=== PATIENT | female | born 1950 | race African-American/Black ===

== ENCOUNTER 2016-07-15 13:06 | Emergency (ER) | payer BC ==
[~2016-07-15] VITALS: Ht 157.5 cm; Wt 63.5 kg
[~2016-07-15 13:06] MED LIST: BACL10TA PO; GABA100C4 PO; GLUCTAB PO; LISI-366 PO; METO50TA PO; MOBI15TA PO; NORV5TAB PO; TERA2CAP3 PO
[2016-07-15 13:08] VITALS: BP 218/119; PULSE 93; RESP 17; TEMP 98.2; O2SAT 98
--- NOTE | 2016-07-15 13:54 | PD ---
HPI . left knee pain Chief Complaint: Musculoskeletal Complaint Time Seen by Provider: 13:53 Travel History International Travel<30 days: No Contact w/Intl Traveler<30days: No Traveled to known affect area: No History of Present Illness HPI 65-year-old female with history of hypertension, diabetes and hyperlipidemia here with complaints of left knee pain for 1 day. Patient denies any mechanism of injury, but reports 10/10 knee pain on the left lateral knee without radiation. She is very concerned that she may have a fracture. Although I examine her knee completely and explained to her that I do not believe she has a fracture, patient is very adamant about an x-ray. She is taking ibuprofen and Aleve without any relief. PFSH Past Medical History Arthritis: Yes (OSTEO IN RT HAND) Autoimmune Disease: No Blood Disorders: No Heart Rhythm Problems: No Cancer: No Cardiac Catheterization: No Cardiovascular Problems: No High Cholesterol: No Chemotherapy: No Congestive Heart Failure: No Diabetes: Yes Diminished Hearing: No Gout: Yes Genitourinary: No Headaches: Yes Hepatitis: No Hypertension: Yes Musculoskeletal: No Psychiatric: No Respiratory: No Migraines: Yes Myocardial Infarction: No Radiation Therapy: No PNEUMOCCOCAL Vaccine (Year): 2 Menopausal: Yes Tubal Ligation: Yes Past Surgical History Abdominal Surgery: Yes (UMBILICAL HERNIA REPAIR) AICD: No Coronary Artery Bypass Graft: No Genitourinary Surgery: No Pacemaker: No Other Surgery: Yes Social History Alcohol Use: No Tobacco Use: No Substance Use: No Allergies-Medications (Allergen,Severity, Reaction): Coded Allergies: No Known Allergies (Verified , 07/15/16) Reported Meds & Prescriptions Reported Meds & Active Scripts Active Mobic (Meloxicam) 15 Mg Tab 15 Mg PO DAILY PRN 10 Days Reported Gabapentin 100 Mg Cap 100 Mg PO TID Lioresal (Baclofen) 10 Mg Tab 10 Mg PO TID Terazosin Hcl (Terazosin HCl) 2 Mg Cap 2 Mg PO BID Lisinopril 40 mg (Lisinopril) 40 Mg Tab 40 Mg PO DAILY Metformin Hcl (Metformin HCl) 500 Mg Tab 1,000 Mg PO BID Norvasc (Amlodipine Besylate) 5 Mg Tab 5 Mg PO DAILY Lopressor (Metoprolol Tartrate) 50 Mg Tab 50 Mg PO BID Review of Systems General / Constitutional: No: Fever Eyes: No: Visual changes HENT: No: Headaches Cardiovascular: No: Chest Pain or Discomfort Respiratory: No: Shortness of Breath Gastrointestinal: No: Abdominal Pain Genitourinary: No: Dysuria Musculoskeletal: Positive: Pain (left knee pain) Skin: No Rash Neurologic: No: Weakness Psychiatric: No: Depression Endocrine: No: Polydipsia Hematologic/Lymphatic: No: Easy Bruising Physical Exam Narrative GENERAL: AAO x 3, no acute distress, Well-nourished, well-developed patient. SKIN: Warm and dry. No visible rashes or bruising. HEAD: Normocephalic and atraumatic. EYES: No scleral icterus. No injection or drainage. ENT: No nasal drainage noted. Mucous membranes pink. Airway patent. NECK: Supple, trachea midline. No JVD. CARDIOVASCULAR: Regular rate and rhythm without murmurs, gallops, or rubs. RESPIRATORY: Breath sounds equal bilaterally. No accessory muscle use. No rhonchi or rales. GASTROINTESTINAL: Abdomen soft, non-tender, nondistended. EXTREMITIES: No cyanosis or edema. Range of motion in the knee normal, but elicits pain. No palpable effusion. No temperature variation. No evidence of popliteal cyst. BACK: Nontender without obvious deformity. No CVA tenderness. PSYCH: AAO x 3, normal affect. Data Data Last Documented VS Vital Signs Date Time Temp Pulse Resp B/P Pulse Ox O2 Delivery O2 Flow Rate FiO2 07/15/16 13:08 98.2 93 17 218/119 98 Orders Ketorolac Inj (Toradol Inj) (07/15/16 14:00) Knee, Complete (4vws) (07/15/16 13:57) [facility] Medical Decision Making Medical Screen Exam Complete: Yes Emergency Medical Condition: Yes Medical Record Reviewed: Yes Differential Diagnosis acute knee pain, OA, RA, joint effusion, popliteal cyst, less likely DVT Narrative Course 65-year-old female with history of hypertension, diabetes and hyperlipidemia here with complaints of left knee pain for 1 day. Patient denies any mechanism of injury, but reports 10/10 knee pain on the left lateral knee without radiation. She is very concerned that she may have a fracture. Although I examine her knee completely and explained to her that I do not believe she has a fracture, patient is very adamant about an x-ray. She is taking ibuprofen and Aleve without any relief. Patient here with acute knee pain. She was seen examined and does not have a significant findings on examination except for the elicitation of pain on the left lateral knee with movement. I do not see any evidence of a popliteal cyst nor do I see any evidence of DVT. 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 X-ray done without any acute findings of fracture or dislocation. It does show degenerative changes. I discussed with the patient and advised [id number] Motrin or Tylenol arthritis as needed for pain. Her blood pressures elevated and she tells me that she did not take her medications this morning. I advised her to take her medications as prescribed. BP was rechecked prior to her leaving and was slightly improved. She had no symptoms. Recommend taking medications daily as prescribed I advised follow-up with primary care provider if she may be a candidate for joint injections with cortisone injections. Patient verbalized understanding of instructions, questions were answered, and thanked me for their care. I advised them if their condition worsens, please return to the nearest emergency room for further care. Diagnosis Primary Impression: Knee pain, left Qualified Code: M25.562 - Acute pain of left knee Patient Instructions: General Instructions, Knee Pain (ED) Additional Instructions: Please return to emergency department if your symptoms return or worsen. Follow up with your primary care provider. Use Tylenol or Motrin as needed for pain. Med/Other Pt SpecificInfo: No Meds Exist/No RX given Disposition: 01 DISCHARGE HOME Condition: Stable Sammie Leach Jul 15, 2016 13:54
[2016-07-15] MEDS ORDERED: KETOROLAC TROMETHAMINE 60 MG/2 ML (IM) VIAL IM ONE (14:00)
--- NOTE | 2016-07-15 14:51 | RADRPT ---
EXAM DATE/TIME: 07/15/2016 14:37 [facility] COMPARISON: No previous studies available for comparison. INDICATIONS : Patient complains of left knee pain on lateral aspect of knee. No known injury. MEDICAL HISTORY : None. SURGICAL HISTORY : None. ENCOUNTER: Subsequent ACUITY: 3 days PAIN SCORE: 6/10 LOCATION: Left knee FINDINGS: There are degenerative changes evident with osteophytes projected in the patellofemoral compartment. There is no evidence of joint effusion. Alignment is anatomic. A fracture is not appreciated. CONCLUSION: Degenerative change without fracture. Taran Hensley MD FACR on July 15, 2016 at 14:49 Board Certified Radiologist. This report was verified electronically.
== END 2016-07-15 15:16 | disposition home or self-care (01) ==
LOC: NETRI 13:06
DX: M25.562 Pain in left knee (principal); I10 Essential (primary) hypertension; E11.9 Type 2 diabetes mellitus without complications; E78.5 Hyperlipidemia, unspecified; Z79.84 Long term (current) use of oral hypoglycemic drugs; Z86.69 Personal history of other diseases of the nervous system and sense organs; Z87.39 Personal history of other diseases of the musculoskeletal system and connective tissue
CPT/HCPCS: 73564; 96372; 99283; J1885

== ENCOUNTER 2016-07-22 10:59 | Emergency (ER) | payer BC ==
[2016-07-22] VITALS (7 sets, daily range): BP systolic 190–257; BP diastolic 82–121; PULSE 60–84; RESP 16–20; TEMP 97.6; O2SAT 97–100
[~2016-07-22] VITALS: Ht 157.5 cm; Wt 63.5 kg
[2016-07-22] MEDS ORDERED: SODIUM CHLORIDE 0.9% FLUSH 10 ML FLUSH IVF PRN (11:30)
[2016-07-22] MEDS ORDERED: ONDANSETRON HCL 4 MG/2 ML VIAL IVP ONE (11:30)
--- NOTE | 2016-07-22 11:35 | PD ---
HPI Chief Complaint: GI Complaint Time Seen by Provider: 11:32 Travel History International Travel<30 days: No Contact w/Intl Traveler<30days: No Traveled to known affect area: No History of Present Illness HPI Patient comes in for evaluation of dizziness and vomiting intermittently that she awoke with 4 days ago. Patient states on Sunday she awoke around 4 AM felt dizzy and vomited. States she was fine on , but began the dizziness leading to vomiting again last night and this morning. Patient states she feels dizzy first and then vomits. Denies any chest pain, shortness of breath, loss or change in bowel or bladder, blood in vomit, headache, numbness or tingling anywhere, neck pain, or back pain. Patient reports soreness in her epigastric area that she associates with the vomiting. Patient states that she did take her medications this morning however she vomited them up shortly after taking them and has not been keeping medication down over the past 2 days.. PFSH Past Medical History Hx Anticoagulant Therapy: No Arthritis: Yes (OSTEO IN RT HAND) Autoimmune Disease: No Blood Disorders: No Heart Rhythm Problems: No Cancer: No Cardiac Catheterization: No Cardiovascular Problems: No High Cholesterol: No Chemotherapy: No Congestive Heart Failure: No Cerebrovascular Accident: No Diabetes: Yes Diminished Hearing: No Gout: Yes Genitourinary: No Headaches: Yes Hepatitis: No Hypertension: Yes Musculoskeletal: No Psychiatric: No Respiratory: No Migraines: Yes Myocardial Infarction: No Radiation Therapy: No PNEUMOCCOCAL Vaccine (Year): 2 ?: Unknown Menopausal: Yes Tubal Ligation: Yes Past Surgical History Abdominal Surgery: Yes (UMBILICAL HERNIA REPAIR) AICD: No Coronary Artery Bypass Graft: No Genitourinary Surgery: No Hysterectomy: No Pacemaker: No Other Surgery: Yes Social History Alcohol Use: No Tobacco Use: No Substance Use: No Allergies-Medications (Allergen,Severity, Reaction): Coded Allergies: No Known Allergies (Verified , 07/22/16) Reported Meds & Prescriptions Reported Meds & Active Scripts Active Zofran Odt (Ondansetron Odt) 4 Mg Tab 4 Mg SL Q8HR PRN Meclizine (Meclizine HCl) 25 Mg Tab 25 Mg PO TID PRN Reported Norvasc (Amlodipine Besylate) 5 Mg Tab 5 Mg PO DAILY Metoprolol Tartrate 50 Mg Tab 50 Mg PO BID Metformin (Metformin HCl) 1,000 Mg Tab 1,000 Mg PO BIDPC With meals Lisinopril 40 Mg Tab 40 Mg PO DAILY Review of Systems Except as stated in HPI: all other systems reviewed are Neg Physical Exam Narrative GENERAL: Well-developed, overly nourished, in no acute distress, and non-ill appearing. SKIN: Focused skin assessment warm and dry. HEAD: Atraumatic. Normocephalic. EYES: Pupils equal and round. EOMI. No scleral icterus. No injection or drainage. ENT: No nasal bleeding or discharge. Mucous membranes pink and moist. NECK: Trachea midline. No JVD. Supple. No nuclear rigidity. CARDIOVASCULAR: Regular rate and rhythm. No murmur appreciated. RESPIRATORY: No accessory muscle use. No respiratory distress. Clear to auscultation. Breath sounds equal bilaterally. GASTROINTESTINAL: Abdomen soft, non-tender, nondistended. Hepatic and splenic margins not palpable. Normal bowel sounds 4. No pulsatile mass. MUSCULOSKELETAL: No obvious deformities. No clubbing. No cyanosis. No edema. Full range of motion. NEUROLOGICAL: Awake and alert. No obvious cranial nerve deficits. Motor grossly within normal limits. Normal speech. PSYCHIATRIC: Appropriate mood and affect; insight and judgment normal. Data Data Last Documented VS Vital Signs Date Time Temp Pulse Resp B/P Pulse Ox O2 Delivery O2 Flow Rate FiO2 07/22/16 15:29 65 16 190/82 98 07/22/16 14:39 Room Air 07/22/16 11:01 97.6 Orders Electrocardiogram (07/22/16 11:26) Complete Blood Count With Diff (07/22/16 11:26) Comprehensive Metabolic Panel (07/22/16 11:26) Ckmb (Isoenzyme) Profile (07/22/16 11:26) Troponin I (07/22/16 11:26) Act Partial Throm Time (Ptt) (07/22/16 11:26) Urinalysis - C+S If Indicated (07/22/16 11:26) Chest, Single Ap (07/22/16 11:26) Ecg Monitoring (07/22/16 11:26) Iv Access Insert/Monitor (07/22/16 11:26) Oximetry (07/22/16 11:26) Ondansetron Inj (Zofran Inj) (07/22/16 11:30) Sodium Chloride 0.9% Flush (Ns Flush) (07/22/16 11:30) Lipase (07/22/16 11:26) Ct Brain W/O Iv Contrast(Rout) (07/22/16 11:30) Orthostatic Vital Signs (07/22/16 11:31) Enalaprilat Inj (Vasotec Inj) (07/22/16 12:00) Meclizine (Antivert) (07/22/16 12:15) Mri Brain W&W/O Contrast (07/22/16 ) Mra Brain W/O Contrast (Cow) (07/22/16 ) Prothrombin Time / Inr (Pt) (07/22/16 13:25) CKMB (07/22/16 11:56) CKMB% (07/22/16 11:56) Gadodiamide Pf Inj (Omniscan Pf Inj) (07/22/16 14:13) Potassium Chloride (Kcl) (07/22/16 15:00) Labs Laboratory Tests Test 07/22/16 11:56 White Blood Count 8.8 TH/MM3 Red Blood Count 4.42 MIL/MM3 Hemoglobin 13.3 GM/DL Hematocrit 37.4 % Mean Corpuscular Volume 84.7 FL Mean Corpuscular Hemoglobin 30.1 PG Mean Corpuscular Hemoglobin 35.5 % Concent Red Cell Distribution Width 12.7 % Platelet Count 229 TH/MM3 Mean Platelet Volume 8.7 FL Neutrophils (%) (Auto) 63.5 % Lymphocytes (%) (Auto) 29.3 % Monocytes (%) (Auto) 5.8 % Eosinophils (%) (Auto) 0.6 % Basophils (%) (Auto) 0.8 % Neutrophils # (Auto) 5.6 TH/MM3 Lymphocytes # (Auto) 2.6 TH/MM3 Monocytes # (Auto) 0.5 TH/MM3 Eosinophils # (Auto) 0.0 TH/MM3 Basophils # (Auto) 0.1 TH/MM3 CBC Comment DIFF FINAL Differential Comment Prothrombin Time 10.5 SEC Prothromb Time International 1.0 RATIO Ratio Activated Partial 19.1 SEC Thromboplast Time Urine Color LIGHT-YELLOW Urine Turbidity CLEAR Urine pH 7.0 Urine Specific [place] 1.013 Urine Protein 300 mg/dL Urine Glucose (UA) 1000 mg/dL Urine Ketones NEG mg/dL Urine Occult Blood TRACE Urine Nitrite NEG Urine Bilirubin NEG Urine Urobilinogen LESS THAN 2.0 MG/DL Urine Leukocyte Esterase NEG Urine RBC LESS THAN 1 /hpf Urine WBC 1 /hpf Urine Squamous Epithelial 1 /hpf Cells Urine Transitional Epithelial <1 /hpf Cells Microscopic Urinalysis Comment CULT NOT INDICATED Sodium Level 138 MEQ/L Potassium Level 3.2 MEQ/L Chloride Level 101 MEQ/L Carbon Dioxide Level 28.6 MEQ/L Anion Gap 8 MEQ/L Blood Urea Nitrogen 12 MG/DL Creatinine 0.99 MG/DL Estimat Glomerular Filtration 68 ML/MIN Rate Random Glucose 289 MG/DL Calcium Level 8.4 MG/DL Total Bilirubin 0.3 MG/DL Aspartate Amino Transf 20 U/L (AST/SGOT) Alanine Aminotransferase 22 U/L (ALT/SGPT) Alkaline Phosphatase 70 U/L Total Creatine Kinase 120 U/L Creatine Kinase MB 0.9 NG/ML Troponin I 0.02 NG/ML Total Protein 7.5 GM/DL Albumin 2.9 GM/DL Lipase 263 U/L [facility] Medical Decision Making Medical Screen Exam Complete: Yes Emergency Medical Condition: Yes Interpretation(s) EKG reviewed by Dr. Morris showed a normal sinus rhythm with ventricular rate of 61. No STEMI. Differential Diagnosis Benign positional vertigo, arrhythmia, electrolyte abnormality, hypertension urgency, symptomatic hypertension, UTI, other Narrative Course 1250 patient is reassessed discussed CT findings and need for MRI studies. Patient reports her symptoms have improved. The patient presented with symptoms of vertigo. The cerebellar neurologic exam is completely normal with a normal gait, normal finger to nose bilaterally, no dysdiadokinesia, and normal heel-pinedo exam bilaterally. Due to abnormal CT findings an MRI/MRA of the brain was obtained to rule out CVA. I discuss this with Dr. Saini, who is in agreement with plan of care and disposition. Patient in no obvious distress upon re-evaluation. All pertinent laboratory/ Radiology result(s) discussed with patient. Patient was asked if they wanted to speak to my attending, which the patient did not wish to do at this time. Any questions/concerns in reference to patient diagnosis/condition discussed and clarified prior to patient's discharge. Reinforced sheer importance of close follow up with patient's primary physician or primary care clinic, ENT, and/or neurologist. Instructed patient to return to ED immediately, if symptoms return/ worsen. Pt showed understanding of above instructions. Further instructions and recommendations were detailed in discharge paperwork. Pt ambulated without difficulty out of ED at discharge. Diagnosis Primary Impression: Vertigo Additional Impressions: Hypokalemia Hypertension Qualified Code: I10 - Essential hypertension Referrals: Estefanía Muonz MD, Anthony T. MD Patient Instructions: Chronic Hypertension (ED), General Instructions, Hypokalemia (ED), Vertigo (ED) Additional Instructions: Follow-up with your primary care physician, ENT, and/or neurologist to 3 days for reevaluation of your symptoms and recheck of your blood pressure. Take all medication as prescribed. Return to the emergency department if symptoms get worse. Med/Other Pt SpecificInfo: Prescription(s) given Scripts Ondansetron Odt (Zofran Odt)4 Mg Tab4 Mg SL Q8HR PRN (Nausea/Vomiting) #12 TAB Ref 0 Prov:Reyes Saini MD 07/22/16 Meclizine 25 Mg Tab25 Mg PO TID PRN (VERTIGO) #15 TAB Ref 0 Prov:Reyes Saini MD 07/22/16 Disposition: 01 DISCHARGE HOME Condition: Stable Juan Hammer Jul 22, 2016 11:34
[2016-07-22] MEDS ORDERED: ENALAPRILAT 1.25 MG/ML VIAL IV PUSH ONE (12:00)
[2016-07-22 12:12] LABS: AUTOMATED NEUTROPHIL # 5.6 TH/MM3 (1.8-7.7); BASOPHIL # 0.1 TH/MM3 (0-0.2); BASOPHIL % 0.8 % (0.0-2.0); EOSINOPHIL % 0.6 % (0.0-4.0); HEMATOCRIT 37.4 % (35.0-46.0); HEMO FLAGS DIFF FINAL; LYMPH % 29.3 % (9.0-44.0); LYMPHOCYTE # 2.6 TH/MM3 (1.0-4.8); MEAN CELL VOLUME 84.7 FL (80.0-100.0); MEAN CORPUSCULAR HEMOGLOBIN 30.1 PG (27.0-34.0); MEAN CORPUSCULAR HGB CONC 35.5 % (32.0-36.0); MONO % 5.8 % (0.0-8.0); NEUT % 63.5 % (16.0-70.0); PLATELET COUNT 229 TH/MM3 (150-450); RED BLOOD COUNT 4.42 MIL/MM3 (4.00-5.30); RED CELL DISTRIBUTION WIDTH 12.7 % (11.6-17.2); WHITE BLOOD COUNT 8.8 TH/MM3 (4.0-11.0)
[2016-07-22] MEDS ORDERED: MECLIZINE HCL 25 MG TAB PO ONE (12:15)
[2016-07-22] MEDS ORDERED: METO50TA PO (12:17)
[2016-07-22] MEDS ORDERED: METF1000 PO (12:17)
[2016-07-22] MEDS ORDERED: AMLO5 PO (12:17)
[2016-07-22] MEDS ORDERED: LISI40TA PO (12:17)
[2016-07-22 12:22] LABS: BLOOD, URINE TRACE (NEG); GLUCOSE,URINE 1000 mg/dL (NEG); KETONE, URINE NEG (NEG); NITRITE,URINE NEG (NEG); SQUAMOUS EPITHELIAL CELL URINE 1 /hpf (0-5); TRANSITIONAL EPI CELLS, URINE <1 /hpf; URINE COLOR LIGHT-YELLOW (YELLW/STRAW)
--- NOTE | 2016-07-22 12:23 | RADRPT ---
EXAM DATE/TIME: 07/22/2016 12:05 [facility] COMPARISON: No previous studies available for comparison. INDICATIONS : Dizziness. RADIATION DOSE: 40.67 CTDIvol (mGy) MEDICAL HISTORY : Hypertension. SURGICAL HISTORY : None. ENCOUNTER: Initial ACUITY: 1 day PAIN SCALE: 0/10 LOCATION: cranial TECHNIQUE: Multiple contiguous axial images were obtained of the head. Using automated exposure control and adj ustment of the mA and/or kV according to patient size, radiation dose was kept as low as reasonably a chievable to obtain optimal diagnostic quality images. FINDINGS: CEREBRUM: The ventricles are normal for age. No evidence of midline shift, mass lesion, hemorrhage or acute in farction. No extra-axial fluid collections are seen. There is low density identified within the rainer ventricular white matter bilaterally, greater than expected given the patient's age. POSTERIOR FOSSA: The cerebellum and brainstem are intact. The 4th ventricle is midline. The cerebellopontine angle i s unremarkable. EXTRACRANIAL: The visualized portion of the orbits is intact. SKULL: The calvaria is intact. No evidence of skull fracture. CONCLUSION: Bilateral symmetric low attenuation identified within the periventricular white matte r which is greater than expected for the patient's age. Although this likely represents sequelae of c hronic small vessel ischemic change consider further evaluation with MRI. Aneta Sanders MD on July 22, 2016 at 12:20 Board Certified Radiologist. This report was verified electronically.
[2016-07-22 12:24] LABS: COMMENT (UR) CULT NOT INDICATED; CULTURE IF INDICATED CULT NOT INDICATED
--- NOTE | 2016-07-22 12:42 | RADRPT ---
EXAM DATE/TIME: 07/22/2016 12:16 [facility] COMPARISON: CHEST SINGLE AP, September 20, 2012, 19:31. INDICATIONS : Vomiting for the past four days. MEDICAL HISTORY : Diabetes mellitus type II. Hypertension SURGICAL HISTORY : None. ENCOUNTER: Initial ACUITY: 4 - 6 days PAIN SCORE: 4/10 LOCATION: Bilateral chest FINDINGS: A single view of the chest demonstrates the lungs to be symmetrically aerated without evidence of mas s, infiltrate or effusion. Stable mild enlargement of the cardiac silhouette. Osseous structures are intact. CONCLUSION: No acute disease. Aneta Sanders MD on July 22, 2016 at 12:40 Board Certified Radiologist. This report was verified electronically.
[2016-07-22 13:24] LABS: APTT (PATIENT) 19.1 SEC (24.3-30.1)
[2016-07-22 13:28] LABS: ALT (GPT) 22 U/L (10-53); ANION GAP 8 MEQ/L (5-15); AST (GOT) 20 U/L (15-37); BICARBONATE 28.6 MEQ/L (21.0-32.0); BLOOD UREA NITROGEN 12 MG/DL (7-18); CHLORIDE 101 MEQ/L (98-107); GLOMERULAR FILTRATION RATE 68 ML/MIN (>89); POTASSIUM 3.2 MEQ/L (3.5-5.1); SODIUM (NA) 138 MEQ/L (136-145)
[2016-07-22 13:33] LABS: ALKALINE PHOSPHATASE 70 U/L (45-117); CREATINE KINASE 120 U/L (26-192); TOTAL BILIRUBIN ADULT 0.3 MG/DL (0.2-1.0)
[2016-07-22 13:45] LABS: CKMB 0.9 NG/ML (0.5-3.6)
[2016-07-22 13:48] LABS: PROTHROMBIN TIME - PATIENT 10.5 SEC (9.8-11.6)
[2016-07-22] MEDS ORDERED: GADODIAMIDE PF 287 MG/ML 5 ML VIAL (for RAD MRI) IV ONE (14:13)
--- NOTE | 2016-07-22 14:44 | RADRPT ---
EXAM DATE/TIME: 07/22/2016 13:53 [facility] COMPARISON: No previous studies available for comparison. INDICATIONS : Dizziness. MEDICAL HISTORY : Diabetes mellitus type 2. Hypertension. SURGICAL HISTORY : Inguinal hernia repair. Tubal ligation. ENCOUNTER: Initial ACUITY: 1 day PAIN SCORE: 0/10 LOCATION: cranial Please note a normal MRA of the brain does not entirely exclude the possibility of a small aneurysm, nor the possibility of distal intracranial vessel disease. TECHNIQUE: 3D time of flight MRA was performed. Source images, multiplanar STS MIP, and 3D volume MIP reconstru ctions were reviewed. FINDINGS: There is excellent visualization of the major intracranial arteries out to the second-order branch ve ssels. There is no evidence for aneurysm, vessel truncation or stenosis, and no evidence for vascula r malformation. The right vertebral artery is extremely small in caliber. A left posterior communicat ing artery is not visualized. CONCLUSION: No evidence of stenosis or aneurysm. The right vertebral artery is small in caliber but patent. A lef t posterior communicating artery is not visualized. The remainder of the vie[place] of [place] is normal.. Aneta Sanders MD on July 22, 2016 at 14:41 Board Certified Radiologist. This report was verified electronically.
--- NOTE | 2016-07-22 14:57 | RADRPT ---
EXAM DATE/TIME: 07/22/2016 13:53 [facility] COMPARISON: No previous studies available for comparison. INDICATIONS : Dizziness. CONTRAST: 13 cc Omniscan (gadodiamide) IV MEDICAL HISTORY : Hypertension. Diabetes mellitus type 2. SURGICAL HISTORY : Tubal ligation. Inguinal hernia repair. ENCOUNTER: Initial ACUITY: 1 day PAIN SCORE: 0/10 LOCATION: cranial TECHNIQUE: Multiplanar, multisequence MRI of the brain was performed both prior to and following the administrat ion of paramagnetic contrast. FINDINGS: CEREBRUM: The ventricles are normal for age. No evidence of midline shift, mass lesion, hemorrhage or acute in farction. No extraaxial fluid collections are seen. The pituitary gland and suprasellar cistern are normal in configuration. WHITE MATTER: Bilateral periventricular fluid areas of white matter increased T2 signal which demonstrate no eviden ce of restricted diffusion or abnormal enhancement. Likely representing sequelae of chronic small ves jameel ischemic change. POSTERIOR FOSSA: The cerebellum and brainstem are intact. The 4th ventricle is midline. The cerebellopontine angle is unremarkable. The cerebellar tonsils are normal in position. DIFFUSION IMAGING: No focal areas of restricted diffusion are seen. No evidence of acute infarction. EXTRACRANIAL: The visualized portions of the orbits and paranasal sinuses are unremarkable. POST-CONTRAST: No abnormal areas of parenchymal or dural enhancement. No evidence of blood-brain barrier breakdown. CONCLUSION: No acute disease. Aneta Sanders MD on July 22, 2016 at 14:53 Board Certified Radiologist. This report was verified electronically.
[2016-07-22] MEDS ORDERED: POTASSIUM CHLORIDE 20 MEQ CONTROLLED RELEASE TAB PO ONE (15:00)
[2016-07-22] MEDS ORDERED: MECL-62 PO (15:13)
[2016-07-22] MEDS ORDERED: ZOFR4TAB3 SL (15:17)
--- NOTE | 2016-07-23 10:36 | EKG ---
Date Performed: 07/22/2016 Time Performed: 11:55:00 PTAGE: 65 years EKG: Sinus rhythm POSSIBLE LEFT ATRIAL ENLARGEMENT BORDERLINE LEFT AXIS DEVIATION POSSIBLE LEFT VENTRICULAR HYPERTROPH Y MODERATE T-WAVE ABNORMALITY, CONSIDER LATERAL ISCHEMIA ABNORMAL ECG Compared to prior tracing no si gnificant change PREVIOUS TRACING : 09/21/2012 05.22 DOCTOR: Marge Mata Interpretating Date/Time 07/23/2016 10:29:35
== END 2016-07-22 15:30 | disposition home or self-care (01) ==
LOC: NEPE 10:59
DX: R42 Dizziness and giddiness (principal); I10 Essential (primary) hypertension; E87.6 Hypokalemia; R94.31 Abnormal electrocardiogram [ECG] [EKG]; R11.10 Vomiting, unspecified; E11.9 Type 2 diabetes mellitus without complications; M10.9 Gout, unspecified
CPT/HCPCS: 70450; 70544; 70553; 71010; 80053; 81001; 82550; 82552; 83690; 84484; 85025; 85610; 85730; 93005; 96374; 96375; 99284; A9579; J2405

== ENCOUNTER 2017-01-29 14:37 | Emergency (ER) | payer OTHER, MEDICAID ==
[~2017-01-29] VITALS: Ht 157.5 cm; Wt 68.0 kg
[~2017-01-29 14:37] MED LIST changes: +AMLO5 PO; -BACL10TA PO; -GABA100C4 PO; -GLUCTAB PO; -LISI-366 PO; +LISI40TA PO; +MECL-62 PO; +METF1000 PO; -MOBI15TA PO; -NORV5TAB PO; -TERA2CAP3 PO; +ZOFR4TAB3 SL
[2017-01-29 14:39] VITALS: BP 181/95; PULSE 72; RESP 16; TEMP 98.2; O2SAT 98
[2017-01-29] MEDS ORDERED: ONDANSETRON ODT 4 MG TAB PO ONE (18:45)
[2017-01-29] MEDS ORDERED: MECLIZINE HCL 25 MG TAB PO ONE (18:45)
--- NOTE | 2017-01-29 19:08 | PD ---
HPI Chief Complaint: Dizziness Time Seen by Provider: 18:20 Travel History International Travel<30 days: No Contact w/Intl Traveler<30days: No Traveled to known affect area: No History of Present Illness HPI 66-year-old female with history of vertigo presents to the emergency room for evaluation of the same. Patient states about 4 days ago she developed dizziness , like the world was spinning around her. She denies any lightheadedness, chest pain, shortness breath, numbness or tingling, or any other symptoms. States her symptoms feel the same as last time. They occur randomly and not different intensities. She has associated nausea and occasional vomiting. Patient states she took leftover meclizine from the last time she experienced this and it relieved her symptoms temporarily. PFSH Past Medical History Hx Anticoagulant Therapy: No Arthritis: Yes (OSTEO IN RT HAND) Autoimmune Disease: No Blood Disorders: No Heart Rhythm Problems: No Cancer: No Cardiac Catheterization: No Cardiovascular Problems: No High Cholesterol: No Chemotherapy: No Congestive Heart Failure: No Cerebrovascular Accident: No Diabetes: Yes Patient Takes Glucophage: Yes Diminished Hearing: No Gout: Yes Genitourinary: No Headaches: Yes Hepatitis: No Hypertension: Yes Musculoskeletal: No Psychiatric: No Respiratory: No Migraines: Yes Myocardial Infarction: No Radiation Therapy: No PNEUMOCCOCAL Vaccine (Year): 2 ?: Not Menopausal: Yes Tubal Ligation: Yes Past Surgical History Abdominal Surgery: Yes (UMBILICAL HERNIA REPAIR) AICD: No Coronary Artery Bypass Graft: No Genitourinary Surgery: No Hysterectomy: No Pacemaker: No Other Surgery: Yes Social History Alcohol Use: Yes (occ) Tobacco Use: No Substance Use: No Allergies-Medications (Allergen,Severity, Reaction): Coded Allergies: No Known Allergies (Verified , 07/22/16) Reported Meds & Prescriptions Reported Meds & Active Scripts Active Reported Norvasc (Amlodipine Besylate) 5 Mg Tab 5 Mg PO DAILY Metoprolol Tartrate 50 Mg Tab 50 Mg PO BID Metformin (Metformin HCl) 1,000 Mg Tab 1,000 Mg PO BIDPC With meals Review of Systems Except as stated in HPI: all other systems reviewed are Neg Physical Exam Narrative GENERAL: Well-nourished, well-developed female in no acute distress. Afebrile. Ambulatory. Resting comfortably in bed. SKIN: Focused skin assessment warm/dry. HEAD: Normocephalic. EYES: No scleral icterus. No injection or drainage. NECK: Supple, trachea midline. No JVD or lymphadenopathy. CARDIOVASCULAR: Regular rate and rhythm without murmurs, gallops, or rubs. RESPIRATORY: Breath sounds equal bilaterally. No accessory muscle use. NEUROLOGICAL: Awake and alert. Cranial nerves II through XII intact. Motor and sensory grossly within normal limits. Five out of 5 muscle strength in all muscle groups. Normal speech. No pronator drift in upper or lower extremities. Data Data Last Documented VS Vital Signs Date Time Temp Pulse Resp B/P (MAP) Pulse Ox O2 Delivery O2 Flow Rate FiO2 01/29/17 14:39 98.2 72 16 181/95 (123) 98 Room Air Orders Orders Meclizine (Antivert) (01/29/17 18:45) Ondansetron Odt (Zofran Odt) (01/29/17 18:45) [facility] Medical Decision Making Medical Screen Exam Complete: Yes Emergency Medical Condition: Yes Medical Record Reviewed: Yes Differential Diagnosis Vertigo, brain mass, ear infection Narrative Course 66-year-old female presents to the emergency room for evaluation of dizziness. Described as room spinning around her not lightheadedness. She denies any other symptoms. She was diagnosed with vertigo 6 months ago after having negative CT, MRI, and MRA. She has not followed up with her primary care physician. Patient is well-appearing in the emergency room. No focal neurological deficits. Resting comfortably in bed and talking on the phone. This is typical vertigo. No indication for reimaging at this time. She requested a work note for tomorrow. Patient was given meclizine and Zofran the emergency room and will be discharged with perceptions for the same. She was also given a handout of modified Karla maneuver. Told to follow up with her primary care physician or return for worsening symptoms. She understands and agrees to plan. Diagnosis Primary Impression: Vertigo Referrals: Primary Care Physician Additional Instructions: Rest and drink plenty of fluids. Meclizine as directed, as needed for dizziness. Follow-up with a primary care physician. Return to the emergency room for worsening symptoms. Disposition: 01 DISCHARGE HOME Condition: Stable Tegan Givens Jan 29, 2017 19:08
[2017-01-29] MEDS ORDERED: MECL-62 PO (19:09)
== END 2017-01-29 19:46 | disposition home or self-care (01) ==
LOC: NEPD 14:37
DX: R42 Dizziness and giddiness (principal); R11.2 Nausea with vomiting, unspecified; E11.9 Type 2 diabetes mellitus without complications; I10 Essential (primary) hypertension
CPT/HCPCS: 99283

== ENCOUNTER 2017-05-17 08:32 | Inpatient (IN) | payer OTHER, MEDICAID, MEDICARE ==
[~2017-05-17] VITALS: Ht 157.5 cm; Wt 65.0 kg
[~2017-05-17 08:32] MED LIST changes: -LISI40TA PO; -ZOFR4TAB3 SL
[2017-05-17] MEDS ORDERED: IOHEXOL 350 MG/ML 50 ML BTL (for Cath Lab) OTHER ONE (08:33)
[2017-05-17 08:35] VITALS: BP 194/103; PULSE 110; RESP 14; TEMP 97.3; O2SAT 98
[2017-05-17] MEDS ORDERED: NITROGLYCERIN 0.4 MG SL 25 TABS/BTL SL ONE (09:00)
[2017-05-17] MEDS ORDERED: ASPIRIN 81 MG CHEW TAB PO ONE (09:00)
[2017-05-17] MEDS ORDERED: SODIUM CHLORIDE 0.9% FLUSH 10 ML FLUSH IVF PRN (09:00)
[2017-05-17 09:05] VITALS: BP 161/102; PULSE 101; RESP 15; TEMP 99; O2SAT 97; O2SAT 98
[2017-05-17] MEDS ORDERED: NITROGLYCERIN-D5W 50 MG/250 ML 250 ML IV PRN (09:15)
[2017-05-17] MEDS ORDERED: NITROGLYCERIN-D5W 50 MG/250 ML 250 ML ONE (09:17)
[2017-05-17 09:27] LABS: AUTOMATED NEUTROPHIL # 9.6 TH/MM3 (1.8-7.7); BASOPHIL # 0.1 TH/MM3 (0-0.2); BASOPHIL % 0.7 % (0.0-2.0); EOSINOPHIL # 0.1 TH/MM3 (0-0.4); EOSINOPHIL % 0.6 % (0.0-4.0); HEMATOCRIT 32.3 % (35.0-46.0); HEMOGLOBIN 11.2 GM/DL (11.6-15.3); LYMPH % 21.6 % (9.0-44.0); MEAN CELL VOLUME 86.8 FL (80.0-100.0); MEAN CORPUSCULAR HGB CONC 34.5 % (32.0-36.0); MEAN PLATELET VOLUME 9.2 FL (7.0-11.0); MONO % 8.7 % (0.0-8.0); MONOCYTE # 1.2 TH/MM3 (0-0.9); NEUT % 68.4 % (16.0-70.0); PLATELET COUNT 308 TH/MM3 (150-450); RED BLOOD COUNT 3.72 MIL/MM3 (4.00-5.30); RED CELL DISTRIBUTION WIDTH 12.7 % (11.6-17.2)
[2017-05-17 09:35] LABS: PROTHROMBIN TIME - PATIENT 10.1 SEC (9.8-11.6)
[2017-05-17] MEDS ORDERED: HEPARIN-NS/PF INJ 1,000 ML ONE (09:37)
[2017-05-17] MEDS ORDERED: HEPARIN SODIUM - IV 10,000 UNITS/10 ML VIAL ONE (09:38)
[2017-05-17] MEDS ORDERED: NITROGLYCERIN INJ 5 ML ONE (09:38)
[2017-05-17] MEDS: NITROGLYCERIN/DEXTROSE 5% 250 ML for chest pain IV PRN ×2 (09:40→16:32)
[2017-05-17 09:42] LABS: ALBUMIN 3.4 GM/DL (3.4-5.0); ALT (GPT) 26 U/L (10-53); AST (GOT) 105 U/L (15-37); BICARBONATE 20.3 MEQ/L (21.0-32.0); BLOOD UREA NITROGEN 16 MG/DL (7-18); CALCIUM 9.6 MG/DL (8.5-10.1); CHLORIDE 97 MEQ/L (98-107); CREATININE 1.35 MG/DL (0.50-1.00); GLOMERULAR FILTRATION RATE 48 ML/MIN (>89); GLUCOSE,RANDOM 344 MG/DL (74-106); MAGNESIUM 1.7 MG/DL (1.5-2.5); SODIUM (NA) 128 MEQ/L (136-145)
--- NOTE | 2017-05-17 09:46 | RADRPT ---
EXAM DATE/TIME: 05/17/2017 09:14 [place] COMPARISON: CHEST SINGLE AP, July 22, 2016, 12:16. INDICATIONS : Chest pain. MEDICAL HISTORY : Hypertension. Diabetes mellitus type II. SURGICAL HISTORY : Tubal ligation. inguinal hernia repair ENCOUNTER: Initial ACUITY: 1 day PAIN SCORE: 8/10 LOCATION: Bilateral chest FINDINGS: A single view of the chest demonstrates the lungs to be symmetrically aerated without evidence of mas s, infiltrate or effusion. The cardiomediastinal contours are unremarkable. Osseous structures are intact. CONCLUSION: Normal examination. Bhavesh Truong Jr., MD on May 17, 2017 at 9:38 Board Certified Radiologist. This report was verified electronically.
[2017-05-17] MEDS ORDERED: MIDAZOLAM HCL 2 MG/2 ML VIAL ONE (09:48)
[2017-05-17 09:49] LABS: ALKALINE PHOSPHATASE 78 U/L (45-117); TOTAL BILIRUBIN ADULT 0.5 MG/DL (0.2-1.0); TOTAL PROTEIN 8.7 GM/DL (6.4-8.2)
[2017-05-17] MEDS ORDERED: HEPARIN-D5W 25,000 U/250 ML 0 ML ONE (10:06)
[2017-05-17] MEDS ORDERED: SODIUM CHLOR 0.9% 1000 ML INJ 1,000 ML IV SCH (10:21)
--- NOTE | 2017-05-17 10:26 | CATHPROC ---
[email or web address] HIS Report Study Information Study Number Admission Scheduled Start Study Start [id number] May 17 2017 8:32AM 05/17/2017 May 17 2017 9:29AM [place] [facility] Cardiac Catheterization Admit Source Facility Department Emergency department [facility] - Counselor/Art Therapist Physician and Clinical Staff Initial Maxi Lowe Examining Chair Assembler Gudelia Kramer,DOMITILA Recorder Alicia Young ,RT(R) Scrub Farideh Harris,RT(R) Procedures Performed Procedure Location (Site) Vessel Name Coronary Angiograms LCA Left Coronary Coronary Angiograms RCA Right Coronary L Heart Cath Equipment Time Tapper Supervisor Description Size Mfg Part Number Used/Scraped TRANSDUCER, TRUWAVE [id number] 09:45 CANTU RAMIREZ * Used W/STOCKCOCK *[id number] INTRODUCER SET, 09:45 [employer]. FR 5 [id number] *[id number] Used MICROPUNCTURE, STIFFENED [id number] *[id number] 09:45 [employer] PACK, CCL CUSTOM * Used *[id number] 09:45 MEDTRONIC JR 4.0 DXTERITY CATHETER FR 5 Used *[id number] 09:43 [employer] MEDICAL SHEATH, FR6.5 PRELUDE 11CM FR 6.5 038ACT Used *[id number] 09:45 [employer] MEDICAL WIRE, 3MMJ .035 180CM 180CM Used *[id number] 09:45 NAMIC MANIFOLD, 4 PORT * Used *[id number] 09:45 [employer] OMNIPAQUE, 350 MG, 150ML 150ML [id number] Used [id number] 09:45 [employer] BLANKET,WARM AIR CCL * Used *[id number] 09:45 TERUMO MEDICAL SHEATH, FR5 TERUMO (10CM) FR 5 Used *[id number] 09:44 [employer] MEDICAL SHEATH, FR6 TERUMO (10CM) FR 6 Used *[id number] Equipment Model, Serial, Lot Number and Expiration Data Description Model Number Serial Number Lot Number Expiration Jared e JR 4.0 DXTERITY CATHETER [id number] 01-19-2020 Labs Hgb (g/dl) Hct (%) RBC (MIL/MM3) WBC (l/cumm) Platelets (thousands) 11.60-17.00 35.00-51.00 4.00-5.90 4.00-11.00 150.00-450.00 11.2 32.3 3.7 14 308 Glucose (mg/dl) BUN (mg/dl) Creatinine (mg/dl) BUN:Creatinine (1:x) 74.00-106.00 7.00-18.00 0.50-1.30 10.00-20.00 344 16 1.4 11.4 Na (meq/l) K (meq/l) Cl (meq/l) CO2 (mmol/L) Ca (mg/dl) 136.00-145.00 3.50-5.10 98.00-107.00 21.00-32.00 8.50-10.10 128 4.8 97 20.3 9.6 PT (sec) PTT (sec) INR (PTT:PT) 9.80-11.60 24.30-30.10 0.90-1.10 10 22 1 Troponin I (ng/ml) 0.02-0.05 10.1 Medication Medication Total Dose (Bolus/Oral) Medication Total Dosage/Unit 1% XYLOCAINE 20 mL FENTANYL 25 mcg VERSED 0.5 mg Medications (Bolus/Oral) Medication Time Given Dosage/Unit Administered By Reason 1% XYLOCAINE 05/17/2017 9:45:25 AM 20 mL Maxi Biggs 20 mL 1% XYLOCAINE given in lab by Maxi Biggs in Right Groin via Subcutaneous. VERSED 05/17/2017 9:50:02 AM 0.5 mg Gudelia Kramer 0.5 mg VERSED given in lab by Gudelia Kramer RN in Left Antecubital via Peripheral IV. Ordered by Maxi Villavicencio FENTANYL 05/17/2017 9:51:00 AM 25 mcg Gudelia Kramer 25 mcg FENTANYL given in lab by Gudelia Karmer, DOMITILA in Left Antecubital via Peripheral IV. Ordered by Maxi Biggs Medication (Drip) Medication Time Given Dosage/Unit Concentration/Unit Diluent (ml) Solution IV Solutions 05/17/2017 9:29:59 AM 50 mL (IV) NaCl .9 IV Solutions given in lab by Gudelia Kramer, DOMITILA via Peripheral IV. Pump/Drip Flow using NaCl .9. NITROGLYCERIN DRIP 05/17/2017 9:48:00 AM 10 mcg/min 50 mg 250 D5W 10 mcg/min NITROGLYCERIN DRIP given in lab by Gudelia Kramer, RN in Left Antecubital via Peripheral IV. Pump/Drip Flow = 3 ml/hr using D5W with a concentration of 50 mg in 250 ml. Ordered by Maxi Biggs Initial Case Assessment Circulatory - Right Pulses Dorsalis Pedis Femoral 2 1 Scale (0,1,2,3,4,d) Circulatory - Left Pulses Dorsalis Pedis Femoral 2 Scale (0,1,2,3,4,d) Neurological State Oriented to time-place- Lethargic Moves all extremities person Respiration - General Respiration Rate SpO2 (%) O2 (lpm) (B/min) 8 97 2 Final Case Assessment Cardiovascular HR Rhythm NIBP 71 sr 137/82 Edema Present Skin color Skin None Normal Warm Dry Circulatory - Right Pulses Dorsalis Pedis Femoral 2 1 Scale (0,1,2,3,4,d) Circulatory - Left Pulses Dorsalis Pedis Femoral 2 1 Scale (0,1,2,3,4,d) Circulatory - Lower Extremities Color Lower Right Color Lower Left Normal Normal Neurological State Oriented to time-place- Lethargic Moves all extremities person Respiration - General Respiration Rate SpO2 (%) O2 (lpm) (B/min) 16 99 2 Chronological Log Time Study Chronological Log 9:29:30 Patient arrived via ER with Dr. Biggs 9:29:30 Patient Name, D.O.B, / Armband Verified By R.N. 9:29:34 Consent signed by the physician and the patient and verified by the Counselor/Art Therapist staff. 9:29:35 Verbal Stimulation=2 Physical Stimulation=2 Airway=2 Respiration=2 TOTAL=8. (0=absent, 1=gonzalez ited, 2=present) 9:29:54 Skin Breakdown- none per patient 9:29:58 Negrito Prominences Protected 9:29:59 A # 20 IV was noted in the Antecubital (right). Grade = 0 9:29:59 A # 20 IV was noted in the Antecubital (left). Grade = 0 9:29:59 IV Solutions given in lab by Gudelia Kramer, RN via Peripheral IV. Pump/Drip Flow using NaC l .9. Assessment: Initial Case Right Pulses: Hiram Ped=2, Femoral=1 9:30:05 Left Pulses: Hiram Ped=2 Neurological: State=Lethargic, Ox3, LESLIE Respiration: Resp=8 B/min, SpO2=97 %, O2=2 lpm Vitals capture started with the following parameters, Patient=Adult, Interval=5 min, Initial Pre apbwu=511 mmHg, 9:30:15 Deflation Rate=5 mmHg, Cuff placed on Left Arm Vitals capture started with the following parameters, Patient=Adult, Interval=5 min, Initial Pre etztw=146 mmHg, 9:31:44 Deflation Rate=5 mmHg, Cuff placed on Left Arm 9:32:20 HR=75 bpm, BRKK=420/80 mmhg, SpO2=96.0 %, Resp=12 B/min, Pain=8, Tamiko=10, Bellamy=2 9:32:21 Reference ECG taken 9:34:56 Patient has been NPO for Less than 6Hrs. 9:35:14 History and physical on the chart or being dictated. 9:35:20 Bilateral groins prepped with 2% chlorhexidine, and draped after a 3 minute waiting time. 9:35:25 MD arrived. 9:37:15 HR=74 bpm, NXMO=215/80 mmhg, SpO2=98.0 %, Resp=11 B/min, Pain=8, Tamiko=2, Bellamy=2 9:42:14 HR=78 bpm, MTHF=132/84 mmhg, SpO2=99.0 %, Resp=16 B/min, Tamiko=10 9:45:23 Case Start 9:45:25 20 mL 1% XYLOCAINE given in lab by Maxi Biggs in Right Groin via Subcutaneous. 9:47:15 HR=79 bpm, GCCX=936/82 mmhg, SpO2=99.0 %, Resp=10 B/min, Tamiko=9 9:47:27 Access site was Right Femoral Artery. micropunture wire inserted with dilator 10 mcg/min NITROGLYCERIN DRIP given in lab by Gudelia Kramer, RN in Left Antecubital via Periph eral IV. Pump/Drip 9:48:00 Flow = 3 ml/hr using D5W with a concentration of 50 mg in 250 ml. Ordered by Maxi Biggs . 9:48:10 A SHEATH, FR6 TERUMO (10CM) FR 6 was advanced into the Fem Art (right) using the Mili ellie hnique. 9:48:41 An injection in the Fem Art (right) was made through the SHEATH, FR6 TERUMO (10CM) FR 6. A JR 4.0 DXTERITY CATHETER FR 5 was advanced over a wire. OMNIPAQUE, 350 MG, 150ML 150ML was use d for 9:49:34 injections. 0.5 mg VERSED given in lab by Gudelia Kramer, RN in Left Antecubital via Peripheral IV. Ordered by Maxi Biggs 9:50:02 G. Recorded Pressure: LV, HR=75, Condition=Condition 1 9:50:34 (Left Ventricle) LV 120/3/13 Recorded Pressure: LV, Ao, HR=94, Condition=Condition 1 9:50:44 (Left Ventricle) LV 117/5/13, (Aorta) Ao 110/72/90 25 mcg FENTANYL given in lab by Gudelia Kramer, RN in Left Antecubital via Peripheral IV. Order ed by Kalyan 9:51:00 Maxi Borja 9:51:10 The RCA was injected and visualized at various angles. OMNIPAQUE, 350 MG, 150ML 150ML used . 9:52:01 After removing the current catheter a catheter was advanced over a WIRE, 3MMJ .035 180CM 18 0CM. 9:52:14 HR=81 bpm, ARXR=059/77 mmhg, SpO2=98.0 %, Resp=14 B/min, Tamiko=10 After removing the current catheter a JL 4.0 INFINITI CATHETER FR 6 was advanced over a WIRE, 3 MMJ .035 180CM 9:52:27 180CM. 9:53:10 The LCA was injected and visualized at various angles. OMNIPAQUE, 350 MG, 150ML 150ML used . Recorded Pressure: Ao, HR=80, Condition=Condition 1 9:53:33 (Aorta) Ao 108/76/89 9:55:05 lab called to report trponin 10.1 (Neda turner) 9:57:13 HR=75 bpm, FSGE=899/81 mmhg, SpO2=99.0 %, Resp=14 B/min, Tamiko=9 9:58:53 Dr. Biggs is reviewing the films. 10:02:16 HR=75 bpm, YREV=435/80 mmhg, SpO2=98.0 %, Resp=13 B/min, Tamiko=9 10:07:15 HR=73 bpm, PXPW=991/82 mmhg, SpO2=99.0 %, Resp=18 B/min, Tamiko=10 10:07:37 Wire removed and catheter removed 10:09:09 Case End Assessment: Final Case, HR=71 BPM, Rhythm=sr, LUKL=470/82 mmhg, Edema=None, Color=Normal, Skin = Warm, Dry Right Pulses: Hiram Ped=2, Femoral=1 Left Pulses: Hiram Ped=2, Femoral=1 10:10:21 Lower Right Extremities: Color=Normal Lower Left Extremities: Color=Normal Neurological: State=Lethargic, Ox3, LESLIE Respiration: Resp=16 B/min, SpO2=99 %, O2=2 lpm 10:11:14 Sheath(s) left in place, will be removed in Holding Area 10:11:18 Sterile dressing applied to site 10:11:20 No case complications noted. 10:11:26 Bedside Report will be given. 10:11:29 Contrast Scanned 10:11:33 A Left Heart Cath was performed. 10:11:56 Cine recording checked. 10:12:22 HR=71 bpm, GOCV=864/78 mmhg, VhN6=665.0 %, Resp=15 B/min 10:13:14 patient being transported to [facility] 10:19:00 [facility] [place] [facility] Study - Contrast Media Used In Study Contrast Total Opened (mL) Total Used (mL) Total Wasted (mL) Omnipaque 30 30 0 End Study - Maximum Contrast Load Max Contrast Load (mL) 242.9 End Study - Radiation Exposure Fluoro Time (minutes) 1.2 End Study - Patient Disposition Complications Transferred To No Regular Bed
[2017-05-17] MEDS ORDERED: ATROPINE SULFATE 1 MG/ML VIAL IV PUSH PRN (10:30)
[2017-05-17] MEDS ORDERED: SODIUM CHLOR 0.9% 250 ML INJ 250 ML IV PRN (10:30)
[2017-05-17] MEDS ORDERED: ONDANSETRON HCL 4 MG/2 ML VIAL IV PUSH PRN (10:30)
--- NOTE | 2017-05-17 11:00 | PD ---
HPI Chief Complaint: Cardiac Complaint Time Seen by Provider: 08:55 Travel History International Travel<30 days: No Contact w/Intl Traveler<30days: No Traveled to known affect area: No History of Present Illness HPI 66-year-old female presents with chest pressure that is been going on for the past day or so. She states she's also had associated nausea. She denies any other concurrent complaints. She took a baby aspirin today. She states her last heart workup with a stress test that was here she thinks about 5 years ago and was normal. She states that she does not follow with a barrel rifler hook. Severity is 8 out of 10. Quality is pressure. She denies specific modifying factors. PFSH Past Medical History Hx Anticoagulant Therapy: No Arthritis: Yes (OSTEO IN RT HAND) Autoimmune Disease: No Blood Disorders: No Heart Rhythm Problems: No Cancer: No Cardiac Catheterization: No Cardiovascular Problems: Yes (HTN) High Cholesterol: No Chemotherapy: No Congestive Heart Failure: No Cerebrovascular Accident: No Diabetes: Yes Diminished Hearing: No Gout: Yes Genitourinary: No Headaches: Yes Hepatitis: No Hypertension: Yes Musculoskeletal: No Psychiatric: No Respiratory: No Migraines: Yes Myocardial Infarction: No Radiation Therapy: No PNEUMOCCOCAL Vaccine (Year): 2 ?: Not Menopausal: Yes Tubal Ligation: Yes Past Surgical History Abdominal Surgery: Yes (UMBILICAL HERNIA REPAIR) AICD: No Coronary Artery Bypass Graft: No Genitourinary Surgery: No Hysterectomy: No Pacemaker: No Other Surgery: Yes Social History Alcohol Use: Yes (occ) Tobacco Use: No Substance Use: No Allergies-Medications (Allergen,Severity, Reaction): Coded Allergies: No Known Allergies (Verified Allergy, Unknown, 05/17/17) Reported Meds & Prescriptions Reported Meds & Active Scripts Active Meclizine (Meclizine HCl) 25 Mg Tab 25 Mg PO DIRECTED PRN Reported Norvasc (Amlodipine Besylate) 5 Mg Tab 5 Mg PO DAILY Metoprolol Tartrate 50 Mg Tab 50 Mg PO BID Metformin (Metformin HCl) 1,000 Mg Tab 1,000 Mg PO BIDPC With meals Review of Systems Except as stated in HPI: all other systems reviewed are Neg Physical Exam Narrative GENERAL: Well-nourished, well-developed patient. SKIN: Warm and dry. HEAD: Normocephalic and atraumatic. EYES: No injection or drainage. ENT: No nasal drainage noted. NECK: Supple, trachea midline. CARDIOVASCULAR: Regular rate and rhythm RESPIRATORY: Breath sounds equal bilaterally at apices. No accessory muscle use. GASTROINTESTINAL: Abdomen soft, non-tender, nondistended. EXTREMITIES: No edema. NEUROLOGICAL: Awake and alert. Motor and sensory grossly within normal limits. Normal speech. Data Data Last Documented VS Vital Signs Date Time Temp Pulse Resp B/P (MAP) Pulse Ox O2 Delivery O2 Flow Rate FiO2 05/17/17 09:40 76 126/79 05/17/17 09:05 99.0 15 97 05/17/17 09:05 Nasal Cannula 2.00 Orders Orders Electrocardiogram (05/17/17 08:55) B-Type Natriuretic Peptide (05/17/17 08:55) Ckmb (Isoenzyme) Profile (05/17/17 08:55) Complete Blood Count With Diff (05/17/17 08:55) Comprehensive Metabolic Panel (05/17/17 08:55) Magnesium (Mg) (05/17/17 08:55) Prothrombin Time / Inr (Pt) (05/17/17 08:55) Act Partial Throm Time (Ptt) (05/17/17 08:55) Troponin I (05/17/17 08:55) Chest, Single Ap (05/17/17 08:55) Ecg Monitoring (05/17/17 08:55) Bilateral Bp Monitoring (05/17/17 08:55) Iv Access Insert/Monitor (05/17/17 08:55) Oximetry (05/17/17 08:55) Aspirin Chew (Aspirin Chew) (05/17/17 09:00) Sodium Chloride 0.9% Flush (Ns Flush) (05/17/17 09:00) Nitroglycerin Sl (Nitrostat Sl) (05/17/17 09:00) Nitroglycerin-D5w 50 Mg/250 Ml (Nitrogly (05/17/17 09:30) Nitroglycerin-D5w 50 Mg/250 Ml (Nitrogly (05/17/17 09:17) Cardiac Catheterization (05/17/17 ) Heparin-Ns/Pf Inj (Heparin-Ns/Pf Inj) (05/17/17 09:37) Fentanyl Inj (Fentanyl Inj) (05/17/17 09:37) Heparin Inj (Heparin Inj) (05/17/17 09:38) Nitroglycerin Inj (Nitroglycerin Inj) (05/17/17 09:38) Midazolam Inj (Versed Inj) (05/17/17 09:48) CKMB (05/17/17 08:45) CKMB% (05/17/17 08:45) Heparin-D5w 25,000 U/250 Ml (Heparin-D5w (05/17/17 10:06) Admit Order (Ed Use Only) (05/17/17 10:18) Amlodipine (Norvasc) (05/18/17 09:00) Metoprolol Tartrate (Lopressor) (05/17/17 21:00) Activity Bed Rest (05/17/17 10:21) Vital Signs (Adult) Q15MX4,Q30MX4,Q1HX4 (05/17/17 10:21) Notify Dr: Blood Pressure (05/17/17 10:21) Remove Dressing (05/17/17 10:21) ^ Straight Catheter (05/17/17 10:21) ^ Remove Sheath (05/17/17 10:21) Diet Heart Healthy (05/17/17 Lunch) Diet 1800 Ada Cons Carb (05/17/17 Lunch) Complete Blood Count With Diff (05/18/17 06:00) Basic Metabolic Panel (Bmp) (05/18/17 06:00) Sodium Chlor 0.9% 1000 Ml Inj (Ns 1000 M (05/17/17 10:21) Atropine Inj (Atropine Inj) (05/17/17 10:30) Sodium Chlor 0.9% 250 Ml Inj (Ns 250 Ml (05/17/17 10:30) Ondansetron Inj (Zofran Inj) (05/17/17 10:30) Heparin Inj (Heparin Inj) (05/17/17 16:30) Heparin Inj (Heparin Inj) (05/17/17 16:30) Heparin-D5w 25,000 U/250 Ml (Heparin-D5w (05/17/17 10:30) Cbc No Diff, Includes Plts (05/20/17 06:00) Act Partial Throm Time (Ptt) (05/17/17 17:21) Occult Blood (Hemoccult) Stool (05/17/17 10:21) ^ Other Nursing Orders (05/17/17 10:21) Consult Cardiothoracic Surgery (05/17/17 ) Echo 2d Comp With Doppler (05/17/17 ) Aspirin Chew (Aspirin Chew) (05/18/17 09:00) Atorvastatin (Lipitor) (05/17/17 21:00) (Hub Use Only)Inp Phy Cons/Ref (05/17/17 ) Labs Laboratory Tests Test 05/17/17 08:45 White Blood Count 14.0 TH/MM3 Red Blood Count 3.72 MIL/MM3 Hemoglobin 11.2 GM/DL Hematocrit 32.3 % Mean Corpuscular Volume 86.8 FL Mean Corpuscular Hemoglobin 30.0 PG Mean Corpuscular Hemoglobin Concent 34.5 % Red Cell Distribution Width 12.7 % Platelet Count 308 TH/MM3 Mean Platelet Volume 9.2 FL Neutrophils (%) (Auto) 68.4 % Lymphocytes (%) (Auto) 21.6 % Monocytes (%) (Auto) 8.7 % Eosinophils (%) (Auto) 0.6 % Basophils (%) (Auto) 0.7 % Neutrophils # (Auto) 9.6 TH/MM3 Lymphocytes # (Auto) 3.0 TH/MM3 Monocytes # (Auto) 1.2 TH/MM3 Eosinophils # (Auto) 0.1 TH/MM3 Basophils # (Auto) 0.1 TH/MM3 CBC Comment DIFF FINAL Differential Comment Prothrombin Time 10.1 SEC Prothromb Time International Ratio 1.0 RATIO Activated Partial Thromboplast Time 22.0 SEC Blood Urea Nitrogen 16 MG/DL Creatinine 1.35 MG/DL Random Glucose 344 MG/DL Total Protein 8.7 GM/DL Albumin 3.4 GM/DL Calcium Level 9.6 MG/DL Magnesium Level 1.7 MG/DL Alkaline Phosphatase 78 U/L Aspartate Amino Transf (AST/SGOT) 105 U/L Alanine Aminotransferase (ALT/SGPT) 26 U/L Total Bilirubin 0.5 MG/DL Sodium Level 128 MEQ/L Potassium Level 4.8 MEQ/L Chloride Level 97 MEQ/L Carbon Dioxide Level 20.3 MEQ/L Anion Gap 11 MEQ/L Estimat Glomerular Filtration Rate 48 ML/MIN Total Creatine Kinase 512 U/L Creatine Kinase MB 20.5 NG/ML Creatine Kinase MB % 4.0 % Troponin I 10.10 NG/ML B-Type Natriuretic Peptide 141 PG/ML MDM Medical Decision Making Medical Screen Exam Complete: Yes Emergency Medical Condition: Yes Medical Record Reviewed: Yes (past history confirm, old EKG reviewed) Interpretation(s) EKG is sinus rhythm with concerning mild ST elevation in V1 and ST depression inferiorly Preliminary review of chest x-ray shows no acute process Patient went to the [facility] before other blood work resulted Differential Diagnosis OR, gastritis, musculoskeletal Narrative Course Given patient's symptoms, risk factors and EKG will discuss with barrel rifler hook about possible STEMI alert. We will give aspirin and start nitroglycerin drip Patient updated while barrel rifler hook in the room and agrees to plan, blood pressure improved Critical Care Narrative Aggregate critical care time was 31 minutes. Time to perform other separately billable procedures was not included in the critical care time. My time did not include minutes spent treating any other patients simultaneously or on activities that did not directly contribute to the patient's treatment. The services I provided to this patient were to treat and/or prevent clinically significant deterioration that could result in: Cardiogenic shock, I provided critical care services requiring my management, as noted below: Chart data review, documentation time, medication orders and management, vital sign assessments/reviewing monitor data, ordering and reviewing lab tests, ordering and interpreting/reviewing x-rays and diagnostic studies, care of the patient and discussion of the patient with the admitting physicians. Physician Communication Physician Communication Dr. Biggs sent EKG and will take to the [facility] for EKG changes but did not call a STEMI alert Dr. Escobar agrees to admission Diagnosis Primary Impression: NSTEMI (non-ST elevation myocardial infarction) Admitting Information Admitting Physician Requests: Admit Daria Ritter MD May 17, 2017 11:00
--- NOTE | 2017-05-17 13:52 | EKG ---
Date Performed: 05/17/2017 Time Performed: 08:53:15 PTAGE: 66 years EKG: Sinus rhythm SEPTAL MYOCARDIAL INFARCTION ABNORMAL ECG Compared to prior electrocardiogram, Rate has slowed, sept al infarct pattern is present and QT interval has shortened. T-wave changes have resolved. PREVIOUS TRACING : 07/22/2016 11.55 DOCTOR: Rayray Ospina Interpretating Date/Time 05/17/2017 13:51:54
[2017-05-17] MEDS ORDERED: METOPROLOL TARTRATE 25 MG TAB PO SCH (15:45)
[2017-05-17] MEDS ORDERED: CHLORHEXIDINE GLUCONATE 4% SOLN 120 ML BTL TOPICAL SCH (15:45)
[2017-05-17] MEDS ORDERED: PAPAVERINE INJ 60 MG, NITROGLYCERIN INJ 100 MCG, DILTIAZEM INJ 100 MG in SODIUM CHLORID... IRRIGATION SCH (15:45)
[2017-05-17] MEDS ORDERED: CEFAZOLIN INJ 500 MG in SODIUM CHLORIDE 0.9% IRR BTL 500 ML IRRIGATION SCH (15:45)
[2017-05-17] MEDS ORDERED: INSULIN REGULAR (IV INFUSION) 100 UNITS in SODIUM CHLORIDE 0.9% INJ 99 ML IV PRN (15:45)
[2017-05-17] MEDS ORDERED: ceFAZolin 2 GM PREMIX 50 ML IV SCH (15:45)
[2017-05-17] MEDS ORDERED: DEXTROSE 50% IN WATER 50 ML VIAL(D50) IV PUSH PRN ×2 (15:45→16:00)
[2017-05-17] MEDS ORDERED: SODIUM CHLORIDE 0.9% FLUSH 10 ML FLUSH IV FLUSH PRN ×2 (15:45→16:00)
--- NOTE | 2017-05-17 15:59 | HHI.HP ---
[facility] Unknown Admission Diagnosis CO Diagnoses: Chief Complaint: Chest pain Travel History International Travel<30 Days: No Contact w/Intl Traveler <30 Da: No Traveled to Known Affected Are: No History of Present Illness The patient is a very pleasant 66-year-old female with past medical history of hypertension, hyperlipidemia, diabetes mellitus, who came to the emergency room for further evaluation of chest pressure that started early in the morning when she will call at 4:00 in the morning. Patient says she woke up with pressure in her chest and feeling very weak. Associated some shortness of breath. She managed to go to work and symptoms worsen, she took an aspirin while at work and then came for further evaluation to the emergency room. Patient denies associated diaphoresis, nausea, vomiting, diarrhea or constipation. No cough, fever or chills. No urinary complaints. Patient with non-ST elevation CO. The patient was taken to the cardiac catheter by Dr. Biggs and was found with a more than 3 vessel disease, cardiothoracic surgery consulted for possible CABG. Review of Systems Except as stated in HPI: all other systems reviewed are Neg Past Family Social History Past Medical History Diabetes mellitus, hypertension, hyperlipidemia Past Surgical History Umbilical hernia repair Tubal ligation Reported Medications Reported Meds & Active Scripts Active Meclizine (Meclizine HCl) 25 Mg Tab 25 Mg PO DIRECTED PRN Reported Norvasc (Amlodipine Besylate) 5 Mg Tab 5 Mg PO DAILY Metoprolol Tartrate 50 Mg Tab 50 Mg PO BID Metformin (Metformin HCl) 1,000 Mg Tab 1,000 Mg PO BIDPC With meals Allergies: Coded Allergies: No Known Allergies (Verified Allergy, Unknown, 05/17/17) Family History Both parents with heart problems, hypertension, hyperlipidemia, diabetes Social History Denies alcohol use illicit drug use or tobacco use. Physical Exam Vital Signs Vital Signs Date Time Temp Pulse Resp B/P (MAP) Pulse Ox O2 Delivery O2 Flow Rate FiO2 05/17/17 11:18 100 Room Air 05/17/17 09:40 76 126/79 05/17/17 09:16 101 161/102 05/17/17 09:05 99.0 101 15 161/102 (121) 97 05/17/17 09:05 101 15 99 Nasal Cannula 2.00 05/17/17 09:05 101 15 161/102 (121) 98 Nasal Cannula 2.00 05/17/17 08:35 97.3 110 14 194/103 (133) 98 Physical Exam GENERAL: This is a well-nourished, well-developed patient, in no apparent distress. SKIN: No rashes, ecchymoses or lesions. Cool and dry. HEAD: Atraumatic. Normocephalic. No temporal or scalp tenderness. EYES: Pupils equal round and reactive. Extraocular motions intact. No scleral icterus. No injection or drainage. ENT: Nose without bleeding, purulent drainage or septal hematoma. Throat without erythema, tonsillar hypertrophy or exudate. Uvula midline. Airway patent. NECK: Trachea midline. No JVD or lymphadenopathy. Supple, nontender, no meningeal signs. CARDIOVASCULAR: Regular rate and rhythm without murmurs, gallops, or rubs. RESPIRATORY: Clear to auscultation. Breath sounds equal bilaterally. No wheezes , rales, or rhonchi. GASTROINTESTINAL: Abdomen soft, non-tender, nondistended. No hepato-splenomegaly , or palpable masses. No guarding. MUSCULOSKELETAL: Extremities without clubbing, cyanosis, or edema. No joint tenderness, effusion, or edema noted. No calf tenderness. Negative Homans sign bilaterally. NEUROLOGICAL: Awake and alert. Cranial nerves II through XII intact. Motor and sensory grossly within normal limits. Five out of 5 muscle strength in all muscle groups. Normal speech. Laboratory Laboratory Tests Test 05/17/17 08:45 White Blood Count 14.0 Red Blood Count 3.72 Hemoglobin 11.2 Hematocrit 32.3 Mean Corpuscular Volume 86.8 Mean Corpuscular Hemoglobin 30.0 Mean Corpuscular Hemoglobin Concent 34.5 Red Cell Distribution Width 12.7 Platelet Count 308 Mean Platelet Volume 9.2 Neutrophils (%) (Auto) 68.4 Lymphocytes (%) (Auto) 21.6 Monocytes (%) (Auto) 8.7 Eosinophils (%) (Auto) 0.6 Basophils (%) (Auto) 0.7 Neutrophils # (Auto) 9.6 Lymphocytes # (Auto) 3.0 Monocytes # (Auto) 1.2 Eosinophils # (Auto) 0.1 Basophils # (Auto) 0.1 CBC Comment DIFF FINAL Differential Comment Prothrombin Time 10.1 Prothromb Time International Ratio 1.0 Activated Partial Thromboplast Time 22.0 Blood Urea Nitrogen 16 Creatinine 1.35 Random Glucose 344 Total Protein 8.7 Albumin 3.4 Calcium Level 9.6 Magnesium Level 1.7 Alkaline Phosphatase 78 Aspartate Amino Transf (AST/SGOT) 105 Alanine Aminotransferase (ALT/SGPT) 26 Total Bilirubin 0.5 Sodium Level 128 Potassium Level 4.8 Chloride Level 97 Carbon Dioxide Level 20.3 Anion Gap 11 Estimat Glomerular Filtration Rate 48 Total Creatine Kinase 512 Creatine Kinase MB 20.5 Creatine Kinase MB % 4.0 Troponin I 10.10 B-Type Natriuretic Peptide 141 Result Diagram: 05/17/1745 05/17/1745 Imaging Last Impressions Chest X-Ray 05/17/1755 Signed Impressions: Service Date/Time: May 09:14 - CONCLUSION: Normal examination. MD Nora Peck Jr. VTE Risk Assessment Caprini VTE Risk Assessment: Mod/High Risk (score >= 2) Caprini Risk Assessment Model Point Value = 1 Point Value = 2 Point Value = 3 Point Value = 5 Age 41-60 Minor surgery BMI > 25 kg/m2 Swollen legs Varicose veins or History of unexplained or recurrent spontaneous Oral contraceptives or hormone replacement Sepsis (< 1 month) Serious lung disease, including pneumonia (< 1 month) Abnormal pulmonary function Acute myocardial infarction Congestive heart failure (< 1 month) History of inflammatory bowel disease Medical patient at bed rest Age 61-74 Arthroscopic surgery Major open surgery (> 45 min) Laparoscopic surgery (> 45 min) Malignancy Confined to bed (> 72 hours) Immobilizing plaster cast Central venous access Age >= 75 History of VTE Family history of VTE Factor V Leiden Prothrombin [id number] Lupus anticoagulant Anticardiolipin antibodies Elevated serum homocysteine Heparin-induced thrombocytopenia Other congenital or acquired thrombophilia Stroke (< 1 month) Elective arthroplasty Hip, pelvis, or leg fracture Acute spinal cord injury (< 1 month) Prophylaxis Regimen Total Risk Factor Score Risk Level Prophylaxis Regimen 0-1 Low Early ambulation 2 Moderate Order ONE of the following: *Sequential Compression Device (SCD) *Heparin 5000 units SQ BID 3-4 Higher Order ONE of the following medications: *Heparin 5000 units SQ TID *Enoxaparin/Lovenox 40 mg SQ daily (WT < 150 kg, CrCl > 30 mL/min) *Enoxaparin/Lovenox 30 mg SQ daily (WT < 150 kg, CrCl > 10-29 mL/min) *Enoxaparin/Lovenox 30 mg SQ BID (WT < 150 kg, CrCl > 30 mL/min) AND/OR *Sequential Compression Device (SCD) 5 or more Highest Order ONE of the following medications: *Heparin 5000 units SQ TID (Preferred with Epidurals) *Enoxaparin/Lovenox 40 mg SQ daily (WT < 150 kg, CrCl > 30 mL/min) *Enoxaparin/Lovenox 30 mg SQ daily (WT < 150 kg, CrCl > 10-29 mL/min) *Enoxaparin/Lovenox 30 mg SQ BID (WT < 150 kg, CrCl > 30 mL/min) AND *Sequential Compression Device (SCD) Assessment and Plan Assessment and Plan Very pleasant 66-year-old female with Chest pain/non-ST elevation CO Status post cardiac catheter by Dr. Biggs patient with three-vessel disease. Consult cardiothoracic surgeon for possible CABG Continue heparin drip Continue home medication Diabetes mellitus2 Accu-Cheks and insulin sliding scale scale. Hold metformin Hyperlipidemia continue statin DVT prophylaxis SCD/teds, she is on heparin drip Discussed Condition With Patient, nurse, ED physician, Dr. Biggs cardiology Physician Certification 2 Midnight Certification Type: Admission for Inpatient Services Order for Inpatient Services The services are ordered in accordance with Medicare regulations or non- Medicare payer requirements, as applicable. In the case of services not specified as inpatient-only, they are appropriately provided as inpatient services in accordance with the 2-midnight benchmark. Estimated LOS (days): 3 days is the estimated time the patient will need to remain in the hospital, assuming treatment plan goals are met and no additional complications. Post-Hospital Plan: Home Lauren Escobar MD May 17, 2017 15:59
[2017-05-17] MEDS ORDERED: ACETAMINOPHEN 325 MG TAB PO PRN (16:00)
[2017-05-17] MEDS ORDERED: LACTULOSE SYRUP 20 GM/30 ML CUP PO PRN (16:00)
[2017-05-17] MEDS ORDERED: NALOXONE HCL 0.4 MG/ML AMP IV PUSH PRN (16:00)
[2017-05-17] MEDS ORDERED: MAGNESIUM HYDROXIDE SUSP 30 ML CUP PO PRN (16:00)
[2017-05-17] MEDS ORDERED: GLUCAGON 1 MG/ML VIAL OTHER PRN (16:00)
[2017-05-17] MEDS ORDERED: SENNOSIDES 8.6 MG TAB PO PRN (16:00)
[2017-05-17] MEDS ORDERED: BISACODYL 10 MG SUPP RECTAL PRN (16:00)
[2017-05-17] MEDS ORDERED: ONDANSETRON HCL 4 MG/2 ML VIAL IVP PRN (16:00)
[2017-05-17] MEDS ORDERED: HEPARIN SODIUM - IV 10,000 UNITS/10 ML VIAL IV PUSH PRN ×2 (16:30)
[2017-05-17] MEDS: INSULIN ASPART SUPPLEMENTAL SCALE SQ SCH ×2 (17:00→21:00)
[2017-05-17] MEDS: HEPARIN-D5W 25,000 U/250 ML 250 ML IV PRN (18:00)
--- NOTE | 2017-05-17 18:37 | MB ---
cc: KELLY NAVAS DATE OF CONSULTATION 05/17/17 1950 HISTORY OF PRESENT ILLNESS A 66-year-old female presented to the emergency room with chest pressure. She woke up about 04:00 a.m. getting ready for work. She decided to go to work. 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 She has had some associated nausea. She did take a baby aspirin. She thinks she had a stress test about five years ago which was okay. She does not follow with a regular planner scheduler. On her presentation, troponin was found to be 10.1, was ruled in for non STEMI. She had some septal changes in V1-V2, was taken to the open hearth furnace laborer by Dr. Biggs, had left main disease at 10%, proximal LAD 90%, mid distal LAD 90%, diagonal had 20%, circ had 70%, OM 90%, RCA 70%. We were consulted to evaluate for coronary artery bypass grafting. Echocardiogram is pending to evaluate for any valvular disease and for ejection fraction. PAST MEDICAL HISTORY 1. Recently diagnosed diabetes mellitus, 2. Hypertension, 3. Arthritis, right hand 4. Chronic back pain, 5. Vertigo PAST SURGICAL HISTORY 1. Umbilical hernia repair, 2. Tubal ligation. ALLERGIES No known allergies. MEDICATIONS Current home include 1. Metoprolol 50 b.i.d. 2. Norvasc 5 p.o. daily. 3. Meclizine p.r.n. 4. Metformin 1000 p.o. b.i.d. FAMILY HISTORY Father from cancer. Mother from heart disease and diabetes. SOCIAL HISTORY The patient is , three children, lives alone. No tobacco. Occasional alcohol. No illicit drugs. REVIEW OF SYSTEMS GENERAL: No night sweats, fever, heat and cold intolerance. SKIN: No psoriasis, itching or hives. HEENT: No blurred vision, hearing loss. She does have some poor dentition, but no loose teeth and her gums do not appear with any swelling or edema. RESPIRATORY: Positive for shortness of breath. CARDIOVASCULAR: As above in the HPI. GASTROINTESTINAL: No diarrhea, vomiting. 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 PHYSICAL EXAMINATION VITAL SIGNS: Blood pressure was 190/100, now 160/100, heart rate 100, now 76, room air sat 100%, afebrile. GENERAL: Patient is awake, alert in no acute distress. HEENT: Head is normocephalic, atraumatic. Oral mucosa pink, moist. She has some missing teeth on the top and she does have some missing on the lower, but there are no loose teeth. NECK: Supple. No JVD. CARDIAC: Heart sounds S1, S2 regular rate and rhythm. No audible rubs, murmurs, gallops. LUNGS: Clear to auscultation. No wheezes, rales or rhonchi. ABDOMEN: Soft, nontender. No masses or organomegaly. EXTREMITIES: No cyanosis, clubbing or edema. LABORATORY DATA Lab work shows hemoglobin 11, hematocrit 32, white cell count 14, platelet count 308. Sodium 128, potassium 4.8, BUN 16 with a creatinine 1.35, glucose 344, troponin 10.1, INR 1.0. IMAGING STUDIES Chest x-ray was unremarkable. IMPRESSION This is a 66-year-old female whose risk factors include age, diabetes mellitus, hypertension, presented with non STEMI. Cardiac films were evaluated by Dr. Kelly Navas, planning for coronary artery bypass grafting x3 for May 22. In the meantime, she is to continue the heparin drip. Continue her beta barrett and statin. Further planning as per Dr. Navas and [facility] data will be collected once we get the echocardiogram and ejection fraction. Dictated by MARY Ambrocio MD DEBRA Raphael/ /3:43 PM /8:08 AM
[2017-05-17 19:00] VITALS: BP 155/89; PULSE 96; RESP 18; TEMP 98.6; O2SAT 98
[2017-05-17] MEDS ORDERED: PILL SPLITTER OTHER PRN (20:15)
[2017-05-17] MEDS ORDERED: SODIUM CHLORIDE 0.9% FLUSH 10 ML FLUSH IV FLUSH SCH (21:00)
[2017-05-17] MEDS: METOPROLOL TARTRATE 50 MG TAB PO SCH (21:21)
[2017-05-17] MEDS: DOCUSATE SODIUM 50 MG/SENNA 8.6 MG TAB PO SCH (21:22)
[2017-05-17] MEDS: ATORVASTATIN 80 MG TAB PO SCH (21:22)
[2017-05-17] MEDS: SODIUM CHLORIDE 0.9% FLUSH 10 ML FLUSH IV FLUSH SCH (21:23)
--- NOTE | 2017-05-17 21:52 | RADRPT ---
EXAM DATE/TIME: 05/17/2017 20:01 [facility] COMPARISON: No previous studies available for comparison. INDICATIONS : Preop cardiac surgery. MEDICAL HISTORY : Hypertension. Arthritis. Osteoarthritis. Migraines. Gout. Diabetes. SURGICAL HISTORY : Tubal ligation.Umbilical hernia repair. Cardiac cath. ENCOUNTER: Initial ACUITY: 1 day PAIN SCORE: 0/10 LOCATION: Bilateral leg. TECHNIQUE: Venous ultrasound of the left and right leg was performed from the inguinal ligament to the proximal calf. Real-time, color Doppler and spectral tracing, compression and augmentation techniques were us ed. FINDINGS: RIGHT LEG: There is normal compressibility of the deep venous system from the inguinal region to the proximal ca lf. No echogenic clot is seen in the lumen of the common femoral, femoral, popliteal, and posterior tibial veins. There is a normal response of the venous system to proximal and distal augmentation an d respiration. LEFT LEG: There is normal compressibility of the deep venous system from the inguinal region to the proximal ca lf. No echogenic clot is seen in the lumen of the common femoral, femoral, popliteal, and posterior tibial veins. There is a normal response of the venous system to proximal and distal augmentation an d respiration. CONCLUSION: No acute disease. Rodrigue Dale MD on May 17, 2017 at 21:49 Board Certified Radiologist. This report was verified electronically.
--- NOTE | 2017-05-17 21:53 | RADRPT ---
EXAM DATE/TIME: 05/17/2017 20:09 [facility] COMPARISON: No previous studies available for comparison. INDICATIONS : Preop cardiac surgery. MEDICAL HISTORY : Hypertension. Arthritis. Osteoarthritis. Migraines. Gout. Diabetes. SURGICAL HISTORY : Umbilical hernia repair. Tubal ligation. Cardiac cath. ENCOUNTER: Initial ACUITY: 1 day PAIN SCORE: 0/10 LOCATION: Bilateral leg. GREATER SAPHENOUS VEIN THIGH: PROXIMAL: Right 6 mm Left 5 mm MID: Right 2 mm Left 2 mm DISTAL: Right Non-visualized Left 2 mm CALF: PROXIMAL: Right Non-visualized Left Non-visualized MID: Right Non-visualized Left Non-visualized DISTAL: Right Non-visualized Left Non-visualized FINDINGS: The venous system of the lower extremities are patent by color Doppler imaging. Measurements of the leg veins (in mm) are listed above. CONCLUSION: Measurements are listed above. The saphenous veins are not visualized at the level of the calves as described above. Rodrigue Dale MD on May 17, 2017 at 21:50 Board Certified Radiologist. This report was verified electronically.
--- NOTE | 2017-05-17 21:55 | RADRPT ---
EXAM DATE/TIME: 05/17/2017 19:39 [facility] COMPARISON: No previous studies available for comparison. INDICATIONS : Preop cardiac surgery. MEDICAL HISTORY : Hypertension. Arthritis. Osteoarthritis. Migraines. Gout. Diabetes. SURGICAL HISTORY : Tubal ligation. Umbilical hernia repair. Cardiac cath. ENCOUNTER: Initial ACUITY: 1 day PAIN SCORE: 0/10 LOCATION: Bilateral neck PEAK SYSTOLIC VELOCITIES (cm/sec): ICA/CCA RATIO: Right: 0.8 Left: 1.5 ICA: Right: 65.5 Left: 121.4 CCA: Right: 78.7 Left: 81.9 ECA: Right: 79.8 Left: 82.3 VERTEBRAL: Right: absent Left: 72.1 antegrade Elevated flow velocities and ICA/CCA ratios have been found to correlate with increased degrees of vessel stenosis, calculated as percentage of diameter relative to a normal segment of distal ICA/CCA FINDINGS: RIGHT CAROTID: No significant stenosis is visualized. The waveforms are within normal limits. LEFT CAROTID: No significant stenosis is visualized. The waveforms are within normal limits. VERTEBRAL ARTERIES: Right vertebral artery is not visualized. Antegrade flow is noted within the left vertebral artery. MISCELLANEOUS: None. CONCLUSION: No flow identified within the right vertebral artery. Antegrade flow within the left vertebral artery . No hemodynamically significant stenosis within the carotid arteries bilaterally. Rodrigue Dael MD on May 17, 2017 at 21:51 Board Certified Radiologist. This report was verified electronically.
[2017-05-17 23:00] VITALS: BP 167/87; PULSE 98; RESP 20; TEMP 98.5; O2SAT 98
[2017-05-18] VITALS (22 sets, daily range): BP systolic 127–150; BP diastolic 63–82; PULSE 74–101; RESP 16–22; TEMP 98–98.4; O2SAT 97–99
[2017-05-18 05:01] LABS: BASOPHIL # 0.1 TH/MM3 (0-0.2); BASOPHIL % 0.6 % (0.0-2.0); EOSINOPHIL # 0.2 TH/MM3 (0-0.4); EOSINOPHIL % 1.7 % (0.0-4.0); HEMATOCRIT 25.3 % (35.0-46.0); HEMOGLOBIN 8.8 GM/DL (11.6-15.3); LYMPH % 28.9 % (9.0-44.0); LYMPHOCYTE # 3.4 TH/MM3 (1.0-4.8); MEAN CELL VOLUME 87.2 FL (80.0-100.0); MEAN CORPUSCULAR HEMOGLOBIN 30.5 PG (27.0-34.0); MEAN PLATELET VOLUME 8.3 FL (7.0-11.0); MONO % 10.1 % (0.0-8.0); MONOCYTE # 1.2 TH/MM3 (0-0.9); NEUT % 58.7 % (16.0-70.0); PLATELET COUNT 218 TH/MM3 (150-450); RED CELL DISTRIBUTION WIDTH 12.9 % (11.6-17.2); WHITE BLOOD COUNT 11.9 TH/MM3 (4.0-11.0)
[2017-05-18 05:15] LABS: BICARBONATE 23.1 MEQ/L (21.0-32.0); CALCIUM 8.2 MG/DL (8.5-10.1); CREATININE 1.04 MG/DL (0.50-1.00)
--- NOTE | 2017-05-18 07:15 | MB ---
cc: MAXI MCKEON DO DATE OF CONSULTATION May 17, 2017 REASON FOR CONSULTATION Chest pain with abnormal EKG. HISTORY OF PRESENT ILLNESS Carol Tyler is a pleasant 66-year-old female who presented to [facility] Emergency Room on May 17, 2017, due to chest pain. She states that she woke up this morning around 4:00 a.m. getting ready for work. At that time she started getting chest pain but she started to go to work. 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 She has some nausea but no emesis. On presentation I was called emergently due to an abnormal EKG. On reviewing her EKG I was concerned for some minimal elevation in the high lateral leads. She continued to have chest pain and so I fell it was necessary that she be taken urgently to the gold leaf laborer to rule out significant disease. PAST MEDICAL HISTORY 1. Recently diagnosed diabetes mellitus. 2. Hypertension. 3. Right hand arthritis. 4. Chronic back pain. 5. Vertigo. PAST SURGICAL HISTORY 1. Umbilical hernia repair. 2. Tubal ligation. ALLERGIES No known drug allergies. MEDICATIONS 1. Metoprolol tartrate 50 mg b.i.d. 2. Norvasc 5 mg daily. 3. Meclizine as needed. 4. Metformin 1000 mg b.i.d. FAMILY HISTORY Father from cancer. Mother from heart disease and diabetes. SOCIAL HISTORY The patient is with three children. Denies tobacco, alcohol or drug abuse. REVIEW OF SYSTEMS 14 systems were reviewed including osteopathic pertinent positives and negatives above, otherwise negative. PHYSICAL EXAMINATION VITAL SIGNS: Temp 97.3, heart rate 100, blood pressure 160/100, respirations 15, pulse ox 98% on 2 liters. IN GENERAL: The patient appears in mild distress due to chest pain. Extraocular muscles intact. Mucous membranes moist. NECK: Supple. No JVD at 45 degrees. No carotid bruits heard bilaterally. Carotid upstroke is brisk in nature. HEART: Regular rate and rhythm. Positive first and second heart sounds with no murmurs, gallops or rubs. LUNGS: Clear to auscultation bilaterally. No wheezes, rales or rhonchi. ABDOMEN: Soft, non-tender, non-distended. No organomegaly noted. EXTREMITIES: No clubbing, cyanosis or edema. Femoral and distal pulses intact bilaterally. NEUROLOGICALLY: No focal deficits. SKIN: Warm, dry and intact. OSTEOPATHIC: No kyphoscoliosis, lordosis or paraspinal tender points. LABORATORY WORK Hemoglobin 11.2, hematocrit 32.3, platelets 308. Potassium 4.8, BUN 16, creatinine 1.35. Troponin 10.10. ELECTROCARDIOGRAM (May 17, 2017 at 0853) Sinus rhythm with septal myocardial infarction, nonspecific ST-T wave changes. IMPRESSIONS 1. Chest pain concerning for coronary insufficiency. 2. Abnormal EKG. 3. N-STEMI. 4. Diabetes mellitus 5. Hypertension. RECOMMENDATIONS 1. Ms. Tyler presented with chest pain concerning for coronary insufficiency and EKG is concerning with changes. 2. She will be taken urgently to the gold leaf laborer to rule out significant coronary artery disease. 3. We will check a 2-D echo to look at her overall left ventricular function, cardiac structure and possible valvopathies. 4. She will be started on a nitroglycerin drip on her way to the gold leaf laborer. 5. The risks, benefits and alternatives were explained to her and her daughter and she consents as such. 6. Further recommendations will be made based on coronary visualization. Thank you for allowing me to see Carol Tyler. If there are any questions, please do not hesitate to call. Maxi Mckeon DO VGP/SSB /10:57 PM /6:57 AM
[2017-05-18] MEDS: NITROGLYCERIN/DEXTROSE 5% 250 ML for chest pain IV PRN (07:16)
--- NOTE | 2017-05-18 07:38 | HHI.PR ---
Subjective Remarks Patient is in the chair. Still with some pressure in her chest however much improved since yesterday. No n/v/d/c. Denies lightheadedness or sob. Objective Vitals Vital Signs Date Time Temp Pulse Resp B/P (MAP) Pulse Ox O2 Delivery O2 Flow Rate FiO2 05/18/17 07:16 96 150/82 05/18/17 03:00 98.4 97 22 150/82 (104) 98 05/17/17 23:00 98.5 98 20 167/87 (113) 98 05/17/17 19:00 98.6 96 18 155/89 (111) 98 05/17/17 16:32 85 170/95 05/17/17 11:18 100 Room Air 05/17/17 09:40 76 126/79 05/17/17 09:16 101 161/102 05/17/17 09:05 99.0 101 15 161/102 (121) 97 05/17/17 09:05 101 15 99 Nasal Cannula 2.00 05/17/17 09:05 101 15 161/102 (121) 98 Nasal Cannula 2.00 05/17/17 08:35 97.3 110 14 194/103 (133) 98 I/O 05/17/17 05/17/17 05/17/17 05/18/17 05/18/17 05/18/17 07:00 15:00 23:00 07:00 15:00 23:00 Intake Total 240 ml Balance 240 ml Intake Oral 240 ml # Voids 2 # Bowel Movements 1 Result Diagram: 05/18/17 0414 05/18/17 0414 Imaging Last Impressions Chest X-Ray 05/17/17 0855 Signed Impressions: Service Date/Time: May 09:14 - CONCLUSION: Normal examination. Bhavesh Truong Jr., MD Lower Extremity Ultrasound 05/17/17 0000 Signed Impressions: Service Date/Time: May 20:09 - CONCLUSION: Measurements are listed above. The saphenous veins are not visualized at the level of the calves as described above. Rodrigue Dale MD Carotid Artery Ultrasound 05/17/17 0000 Signed Impressions: Service Date/Time: May 19:39 - CONCLUSION: No flow identified within the right vertebral artery. Antegrade flow within the left vertebral artery. No hemodynamically significant stenosis within the carotid arteries bilaterally. Rodrigue Dale MD Objective Remarks GENERAL: This is a well-nourished, well-developed patient, in no apparent distress. CARDIOVASCULAR: Regular rate and rhythm without murmurs, gallops, or rubs. RESPIRATORY: Clear to auscultation. Breath sounds equal bilaterally. No wheezes , rales, or rhonchi. GASTROINTESTINAL: Abdomen soft, non-tender, nondistended. No hepato-splenomegaly , or palpable masses. No guarding. MUSCULOSKELETAL: Extremities without clubbing, cyanosis, or edema. No joint tenderness, effusion, or edema noted. No calf tenderness. Negative Homans sign bilaterally. NEUROLOGICAL: Awake and alert. Cranial nerves II through XII intact. Motor and sensory grossly within normal limits. Five out of 5 muscle strength in all muscle groups. Normal speech. A/P Assessment and Plan Very pleasant 66-year-old female with: Chest pain/non-ST elevation PA Status post cardiac catheterization by Dr. Biggs on 05/17/17, patient with three-vessel disease. Consult cardiothoracic surgeon , plan for CABG on 05/22 Continue heparin drip Continue home medication Diabetes mellitus2: Accu-Cheks and insulin sliding scale scale. Hold metformin Hyperlipidemia continue statin DVT prophylaxis SCD/teds, she is on heparin drip Discussed Condition With Patient, nurse Lauren Escobar MD May 18, 2017 07:38
[2017-05-18] MEDS: INSULIN ASPART SUPPLEMENTAL SCALE SQ SCH ×4 (08:00→21:24)
[2017-05-18] MEDS: amLODIPine BESYLATE 5 MG TAB PO SCH (08:41)
[2017-05-18] MEDS: ASPIRIN 81 MG CHEW TAB CHEW SCH (08:41)
[2017-05-18] MEDS: METOPROLOL TARTRATE 50 MG TAB PO SCH ×2 (08:41→21:23)
[2017-05-18] MEDS: SODIUM CHLORIDE 0.9% FLUSH 10 ML FLUSH IV FLUSH SCH ×2 (08:42→21:00)
[2017-05-18] MEDS: DOCUSATE SODIUM 50 MG/SENNA 8.6 MG TAB PO SCH ×2 (08:42→21:00)
--- NOTE | 2017-05-18 12:14 | PD.CAR.PN ---
CVT Progress Note Subjective/Hospital Course: A 66-year-old female presented to the emergency room with chest pressure. She woke up about 04:00 a.m. getting ready for work. She decided to go to work. 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 She has had some associated nausea. She did take a baby aspirin. She thinks she had a stress test about five years ago which was okay. She does not follow with a regular upholsterer inside. On her presentation, troponin was found to be 10.1, was ruled in for non STEMI. She had some septal changes in V1-V2, was taken to the nursery laborer by Dr. Biggs, had left main disease at 10%, proximal LAD 90%, mid distal LAD 90%, diagonal had 20%, circ had 70%, OM 90%, RCA 70%. We were consulted to evaluate for coronary artery bypass grafting. Echocardiogram is pending to evaluate for any valvular disease and for ejection fraction. PAST MEDICAL HISTORY: Recently diagnosed diabetes mellitus, Hypertension, Arthritis, right hand, Chronic back pain, Vertigo 2/2 slight pain last evening , now improved for surgery on 05/22 Objective: GENERAL: SKIN: Warm and dry. HEAD: Normocephalic. EYES: No scleral icterus. No injection or drainage. NECK: Supple, trachea midline. No JVD or lymphadenopathy. CARDIOVASCULAR: Regular rate and rhythm without murmurs, gallops, or rubs. RESPIRATORY: Breath sounds equal bilaterally. No accessory muscle use. GASTROINTESTINAL: Abdomen soft, non-tender, nondistended. MUSCULOSKELETAL: No cyanosis, or edema. BACK: Nontender without obvious deformity. No CVA tenderness. Vital Signs Date Time Temp Pulse Resp B/P (MAP) Pulse Ox O2 Delivery O2 Flow Rate FiO2 05/18/17 08:01 98.3 85 18 132/77 (95) 99 05/18/17 07:55 Nasal Cannula 05/18/17 07:16 96 150/82 05/18/17 03:00 98.4 97 22 150/82 (104) 98 05/17/17 23:00 98.5 98 20 167/87 (113) 98 05/17/17 19:00 98.6 96 18 155/89 (111) 98 05/17/17 16:32 85 170/95 Labs: Laboratory Tests Test 05/18/17 01:44 05/18/17 04:14 05/18/17 11:00 Activated Partial Thromboplast Time 34.0 SEC (24.3-30.1) 46.6 SEC (24.3-30.1) White Blood Count 11.9 TH/MM3 (4.0-11.0) Red Blood Count 2.90 MIL/MM3 (4.00-5.30) Hemoglobin 8.8 GM/DL (11.6-15.3) Hematocrit 25.3 % (35.0-46.0) Mean Corpuscular Volume 87.2 FL (80.0-100.0) Mean Corpuscular Hemoglobin 30.5 PG (27.0-34.0) Mean Corpuscular Hemoglobin Concent 35.0 % (32.0-36.0) Red Cell Distribution Width 12.9 % (11.6-17.2) Platelet Count 218 TH/MM3 (150-450) Mean Platelet Volume 8.3 FL (7.0-11.0) Neutrophils (%) (Auto) 58.7 % (16.0-70.0) Lymphocytes (%) (Auto) 28.9 % (9.0-44.0) Monocytes (%) (Auto) 10.1 % (0.0-8.0) Eosinophils (%) (Auto) 1.7 % (0.0-4.0) Basophils (%) (Auto) 0.6 % (0.0-2.0) Neutrophils # (Auto) 7.0 TH/MM3 (1.8-7.7) Lymphocytes # (Auto) 3.4 TH/MM3 (1.0-4.8) Monocytes # (Auto) 1.2 TH/MM3 (0-0.9) Eosinophils # (Auto) 0.2 TH/MM3 (0-0.4) Basophils # (Auto) 0.1 TH/MM3 (0-0.2) CBC Comment DIFF FINAL Differential Comment Blood Urea Nitrogen 16 MG/DL (7-18) Creatinine 1.04 MG/DL (0.50-1.00) Random Glucose 219 MG/DL (74-106) Calcium Level 8.2 MG/DL (8.5-10.1) Sodium Level 138 MEQ/L (136-145) Potassium Level 3.7 MEQ/L (3.5-5.1) Chloride Level 107 MEQ/L (98-107) Carbon Dioxide Level 23.1 MEQ/L (21.0-32.0) Anion Gap 8 MEQ/L (5-15) Estimat Glomerular Filtration Rate 64 ML/MIN (>89) Result Diagram: 05/18/17 0414 05/18/17 0414 Aneta Hernandez May 18, 2017 12:14
--- NOTE | 2017-05-18 12:31 | PD.CARD.PN ---
Subjective Subjective Remarks No events overnight No chest pain on nitro at 40mcg/min Objective Medications Current Medications Medications (Trade) Dose Ordered Sig/Ori Route Start Time Stop Time Status Last Admin Nitroglycerin/ Dextrose 250 ml @ 1.5 mls/hr TITRATE PRN IV 05/17/17 09:30 05/18/17 07:16 (Norvasc) 5 mg DAILY PO 05/18/17 09:00 05/18/17 08:41 (Lopressor) 50 mg BID PO 05/17/17 21:00 05/18/17 08:41 (Atropine Inj) 0.5 mg UNSCH PRN IV PUSH 05/17/17 10:30 (Heparin Inj) 5,000 units UNSCH PRN IV PUSH 05/17/17 16:30 (Heparin Inj) 2,500 units UNSCH PRN IV PUSH 05/17/17 16:30 05/18/17 02:55 Heparin Sodium/ Dextrose 250 ml @ 8.2 mls/hr TITRATE PRN IV 05/17/17 10:30 05/17/17 18:00 (Aspirin Chew) 81 mg DAILY CHEW 05/18/17 09:00 05/18/17 08:41 (Lipitor) 80 mg HS PO 05/17/17 21:00 05/17/17 21:22 (NS Flush) 2 ml UNSCH PRN IV FLUSH 05/17/17 16:00 (NS Flush) 2 ml BID IV FLUSH 05/17/17 21:00 05/18/17 08:42 (Tylenol) 650 mg Q4H PRN PO 05/17/17 16:00 (Zofran Inj) 4 mg Q6H PRN IVP 05/17/17 16:00 (Narcan Inj) 0.4 mg UNSCH PRN IV PUSH 05/17/17 16:00 ([place]-Colace) 1 tab BID PO 05/17/17 21:00 05/17/17 21:22 (Milk Of Magnesia Liq) 30 ml Q12H PRN PO 05/17/17 16:00 (Senokot) 17.2 mg Q12H PRN PO 05/17/17 16:00 (Dulcolax Supp) 10 mg DAILY PRN RECTAL 05/17/17 16:00 (Lactulose Liq) 30 ml DAILY PRN PO 05/17/17 16:00 Papaverine HCl 60 mg/Nitroglycerin 100 mcg/Diltiazem HCl 100 mg/Sodium Chloride 100 ml @ 0 mls/hr BRASS MOLDER HELPER IRRIGATION 05/17/17 15:45 05/24/17 15:44 Cefazolin Sodium 500 mg/Sodium Chloride 505 ml @ 0 mls/hr BR[employer] MOL[employer] HELPER IRRIGATION 05/17/17 15:45 05/24/17 15:44 Cefazolin Sodium/ Dextrose 50 ml @ 150 mls/hr BRASS MOLDER HELPER IV 05/17/17 15:45 05/24/17 15:44 (Lopressor) 12.5 mg BRASS MOLDER HELPER PO 05/17/17 15:45 05/24/17 15:44 (Hibiclens 4% Top Soln) 1 applic BRASS MOLDER HELPER TOPICAL 05/17/17 15:45 05/24/17 15:44 Insulin Human Regular 100 units/ Sodium Chloride 100 ml @ 3 mls/hr TITRATE PRN IV 05/17/17 15:45 05/24/17 15:44 (D50w (Vial) Inj) 50 ml UNSCH PRN IV PUSH 05/17/17 15:45 (D50w (Vial) Inj) 50 ml UNSCH PRN IV PUSH 05/17/17 16:00 (Glucagon Inj) 1 mg UNSCH PRN OTHER 05/17/17 16:00 (NovoLOG SUPPLEMENTAL SCALE) 1 ACHS SLIDING SCALE SQ 05/17/17 17:00 05/18/17 08:00 (Pill Splitter) 1 ea UNSCH PRN OTHER 05/17/17 20:15 Vital Signs / I&O Vital Signs Date Time Temp Pulse Resp B/P (MAP) Pulse Ox O2 Delivery O2 Flow Rate FiO2 05/18/17 08:01 98.3 85 18 132/77 (95) 99 05/18/17 07:55 Nasal Cannula 05/18/17 07:16 96 150/82 05/18/17 03:00 98.4 97 22 150/82 (104) 98 05/17/17 23:00 98.5 98 20 167/87 (113) 98 05/17/17 19:00 98.6 96 18 155/89 (111) 98 05/17/17 16:32 85 170/95 I/O 05/17/17 05/17/17 05/17/17 05/18/1718 2/2/18 07:00 15:00 23:00 07:00 15:00 23:00 Intake Total 240 ml Balance 240 ml Intake Oral 240 ml # Voids 2 # Bowel Movements 1 Physical Exam GENERAL: NAD, AAOx3 SKIN: Warm and dry. HEAD: Atraumatic. Normocephalic. EYES: Pupils equal and round. No scleral icterus. No injection or drainage. ENT: No nasal bleeding or discharge. Mucous membranes pink and moist. NECK: Trachea midline. No JVD. CARDIOVASCULAR: Regular rate and rhythm. RESPIRATORY: No accessory muscle use. Clear to auscultation. Breath sounds equal bilaterally. GASTROINTESTINAL: Abdomen soft, non-tender, nondistended. Hepatic and splenic margins not palpable. MUSCULOSKELETAL: Extremities without clubbing, cyanosis, or edema. No obvious deformities. Right femoral no hematoma, distal pulses intact NEUROLOGICAL: Awake and alert. No obvious cranial nerve deficits. Motor grossly within normal limits. Five out of 5 muscle strength in the arms and legs. Normal speech. PSYCHIATRIC: Appropriate mood and affect; insight and judgment normal. Laboratory Laboratory Tests Test 05/17/17 17:30 05/18/17 01:44 05/18/17 04:14 05/18/17 11:00 Activated Partial Thromboplast Time 22.8 SEC 34.0 SEC 46.6 SEC Nasal Screen MRSA (PCR) MRSA NOT DETECTED White Blood Count 11.9 TH/MM3 Red Blood Count 2.90 MIL/MM3 Hemoglobin 8.8 GM/DL Hematocrit 25.3 % Mean Corpuscular Volume 87.2 FL Mean Corpuscular Hemoglobin 30.5 PG Mean Corpuscular Hemoglobin Concent 35.0 % Red Cell Distribution Width 12.9 % Platelet Count 218 TH/MM3 Mean Platelet Volume 8.3 FL Neutrophils (%) (Auto) 58.7 % Lymphocytes (%) (Auto) 28.9 % Monocytes (%) (Auto) 10.1 % Eosinophils (%) (Auto) 1.7 % Basophils (%) (Auto) 0.6 % Neutrophils # (Auto) 7.0 TH/MM3 Lymphocytes # (Auto) 3.4 TH/MM3 Monocytes # (Auto) 1.2 TH/MM3 Eosinophils # (Auto) 0.2 TH/MM3 Basophils # (Auto) 0.1 TH/MM3 CBC Comment DIFF FINAL Differential Comment Blood Urea Nitrogen 16 MG/DL Creatinine 1.04 MG/DL Random Glucose 219 MG/DL Calcium Level 8.2 MG/DL Sodium Level 138 MEQ/L Potassium Level 3.7 MEQ/L Chloride Level 107 MEQ/L Carbon Dioxide Level 23.1 MEQ/L Anion Gap 8 MEQ/L Estimat Glomerular Filtration Rate 64 ML/MIN Assessment and Plan Problem List: (1) NSTEMI (non-ST elevation myocardial infarction) ICD Codes: I21.4 - Non-ST elevation (NSTEMI) myocardial infarction Status: Acute (2) Multi-vessel coronary artery stenosis ICD Codes: I25.10 - Atherosclerotic heart disease of [place] coronary artery without angina pectoris (3) Hypertension ICD Codes: I10 - Essential (primary) hypertension Status: Acute (4) Diabetes mellitus ICD Codes: E11.9 - Type 2 diabetes mellitus without complications Assessment and Plan 1) NSTEMI/CP/MVCAD For consideration of CABG Con't Heparin drip Will attempt to wean nitro drip as possible If further chest pain, will restart nitro drip 2) Echo pending 3) Drop in Hgb Blood pressure stable Partially due to dilusional effect Will recheck Hgb later today, if further drop will need CT to rule out retroperitoneal bleed Maxi Biggs DO May 18, 2017 12:30
[2017-05-18 17:34] LABS: AUTOMATED NEUTROPHIL # 6.1 TH/MM3 (1.8-7.7); BASOPHIL # 0.1 TH/MM3 (0-0.2); BASOPHIL % 0.6 % (0.0-2.0); EOSINOPHIL # 0.2 TH/MM3 (0-0.4); EOSINOPHIL % 1.9 % (0.0-4.0); HEMATOCRIT 25.1 % (35.0-46.0); HEMOGLOBIN 8.6 GM/DL (11.6-15.3); LYMPH % 34.4 % (9.0-44.0); MEAN CELL VOLUME 88.9 FL (80.0-100.0); MEAN CORPUSCULAR HEMOGLOBIN 30.5 PG (27.0-34.0); MEAN CORPUSCULAR HGB CONC 34.3 % (32.0-36.0); MEAN PLATELET VOLUME 7.9 FL (7.0-11.0); MONO % 10.4 % (0.0-8.0); MONOCYTE # 1.2 TH/MM3 (0-0.9); NEUT % 52.7 % (16.0-70.0); PLATELET COUNT 201 TH/MM3 (150-450); RED BLOOD COUNT 2.83 MIL/MM3 (4.00-5.30); RED CELL DISTRIBUTION WIDTH 12.9 % (11.6-17.2); WHITE BLOOD COUNT 11.7 TH/MM3 (4.0-11.0)
--- NOTE | 2017-05-18 18:09 | ECHRPT ---
Indication: CAD, PRE CABG CONCLUSIONS Normal left ventricular size. Moderate concentric left ventricular hypertrophy. The left ventricular systolic function is normal with an estimated ejection fraction in the range of 55-60%. No regional wall motion abnormalities are present. The aortic valve is not well visualized. Mild aortic valve regurgitation. Mild mitral valve regurgitation. There is mild tricuspid valve regurgitation. The estimated pulmonary arterial pressure is 30 mmHg. BP: 126 / 79 HR: 76 Rhythm: Sinus MEASUREMENTS (Male / Female) Normal Values Technical Quality:Fair 2D ECHO LV Diastolic Diameter PLAX 4.6 cm 4.2 - 5.9 / 3.9 - 5.3 cm LV Systolic Diameter PLAX 2.9 cm IVS Diastolic Thickness 1.7 cm 0.6 - 1.0 / 0.6 - 0.9 cm LVPW Diastolic Thickness 1.7 cm 0.6 - 1.0 / 0.6 - 0.9 cm LV Relative Wall Thickness 0.7 RV Internal Dim ED PLAX 2.3 cm LVOT Diameter 1.9 cm Aortic Root Diameter 3.0 cm LA Systolic Diameter LX 2.7 cm 3.0 - 4.0 / 2.7 - 3.8 cm M-MODE AV Cusp Separation MM 1.9 cm DOPPLER AV Peak Velocity 164.0 cm/s AV Peak Gradient 10.8 mmHg AV Mean Gradient 7.0 mmHg AV Velocity Time Integral 29.0 cm AI Peak Velocity 501.0 cm/s AI Peak Gradient 100.4 mmHg AI Pressure Half Time 589.0 ms LVOT Peak Velocity 117.0 cm/s LVOT Peak Gradient 5.5 mmHg LVOT Velocity Time Integral 20.3 cm AV Area Cont Eq vti 2.0 cm AV Area Cont Eq pk 2.0 cm Mitral E Point Velocity 86.4 cm/s Mitral A Point Velocity 116.0 cm/s Mitral E to A Ratio 0.7 LV E' Lateral Velocity 3.5 cm/s Mitral E to LV E' Lateral Ratio 24.6 LV E' Septal Velocity 3.5 cm/s Mitral E to LV E' Septal Ratio 24.6 TR Peak Velocity 225.0 cm/s TR Peak Gradient 20.3 mmHg Right Atrial Pressure 10.0 mmHg Pulmonary Artery Systolic Pressu 30.3 mmHg Right Ventricular Systolic Press 30.3 mmHg PV Peak Velocity 94.0 cm/s PV Peak Gradient 3.5 mmHg FINDINGS LEFT VENTRICLE Normal left ventricular size. Moderate concentric left ventricular hypertrophy. The left ventricular systolic function is normal with an estimated ejection fraction in the range of 55-60%. No regional wall motion abnormalities are present. RIGHT VENTRICLE Normal right ventricular size and systolic function. LEFT ATRIUM The left atrial size is normal. RIGHT ATRIUM The right atrial size is normal. ATRIAL SEPTUM No atrial level shunt is demonstrated by color flow Doppler interrogation. MITRAL VALVE Mild mitral valve regurgitation. AORTIC VALVE The aortic valve is not well visualized. Mild aortic valve regurgitation. TRICUSPID VALVE There is mild tricuspid valve regurgitation. The estimated pulmonary arterial pressure is 30 mmHg. PULMONARY VALVE No pulmonary valve regurgitation or stenosis. Maurizio Dixon MD (Electronically Signed) Final Date:18 May 2017 18:08
[2017-05-18] MEDS: ATORVASTATIN 80 MG TAB PO SCH (21:23)
[2017-05-18] MEDS: HEPARIN-D5W 25,000 U/250 ML 250 ML IV PRN (21:45)
[2017-05-19] VITALS (26 sets, daily range): BP systolic 124–153; BP diastolic 70–90; PULSE 73–87; RESP 16–20; TEMP 98–99; O2SAT 97–100
[2017-05-19 04:39] LABS: AUTOMATED NEUTROPHIL # 5.5 TH/MM3 (1.8-7.7); BASOPHIL % 0.4 % (0.0-2.0); EOSINOPHIL # 0.2 TH/MM3 (0-0.4); HEMOGLOBIN 8.4 GM/DL (11.6-15.3); LYMPH % 36.8 % (9.0-44.0); MEAN CELL VOLUME 87.2 FL (80.0-100.0); MEAN CORPUSCULAR HEMOGLOBIN 30.6 PG (27.0-34.0); MEAN CORPUSCULAR HGB CONC 35.1 % (32.0-36.0); MEAN PLATELET VOLUME 8.1 FL (7.0-11.0); MONO % 10.3 % (0.0-8.0); MONOCYTE # 1.1 TH/MM3 (0-0.9); NEUT % 50.5 % (16.0-70.0); PLATELET COUNT 217 TH/MM3 (150-450); RED BLOOD COUNT 2.75 MIL/MM3 (4.00-5.30); RED CELL DISTRIBUTION WIDTH 12.9 % (11.6-17.2); WHITE BLOOD COUNT 10.9 TH/MM3 (4.0-11.0)
[2017-05-19 05:08] LABS: BICARBONATE 23.1 MEQ/L (21.0-32.0); CALCIUM 8.4 MG/DL (8.5-10.1); CREATININE 1.13 MG/DL (0.50-1.00)
--- NOTE | 2017-05-19 07:56 | HHI.PR ---
Subjective Remarks Patient in nad. Says no chest pain overnight. No diaphoresis, lightheadedness. No fever or chills. No n/v/d/c. Objective Vitals Vital Signs Date Time Temp Pulse Resp B/P (MAP) Pulse Ox O2 Delivery O2 Flow Rate FiO2 05/19/17 06:09 81 05/19/17 05:03 81 05/19/17 04:57 85 05/19/17 03:45 84 05/19/17 03:45 98.0 87 16 124/70 (88) 99 05/19/17 02:19 79 05/19/17 01:19 79 05/19/17 00:24 79 05/18/17 23:25 98.2 80 16 127/67 (87) 99 05/18/17 23:25 81 05/18/17 22:02 82 05/18/17 21:00 82 05/18/17 20:35 84 05/18/17 19:46 97 05/18/17 19:36 98.3 80 17 139/63 (88) 98 05/18/17 19:17 92 05/18/17 17:01 82 05/18/17 16:00 78 05/18/17 15:01 98.0 84 18 136/73 (94) 98 05/18/17 15:00 80 05/18/17 14:01 84 05/18/17 13:00 82 05/18/17 12:00 96 05/18/17 11:01 98.1 82 18 127/73 (91) 99 05/18/17 11:00 88 05/18/17 10:00 74 05/18/17 09:00 88 05/18/17 08:01 98.3 85 18 132/77 (95) 99 05/18/17 08:00 94 05/18/17 07:55 Nasal Cannula I/O 05/18/17 05/18/17 05/18/17 05/19/17 05/19/17 05/19/17 07:00 15:00 23:00 07:00 15:00 23:00 Intake Total 240 ml 720 ml 480 ml Output Total 1275 ml Balance 240 ml 720 ml -795 ml Intake Oral 240 ml 720 ml 480 ml Output Urine Total 1275 ml # Voids 2 5 1 # Bowel Movements 1 1 0 Result Diagram: 05/19/17 0359 05/19/17 0359 Imaging Last Impressions Chest X-Ray 05/17/17 0855 Signed Impressions: Service Date/Time: May 09:14 - CONCLUSION: Normal examination. Bhavesh Truong Jr., MD Lower Extremity Ultrasound 05/17/17 0000 Signed Impressions: Service Date/Time: May 20:09 - CONCLUSION: Measurements are listed above. The saphenous veins are not visualized at the level of the calves as described above. Rodrigue Dale MD Carotid Artery Ultrasound 05/17/17 0000 Signed Impressions: Service Date/Time: May 19:39 - CONCLUSION: No flow identified within the right vertebral artery. Antegrade flow within the left vertebral artery. No hemodynamically significant stenosis within the carotid arteries bilaterally. Rodrigue Dale MD Objective Remarks GENERAL: This is a well-nourished, well-developed patient, in no apparent distress. CARDIOVASCULAR: Regular rate and rhythm without murmurs, gallops, or rubs. RESPIRATORY: Clear to auscultation. Breath sounds equal bilaterally. No wheezes , rales, or rhonchi. GASTROINTESTINAL: Abdomen soft, non-tender, nondistended. No hepato-splenomegaly , or palpable masses. No guarding. MUSCULOSKELETAL: Extremities without clubbing, cyanosis, or edema. No joint tenderness, effusion, or edema noted. No calf tenderness. Negative Homans sign bilaterally. NEUROLOGICAL: Awake and alert. Cranial nerves II through XII intact. Motor and sensory grossly within normal limits. Five out of 5 muscle strength in all muscle groups. Normal speech. A/P Assessment and Plan Very pleasant 66-year-old female with: Chest pain/non-ST elevation [place] Status post cardiac catheterization by Dr. Biggs on 05/17/17, patient with three-vessel disease. Consult cardiothoracic surgeon , plan for CABG on 05/22 Continue heparin drip Continue home medication Diabetes mellitus2: Accu-Cheks and insulin sliding scale scale. Hold metformin Hyperlipidemia continue statin DVT prophylaxis SCD/teds, she is on heparin drip Discussed Condition With Patient, nurse Lauren Escobar MD May 19, 2017 07:56
[2017-05-19] MEDS: ASPIRIN 81 MG CHEW TAB CHEW SCH (08:50)
[2017-05-19] MEDS: METOPROLOL TARTRATE 50 MG TAB PO SCH ×2 (08:50→20:49)
[2017-05-19] MEDS: INSULIN ASPART SUPPLEMENTAL SCALE SQ SCH ×4 (08:50→20:50)
[2017-05-19] MEDS: DOCUSATE SODIUM 50 MG/SENNA 8.6 MG TAB PO SCH ×2 (08:51→20:50)
[2017-05-19] MEDS: amLODIPine BESYLATE 5 MG TAB PO SCH (08:51)
[2017-05-19] MEDS: SODIUM CHLORIDE 0.9% FLUSH 10 ML FLUSH IV FLUSH SCH ×2 (08:52→20:49)
[2017-05-19] MEDS: ATORVASTATIN 80 MG TAB PO SCH (20:49)
[2017-05-19] MEDS: HEPARIN-D5W 25,000 U/250 ML 250 ML IV PRN (23:24)
[2017-05-20] VITALS (29 sets, daily range): BP systolic 143–179; BP diastolic 78–89; PULSE 67–86; RESP 16–19; TEMP 97.3–98.3; O2SAT 99–100
[2017-05-20 00:40] LABS: BILIRUBIN, URINE NEG (NEG); BLOOD, URINE NEG (NEG); GLUCOSE,URINE TRACE mg/dL (NEG); KETONE, URINE NEG (NEG); MUCUS URINE FEW /lpf (OCC); NITRITE,URINE NEG (NEG); PH, URINE 6.5 (5.0-8.5); SQUAMOUS EPITHELIAL CELL URINE 1 /hpf (0-5); URINE COLOR COLORLESS (YELLW/STRAW); URINE LEUKOCYTE ESTERASE SMALL (NEG)
[2017-05-20 05:31] LABS: HEMATOCRIT 25.4 % (35.0-46.0); HEMOGLOBIN 8.8 GM/DL (11.6-15.3); MEAN CELL VOLUME 86.9 FL (80.0-100.0); MEAN CORPUSCULAR HEMOGLOBIN 30.2 PG (27.0-34.0); MEAN CORPUSCULAR HGB CONC 34.7 % (32.0-36.0); PLATELET COUNT 236 TH/MM3 (150-450); RED BLOOD COUNT 2.93 MIL/MM3 (4.00-5.30); RED CELL DISTRIBUTION WIDTH 12.9 % (11.6-17.2); WHITE BLOOD COUNT 9.2 TH/MM3 (4.0-11.0)
[2017-05-20] MEDS: ASPIRIN 81 MG CHEW TAB CHEW SCH (08:55)
[2017-05-20] MEDS: amLODIPine BESYLATE 5 MG TAB PO SCH (08:55)
[2017-05-20] MEDS: METOPROLOL TARTRATE 50 MG TAB PO SCH ×2 (08:55→20:37)
[2017-05-20] MEDS: DOCUSATE SODIUM 50 MG/SENNA 8.6 MG TAB PO SCH ×2 (08:56→20:37)
[2017-05-20] MEDS: SODIUM CHLORIDE 0.9% FLUSH 10 ML FLUSH IV FLUSH SCH ×2 (08:56→20:38)
[2017-05-20] MEDS: INSULIN ASPART SUPPLEMENTAL SCALE SQ SCH ×4 (08:56→20:37)
--- NOTE | 2017-05-20 10:01 | HHI.PR ---
Subjective Remarks no chest pain or pressure [id number]; No n/v/d/c. In the chair. Patient say she is very anxious regarding the upcoming procedure. Would like to have anti- anxiety meds. No LE edema. No fever or chills. Eating fairly well. No diaphoresis, nausea, palpitations. Objective Vitals Vital Signs Date Time Temp Pulse Resp B/P (MAP) Pulse Ox O2 Delivery O2 Flow Rate FiO2 05/20/17 08:35 97.3 78 16 179/86 (117) 100 05/20/17 06:02 73 05/20/17 05:29 71 05/20/17 04:04 72 05/20/17 03:13 74 05/20/17 03:13 98.3 72 18 147/85 (105) 99 05/20/17 02:13 68 05/20/17 01:13 69 05/20/17 00:21 69 05/19/17 23:40 76 05/19/17 23:40 98.4 78 20 150/74 (99) 98 05/19/17 22:00 78 05/19/17 21:20 75 05/19/17 20:15 80 05/19/17 19:54 21 05/19/17 19:00 83 05/19/17 19:00 98.6 79 19 136/85 (102) 100 05/19/17 18:02 84 05/19/17 17:00 80 05/19/17 16:06 79 05/19/17 15:00 73 05/19/17 15:00 98.5 78 17 140/78 (98) 99 05/19/17 14:00 81 05/19/17 13:00 79 05/19/17 12:00 75 05/19/17 11:15 97 21 05/19/17 11:00 75 05/19/17 11:00 98.5 76 16 153/90 (111) 99 I/O 05/19/17 05/19/17 05/19/17 05/20/17 05/20/17 05/20/17 07:00 15:00 23:00 07:00 15:00 23:00 Intake Total 480 ml 900 ml 240 ml Output Total 1275 ml 600 ml 2050 ml Balance -795 ml 300 ml -1810 ml Intake Oral 480 ml 900 ml 240 ml Output Urine Total 1275 ml 600 ml 2050 ml # Voids 1 # Bowel Movements 0 1 0 Result Diagram: 05/20/17 0446 05/19/17 0359 Imaging Last Impressions Chest X-Ray 05/17/17 0855 Signed Impressions: Service Date/Time: May 09:14 - CONCLUSION: Normal examination. Bhavesh Truong Jr., MD Lower Extremity Ultrasound 05/17/17 0000 Signed Impressions: Service Date/Time: May 20:09 - CONCLUSION: Measurements are listed above. The saphenous veins are not visualized at the level of the calves as described above. Rodrigue Dale MD Carotid Artery Ultrasound 05/17/17 0000 Signed Impressions: Service Date/Time: May 19:39 - CONCLUSION: No flow identified within the right vertebral artery. Antegrade flow within the left vertebral artery. No hemodynamically significant stenosis within the carotid arteries bilaterally. Rodrigue Dale MD Objective Remarks GENERAL: This is a well-nourished, well-developed patient, in no apparent distress. CARDIOVASCULAR: Regular rate and rhythm without murmurs, gallops, or rubs. RESPIRATORY: Clear to auscultation. Breath sounds equal bilaterally. No wheezes , rales, or rhonchi. GASTROINTESTINAL: Abdomen soft, non-tender, nondistended. No hepato-splenomegaly , or palpable masses. No guarding. MUSCULOSKELETAL: Extremities without clubbing, cyanosis, or edema. No joint tenderness, effusion, or edema noted. No calf tenderness. Negative Homans sign bilaterally. NEUROLOGICAL: Awake and alert. Cranial nerves II through XII intact. Motor and sensory grossly within normal limits. Five out of 5 muscle strength in all muscle groups. Normal speech. A/P Assessment and Plan Very pleasant 66-year-old female with: Chest pain/non-ST elevation [place] Status post cardiac catheterization by Dr. Biggs on 05/17/17, patient with three-vessel disease. Consult cardiothoracic surgeon , plan for CABG on 05/22 Continue heparin drip Continue home medication Anxiety preprocedure. add ativan prn Diabetes mellitus2: Accu-Cheks and insulin sliding scale scale. Hold metformin Hyperlipidemia continue statin DVT prophylaxis SCD/teds, she is on heparin drip Discussed Condition With Patient, nurse Lauren Escobar MD May 20, 2017 10:01
[2017-05-20] MEDS: LORazepam 0.5 MG TAB PO PRN ×2 (11:07→20:37)
[2017-05-20] MEDS ORDERED: ENALAPRILAT 2.5 MG/2 ML VIAL IV PUSH PRN (16:45)
[2017-05-20] MEDS: ATORVASTATIN 80 MG TAB PO SCH (20:37)
[2017-05-21] VITALS (23 sets, daily range): BP systolic 136–155; BP diastolic 74–85; PULSE 68–82; RESP 16–20; TEMP 98–98.4; O2SAT 98–100
[2017-05-21] MEDS: HEPARIN-D5W 25,000 U/250 ML 250 ML IV PRN (02:32)
[2017-05-21 06:26] LABS: BASOPHIL % 0.5 % (0.0-2.0); EOSINOPHIL # 0.3 TH/MM3 (0-0.4); EOSINOPHIL % 3.3 % (0.0-4.0); HEMATOCRIT 26.4 % (35.0-46.0); HEMOGLOBIN 9.6 GM/DL (11.6-15.3); LYMPHOCYTE # 3.6 TH/MM3 (1.0-4.8); MEAN CELL VOLUME 87.2 FL (80.0-100.0); MEAN CORPUSCULAR HEMOGLOBIN 31.6 PG (27.0-34.0); MEAN PLATELET VOLUME 7.6 FL (7.0-11.0); MONO % 7.9 % (0.0-8.0); MONOCYTE # 0.7 TH/MM3 (0-0.9); NEUT % 46.3 % (16.0-70.0); PLATELET COUNT 257 TH/MM3 (150-450); RED BLOOD COUNT 3.03 MIL/MM3 (4.00-5.30); WHITE BLOOD COUNT 8.5 TH/MM3 (4.0-11.0)
[2017-05-21 06:32] LABS: PROTHROMBIN TIME - PATIENT 10.3 SEC (9.8-11.6)
[2017-05-21 06:33] LABS: MEAN CORPUSCULAR HGB CONC 36.2 % (32.0-36.0)
[2017-05-21 06:51] LABS: ALBUMIN 2.6 GM/DL (3.4-5.0); AST (GOT) 19 U/L (15-37); BICARBONATE 22.5 MEQ/L (21.0-32.0); BLOOD UREA NITROGEN 20 MG/DL (7-18); CALCIUM 9.1 MG/DL (8.5-10.1); CHLORIDE 108 MEQ/L (98-107); GLOMERULAR FILTRATION RATE 55 ML/MIN (>89); GLUCOSE,RANDOM 158 MG/DL (74-106); SODIUM (NA) 138 MEQ/L (136-145)
[2017-05-21 06:52] LABS: ALT (GPT) 16 U/L (10-53)
[2017-05-21 06:54] LABS: ALKALINE PHOSPHATASE 64 U/L (45-117); TOTAL BILIRUBIN ADULT 0.4 MG/DL (0.2-1.0); TOTAL PROTEIN 7.4 GM/DL (6.4-8.2)
--- NOTE | 2017-05-21 07:30 | HHI.PR ---
Subjective Remarks She is in the chair. No chest pain overnight. No shortness of breath, palpitations, dizziness. She is ambulating to the bathroom no chest pain or shortness of breath. Patient says she is less anxious and medications aren't helping. No lower extremity edema. Appetite is better in fairly well. Objective Vitals Vital Signs Date Time Temp Pulse Resp B/P (MAP) Pulse Ox O2 Delivery O2 Flow Rate FiO2 05/21/17 06:04 75 05/21/17 05:19 70 05/21/17 04:13 71 05/21/17 03:12 98.1 73 20 155/85 (108) 98 05/21/17 03:12 74 05/21/17 02:47 72 05/21/17 01:09 70 05/21/17 00:00 72 05/20/17 23:59 98.2 72 19 156/88 (110) 100 05/20/17 23:59 70 05/20/17 22:11 72 05/20/17 21:57 75 05/20/17 20:30 75 05/20/17 20:03 21 05/20/17 19:58 98.3 81 19 150/78 (102) 99 05/20/17 19:50 77 05/20/17 18:02 86 05/20/17 17:03 151/89 (109) 05/20/17 17:00 80 05/20/17 16:00 78 05/20/17 15:59 97.6 80 16 163/80 (107) 100 05/20/17 15:00 78 05/20/17 14:07 81 05/20/17 13:49 74 05/20/17 13:36 21 05/20/17 12:32 80 05/20/17 11:10 97.6 68 16 143/84 (103) 99 05/20/17 11:00 67 05/20/17 10:00 82 05/20/17 09:00 80 05/20/17 08:35 97.3 78 16 179/86 (117) 100 05/20/17 08:00 76 I/O 05/20/17 05/20/17 05/20/17 05/21/17 05/21/17 05/21/17 07:00 15:00 23:00 07:00 15:00 23:00 Intake Total 240 ml 720 ml 240 ml Output Total 2050 ml 1000 ml 850 ml Balance -1810 ml -280 ml -610 ml Intake Oral 240 ml 720 ml 240 ml Output Urine Total 2050 ml 1000 ml 850 ml # Bowel Movements 0 1 Result Diagram: 05/21/17 0607 05/21/17 0607 Imaging Last Impressions Chest X-Ray 05/17/17 0855 Signed Impressions: Service Date/Time: May 09:14 - CONCLUSION: Normal examination. Bhavesh Truong Jr., MD Lower Extremity Ultrasound 05/17/17 0000 Signed Impressions: Service Date/Time: May 20:09 - CONCLUSION: Measurements are listed above. The saphenous veins are not visualized at the level of the calves as described above. Rodrigue Dale MD Carotid Artery Ultrasound 05/17/17 0000 Signed Impressions: Service Date/Time: May 19:39 - CONCLUSION: No flow identified within the right vertebral artery. Antegrade flow within the left vertebral artery. No hemodynamically significant stenosis within the carotid arteries bilaterally. Rodrigue Dale MD Objective Remarks GENERAL: This is a well-nourished, well-developed patient, in no apparent distress. CARDIOVASCULAR: Regular rate and rhythm without murmurs, gallops, or rubs. RESPIRATORY: Clear to auscultation. Breath sounds equal bilaterally. No wheezes , rales, or rhonchi. GASTROINTESTINAL: Abdomen soft, non-tender, nondistended. No hepato-splenomegaly , or palpable masses. No guarding. MUSCULOSKELETAL: Extremities without clubbing, cyanosis, or edema. No joint tenderness, effusion, or edema noted. No calf tenderness. Negative Homans sign bilaterally. NEUROLOGICAL: Awake and alert. Cranial nerves II through XII intact. Motor and sensory grossly within normal limits. Five out of 5 muscle strength in all muscle groups. Normal speech. A/P Assessment and Plan Very pleasant 66-year-old female with: Chest pain/non-ST elevation [place] Status post cardiac catheterization by Dr. Biggs on 05/17/17, patient with three-vessel disease. Consult cardiothoracic surgeon , plan for CABG on 05/22 Continue heparin drip Continue home medication Anxiety preprocedure. add ativan prn Diabetes mellitus2: Accu-Cheks and insulin sliding scale scale. Hold metformin Hyperlipidemia continue statin DVT prophylaxis SCD/teds, she is on heparin drip Discussed Condition With Patient, nurse Lauren Escobar MD May 21, 2017 07:30
[2017-05-21] MEDS: DOCUSATE SODIUM 50 MG/SENNA 8.6 MG TAB PO SCH ×2 (08:43→20:54)
[2017-05-21] MEDS: METOPROLOL TARTRATE 50 MG TAB PO SCH ×2 (08:43→20:54)
[2017-05-21] MEDS: ASPIRIN 81 MG CHEW TAB CHEW SCH (08:43)
[2017-05-21] MEDS: amLODIPine BESYLATE 5 MG TAB PO SCH (08:43)
[2017-05-21] MEDS: INSULIN ASPART SUPPLEMENTAL SCALE SQ SCH ×4 (08:44→20:55)
[2017-05-21] MEDS: SODIUM CHLORIDE 0.9% FLUSH 10 ML FLUSH IV FLUSH SCH ×2 (08:44→20:55)
[2017-05-21 15:47] LABS: HEMOGLOBIN A1C 9.2 % (4.3-6.0)
--- NOTE | 2017-05-21 19:28 | PD.CARD.PN ---
Subjective Subjective Remarks Patient was seen earlier today, late entry No events overnight No chest pain Objective Medications Current Medications Medications (Trade) Dose Ordered Sig/Ori Route Start Time Stop Time Status Last Admin Nitroglycerin/ Dextrose 250 ml @ 1.5 mls/hr TITRATE PRN IV 05/17/17 09:30 05/18/17 07:16 (Norvasc) 5 mg DAILY PO 05/18/17 09:00 05/21/17 08:43 (Lopressor) 50 mg BID PO 05/17/17 21:00 05/21/17 08:43 (Atropine Inj) 0.5 mg UNSCH PRN IV PUSH 05/17/17 10:30 (Heparin Inj) 5,000 units UNSCH PRN IV PUSH 05/17/17 16:30 (Heparin Inj) 2,500 units UNSCH PRN IV PUSH 05/17/17 16:30 05/18/17 02:55 Heparin Sodium/ Dextrose 250 ml @ 8.2 mls/hr TITRATE PRN IV 05/17/17 10:30 05/21/17 02:32 (Aspirin Chew) 81 mg DAILY CHEW 05/18/17 09:00 05/21/17 08:43 (Lipitor) 80 mg HS PO 05/17/17 21:00 05/20/17 20:37 (NS Flush) 2 ml UNSCH PRN IV FLUSH 05/17/17 16:00 (NS Flush) 2 ml BID IV FLUSH 05/17/17 21:00 05/21/17 08:44 (Tylenol) 650 mg Q4H PRN PO 05/17/17 16:00 (Zofran Inj) 4 mg Q6H PRN IVP 05/17/17 16:00 (Narcan Inj) 0.4 mg UNSCH PRN IV PUSH 05/17/17 16:00 (Rose Mary-Colace) 1 tab BID PO 05/17/17 21:00 05/20/17 20:37 (Milk Of Magnesia Liq) 30 ml Q12H PRN PO 05/17/17 16:00 (Senokot) 17.2 mg Q12H PRN PO 05/17/17 16:00 (Dulcolax Supp) 10 mg DAILY PRN RECTAL 05/17/17 16:00 (Lactulose Liq) 30 ml DAILY PRN PO 05/17/17 16:00 Papaverine HCl 60 mg/Nitroglycerin 100 mcg/Diltiazem HCl 100 mg/Sodium Chloride 100 ml @ 0 mls/hr STOCK MANAGER IRRIGATION 05/17/17 15:45 05/24/17 15:44 Cefazolin Sodium 500 mg/Sodium Chloride 505 ml @ 0 mls/hr STOCK MANAGER IRRIGATION 05/17/17 15:45 05/24/17 15:44 Cefazolin Sodium/ Dextrose 50 ml @ 150 mls/hr STOCK MANAGER IV 05/17/17 15:45 05/24/17 15:44 (Lopressor) 12.5 mg STOCK MANAGER PO 05/17/17 15:45 05/24/17 15:44 (Hibiclens 4% Top Soln) 1 applic STOCK MANAGER TOPICAL 05/17/17 15:45 05/24/17 15:44 Insulin Human Regular 100 units/ Sodium Chloride 100 ml @ 3 mls/hr TITRATE PRN IV 05/17/17 15:45 05/24/17 15:44 (D50w (Vial) Inj) 50 ml UNSCH PRN IV PUSH 05/17/17 15:45 (D50w (Vial) Inj) 50 ml UNSCH PRN IV PUSH 05/17/17 16:00 (Glucagon Inj) 1 mg UNSCH PRN OTHER 05/17/17 16:00 (NovoLOG SUPPLEMENTAL SCALE) 1 ACHS SLIDING SCALE SQ 05/17/17 17:00 05/21/17 16:18 (Pill Splitter) 1 ea UNSCH PRN OTHER 05/17/17 20:15 (Ativan) 0.5 mg Q8H PRN PO 05/20/17 10:15 05/20/17 20:37 (Vasotec Inj) 2.5 mg Q6H PRN IV PUSH 05/20/17 16:45 (Apresoline) 10 mg Q6H PRN PO 05/20/17 16:45 Vital Signs / I&O Vital Signs Date Time Temp Pulse Resp B/P (MAP) Pulse Ox O2 Delivery O2 Flow Rate FiO2 05/21/17 18:03 78 05/21/17 17:03 77 05/21/17 16:01 76 05/21/17 15:00 98.3 78 16 148/74 (98) 100 05/21/17 15:00 69 05/21/17 14:34 74 05/21/17 13:34 76 05/21/17 12:14 75 05/21/17 11:04 77 05/21/17 11:04 98.2 76 16 148/76 (100) 100 05/21/17 10:00 69 05/21/17 09:18 82 05/21/17 08:00 98.0 75 16 155/83 (107) 100 05/21/17 08:00 77 05/21/17 07:49 Nasal Cannula 05/21/17 06:04 75 05/21/17 05:19 70 05/21/17 04:13 71 05/21/17 03:12 98.1 73 20 155/85 (108) 98 05/21/17 03:12 74 05/21/17 02:47 72 05/21/17 01:09 70 05/21/17 00:00 72 05/20/17 23:59 98.2 72 19 156/88 (110) 100 05/20/17 23:59 70 05/20/17 22:11 72 05/20/17 21:57 75 05/20/17 20:30 75 05/20/17 20:03 21 05/20/17 19:58 98.3 81 19 150/78 (102) 99 05/20/17 19:50 77 I/O 05/20/17 05/20/17 05/20/17 05/21/17 05/21/17 05/21/17 07:00 15:00 23:00 07:00 15:00 23:00 Intake Total 240 ml 720 ml 240 ml 690 ml Output Total 2050 ml 1000 ml 850 ml 700 ml Balance -1810 ml -280 ml -610 ml -10 ml Intake Oral 240 ml 720 ml 240 ml 600 ml IV Total 90 ml Output Urine Total 2050 ml 1000 ml 850 ml 700 ml # Bowel Movements 0 1 1 Physical Exam GENERAL: NAD, AAOx3 SKIN: Warm and dry. HEAD: Atraumatic. Normocephalic. EYES: Pupils equal and round. No scleral icterus. No injection or drainage. ENT: No nasal bleeding or discharge. Mucous membranes pink and moist. NECK: Trachea midline. No JVD. CARDIOVASCULAR: Regular rate and rhythm. RESPIRATORY: No accessory muscle use. Clear to auscultation. Breath sounds equal bilaterally. GASTROINTESTINAL: Abdomen soft, non-tender, nondistended. Hepatic and splenic margins not palpable. MUSCULOSKELETAL: Extremities without clubbing, cyanosis, or edema. No obvious deformities. Right femoral no hematoma, distal pulses intact NEUROLOGICAL: Awake and alert. No obvious cranial nerve deficits. Motor grossly within normal limits. Five out of 5 muscle strength in the arms and legs. Normal speech. PSYCHIATRIC: Appropriate mood and affect; insight and judgment normal. Laboratory Laboratory Tests Test 05/21/17 06:07 White Blood Count 8.5 TH/MM3 Red Blood Count 3.03 MIL/MM3 Hemoglobin 9.6 GM/DL Hematocrit 26.4 % Mean Corpuscular Volume 87.2 FL Mean Corpuscular Hemoglobin 31.6 PG Mean Corpuscular Hemoglobin Concent 36.2 % Red Cell Distribution Width 13.0 % Platelet Count 257 TH/MM3 Mean Platelet Volume 7.6 FL Neutrophils (%) (Auto) 46.3 % Lymphocytes (%) (Auto) 42.0 % Monocytes (%) (Auto) 7.9 % Eosinophils (%) (Auto) 3.3 % Basophils (%) (Auto) 0.5 % Neutrophils # (Auto) 4.0 TH/MM3 Lymphocytes # (Auto) 3.6 TH/MM3 Monocytes # (Auto) 0.7 TH/MM3 Eosinophils # (Auto) 0.3 TH/MM3 Basophils # (Auto) 0.0 TH/MM3 CBC Comment AUTO DIFF Differential Comment AUTO DIFF CONFIRMED Prothrombin Time 10.3 SEC Prothromb Time International Ratio 1.0 RATIO Activated Partial Thromboplast Time 42.4 SEC Blood Urea Nitrogen 20 MG/DL Creatinine 1.20 MG/DL Random Glucose 158 MG/DL Total Protein 7.4 GM/DL Albumin 2.6 GM/DL Calcium Level 9.1 MG/DL Alkaline Phosphatase 64 U/L Aspartate Amino Transf (AST/SGOT) 19 U/L Alanine Aminotransferase (ALT/SGPT) 16 U/L Total Bilirubin 0.4 MG/DL Sodium Level 138 MEQ/L Potassium Level 3.9 MEQ/L Chloride Level 108 MEQ/L Carbon Dioxide Level 22.5 MEQ/L Anion Gap 8 MEQ/L Estimat Glomerular Filtration Rate 55 ML/MIN Assessment and Plan Problem List: (1) NSTEMI (non-ST elevation myocardial infarction) ICD Codes: I21.4 - Non-ST elevation (NSTEMI) myocardial infarction Status: Acute (2) Multi-vessel coronary artery stenosis ICD Codes: I25.10 - Atherosclerotic heart disease of [place] coronary artery without angina pectoris (3) Hypertension ICD Codes: I10 - Essential (primary) hypertension Status: Acute (4) Diabetes mellitus ICD Codes: E11.9 - Type 2 diabetes mellitus without complications Assessment and Plan 1) NSTEMI/CP/MVCAD Plan CABG for tomorrow Con't Heparin drip 2) EF 55-60%, mild MR/AR/TR 3) Hgb stable 4) Will see post-CABG Maxi Biggs DO May 21, 2017 19:28
[2017-05-21] MEDS: ATORVASTATIN 80 MG TAB PO SCH (20:54)
[2017-05-21] MEDS: LORazepam 0.5 MG TAB PO PRN (20:54)
[2017-05-22] VITALS (18 sets, daily range): BP systolic 110–162; BP diastolic 65–88; PULSE 62–86; RESP 10–20; TEMP 97.3–98.4; O2SAT 95–98
[2017-05-22] MEDS: METOPROLOL TARTRATE 50 MG TAB PO SCH ×2 (05:05→21:47)
[2017-05-22 05:55] LABS: AUTOMATED NEUTROPHIL # 3.8 TH/MM3 (1.8-7.7); BASOPHIL # 0.1 TH/MM3 (0-0.2); BASOPHIL % 0.7 % (0.0-2.0); EOSINOPHIL # 0.4 TH/MM3 (0-0.4); EOSINOPHIL % 4.1 % (0.0-4.0); HEMATOCRIT 26.3 % (35.0-46.0); HEMOGLOBIN 8.9 GM/DL (11.6-15.3); LYMPH % 43.3 % (9.0-44.0); LYMPHOCYTE # 3.7 TH/MM3 (1.0-4.8); MEAN CELL VOLUME 88.4 FL (80.0-100.0); MEAN CORPUSCULAR HEMOGLOBIN 29.9 PG (27.0-34.0); MEAN CORPUSCULAR HGB CONC 33.9 % (32.0-36.0); MEAN PLATELET VOLUME 8.1 FL (7.0-11.0); MONO % 8.1 % (0.0-8.0); MONOCYTE # 0.7 TH/MM3 (0-0.9); NEUT % 43.8 % (16.0-70.0); PLATELET COUNT 254 TH/MM3 (150-450); RED BLOOD COUNT 2.98 MIL/MM3 (4.00-5.30); RED CELL DISTRIBUTION WIDTH 12.8 % (11.6-17.2); WHITE BLOOD COUNT 8.6 TH/MM3 (4.0-11.0)
[2017-05-22] MEDS ORDERED: ceFAZolin 2 GM PREMIX 50 ML ONE (06:15)
[2017-05-22] MEDS ORDERED: methylPREDNISolone SOD SUCC 125 MG/2 ML VIAL ONE (06:15)
[2017-05-22] MEDS ORDERED: VANCOMYCIN HCL 1000 MG VIAL ONE (06:15)
[2017-05-22] MEDS ORDERED: HEPARIN SODIUM - SQ 10,000 UNITS/ML VIAL ONE ×2 (06:15→11:56)
[2017-05-22 06:26] LABS: BICARBONATE 24.4 MEQ/L (21.0-32.0); CALCIUM 9.1 MG/DL (8.5-10.1); CREATININE 1.22 MG/DL (0.50-1.00)
[2017-05-22] MEDS ORDERED: CARDIOPLEGIC IRR 2,000 ML ONE (07:09)
[2017-05-22] MEDS ORDERED: POTASSIUM CHLORIDE 40 MEQ/20 ML VIAL ONE (07:10)
[2017-05-22] MEDS ORDERED: ALBUMIN 25% INJ 50 ML IV ONE (07:10)
[2017-05-22] MEDS ORDERED: HEPARIN SODIUM - IV 10,000 UNITS/10 ML VIAL ONE (07:10)
[2017-05-22] MEDS ORDERED: MANNITOL INJ 100 ML ONE (07:11)
[2017-05-22] MEDS ORDERED: CALCIUM CHLORIDE 10% SOLN 1 GRAM/10 ML SYR ONE (07:11)
[2017-05-22] MEDS ORDERED: SODIUM BICARBONATE 8.4% INJ 50 ML ONE (07:11)
[2017-05-22] MEDS ORDERED: SODIUM CHLORIDE 0.9% INJ 50 ML ONE (07:13)
[2017-05-22] MEDS: INSULIN ASPART SUPPLEMENTAL SCALE SQ SCH ×2 (08:00→12:00)
[2017-05-22] MEDS: SODIUM CHLORIDE 0.9% FLUSH 10 ML FLUSH IV FLUSH SCH ×2 (09:00→20:34)
[2017-05-22] MEDS: DOCUSATE SODIUM 50 MG/SENNA 8.6 MG TAB PO SCH ×2 (09:00→21:47)
[2017-05-22] MEDS: amLODIPine BESYLATE 5 MG TAB PO SCH (09:00)
[2017-05-22] MEDS: ASPIRIN 81 MG CHEW TAB CHEW SCH (09:00)
--- NOTE | 2017-05-22 09:50 | MA ---
cc: MAXI MCKEON DO DATE: May 17, 2017 PROCEDURE Left heart catheterization, coronary angiogram, moderate sedation 20 minutes PREPROCEDURE DIAGNOSIS N-STEMI, chest pain, EKG changes. POSTPROCEDURE DIAGNOSIS N-STEMI, multivessel coronary artery disease. MEDICATIONS Versed 0.5 mg. Fentanyl 25 mcg. CONTRAST 30 cc FLUOROSCOPY: 1.2 minutes SEDATION: Moderate sedation 20 minutes ESTIMATED BLOOD LOSS 10 cc PROCEDURAL SUMMARY: Carol Melton is a pleasant 66-year-old female who presented to [facility] emergency room on March 16, 2018 due to chest pain. I was called emergently as her EKG had significant changes concerning for possible ST-elevation. She was started on a nitroglycerin drip. EKG did not meet criteria for ST-elevation myocardial infarction but the patient continued to have chest pain and was started on a nitroglycerin drip and felt that it was urgent to take her to the analytical lab analyst. Risks, benefits and alternatives were explained to her and she is consented as such. She was brought to lab and prepped in the usual sterile fashion. The right femoral artery was accessed using a modified Seldinger technique and placement of a 6-[place] sheath. This was easily aspirated and flushed. JR-4 was advanced over a J-wire to the ascending aorta and across the aortic valve for measurement of left ventricular pressure. This was pulled back across the aortic valve showing no significant gradient of aortic stenosis. JR-4 was used for selective angiography of the right coronary artery system. This was exchanged out for a JL-3.5. JL-4 which was used for selective angiography of the left coronary artery system. At that time that time the patient was chest pain free on a nitroglycerin drip. The JL-4 was removed. Sheath was sutured in place with a plan to remove in the holding area. The patient left the analytical lab analyst and a guarded position. FINDINGS Left main normal size vessel with adequate reflux and no significant disease. It bifurcates into an LAD and circumflex. LAD normal-size vessel with a 90% lesion in the proximal to midportion. Distally the vessel has diffuse 95% disease. Diffuse 90% disease. The patient was given nitroglycerin during the procedure which did not dilate this showing that it was disease and not just spasm. LAD does give off one small diagonal. Left circumflex is a normal size vessel which has 70% disease in the midportion. It gives off two major obtuse marginals with the first one having 90% disease in the proximal portion before bifurcating into an upper and lower branch with the lower branch having 95% disease. The second obtuse marginal has diffuse 95% disease. The third obtuse marginal has no significant disease. RCA normal-size vessel with a 30% disease in the proximal portion. In the [id number] portion there is 70% disease. It bifurcates into a posterior lateral and PDA. PDA has no significant disease call the PLV is subtotally occluded but overall a small vessel. LVEDP 13. IMPRESSION 1. N-STEMI 2. Chest pain concerning for coronary insufficiency. 3. Multivessel coronary artery disease. 4. Diabetes mellitus. RECOMMENDATIONS 1. At this point presenting as an N-STEMI With multivessel disease. She is currently chest pain free on nitroglycerin. 2. Because of her multivessel coronary artery disease I believe that she should be taken off the table and evaluated by CT surgery for consideration of coronary artery bypass grafting. 3. Because of the significant of her disease. She will be placed back on heparin drip 6 hours after sheath is removed. 4. Further recommendations after evaluation by CT surgery. Thank you for allowing me to see Carol Flynt, if there any questions please do not hesitate to call. Maxi Mckeon DO VGP/mh /10:42 PM /9:07 AM
--- NOTE | 2017-05-22 09:54 | RSPPFT ---
DATE OF PROCEDURE: 05/18/17 COMMENTS: VOLUMES DYNAMIC: FVC and FEV1 mildly reduced. FLOWS: FEV1% and FEF 25-75 normal. IMPRESSION: Mild restrictive ventilatory defect.
--- NOTE | 2017-05-22 11:46 | HHI.PR ---
Subjective Remarks Went for CABG, seen in the [id number] ICU post cabg. Sleepy. No chest pain or sob. No n/v/d/c. Denies fever or chills. VSS. Objective Vitals Vital Signs Date Time Temp Pulse Resp B/P (MAP) Pulse Ox O2 Delivery O2 Flow Rate FiO2 05/22/17 07:00 98.3 67 16 162/88 (112) 98 05/22/17 06:10 73 05/22/17 05:09 76 05/22/17 04:14 67 05/22/17 03:20 62 05/22/17 03:20 98.0 73 18 158/85 (109) 98 05/22/17 02:00 84 05/22/17 01:28 67 05/22/17 00:11 66 05/21/17 23:50 69 05/21/17 23:50 98.1 73 20 136/81 (99) 100 05/21/17 22:44 68 05/21/17 21:00 79 05/21/17 20:33 21 05/21/17 20:00 70 05/21/17 19:00 77 05/21/17 19:00 98.4 79 19 155/83 (107) 99 05/21/17 18:03 78 05/21/17 17:03 77 05/21/17 16:01 76 05/21/17 15:00 98.3 78 16 148/74 (98) 100 05/21/17 15:00 69 05/21/17 14:34 74 05/21/17 13:34 76 05/21/17 12:14 75 I/O 05/21/17 05/21/17 05/21/17 05/22/17 05/22/17 05/22/17 07:00 15:00 23:00 07:00 15:00 23:00 Intake Total 240 ml 690 ml 240 ml Output Total 850 ml 700 ml 1550 ml Balance -610 ml -10 ml -1310 ml Intake Oral 240 ml 600 ml 240 ml IV Total 90 ml Output Urine Total 850 ml 700 ml 1550 ml Stool Total 0 ml # Bowel Movements 1 1 Result Diagram: 05/22/17 0435 05/22/17 0435 Imaging Last Impressions Chest X-Ray 05/22/17 0000 Signed Impressions: Service Date/Time: Monday, May 22, 2017 12:48 - CONCLUSION: 1. Expected postoperative changes of CABG with tubes and lines, as above. 2. No pneumothorax. 3. Minimal bibasilar atelectasis. Raymond Flynn MD Lower Extremity Ultrasound 05/17/17 0000 Signed Impressions: Service Date/Time: May 20:09 - CONCLUSION: Measurements are listed above. The saphenous veins are not visualized at the level of the calves as described above. Rodrigue Dale MD Carotid Artery Ultrasound 05/17/17 0000 Signed Impressions: Service Date/Time: May 19:39 - CONCLUSION: No flow identified within the right vertebral artery. Antegrade flow within the left vertebral artery. No hemodynamically significant stenosis within the carotid arteries bilaterally. Rodrigue Dale MD Objective Remarks GENERAL: This is a well-nourished, well-developed patient, in no apparent distress. CARDIOVASCULAR: Regular rate and rhythm without murmurs, gallops, or rubs. RESPIRATORY: Clear to auscultation. Breath sounds equal bilaterally. No wheezes , rales, or rhonchi. GASTROINTESTINAL: Abdomen soft, non-tender, nondistended. No hepato-splenomegaly , or palpable masses. No guarding. MUSCULOSKELETAL: Extremities without clubbing, cyanosis, or edema. No joint tenderness, effusion, or edema noted. No calf tenderness. Negative Homans sign bilaterally. NEUROLOGICAL: Awake and alert. Cranial nerves II through XII intact. Motor and sensory grossly within normal limits. Five out of 5 muscle strength in all muscle groups. Normal speech. A/P Assessment and Plan Very pleasant 66-year-old female with: Chest pain/non-ST elevation CA Status post cardiac catheterization by Dr. Biggs on 05/17/17, patient with three-vessel disease. Consult cardiothoracic surgeon, s/p CABG on Sun05/22/17 Continue heparin drip Continue home medication Anxiety preprocedure. add ativan prn Diabetes mellitus2: Accu-Cheks and insulin sliding scale scale. Hold metformin Hyperlipidemia continue statin DVT prophylaxis SCD/teds, she is on heparin drip Discussed Condition With Patient, nurse DC plan : S/P CABG 05/22/17 Lauren Escobar MD May 22, 2017 11:45
[2017-05-22] MEDS ORDERED: ceFAZolin INJ 1,000 MG VIAL ONE (11:56)
[2017-05-22] MEDS ORDERED: AMINOCAPROIC ACID INJ 250 MG/ML 20 ML VIAL IV ONE ×2 (12:00)
[2017-05-22] MEDS ORDERED: MAGNESIUM SULFATE 1 GM/2 ML VIAL IV ONE ×2 (12:00)
[2017-05-22] MEDS ORDERED: ePHEDrine/NS 25 MG/5 ML SYRINGE IV ONE ×2 (12:00)
[2017-05-22] MEDS ORDERED: PROTAMINE SULFATE 50 MG/5 ML VIAL IV ONE ×2 (12:00)
[2017-05-22] MEDS ORDERED: LABETALOL HCL 100 MG/20 ML VIAL IV ONE ×2 (12:00)
[2017-05-22] MEDS ORDERED: PHENYLEPH/NS 1000 MCG/10 ML SYR IV ONE ×2 (12:00)
[2017-05-22] MEDS ORDERED: PROPOFOL 500 MG/50 ML BTL IV ONE ×2 (12:00)
[2017-05-22] MEDS ORDERED: NITROGLYCERIN 50 MG/DEXTROSE 5% SOLN 250 ML BTL IV ONE ×2 (12:00)
[2017-05-22] MEDS ORDERED: SODIUM CHLOR 0.9% (EXCEL) INJ 500 ML IV ONE (12:00)
[2017-05-22] MEDS ORDERED: DEXMEDETOMIDINE HCL 200 MCG/2 ML VIAL IV ONE ×2 (12:00)
[2017-05-22] MEDS ORDERED: VECURONIUM BROMIDE 10 MG VIAL IV ONE ×2 (12:00)
[2017-05-22] MEDS ORDERED: HEPARIN SODIUM - SQ 10,000 UNITS/ML VIAL OTHER ONE (12:00)
[2017-05-22] MEDS ORDERED: HEPARIN SODIUM - SQ 10,000 UNITS/ML VIAL SQ ONE (12:00)
[2017-05-22] MEDS ORDERED: SODIUM CHLOR 0.9% 250 ML INJ 500 ML IV ONE (12:00)
[2017-05-22] MEDS ORDERED: NS 100 ML (PAB BAG) 100 ML IV ONE (12:00)
[2017-05-22] MEDS ORDERED: NORMOSOL R INJ 1,000 ML IV ONE ×2 (12:00)
[2017-05-22] MEDS ORDERED: PHENYLEPHRINE HCL 10 MG/ML VIAL IV ONE ×2 (12:00)
[2017-05-22] MEDS ORDERED: SODIUM CHLORIDE 0.9% INJ 100 ML IV ONE (12:00)
--- NOTE | 2017-05-22 12:24 | PD.OP ---
cc: Kelly Navas MD; KalyanMaxi Broderick DO Operative Report Date of Surgery: May 22, 2017 Preoperative Diagnosis: (1) NSTEMI (non-ST elevation myocardial infarction) (2) Multi-vessel coronary artery stenosis Postoperative Diagnosis: same Procedure: CABG x 4 GUDINO to LAD - fair SVG to RCA - poor SVG to OM4 - good SVG to OM1 - good EVH Anesthesia: Dr. Hua Surgeon: Kelly Navas Boiling Off Winder(s): PATY Candelario Operation and Findings: The risks, benefits, complications, treatment options, and expected outcomes were discussed with the patient. The possibilities of reaction to medication, pulmonary aspiration, perforation of viscus, bleeding, recurrent infection, the need for additional procedures, failure to diagnose a condition, and creating a complication requiring transfusion or operation were discussed with the patient. The patient concurred with the proposed plan, giving informed consent. The site of surgery properly noted/marked. The patient was taken to Operating Room, identified as Carol Tyler and the procedure verified as CABG, EVH, YOBANY. A Time Out was held and the above information confirmed. Standard monitoring lines and Birch catheter were placed. General anesthesia was induced. The patient was prepped and draped in a sterile fashion. A median sternotomy was performed and electrocautery was used to obtain hemostasis. The left internal mammary artery was procured as a pedicle from the 7th rib to the 1st rib in the usual manner. Simultaneously left greater saphenous vein was procured from the left leg using a minimally invasive endoscopic technique. The vein was prepared for anastomosis and the leg wound was irrigated and closed in 2 layers. The pericardium was opened and a pericardial sling was created using interrupted 0 silk sutures. The patient was heparinized for cardiopulmonary bypass and the distal mammary pedicle was instrumented for anastomosis. The heart was instrumented for cardiopulmonary bypass in the usual manner. Antegrade blood cardioplegia was employed. The patient was placed on cardiopulmonary bypass. An aortic cross-clamp was applied and the heart was arrested using cold blood cardioplegia. Antegrade cardioplegia was administered after he each anastomosis. After adequate arrest, the distal right coronary circulation was investigated and the distal RCA was opened with a [place] blade and found to be a 1.5 millimeter diffusely diseased fair target. Saphenous vein was approximated to the RCA artery using a running 7 0 Prolene suture. The graft was measured for length and orientation and the proximal anastomosis was constructed to the ascending aorta using a running 5 0 Prolene suture after creating an aortotomy with a 5 millimeter punch. The 4th circumflex marginal artery was then opened with a [place] blade and found to be a 1.5 millimeter good target. Saphenous vein was approximated to the OM4 artery using a running 7 0 Prolene suture. The graft was measured for length and orientation and the proximal anastomosis was constructed to the ascending aorta using a running 5 0 Prolene suture after creating an aortotomy with a 5 millimeter punch. The 1st circumflex marginal artery was then opened with a [place] blade and found to be a 1.5 millimeter good target. Saphenous vein was approximated to the OM1 artery using a running 7 0 Prolene suture. The graft was measured for length and orientation and the proximal anastomosis was constructed to the ascending aorta using a running 5 0 Prolene suture after creating an aortotomy with a 5 millimeter punch. The graft was measured for length and orientation and was suspended from the pericardium. The distal LAD was opened with a [place] blade and found to be a 1 millimeter fair target. The left internal mammary artery was approximated to the LAD using a running 7 0 Prolene suture. The pedicle was attached to the epicardium using interrupted 5 0 silk suture. The patient was systemically rewarmed and received a hotshot dose of warm blood cardioplegia. The aorta was vented and the proximal anastomosis to the OM1 graft was accomplished using a running 5 0 Prolene suture after creating an aortotomy was a 5 millimeter punch. The cross-clamp was removed and all proximal and distal anastomoses were examined for hemostasis. The patient was weaned from cardiopulmonary bypass. Protamine was given. There was no adverse reaction. Decannulation was carried out without incident. Wound was checked for hemostasis which was obtained using electrocautery. A 36 [place] mediastinal and 32 [place] left pleural chest tubes were placed and secured to the skin with 0 silk suture. The sternum was closed with stainless steel wire. The fascia was closed with 1. PDS. The subcutaneous tissue was closed using a running 2-0 Vicryl suture. The skin was closed with 4-0 Monocryl. Sterile dressings were placed. At the end of the operation, all sponge, instruments, and needle counts were correct. The patient was transferred to the CVICU in stable condition. Findings: Diffuse distal CAD with fair to poor targets. The saphenous vein was small in caliber. XC: 75 min CPB: 88 min Drains: mediastinal x 1 pleural x 1 Complications: none Disposition: to CVICU in stable condition Kelly Navas MD May 22, 2017 12:24
[2017-05-22] MEDS ORDERED: MAGNESIUM SULFATE INJ 2 GM in SODIUM CHLORIDE 0.9% INJ 100 ML IV PRN ×2 (12:30→13:30)
[2017-05-22] MEDS ORDERED: CALCIUM CHLORIDE INJ 1 GM in SODIUM CHLORIDE 0.9% INJ 100 ML IV PRN (12:45)
[2017-05-22] MEDS ORDERED: MIDAZOLAM HCL 2 MG/2 ML VIAL ONE (12:54)
[2017-05-22] MEDS ORDERED: fentaNYL CITRATE 1000 MCG/20 ML VIAL ONE (12:54)
[2017-05-22] MEDS ORDERED: ACETAMINOPHEN 325 MG TAB PO PRN (13:30)
[2017-05-22] MEDS ORDERED: LACTATED RINGER'S 1000 ML INJ 500 ML IV PRN (13:30)
[2017-05-22] MEDS ORDERED: ACETAMINOPHEN 650 MG SUPP RECTAL PRN (13:30)
[2017-05-22] MEDS ORDERED: SODIUM CHLORIDE 0.9% FLUSH 10 ML FLUSH IV FLUSH PRN (13:30)
[2017-05-22] MEDS ORDERED: ALBUMIN 5% INJ 250 ML IV PRN (13:30)
[2017-05-22] MEDS ORDERED: DEXMEDETOMIDINE INJ 200 MCG in SODIUM CHLORIDE 0.9% INJ 50 ML IV PRN (13:30)
[2017-05-22] MEDS: CLEVIDIPINE INJ 50 ML IV PRN ×2 (13:41→18:23)
[2017-05-22] MEDS ORDERED: INSULIN REGULAR (IV INFUSION) 100 UNITS in SODIUM CHLORIDE 0.9% INJ 99 ML IV PRN (13:45)
[2017-05-22] MEDS ORDERED: CALCIUM CHLORIDE 10% 1 GRAM/10 ML VIAL IV PUSH PRN (13:45)
[2017-05-22] MEDS ORDERED: SODIUM BICARBONATE 8.4% SOLN 50 MEQ/50 ML VIAL IV PUSH PRN ×2 (14:00)
[2017-05-22] MEDS ORDERED: Post-op Orders (for Pharmacy) OTHER ONE (14:00)
[2017-05-22] MEDS ORDERED: RESP: RACEPINEPHRINE 2.25% 0.5 ML NEB NEB PRN (14:00)
[2017-05-22] MEDS ORDERED: DEXTROSE 50% IN WATER 50 ML VIAL(D50) IV PUSH PRN (14:00)
[2017-05-22] MEDS ORDERED: RESP: ALBUTEROL 2.5 MG/IPRATROPIUM 0.5 MG NEB (PRN) NEB (14:00)
--- NOTE | 2017-05-22 14:52 | RADRPT ---
EXAM DATE/TIME: 05/22/2017 12:48 [facility] COMPARISON: CHEST SINGLE AP, May 17, 2017, 9:14. INDICATIONS : Status Post CABG. MEDICAL HISTORY : Hypertension. Diabetes mellitus type II SURGICAL HISTORY : Tubal ligation. inguinal hernia repair ENCOUNTER: Subsequent ACUITY: 4 - 6 days PAIN SCORE: Non-responsive. LOCATION: Bilateral chest FINDINGS: ETT at the level of the clavicles. Left subclavian catheter with tip in the proximal SVC. Mediastinal drain and left-sided chest tube. No significant pneumothorax. Minimal bibasilar airspace disease. Ca rdiomediastinal contours are stable. Remainder of the exam is unchanged. CONCLUSION: 1. Expected postoperative changes of CABG with tubes and lines, as above. 2. No pneumothorax. 3. Minimal bibasilar atelectasis. Raymond Flynn MD on May 22, 2017 at 14:49 Board Certified Radiologist. This report was verified electronically.
[2017-05-22] MEDS: ACETAMINOPHEN 1000 MG/100 ML 100 ML IV SCH ×2 (14:58→20:33)
[2017-05-22] MEDS ORDERED: hydrALAZINE HCL 20 MG/ML VIAL IV PUSH PRN (15:00)
[2017-05-22] MEDS ORDERED: POTASSIUM CHLOR 20 MEQ PREMIX 100 ML IV PRN ×3 (15:00)
[2017-05-22] MEDS ORDERED: POTASSIUM CHLORIDE 20 MEQ CONTROLLED RELEASE TAB PO PRN ×2 (15:00)
[2017-05-22] MEDS ORDERED: METOPROLOL TARTRATE 5 MG/5 ML VIAL IV PUSH PRN (15:00)
[2017-05-22] MEDS ORDERED: ONDANSETRON HCL 4 MG/2 ML VIAL IV PUSH PRN (15:00)
[2017-05-22] MEDS: AMIODARONE 200 MG TAB PO SCH ×2 (15:00→23:58)
[2017-05-22] MEDS: RESP: ALBUTEROL 2.5 MG/IPRATROPIUM 0.5 MG NEB (SCH) NEB ×2 (15:20→21:18)
[2017-05-22] MEDS: ATORVASTATIN 80 MG TAB PO SCH (21:47)
[2017-05-23] VITALS (18 sets, daily range): BP systolic 118–157; BP diastolic 64–91; PULSE 8–88; RESP 16–20; TEMP 97.5–99.1; O2SAT 94–97
[2017-05-23] MEDS: ACETAMINOPHEN 1000 MG/100 ML 100 ML IV SCH ×2 (01:42→08:44)
[2017-05-23] MEDS: CLEVIDIPINE INJ 50 ML IV PRN (03:43)
[2017-05-23] MEDS: RESP: ALBUTEROL 2.5 MG/IPRATROPIUM 0.5 MG NEB (SCH) NEB (03:44)
--- NOTE | 2017-05-23 04:40 | RADRPT ---
EXAM DATE/TIME: 05/23/2017 03:59 [facility] COMPARISON: CHEST SINGLE AP, May 22, 2017, 12:48. INDICATIONS : Short of breath. MEDICAL HISTORY : Hypertension. Diabetes mellitus type II SURGICAL HISTORY : Tubal ligation. inguinal hernia repair ENCOUNTER: Subsequent ACUITY: 1 week PAIN SCORE: 0/10 LOCATION: Bilateral chest FINDINGS: Portable AP view of the chest demonstrates a normal-sized cardiac silhouette post median sternotomy. Left subclavian central line distal tip is in the SVC. Mediastinal drain and left chest tube remain p resent. No pneumothorax is identified. There is mild atelectasis at the lung bases. No pleural effusi on is seen. CONCLUSION: No acute abnormality is identified. There is mild atelectasis at the lung bases. No pneumothorax is p resent. Hilario Ballard MD on May 23, 2017 at 4:38 Board Certified Radiologist. This report was verified electronically.
[2017-05-23] MEDS: PANTOPRAZOLE SOD 40 MG DELAYED RELEASE TAB PO SCH (05:24)
[2017-05-23] MEDS: oxyCODONE/ACETAMINOPHEN 5 MG/325 MG TAB PO PRN ×4 (05:24→17:55)
[2017-05-23] MEDS: AMIODARONE 200 MG TAB PO SCH ×3 (05:25→23:17)
[2017-05-23 05:51] LABS: HEMATOCRIT 33.3 % (35.0-46.0); HEMOGLOBIN 11.7 GM/DL (11.6-15.3); MEAN CELL VOLUME 84.3 FL (80.0-100.0); MEAN CORPUSCULAR HEMOGLOBIN 29.6 PG (27.0-34.0); MEAN CORPUSCULAR HGB CONC 35.1 % (32.0-36.0); MEAN PLATELET VOLUME 8.1 FL (7.0-11.0); PLATELET COUNT 237 TH/MM3 (150-450); RED BLOOD COUNT 3.95 MIL/MM3 (4.00-5.30); RED CELL DISTRIBUTION WIDTH 14.5 % (11.6-17.2)
[2017-05-23 06:05] LABS: BICARBONATE 22.9 MEQ/L (21.0-32.0); CALCIUM 8.1 MG/DL (8.5-10.1); CREATININE 1.02 MG/DL (0.50-1.00)
[2017-05-23] MEDS: SODIUM CHLORIDE 0.9% FLUSH 10 ML FLUSH IV FLUSH SCH ×2 (08:44→20:43)
[2017-05-23] MEDS: METOPROLOL TARTRATE 50 MG TAB PO SCH ×2 (08:45→20:42)
[2017-05-23] MEDS: DOCUSATE SODIUM 50 MG/SENNA 8.6 MG TAB PO SCH ×2 (08:45→20:43)
[2017-05-23] MEDS: ASPIRIN 81 MG CHEW TAB PO SCH (08:45)
[2017-05-23] MEDS: amLODIPine BESYLATE 5 MG TAB PO SCH (08:45)
--- NOTE | 2017-05-23 09:39 | PD.CAR.PN ---
CVT Progress Note CVT: POD #: 1 Subjective/Hospital Course: A 66-year-old female presented to the emergency room with chest pressure. She woke up about 04:00 a.m. getting ready for work. She decided to go to work. 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 She has had some associated nausea. She did take a baby aspirin. She thinks she had a stress test about five years ago which was okay. She does not follow with a regular signals analyst. On her presentation, troponin was found to be 10.1, was ruled in for non STEMI. She had some septal changes in V1-V2, was taken to the laborer [facility] processing by Dr. Biggs, had left main disease at 10%, proximal LAD 90%, mid distal LAD 90%, diagonal had 20%, circ had 70%, OM 90%, RCA 70%. We were consulted to evaluate for coronary artery bypass grafting. Echocardiogram is pending to evaluate for any valvular disease and for ejection fraction. PAST MEDICAL HISTORY: Recently diagnosed diabetes mellitus, Hypertension, Arthritis, right hand, Chronic back pain, Vertigo 2/2 slight pain last evening , now improved for surgery on 05/2205/23/17 Doing well s/p CABG. No complaints Objective: Vital Signs Date Time Temp Pulse Resp B/P (MAP) Pulse Ox O2 Delivery O2 Flow Rate FiO2 05/23/17 07:00 88 05/23/17 07:00 96 Nasal Cannula 2.00 05/23/17 07:00 97.9 87 18 142/82 (102) 96 151/72 (98) 05/23/17 06:24 16 05/23/17 04:00 99.1 85 20 150/85 (106) 94 157/76 (103) 05/23/17 03:43 82 150/77 05/23/17 03:30 8 05/23/17 03:30 95 Nasal Cannula 2.00 05/23/17 02:15 18 05/23/17 00:00 97 Nasal Cannula 2.00 05/23/17 00:00 98.9 86 20 134/90 (105) 97 145/74 (97) 05/22/17 23:05 98 Nasal Cannula 4.00 05/22/17 23:00 86 05/22/17 21:31 97 Nasal Cannula 4.00 05/22/17 20:00 98.4 86 20 97 142/77 (98) 05/22/17 20:00 97 Nasal Cannula 4.00 05/22/17 19:00 85 05/22/17 18:23 85 130/72 05/22/17 18:00 85 134/76 05/22/17 16:17 97.3 05/22/17 15:15 50 05/22/17 15:15 98 Nasal Cannula 4.00 05/22/17 15:15 98 Nasal Cannula 4.00 05/22/17 15:15 98 Nasal Cannula 4 05/22/17 15:00 97 Mechanical Ventilator 50 05/22/17 15:00 97.3 81 17 124/81 (95) 97 123/70 (87) 05/22/17 15:00 81 05/22/17 14:15 80 125/73 05/22/17 14:00 81 134/76 05/22/17 13:41 80 144/80 05/22/17 13:15 97.3 05/22/17 13:15 80 144/80 05/22/17 13:00 98 Mechanical Ventilator 50 05/22/17 12:40 97.3 78 10 110/71 (84) 95 127/65 (85) 05/22/17 12:40 78 05/22/17 12:40 60 05/22/17 12:40 95 Mechanical Ventilator 60 05/22/17 12:35 96 60 Labs: Laboratory Tests Test 05/23/17 05:30 White Blood Count 21.0 TH/MM3 (4.0-11.0) Red Blood Count 3.95 MIL/MM3 (4.00-5.30) Hemoglobin 11.7 GM/DL (11.6-15.3) Hematocrit 33.3 % (35.0-46.0) Mean Corpuscular Volume 84.3 FL (80.0-100.0) Mean Corpuscular Hemoglobin 29.6 PG (27.0-34.0) Mean Corpuscular Hemoglobin Concent 35.1 % (32.0-36.0) Red Cell Distribution Width 14.5 % (11.6-17.2) Platelet Count 237 TH/MM3 (150-450) Mean Platelet Volume 8.1 FL (7.0-11.0) Activated Partial Thromboplast Time 24.7 SEC (24.3-30.1) Blood Urea Nitrogen 18 MG/DL (7-18) Creatinine 1.02 MG/DL (0.50-1.00) Random Glucose 137 MG/DL (74-106) Calcium Level 8.1 MG/DL (8.5-10.1) Magnesium Level 2.0 MG/DL (1.5-2.5) Sodium Level 139 MEQ/L (136-145) Potassium Level 4.0 MEQ/L (3.5-5.1) Chloride Level 106 MEQ/L (98-107) Carbon Dioxide Level 22.9 MEQ/L (21.0-32.0) Anion Gap 10 MEQ/L (5-15) Estimat Glomerular Filtration Rate 66 ML/MIN (>89) Result Diagram: 05/23/17 0530 05/23/17 0530 Imaging: Last 24 hours Impressions Chest X-Ray 05/23/17 0500 Signed Impressions: Service Date/Time: Tuesday, May 23, 2017 03:59 - CONCLUSION: No acute abnormality is identified. There is mild atelectasis at the lung bases. No pneumothorax is present. Hilario Ballard MD Cardiovascular: RRR Telemetry: NSR Pulmonary: CTA GI/: NABS, NT Incision: dry and intact CT: ~120/12hrs Plan: Transfer to stepdown Advance diet Remove dunlap Clonidine added for HTN Remove chest tubes Diurese Supp K/mg PT/OT Ambulate x 6, up to chair (1) NSTEMI (non-ST elevation myocardial infarction) (2) Multi-vessel coronary artery stenosis (3) Hypertension (4) Diabetes mellitus Kelly Navas MD May 23, 2017 09:39
[2017-05-23] MEDS ORDERED: DEXTROSE 50% IN WATER 50 ML VIAL(D50) IV PUSH PRN (09:45)
[2017-05-23] MEDS ORDERED: GLUCAGON 1 MG/ML VIAL OTHER PRN (09:45)
[2017-05-23] MEDS: metFORMIN HCL 500 MG TAB PO SCH ×2 (10:04→17:51)
--- NOTE | 2017-05-23 10:13 | HHI.FF ---
Face to Face Verification Diagnosis: (1) NSTEMI (non-ST elevation myocardial infarction) (2) Hypertension (3) Multi-vessel coronary artery stenosis (4) Diabetes mellitus Physical Therapy Order: Improve ambulation Occupational Therapy Order: Evaluate and Treat, Improve ADL Home Health Nursing Order: Medical education Signs/symptoms of disease process Diabetic education Medication education-adverse effect Nursing assessment with vital signs I have seen patient Carol Tyler on 05/23/17. My clinical findings support the need for the requested home health care services because: Ltd mobility - disease progression Deconditioned w/ increased weakness Limited ability to care for self I certify that my clinical findings support that this patient is homebound because: Post-op weakness Unsteady gait/balance Kelly Navas MD May 23, 2017 10:13
[2017-05-23] MEDS ORDERED: BISACODYL 10 MG SUPP RECTAL PRN (10:27)
[2017-05-23] MEDS: POTASSIUM CHLORIDE 10 MEQ CONTROLLED RELEASE TAB PO SCH ×2 (10:39→20:42)
[2017-05-23] MEDS: INSULIN ASPART SUPPLEMENTAL SCALE SQ SCH ×4 (10:39→22:00)
[2017-05-23] MEDS: FUROSEMIDE 40 MG/4 ML VIAL IV PUSH SCH (10:39)
--- NOTE | 2017-05-23 10:55 | EKG ---
Date Performed: 05/23/2017 Time Performed: 06:14:40 PTAGE: 66 years EKG: Sinus rhythm Lateral ST elevation, CONSIDER ACUTE INFARCT Abnormal ECG PREVIOUS TRACING : 05/22/2017 14.37 DOCTOR: Nathanael Jacobo Interpretating Date/Time 05/23/2017 10:52:43
--- NOTE | 2017-05-23 13:01 | EKG ---
Date Performed: 05/22/2017 Time Performed: 14:37:20 PTAGE: 66 years EKG: CONSIDER ACUTE ST ELEVATION [place] Sinus rhythm Extensive ST elevation, CONSIDER ACUTE INFARCT Abnormal ECG PREVIOUS TRACING : 05/17/2017 08.53 DOCTOR: Nathanael Jacobo Interpretating Date/Time 05/23/2017 12:52:49
--- NOTE | 2017-05-23 13:45 | PD.CARD.PN ---
Subjective Subjective Remarks Doing well Up to the chair Still on Cleviprex for HTN Objective Medications Current Medications Medications (Trade) Dose Ordered Sig/Ori Route Start Time Stop Time Status Last Admin (Norvasc) 5 mg DAILY PO 05/18/17 09:00 05/23/17 08:45 (Lopressor) 50 mg BID PO 05/17/17 21:00 05/23/17 08:45 (Atropine Inj) 0.5 mg UNSCH PRN IV PUSH 05/17/17 10:30 (Lipitor) 80 mg HS PO 05/17/17 21:00 05/22/17 21:47 (Zofran Inj) 4 mg Q6H PRN IVP 05/17/17 16:00 (Narcan Inj) 0.4 mg UNSCH PRN IV PUSH 05/17/17 16:00 (Rose Mary-Colace) 1 tab BID PO 05/17/17 21:00 05/23/17 08:45 (Milk Of Magnesia Liq) 30 ml Q12H PRN PO 05/17/17 16:00 (Senokot) 17.2 mg Q12H PRN PO 05/17/17 16:00 (Dulcolax Supp) 10 mg DAILY PRN RECTAL 05/17/17 16:00 (Lactulose Liq) 30 ml DAILY PRN PO 05/17/17 16:00 Papaverine HCl 60 mg/Nitroglycerin 100 mcg/Diltiazem HCl 100 mg/Sodium Chloride 100 ml @ 0 mls/hr PARKING MANAGER IRRIGATION 05/17/17 15:45 05/24/17 15:44 05/22/17 09:08 Cefazolin Sodium 500 mg/Sodium Chloride 505 ml @ 0 mls/hr PARKING MANAGER IRRIGATION 05/17/17 15:45 05/24/17 15:44 05/22/17 09:08 Cefazolin Sodium/ Dextrose 50 ml @ 150 mls/hr PARKING MANAGER IV 05/17/17 15:45 05/24/17 15:44 05/22/17 08:33 (Hibiclens 4% Top Soln) 1 applic PARKING MANAGER TOPICAL 05/17/17 15:45 05/24/17 15:44 05/21/17 20:56 (Pill Splitter) 1 ea UNSCH PRN OTHER 05/17/17 20:15 (Apresoline) 10 mg Q6H PRN PO 05/20/17 16:45 (NS Flush) 2 ml BID IV FLUSH 05/22/17 21:00 05/23/17 08:44 (NS Flush) 2 ml UNSCH PRN IV FLUSH 05/22/17 13:30 Clevidipine 50 ml @ 2 mls/hr TITRATE PRN IV 05/22/17 13:30 05/23/17 03:43 Albumin Human 250 ml @ 250 mls/hr UNSCH PRN IV 05/22/17 13:30 Cefazolin Sodium 1000 mg/Sodium Chloride 100 ml @ 200 mls/hr Q8H IV 05/22/17 20:00 05/24/17 04:29 05/23/17 12:00 (Aspirin Chew) 81 mg DAILY PO 05/23/17 09:00 05/23/17 08:45 (Protonix) 40 mg DAILY@06 PO 05/23/17 06:00 05/23/17 05:24 (Cordarone) 400 mg Q8H PO 05/22/17 15:00 05/23/17 05:25 (Tylenol) 650 mg Q4H PRN PO 05/22/17 13:30 (Percocet 5-325 Mg) 1 tab Q3H PRN PO 05/22/17 15:00 05/23/17 10:11 (fentaNYL INJ) 25 mcg Q1H PRN IV PUSH 05/22/17 15:00 05/22/17 18:22 (Zofran Inj) 4 mg Q6H PRN IV PUSH 05/22/17 15:00 (Lopressor Inj) 2.5 mg Q1H PRN IV PUSH 05/22/17 15:00 Potassium Chloride 100 ml @ 50 mls/hr UNSCH PRN IV 05/22/17 15:00 05/22/17 21:51 Potassium Chloride 100 ml @ 50 mls/hr UNSCH PRN IV 05/22/17 15:00 (KCl) 20 meq UNSCH PRN PO 05/22/17 15:00 (KCl) 40 meq UNSCH PRN PO 05/22/17 15:00 Magnesium Sulfate 2 gm/Sodium Chloride 104 ml @ 100 mls/hr UNSCH PRN IV 05/22/17 13:30 Magnesium Sulfate 2 gm/Sodium Chloride 104 ml @ 50 mls/hr UNSCH PRN IV 05/22/17 12:30 Calcium Chloride 1 gm/Sodium Chloride 110 ml @ 100 mls/hr UNSCH PRN IV 05/22/17 12:45 (Calcium Chloride Inj) 0.5 gm UNSCH PRN IV PUSH 05/22/17 13:45 Insulin Human Regular 100 units/ Sodium Chloride 100 ml @ 3 mls/hr TITRATE PRN IV 05/22/17 13:45 05/22/17 16:15 (D50w (Vial) Inj) 50 ml UNSCH PRN IV PUSH 05/22/17 14:00 (Sodium Bicarbonate 8.4% Inj) 50 meq UNSCH PRN IV PUSH 05/22/17 14:00 (Sodium Bicarbonate 8.4% Inj) 100 meq UNSCH PRN IV PUSH 05/22/17 14:00 (Duoneb Neb) 1 ampule Q2HR NEB PRN NEB 05/22/17 14:00 (Racepinephrine 2.25% Neb) 0.5 ml UNSCH X1 PRN NEB 05/22/17 14:00 05/25/17 13:59 (Glucophage) 1,000 mg BIDPC PO 05/23/17 09:00 05/23/17 10:04 (Colace) 100 mg BID PO 05/23/17 21:00 (Plavix) 75 mg DAILY PO 05/24/17 09:00 (Theragran M Tab) 1 tab DAILY PO 05/24/17 09:00 (Milk Of Magnesia Liq) 30 ml DAILY PO 05/24/17 09:00 (Dulcolax Supp) 10 mg UNSCH PRN RECTAL 05/23/17 10:27 (NovoLOG SUPPLEMENTAL SCALE) 1 02,06,10,14,18,22 SQ 05/23/17 10:00 05/23/17 10:39 (D50w (Vial) Inj) 50 ml UNSCH PRN IV PUSH 05/23/17 09:45 (Glucagon Inj) 1 mg UNSCH PRN OTHER 05/23/17 09:45 (Catapres) 0.2 mg Q12HR PO 05/23/17 21:00 (Lasix Inj) 40 mg DAILY IV PUSH 05/23/17 09:45 05/23/17 10:39 (KCl) 30 meq Q12HR PO 05/23/17 09:45 05/23/17 10:39 Vital Signs / I&O Vital Signs Date Time Temp Pulse Resp B/P (MAP) Pulse Ox O2 Delivery O2 Flow Rate FiO2 05/23/17 11:00 95 Nasal Cannula 3.00 05/23/17 11:00 78 05/23/17 11:00 97.5 81 16 143/91 (108) 95 143/74 (97) 05/23/17 10:22 94 Nasal Cannula 2.00 05/23/17 07:00 88 05/23/17 07:00 96 Nasal Cannula 2.00 05/23/17 07:00 97.9 87 18 142/82 (102) 96 151/72 (98) 05/23/17 06:24 16 05/23/17 04:00 99.1 85 20 150/85 (106) 94 157/76 (103) 05/23/17 03:43 82 150/77 05/23/17 03:30 8 05/23/17 03:30 95 Nasal Cannula 2.00 05/23/17 02:15 18 05/23/17 00:00 97 Nasal Cannula 2.00 05/23/17 00:00 98.9 86 20 134/90 (105) 97 145/74 (97) 05/22/17 23:05 98 Nasal Cannula 4.00 05/22/17 23:00 86 05/22/17 21:31 97 Nasal Cannula 4.00 05/22/17 20:00 98.4 86 20 97 142/77 (98) 05/22/17 20:00 97 Nasal Cannula 4.00 05/22/17 19:00 85 05/22/17 18:23 85 130/72 05/22/17 18:00 85 134/76 05/22/17 16:17 97.3 05/22/17 15:15 50 05/22/17 15:15 98 Nasal Cannula 4.00 05/22/17 15:15 98 Nasal Cannula 4.00 05/22/17 15:15 98 Nasal Cannula 4 05/22/17 15:00 97 Mechanical Ventilator 50 05/22/17 15:00 97.3 81 17 124/81 (95) 97 123/70 (87) 05/22/17 15:00 81 05/22/17 14:15 80 125/73 05/22/17 14:00 81 134/76 05/22/17 13:41 80 144/80 I/O 05/22/17 05/22/17 05/22/17 05/23/17 05/23/17 05/23/17 07:00 15:00 23:00 07:00 15:00 23:00 Intake Total 240 ml 3216 ml 2650 ml 680 ml Output Total 1550 ml 1300 ml 1135 ml 1620 ml Balance -1310 ml 1916 ml 1515 ml -940 ml Intake Oral 240 ml 480 ml IV Total 16 ml 450 ml 200 ml Autotransfusion 500 ml Packed Cells 500 ml Other 2200 ml 2200 ml Output Urine Total 1550 ml 300 ml 985 ml 1500 ml Stool Total 0 ml Chest Tube Drainage Total 150 ml 120 ml Estimated Blood Loss 1000 ml # Bowel Movements 0 Physical Exam GENERAL: NAD, AAOx3 SKIN: Warm and dry. HEAD: Atraumatic. Normocephalic. EYES: Pupils equal and round. No scleral icterus. No injection or drainage. ENT: No nasal bleeding or discharge. Mucous membranes pink and moist. NECK: Trachea midline. No JVD. CARDIOVASCULAR: Regular rate and rhythm. Sternotomy with covering RESPIRATORY: No accessory muscle use. Clear to auscultation. Breath sounds equal bilaterally. GASTROINTESTINAL: Abdomen soft, non-tender, nondistended. Hepatic and splenic margins not palpable. MUSCULOSKELETAL: Extremities without clubbing, cyanosis, or edema. No obvious deformities. Right femoral no hematoma, distal pulses intact NEUROLOGICAL: Awake and alert. No obvious cranial nerve deficits. Motor grossly within normal limits. Five out of 5 muscle strength in the arms and legs. Normal speech. PSYCHIATRIC: Appropriate mood and affect; insight and judgment normal. Laboratory Laboratory Tests Test 05/23/17 05:30 White Blood Count 21.0 TH/MM3 Red Blood Count 3.95 MIL/MM3 Hemoglobin 11.7 GM/DL Hematocrit 33.3 % Mean Corpuscular Volume 84.3 FL Mean Corpuscular Hemoglobin 29.6 PG Mean Corpuscular Hemoglobin Concent 35.1 % Red Cell Distribution Width 14.5 % Platelet Count 237 TH/MM3 Mean Platelet Volume 8.1 FL Activated Partial Thromboplast Time 24.7 SEC Blood Urea Nitrogen 18 MG/DL Creatinine 1.02 MG/DL Random Glucose 137 MG/DL Calcium Level 8.1 MG/DL Magnesium Level 2.0 MG/DL Sodium Level 139 MEQ/L Potassium Level 4.0 MEQ/L Chloride Level 106 MEQ/L Carbon Dioxide Level 22.9 MEQ/L Anion Gap 10 MEQ/L Estimat Glomerular Filtration Rate 66 ML/MIN Imaging Last 24 hours Impressions Chest X-Ray 05/23/17 0500 Signed Impressions: Service Date/Time: Tuesday, May 23, 2017 03:59 - CONCLUSION: No acute abnormality is identified. There is mild atelectasis at the lung bases. No pneumothorax is present. Hilario Ballard MD Assessment and Plan Problem List: (1) NSTEMI (non-ST elevation myocardial infarction) ICD Codes: I21.4 - Non-ST elevation (NSTEMI) myocardial infarction Status: Acute (2) Multi-vessel coronary artery stenosis ICD Codes: I25.10 - Atherosclerotic heart disease of [place] coronary artery without angina pectoris (3) Hypertension ICD Codes: I10 - Essential (primary) hypertension Status: Acute (4) Diabetes mellitus ICD Codes: E11.9 - Type 2 diabetes mellitus without complications Assessment and Plan 1) NSTEMI/CP/MVCAD s/p CABGx4 POD #1 GUDINO to LAD SVG to OM1 SVG to OM4 SVG to RCA Con't ASA/Statin/Plavix/BB/Amio 2) EF 55-60%, mild MR/AR/TR 3) HTN Currently on Cleviprex Will attempt to increase Norvasc and wean off Cleviprex Maxi Biggs DO May 23, 2017 13:45
[2017-05-23] MEDS ORDERED: amLODIPine BESYLATE 5 MG TAB PO ONE (14:00)
[2017-05-23] MEDS ORDERED: hydrALAZINE HCL 20 MG/ML VIAL IV PUSH PRN (14:00)
[2017-05-23] MEDS ORDERED: oxyCODONE/ACETAMINOPHEN 5 MG/325 MG TAB PO PRN (18:15)
[2017-05-23] MEDS ORDERED: oxyCODONE/ACETAMINOPHEN 10 MG/325 MG TAB PO PRN (18:15)
--- NOTE | 2017-05-23 18:19 | HHI.PR ---
Subjective Remarks Doing well postop. Chest tube has been removed. Patient has ambulated. Pain is not fully controlled. Objective Vital Signs Date Time Temp Pulse Resp B/P (MAP) Pulse Ox O2 Delivery O2 Flow Rate FiO2 05/23/17 17:20 83 05/23/17 16:00 86 05/23/17 15:20 95 Nasal Cannula 3.00 05/23/17 15:20 86 05/23/17 15:20 98.5 86 20 133/73 (93) 94 Arterial Line 05/23/17 15:15 82 05/23/17 11:00 95 Nasal Cannula 3.00 05/23/17 11:00 78 05/23/17 11:00 97.5 81 16 143/91 (108) 95 143/74 (97) 05/23/17 10:22 94 Nasal Cannula 2.00 05/23/17 07:00 88 05/23/17 07:00 96 Nasal Cannula 2.00 05/23/17 07:00 97.9 87 18 142/82 (102) 96 151/72 (98) 05/23/17 06:24 16 05/23/17 04:00 99.1 85 20 150/85 (106) 94 157/76 (103) 05/23/17 03:43 82 150/77 05/23/17 03:30 8 05/23/17 03:30 95 Nasal Cannula 2.00 05/23/17 02:15 18 05/23/17 00:00 97 Nasal Cannula 2.00 05/23/17 00:00 98.9 86 20 134/90 (105) 97 145/74 (97) 05/22/17 23:05 98 Nasal Cannula 4.00 05/22/17 23:00 86 05/22/17 21:31 97 Nasal Cannula 4.00 05/22/17 20:00 98.4 86 20 97 142/77 (98) 05/22/17 20:00 97 Nasal Cannula 4.00 05/22/17 19:00 85 05/22/17 18:23 85 130/72 I/O 05/22/17 05/22/17 05/22/17 05/23/17 05/23/17 05/23/17 07:00 15:00 23:00 07:00 15:00 23:00 Intake Total 240 ml 3216 ml 2650 ml 680 ml 700 ml Output Total 1550 ml 1300 ml 1135 ml 1620 ml 1480 ml Balance -1310 ml 1916 ml 1515 ml -940 ml -780 ml Intake Oral 240 ml 480 ml 700 ml IV Total 16 ml 450 ml 200 ml Autotransfusion 500 ml Packed Cells 500 ml Other 2200 ml 2200 ml Output Urine Total 1550 ml 300 ml 985 ml 1500 ml 1400 ml Stool Total 0 ml Chest Tube Drainage Total 150 ml 120 ml 80 ml Estimated Blood Loss 1000 ml # Bowel Movements 0 0 Result Diagram: 05/23/17 0530 05/23/17 0530 Objective Remarks GENERAL: NAD, A&Ox3 HEAD: Normocephalic. NECK: Supple, trachea midline. No lymphadenopathy. EYES: No scleral icterus. No injection or drainage. CARDIOVASCULAR: Regular rate and rhythm without murmurs, gallops, or rubs. Post anterior chest wound. RESPIRATORY: Breath sounds equal bilaterally. No accessory muscle use. GASTROINTESTINAL: Abdomen soft, non-tender, nondistended. MUSCULOSKELETAL: No cyanosis, or edema. SKIN: Warm and dry. NEURO: No focal neurological deficitis. A/P Problem List: (1) NSTEMI (non-ST elevation myocardial infarction) ICD Code: I21.4 - Non-ST elevation (NSTEMI) myocardial infarction Status: Acute (2) Diabetes mellitus ICD Code: E11.9 - Type 2 diabetes mellitus without complications (3) Hypertension ICD Code: I10 - Essential (primary) hypertension Status: Acute (4) Multi-vessel coronary artery stenosis ICD Code: I25.10 - Atherosclerotic heart disease of [place] coronary artery without angina pectoris Assessment and Plan 66-year-old female admitted secondary to myocardial infarction now status post CABG performed on 05/22/17 Chest pain non-ST elevation [place] Status post CABG CABG performed on 05/22/17 Continue pain treatments Pain treatments adjusted Continue postop care Gen. anxiety disorder Continue Ativan as needed Diabetes mellitus type 2 Follow blood sugars Insulin sliding scale Diabetic diet Hypertension Continue baseline treatment Follow blood pressures Adjust treatments as needed DVT prophylaxis Zhen De Souza MD May 23, 2017 18:19
[2017-05-23] MEDS: ATORVASTATIN 80 MG TAB PO SCH (20:43)
[2017-05-23] MEDS: cloNIDine HCL 0.2 MG TAB PO SCH (20:43)
[2017-05-23] MEDS: DOCUSATE SODIUM 100 MG CAP PO SCH (20:43)
[2017-05-24] VITALS (30 sets, daily range): BP systolic 100–125; BP diastolic 61–74; PULSE 64–84; RESP 17–19; TEMP 97.8–98.7; O2SAT 92–99
[2017-05-24] MEDS: INSULIN ASPART SUPPLEMENTAL SCALE SQ SCH ×6 (02:00→22:00)
[2017-05-24 04:13] LABS: BASOPHIL % 0.1 % (0.0-2.0); EOSINOPHIL % 0.1 % (0.0-4.0); HEMATOCRIT 29.3 % (35.0-46.0); HEMOGLOBIN 9.8 GM/DL (11.6-15.3); LYMPH % 9.7 % (9.0-44.0); LYMPHOCYTE # 2.2 TH/MM3 (1.0-4.8); MEAN CELL VOLUME 86.4 FL (80.0-100.0); MEAN CORPUSCULAR HGB CONC 33.6 % (32.0-36.0); MEAN PLATELET VOLUME 8.3 FL (7.0-11.0); MONO % 9.6 % (0.0-8.0); MONOCYTE # 2.1 TH/MM3 (0-0.9); NEUT % 80.5 % (16.0-70.0); PLATELET COUNT 223 TH/MM3 (150-450); RED BLOOD COUNT 3.39 MIL/MM3 (4.00-5.30); RED CELL DISTRIBUTION WIDTH 14.9 % (11.6-17.2); WHITE BLOOD COUNT 22.3 TH/MM3 (4.0-11.0)
[2017-05-24 04:44] LABS: ALBUMIN 2.3 GM/DL (3.4-5.0); ALKALINE PHOSPHATASE 59 U/L (45-117); ALT (GPT) 24 U/L (10-53); AST (GOT) 135 U/L (15-37); BICARBONATE 25.4 MEQ/L (21.0-32.0); BLOOD UREA NITROGEN 25 MG/DL (7-18); CALCIUM 8.6 MG/DL (8.5-10.1); CHLORIDE 101 MEQ/L (98-107); CREATININE 1.35 MG/DL (0.50-1.00); GLOMERULAR FILTRATION RATE 48 ML/MIN (>89); GLUCOSE,RANDOM 101 MG/DL (74-106); MAGNESIUM 1.8 MG/DL (1.5-2.5); SODIUM (NA) 134 MEQ/L (136-145); TOTAL PROTEIN 6.3 GM/DL (6.4-8.2)
[2017-05-24] MEDS: PANTOPRAZOLE SOD 40 MG DELAYED RELEASE TAB PO SCH (04:57)
[2017-05-24] MEDS: AMIODARONE 200 MG TAB PO SCH ×3 (06:28→23:00)
[2017-05-24] MEDS ORDERED: CLOPIDOGREL 75 MG TAB PO SCH (09:00)
[2017-05-24] MEDS: DOCUSATE SODIUM 100 MG CAP PO SCH ×2 (09:00→20:42)
[2017-05-24] MEDS ORDERED: amLODIPine BESYLATE 5 MG TAB PO SCH (09:00)
[2017-05-24] MEDS: METOPROLOL TARTRATE 50 MG TAB PO SCH ×2 (09:03→20:42)
[2017-05-24] MEDS: DOCUSATE SODIUM 50 MG/SENNA 8.6 MG TAB PO SCH ×2 (09:03→20:42)
[2017-05-24] MEDS: MULTIVITAMINS/MINERALS THERAPEUTIC TAB PO SCH (09:03)
[2017-05-24] MEDS: ASPIRIN 81 MG CHEW TAB PO SCH (09:03)
[2017-05-24] MEDS: FUROSEMIDE 40 MG/4 ML VIAL IV PUSH SCH (09:03)
[2017-05-24] MEDS: cloNIDine HCL 0.2 MG TAB PO SCH ×2 (09:03→20:43)
[2017-05-24] MEDS: MAGNESIUM HYDROXIDE SUSP 30 ML CUP PO SCH (09:04)
[2017-05-24] MEDS: POTASSIUM CHLORIDE 10 MEQ CONTROLLED RELEASE TAB PO SCH ×2 (09:04→21:00)
[2017-05-24] MEDS: SODIUM CHLORIDE 0.9% FLUSH 10 ML FLUSH IV FLUSH SCH ×2 (09:04→20:43)
--- NOTE | 2017-05-24 10:02 | HHI.PR ---
Subjective Remarks Continued improvement seen, post op. Doing well postop. Ambulation improving. Pain controlled today. Objective Vital Signs Date Time Temp Pulse Resp B/P (MAP) Pulse Ox O2 Delivery O2 Flow Rate FiO2 05/24/17 09:00 84 05/24/17 08:00 78 05/24/17 07:23 98.6 77 18 125/74 (91) 93 05/24/17 07:00 75 05/24/17 06:26 77 05/24/17 05:10 75 05/24/17 04:01 76 05/24/17 03:56 98.3 73 17 113/72 (86) 93 05/24/17 03:17 75 05/24/17 02:08 73 05/24/17 01:52 73 05/24/17 00:23 74 05/23/17 23:39 82 05/23/17 23:11 98.0 76 16 118/64 (82) 94 05/23/17 23:11 94 Room Air 05/23/17 22:14 86 05/23/17 21:30 86 05/23/17 20:16 95 21 05/23/17 20:15 86 05/23/17 19:20 98.7 88 17 140/83 (102) 96 05/23/17 19:20 88 05/23/17 19:20 96 Room Air 05/23/17 18:00 85 05/23/17 17:20 83 05/23/17 16:00 86 05/23/17 15:20 95 Nasal Cannula 3.00 05/23/17 15:20 86 05/23/17 15:20 98.5 86 20 133/73 (93) 94 Arterial Line 05/23/17 15:15 82 05/23/17 11:00 95 Nasal Cannula 3.00 05/23/17 11:00 78 05/23/17 11:00 97.5 81 16 143/91 (108) 95 143/74 (97) 05/23/17 10:22 94 Nasal Cannula 2.00 I/O 05/23/17 05/23/17 05/23/17 05/24/17 05/24/17 05/24/17 07:00 15:00 23:00 07:00 15:00 23:00 Intake Total 680 ml 700 ml 480 ml Output Total 1620 ml 1480 ml 400 ml Balance -940 ml -780 ml 80 ml Intake Oral 480 ml 700 ml 480 ml IV Total 200 ml Output Urine Total 1500 ml 1400 ml 400 ml Chest Tube Drainage Total 120 ml 80 ml # Bowel Movements 0 0 Result Diagram: 05/24/1732905/24/17329 Objective Remarks GENERAL: NAD, A&Ox3 HEAD: Normocephalic. NECK: Supple, trachea midline. No lymphadenopathy. EYES: No scleral icterus. No injection or drainage. CARDIOVASCULAR: Regular rate and rhythm without murmurs, gallops, or rubs. Post anterior chest wound. RESPIRATORY: Breath sounds equal bilaterally. No accessory muscle use. GASTROINTESTINAL: Abdomen soft, non-tender, nondistended. MUSCULOSKELETAL: No cyanosis, or edema. SKIN: Warm and dry. NEURO: No focal neurological deficitis. A/P Problem List: (1) NSTEMI (non-ST elevation myocardial infarction) ICD Code: I21.4 - Non-ST elevation (NSTEMI) myocardial infarction Status: Acute (2) Diabetes mellitus ICD Code: E11.9 - Type 2 diabetes mellitus without complications (3) Hypertension ICD Code: I10 - Essential (primary) hypertension Status: Acute (4) Multi-vessel coronary artery stenosis ICD Code: I25.10 - Atherosclerotic heart disease of [place] coronary artery without angina pectoris Assessment and Plan 66-year-old female admitted secondary to myocardial infarction now status post CABG performed on 05/22/17 Improving through time. Plan for discharge to home with home health. Labs reviewed. No acute changes. Continue to follow labs. Labs ordered for further monitoring. Chest pain non-ST elevation [place] Status post CABG CABG performed on 05/22/17 Continue pain treatments Pain treatments adjusted Continue postop care Gen. anxiety disorder Continue Ativan as needed Diabetes mellitus type 2 Follow blood sugars Insulin sliding scale Diabetic diet Hypertension Continue baseline treatment Follow blood pressures Adjust treatments as needed DVT prophylaxis SCDs Zhen Calle MD May 24, 2017 10:02
--- NOTE | 2017-05-24 11:34 | PD.CARD.PN ---
Subjective Subjective Remarks Doing well Up to the chair Cleviprex is off, blood pressures better Objective Medications Current Medications Medications (Trade) Dose Ordered Sig/Ori Route Start Time Stop Time Status Last Admin (Lopressor) 50 mg BID PO 05/17/17 21:00 05/24/17 09:03 (Atropine Inj) 0.5 mg UNSCH PRN IV PUSH 05/17/17 10:30 (Lipitor) 80 mg HS PO 05/17/17 21:00 05/23/17 20:43 (Zofran Inj) 4 mg Q6H PRN IVP 05/17/17 16:00 (Narcan Inj) 0.4 mg UNSCH PRN IV PUSH 05/17/17 16:00 (Rose Mary-Colace) 1 tab BID PO 05/17/17 21:00 05/24/17 09:03 (Milk Of Magnesia Liq) 30 ml Q12H PRN PO 05/17/17 16:00 (Senokot) 17.2 mg Q12H PRN PO 05/17/17 16:00 (Dulcolax Supp) 10 mg DAILY PRN RECTAL 05/17/17 16:00 (Lactulose Liq) 30 ml DAILY PRN PO 05/17/17 16:00 Papaverine HCl 60 mg/Nitroglycerin 100 mcg/Diltiazem HCl 100 mg/Sodium Chloride 100 ml @ 0 mls/hr [employer]ATION 05/17/17 15:45 05/24/17 15:44 05/22/17 09:08 Cefazolin Sodium 500 mg/Sodium Chloride 505 ml @ 0 mls/hr [employer] 05/17/17 15:45 05/24/17 15:44 05/22/17 09:08 Cefazolin Sodium/ Dextrose 50 ml @ 150 mls/hr [employer] IV 05/17/17 15:45 05/24/17 15:44 05/22/17 08:33 (Hibiclens 4% Top Soln) 1 applic [employer] TOPICAL 05/17/17 15:45 05/24/17 15:44 05/21/17 20:56 (Pill Splitter) 1 ea UNSCH PRN OTHER 05/17/17 20:15 (Apresoline) 10 mg Q6H PRN PO 05/20/17 16:45 (NS Flush) 2 ml BID IV FLUSH 05/22/17 21:00 05/24/17 09:04 (NS Flush) 2 ml UNSCH PRN IV FLUSH 05/22/17 13:30 Albumin Human 250 ml @ 250 mls/hr UNSCH PRN IV 05/22/17 13:30 (Aspirin Chew) 81 mg DAILY PO 05/23/17 09:00 05/24/17 09:03 (Protonix) 40 mg DAILY@06 PO 05/23/17 06:00 05/24/17 04:57 (Cordarone) 400 mg Q8H PO 05/22/17 15:00 05/24/17 06:28 (Tylenol) 650 mg Q4H PRN PO 05/22/17 13:30 (fentaNYL INJ) 25 mcg Q1H PRN IV PUSH 05/22/17 15:00 05/22/17 18:22 (Zofran Inj) 4 mg Q6H PRN IV PUSH 05/22/17 15:00 (Lopressor Inj) 2.5 mg Q1H PRN IV PUSH 05/22/17 15:00 Potassium Chloride 100 ml @ 50 mls/hr UNSCH PRN IV 05/22/17 15:00 05/22/17 21:51 Potassium Chloride 100 ml @ 50 mls/hr UNSCH PRN IV 05/22/17 15:00 (KCl) 20 meq UNSCH PRN PO 05/22/17 15:00 (KCl) 40 meq UNSCH PRN PO 05/22/17 15:00 Magnesium Sulfate 2 gm/Sodium Chloride 104 ml @ 100 mls/hr UNSCH PRN IV 05/22/17 13:30 Magnesium Sulfate 2 gm/Sodium Chloride 104 ml @ 50 mls/hr UNSCH PRN IV 05/22/17 12:30 Calcium Chloride 1 gm/Sodium Chloride 110 ml @ 100 mls/hr UNSCH PRN IV 05/22/17 12:45 (Calcium Chloride Inj) 0.5 gm UNSCH PRN IV PUSH 05/22/17 13:45 (D50w (Vial) Inj) 50 ml UNSCH PRN IV PUSH 05/22/17 14:00 (Sodium Bicarbonate 8.4% Inj) 50 meq UNSCH PRN IV PUSH 05/22/17 14:00 (Sodium Bicarbonate 8.4% Inj) 100 meq UNSCH PRN IV PUSH 05/22/17 14:00 (Duoneb Neb) 1 ampule Q2HR NEB PRN NEB 05/22/17 14:00 (Colace) 100 mg BID PO 05/23/17 21:00 05/23/17 20:43 (Plavix) 75 mg DAILY PO 05/24/17 09:00 05/24/17 09:02 (Theragran M Tab) 1 tab DAILY PO 05/24/17 09:00 05/24/17 09:03 (Milk Of Magnesia Liq) 30 ml DAILY PO 05/24/17 09:00 05/24/17 09:04 (Dulcolax Supp) 10 mg UNSCH PRN RECTAL 05/23/17 10:27 (NovoLOG SUPPLEMENTAL SCALE) 1 02,06,10,14,18,22 SQ 05/23/17 10:00 05/23/17 17:51 (D50w (Vial) Inj) 50 ml UNSCH PRN IV PUSH 05/23/17 09:45 (Glucagon Inj) 1 mg UNSCH PRN OTHER 05/23/17 09:45 (Catapres) 0.2 mg Q12HR PO 05/23/17 21:00 05/24/17 09:03 (Lasix Inj) 40 mg DAILY IV PUSH 05/23/17 09:45 05/24/17 09:03 (KCl) 30 meq Q12HR PO 05/23/17 09:45 05/24/17 09:04 (Norvasc) 10 mg DAILY PO 05/24/17 09:00 05/24/17 09:03 (Apresoline Inj) 10 mg Q30M PRN IV PUSH 05/23/17 14:00 05/23/17 14:06 (Percocet 5-325 Mg) 1 tab Q4HR PRN PO 05/23/17 18:15 (Percocet 10-325 Mg) 1 tab Q4H PRN PO 05/23/17 18:15 05/23/17 20:53 Vital Signs / I&O Vital Signs Date Time Temp Pulse Resp B/P (MAP) Pulse Ox O2 Delivery O2 Flow Rate FiO2 05/24/17 11:00 68 05/24/17 10:00 68 05/24/17 09:00 84 05/24/17 08:00 78 05/24/17 07:23 98.6 77 18 125/74 (91) 93 05/24/17 07:00 75 05/24/17 06:26 77 05/24/17 05:10 75 05/24/17 04:01 76 05/24/17 03:56 98.3 73 17 113/72 (86) 93 05/24/17 03:17 75 05/24/17 02:08 73 05/24/17 01:52 73 05/24/17 00:23 74 05/23/17 23:39 82 05/23/17 23:11 98.0 76 16 118/64 (82) 94 05/23/17 23:11 94 Room Air 05/23/17 22:14 86 05/23/17 21:30 86 05/23/17 20:16 95 21 05/23/17 20:15 86 05/23/17 19:20 98.7 88 17 140/83 (102) 96 05/23/17 19:20 88 05/23/17 19:20 96 Room Air 05/23/17 18:00 85 05/23/17 17:20 83 05/23/17 16:00 86 05/23/17 15:20 95 Nasal Cannula 3.00 05/23/17 15:20 86 05/23/17 15:20 98.5 86 20 133/73 (93) 94 Arterial Line 05/23/17 15:15 82 I/O 05/23/17 05/23/17 05/23/17 05/24/17 05/24/17 05/24/17 07:00 15:00 23:00 07:00 15:00 23:00 Intake Total 680 ml 700 ml 480 ml Output Total 1620 ml 1480 ml 400 ml Balance -940 ml -780 ml 80 ml Intake Oral 480 ml 700 ml 480 ml IV Total 200 ml Output Urine Total 1500 ml 1400 ml 400 ml Chest Tube Drainage Total 120 ml 80 ml # Bowel Movements 0 0 Physical Exam GENERAL: NAD, AAOx3 SKIN: Warm and dry. HEAD: Atraumatic. Normocephalic. EYES: Pupils equal and round. No scleral icterus. No injection or drainage. ENT: No nasal bleeding or discharge. Mucous membranes pink and moist. NECK: Trachea midline. No JVD. CARDIOVASCULAR: Regular rate and rhythm. Sternotomy with covering RESPIRATORY: No accessory muscle use. Clear to auscultation. Breath sounds equal bilaterally. GASTROINTESTINAL: Abdomen soft, non-tender, nondistended. Hepatic and splenic margins not palpable. MUSCULOSKELETAL: Extremities without clubbing, cyanosis, or edema. No obvious deformities. Right femoral no hematoma, distal pulses intact NEUROLOGICAL: Awake and alert. No obvious cranial nerve deficits. Motor grossly within normal limits. Five out of 5 muscle strength in the arms and legs. Normal speech. PSYCHIATRIC: Appropriate mood and affect; insight and judgment normal. Laboratory Laboratory Tests Test 05/24/17 03:30 White Blood Count 22.3 TH/MM3 Red Blood Count 3.39 MIL/MM3 Hemoglobin 9.8 GM/DL Hematocrit 29.3 % Mean Corpuscular Volume 86.4 FL Mean Corpuscular Hemoglobin 29.0 PG Mean Corpuscular Hemoglobin Concent 33.6 % Red Cell Distribution Width 14.9 % Platelet Count 223 TH/MM3 Mean Platelet Volume 8.3 FL Neutrophils (%) (Auto) 80.5 % Lymphocytes (%) (Auto) 9.7 % Monocytes (%) (Auto) 9.6 % Eosinophils (%) (Auto) 0.1 % Basophils (%) (Auto) 0.1 % Neutrophils # (Auto) 18.0 TH/MM3 Lymphocytes # (Auto) 2.2 TH/MM3 Monocytes # (Auto) 2.1 TH/MM3 Eosinophils # (Auto) 0.0 TH/MM3 Basophils # (Auto) 0.0 TH/MM3 CBC Comment DIFF FINAL Differential Comment Blood Urea Nitrogen 25 MG/DL Creatinine 1.35 MG/DL Random Glucose 101 MG/DL Total Protein 6.3 GM/DL Albumin 2.3 GM/DL Calcium Level 8.6 MG/DL Magnesium Level 1.8 MG/DL Alkaline Phosphatase 59 U/L Aspartate Amino Transf (AST/SGOT) 135 U/L Alanine Aminotransferase (ALT/SGPT) 24 U/L Total Bilirubin 1.0 MG/DL Sodium Level 134 MEQ/L Potassium Level 5.0 MEQ/L Chloride Level 101 MEQ/L Carbon Dioxide Level 25.4 MEQ/L Anion Gap 8 MEQ/L Estimat Glomerular Filtration Rate 48 ML/MIN Assessment and Plan Problem List: (1) NSTEMI (non-ST elevation myocardial infarction) ICD Codes: I21.4 - Non-ST elevation (NSTEMI) myocardial infarction Status: Acute (2) Multi-vessel coronary artery stenosis ICD Codes: I25.10 - Atherosclerotic heart disease of [place] coronary artery without angina pectoris (3) Hypertension ICD Codes: I10 - Essential (primary) hypertension Status: Acute (4) Diabetes mellitus ICD Codes: E11.9 - Type 2 diabetes mellitus without complications Assessment and Plan 1) NSTEMI/CP/MVCAD s/p CABGx4 POD #2 GUDINO to LAD SVG to OM1 SVG to OM4 SVG to RCA Con't ASA/Statin/Plavix/BB/Amio 2) EF 55-60%, mild MR/AR/TR 3) HTN Norvasc increased, blood pressures better Maxi Biggs DO May 24, 2017 11:33
--- NOTE | 2017-05-24 16:28 | PD.CAR.PN ---
CVT Progress Note CVT: POD #: 2 Subjective/Hospital Course: A 66-year-old female presented to the emergency room with chest pressure. She woke up about 04:00 a.m. getting ready for work. She decided to go to work. 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 She has had some associated nausea. She did take a baby aspirin. She thinks she had a stress test about five years ago which was okay. She does not follow with a regular oil well service operator. On her presentation, troponin was found to be 10.1, was ruled in for non STEMI. She had some septal changes in V1-V2, was taken to the quality assurance lab technician by Dr. Biggs, had left main disease at 10%, proximal LAD 90%, mid distal LAD 90%, diagonal had 20%, circ had 70%, OM 90%, RCA 70%. We were consulted to evaluate for coronary artery bypass grafting. Echocardiogram is pending to evaluate for any valvular disease and for ejection fraction. PAST MEDICAL HISTORY: Recently diagnosed diabetes mellitus, Hypertension, Arthritis, right hand, Chronic back pain, Vertigo 2/2 slight pain last evening , now improved for surgery on 05/2205/23/17 Doing well s/p CABG. No complaints 05/24/17 Doing well, no complaints Objective: Vital Signs Date Time Temp Pulse Resp B/P (MAP) Pulse Ox O2 Delivery O2 Flow Rate FiO2 05/24/17 16:00 69 05/24/17 15:23 97.8 72 18 105/61 (76) 94 05/24/17 15:00 68 05/24/17 14:00 73 05/24/17 13:00 72 05/24/17 12:00 69 05/24/17 11:23 98.3 67 18 111/65 (80) 93 05/24/17 11:00 68 05/24/17 10:00 68 05/24/17 09:00 84 05/24/17 08:00 78 05/24/17 07:23 98.6 77 18 125/74 (91) 93 05/24/17 07:00 75 05/24/17 06:26 77 05/24/17 05:10 75 05/24/17 04:01 76 05/24/17 03:56 98.3 73 17 113/72 (86) 93 05/24/17 03:17 75 05/24/17 02:08 73 05/24/17 01:52 73 05/24/17 00:23 74 05/23/17 23:39 82 05/23/17 23:11 98.0 76 16 118/64 (82) 94 05/23/17 23:11 94 Room Air 05/23/17 22:14 86 05/23/17 21:30 86 05/23/17 20:16 95 21 05/23/17 20:15 86 05/23/17 19:20 98.7 88 17 140/83 (102) 96 05/23/17 19:20 88 05/23/17 19:20 96 Room Air 05/23/17 18:00 85 05/23/17 17:20 83 Result Diagram: 05/24/17 0330 05/24/17 0330 Cardiovascular: RRR Telemetry: NSR Pulmonary: CTA GI/: NABS, NT Incision: dry and intact Plan: Encourage ambulation Plavix Cont BB, ASA, statin Stim BM Plan d/c tomorrow (1) NSTEMI (non-ST elevation myocardial infarction) (2) Multi-vessel coronary artery stenosis (3) Hypertension (4) Diabetes mellitus Kelly Navas MD May 24, 2017 16:28
[2017-05-24] MEDS: ATORVASTATIN 80 MG TAB PO SCH (20:42)
--- NOTE | 2017-05-24 23:20 | PD.CONS ---
HPI Service Critical Care Medicine Consult Requested By Primary Care Physician Unknown History of Present Illness 66-year-old female with past medical history of Diabetes mellitus, hypertension , hyperlipidemia underwent four-vessel CABG for multivessel coronary disease on May 22, 2017. She postprocedure course was uncomplicated until today a.m. when she became progressively more lethargic, difficult to arouse. Patient has been afebrile, however the white count 22, but ABG shows respiratory alkalosis, CT head negative. Review of Systems ROS Unable to obtain patient is lethargic Past Family Social History Allergies: Coded Allergies: No Known Allergies (Verified Allergy, Unknown, 05/17/17) Past Medical History Diabetes mellitus, hypertension, hyperlipidemia Past Surgical History CABG 05/22/17 Umbilical hernia repair Tubal ligation Reported Medications Reported Meds & Active Scripts Active Meclizine (Meclizine HCl) 25 Mg Tab 25 Mg PO DIRECTED PRN Reported Norvasc (Amlodipine Besylate) 5 Mg Tab 5 Mg PO DAILY Metoprolol Tartrate 50 Mg Tab 50 Mg PO BID Metformin (Metformin HCl) 1,000 Mg Tab 1,000 Mg PO BIDPC With meals Active Ordered Medications Current Medications Medications (Trade) Dose Ordered Sig/Ori Route PRN Reason Start Time Stop Time Status Last Admin Dose Admin Metoprolol Tartrate (Lopressor) 50 mg BID PO 05/17/17 21:00 05/24/17 20:42 Atropine Sulfate (Atropine Inj) 0.5 mg UNSCH PRN IV PUSH VAGAL REPONSE 05/17/17 10:30 Atorvastatin Calcium (Lipitor) 80 mg HS PO 05/17/17 21:00 05/24/17 20:42 Ondansetron HCl (Zofran Inj) 4 mg Q6H PRN IVP NAUSEA OR VOMITING 05/17/17 16:00 Naloxone HCl (Narcan Inj) 0.4 mg UNSCH PRN IV PUSH SEE LABEL COMMENTS 05/17/17 16:00 Senna/Docusate Sodium (Rose Mary-Colace) 1 tab BID PO 05/17/17 21:00 05/24/17 20:42 Magnesium Hydroxide (Milk Of Magnesia Liq) 30 ml Q12H PRN PO Mild constipation 05/17/17 16:00 Sennosides (Senokot) 17.2 mg Q12H PRN PO Moderate constipation 05/17/17 16:00 Bisacodyl (Dulcolax Supp) 10 mg DAILY PRN RECTAL SEVERE CONSITIPATION 05/17/17 16:00 Lactulose (Lactulose Liq) 30 ml DAILY PRN PO SEVERE CONSITIPATION 05/17/17 16:00 Miscellaneous (Pill Splitter) 1 ea UNSCH PRN OTHER SEE LABEL COMMENTS 05/17/17 20:15 Hydralazine HCl (Apresoline) 10 mg Q6H PRN PO BP>160/90 05/20/17 16:45 Sodium Chloride (NS Flush) 2 ml BID IV FLUSH 05/22/17 21:00 05/24/17 20:43 Sodium Chloride (NS Flush) 2 ml UNSCH PRN IV FLUSH FLUSH AFTER USING IV ACCESS 05/22/17 13:30 Albumin Human 250 ml @ 250 mls/hr UNSCH PRN IV SEE LABEL COMMENTS 05/22/17 13:30 Aspirin (Aspirin Chew) 81 mg DAILY PO 05/23/17 09:00 05/24/17 09:03 Pantoprazole Sodium (Protonix) 40 mg DAILY@06 PO 05/23/17 06:00 05/24/17 04:57 Acetaminophen (Tylenol) 650 mg Q4H PRN PO TEMPERATURE > 101 F 05/22/17 13:30 Fentanyl Citrate (fentaNYL INJ) 25 mcg Q1H PRN IV PUSH BREAKTHROUGH PAIN 05/22/17 15:00 05/22/17 18:22 Ondansetron HCl (Zofran Inj) 4 mg Q6H PRN IV PUSH NAUSEA OR VOMITING 05/22/17 15:00 Metoprolol Tartrate (Lopressor Inj) 2.5 mg Q1H PRN IV PUSH SEE LABEL COMMENTS 05/22/17 15:00 Potassium Chloride 100 ml @ 50 mls/hr UNSCH PRN IV SEE LABEL COMMENTS 05/22/17 15:00 05/22/17 21:51 Potassium Chloride 100 ml @ 50 mls/hr UNSCH PRN IV SEE LABEL COMMENTS 05/22/17 15:00 Potassium Chloride (KCl) 20 meq UNSCH PRN PO SEE LABEL COMMENTS 05/22/17 15:00 Potassium Chloride (KCl) 40 meq UNSCH PRN PO SEE LABEL COMMENTS 05/22/17 15:00 Magnesium Sulfate 2 gm/Sodium Chloride 104 ml @ 100 mls/hr UNSCH PRN IV SEE LABEL COMMENTS 05/22/17 13:30 Magnesium Sulfate 2 gm/Sodium Chloride 104 ml @ 50 mls/hr UNSCH PRN IV SEE LABEL COMMENTS 05/22/17 12:30 Calcium Chloride 1 gm/Sodium Chloride 110 ml @ 100 mls/hr UNSCH PRN IV SEE LABEL COMMENTS 05/22/17 12:45 Calcium Chloride (Calcium Chloride Inj) 0.5 gm UNSCH PRN IV PUSH SEE LABEL COMMENTS 05/22/17 13:45 Dextrose (D50w (Vial) Inj) 50 ml UNSCH PRN IV PUSH HYPOGLYCEMIA-SEE COMMENTS 05/22/17 14:00 Sodium Bicarbonate (Sodium Bicarbonate 8.4% Inj) 50 meq UNSCH PRN IV PUSH SEE LABEL COMMENTS 05/22/17 14:00 Sodium Bicarbonate (Sodium Bicarbonate 8.4% Inj) 100 meq UNSCH PRN IV PUSH SEE LABEL COMMENTS 05/22/17 14:00 Albuterol/ Ipratropium (Duoneb Neb) 1 ampule Q2HR NEB PRN NEB WHEEZING 05/22/17 14:00 Docusate Sodium (Colace) 100 mg BID PO 05/23/17 21:00 05/24/17 20:42 Clopidogrel Bisulfate (Plavix) 75 mg DAILY PO 05/24/17 09:00 05/24/17 09:02 Multivitamins/ Minerals Therapeutic (Theragran M Tab) 1 tab DAILY PO 05/24/17 09:00 05/24/17 09:03 Magnesium Hydroxide (Milk Of [place] Liq) 30 ml DAILY PO 05/24/17 09:00 05/24/17 09:04 Bisacodyl (Dulcolax Supp) 10 mg UNSCH PRN RECTAL SEE LABEL COMMENTS 05/23/17 10:27 Insulin Aspart (NovoLOG SUPPLEMENTAL SCALE) 1 02,06,10,14,18,22 SQ 05/23/17 10:00 05/24/17 18:00 Dextrose (D50w (Vial) Inj) 50 ml UNSCH PRN IV PUSH HYPOGLYCEMIA-SEE COMMENTS 05/23/17 09:45 Glucagon (Glucagon Inj) 1 mg UNSCH PRN OTHER HYPOGLYCEMIA-SEE COMMENTS 05/23/17 09:45 Clonidine (Catapres) 0.2 mg Q12HR PO 05/23/17 21:00 05/24/17 20:43 Furosemide (Lasix Inj) 40 mg DAILY IV PUSH 05/23/17 09:45 2/8/18 09:03 Potassium Chloride (KCl) 30 meq Q12HR PO 05/23/17 09:45 05/24/17 09:04 Amlodipine Besylate (Norvasc) 10 mg DAILY PO 05/24/17 09:00 05/24/17 09:03 Hydralazine HCl (Apresoline Inj) 10 mg Q30M PRN IV PUSH SBP>160, DBP>90 05/23/17 14:00 05/23/17 14:06 Oxycodone/ Acetaminophen (Percocet 5-325 Mg) 1 tab Q4HR PRN PO PAIN SCALE 1 TO 4 05/23/17 18:15 Oxycodone/ Acetaminophen (Percocet 10-325 Mg) 1 tab Q4H PRN PO Pain 5 to 10 05/23/17 18:15 05/23/17 20:53 Pharmacy Profile Note 0 ml @ 0 mls/hr UNSCH OTHER 05/25/17 00:15 Piperacillin Sod/ Tazobactam Sod 100 ml @ 200 mls/hr Q6H IV 05/25/17 00:00 05/25/17 03:05 Amiodarone HCl (Cordarone) 400 mg Q8HR PO 05/25/17 06:00 Family History Both parents with heart problems, hypertension, hyperlipidemia, diabetes Social History Denies alcohol use illicit drug use or tobacco use. Physical Exam Vital Signs Vital Signs Date Time Temp Pulse Resp B/P (MAP) Pulse Ox O2 Delivery O2 Flow Rate FiO2 05/24/17 19:00 98.4 71 18 110/72 (85) 05/24/17 18:00 72 05/24/17 17:00 70 05/24/17 16:00 69 05/24/17 15:23 97.8 72 18 105/61 (76) 94 05/24/17 15:00 68 05/24/17 14:00 73 05/24/17 13:00 72 05/24/17 12:00 69 05/24/17 11:23 98.3 67 18 111/65 (80) 93 05/24/17 11:00 68 05/24/17 10:00 68 05/24/17 09:00 84 05/24/17 08:00 78 05/24/17 07:23 98.6 77 18 125/74 (91) 93 05/24/17 07:00 75 05/24/17 06:26 77 05/24/17 05:10 75 05/24/17 04:01 76 05/24/17 03:56 98.3 73 17 113/72 (86) 93 05/24/17 03:17 75 05/24/17 02:08 73 05/24/17 01:52 73 05/24/17 00:23 74 05/23/17 23:39 82 Physical Exam GENERAL: Well-nourished, well-developed patient. Extremely lethargic SKIN: Warm and dry. HEAD: Normocephalic. EYES: No scleral icterus. No injection or drainage. NECK: Supple, trachea midline. No JVD or lymphadenopathy. CARDIOVASCULAR: Regular rate and rhythm without murmurs, gallops, or rubs. Clean wound post sternotomy RESPIRATORY: Breath sounds equal bilaterally. No accessory muscle use. GASTROINTESTINAL: Abdomen soft, non-tender, nondistended. MUSCULOSKELETAL: No cyanosis, or edema. BACK: Nontender without obvious deformity. NEURO EXAM: GCS: 10 Mental Status: The patient is extremely lethargic, following simple commands on all 4 extremities. Nonfocal exam Laboratory Laboratory Tests Test 05/24/17 03:30 White Blood Count 22.3 Red Blood Count 3.39 Hemoglobin 9.8 Hematocrit 29.3 Mean Corpuscular Volume 86.4 Mean Corpuscular Hemoglobin 29.0 Mean Corpuscular Hemoglobin Concent 33.6 Red Cell Distribution Width 14.9 Platelet Count 223 Mean Platelet Volume 8.3 Neutrophils (%) (Auto) 80.5 Lymphocytes (%) (Auto) 9.7 Monocytes (%) (Auto) 9.6 Eosinophils (%) (Auto) 0.1 Basophils (%) (Auto) 0.1 Neutrophils # (Auto) 18.0 Lymphocytes # (Auto) 2.2 Monocytes # (Auto) 2.1 Eosinophils # (Auto) 0.0 Basophils # (Auto) 0.0 CBC Comment DIFF FINAL Differential Comment Blood Urea Nitrogen 25 Creatinine 1.35 Random Glucose 101 Total Protein 6.3 Albumin 2.3 Calcium Level 8.6 Magnesium Level 1.8 Alkaline Phosphatase 59 Aspartate Amino Transf (AST/SGOT) 135 Alanine Aminotransferase (ALT/SGPT) 24 Total Bilirubin 1.0 Sodium Level 134 Potassium Level 5.0 Chloride Level 101 Carbon Dioxide Level 25.4 Anion Gap 8 Estimat Glomerular Filtration Rate 48 Result Diagram: 05/24/17 0330 05/24/17 0330 Imaging Last [address] 05/25/17 0000 Signed Impressions: Service Date/Time: Thursday, May 25, 2017 02:07 - CONCLUSION: 1. No acute findings. Chronic white matter ischemic changes. Remote lacunar infarcts bilaterally. Saul Saez MD Septic Shock Reassessment Septic shock perfusion: reassessment completed Assessment and Plan Assessment and Plan Altered mental status - CT head negative - Significant leukocytosis - LP - Panculture - Broad-spectrum antibiotics - De-escalate per sensitivity and results Coronary artery disease - Status post status post four-vessel CABG - Further management by Dr. [place]/CT surgery Diabetes mellitus - Insulin sliding scale Hypertension - Norvasc, metoprolol, hydralazine DVT GI prophylaxis - Teds SCDs - Pharmacological DVT prophylaxis per CT surgeon - Protonix Critical Care: The total critical care time was 35 minutes. Time to perform other separately billable procedures was not included in the critical care time. Kevin Spear MD May 24, 2017 23:20
[2017-05-25] MEDS ORDERED: Vancomycin Consult Pharmacy 1 EA OTHER SCH (00:15)
[2017-05-25 00:50] LABS: AUTOMATED NEUTROPHIL # 16.4 TH/MM3 (1.8-7.7); BASOPHIL % 0.1 % (0.0-2.0); HEMATOCRIT 26.3 % (35.0-46.0); LYMPH % 11.8 % (9.0-44.0); LYMPHOCYTE # 2.5 TH/MM3 (1.0-4.8); MEAN CELL VOLUME 86.4 FL (80.0-100.0); MEAN CORPUSCULAR HEMOGLOBIN 29.5 PG (27.0-34.0); MEAN CORPUSCULAR HGB CONC 34.1 % (32.0-36.0); MEAN PLATELET VOLUME 8.6 FL (7.0-11.0); MONO % 10.2 % (0.0-8.0); MONOCYTE # 2.1 TH/MM3 (0-0.9); NEUT % 77.9 % (16.0-70.0); PLATELET COUNT 213 TH/MM3 (150-450); RED BLOOD COUNT 3.04 MIL/MM3 (4.00-5.30); RED CELL DISTRIBUTION WIDTH 14.3 % (11.6-17.2)
[2017-05-25] MEDS ORDERED: VANCOMYCIN 1 GM/200 ML PREMIX IV ONE (01:00)
[2017-05-25 01:02] LABS: ALBUMIN 2.1 GM/DL (3.4-5.0); ALKALINE PHOSPHATASE 62 U/L (45-117); ALT (GPT) 20 U/L (10-53); AST (GOT) 92 U/L (15-37); BICARBONATE 26.4 MEQ/L (21.0-32.0); BLOOD UREA NITROGEN 39 MG/DL (7-18); CALCIUM 8.3 MG/DL (8.5-10.1); CHLORIDE 103 MEQ/L (98-107); CREATININE 1.84 MG/DL (0.50-1.00); GLOMERULAR FILTRATION RATE 33 ML/MIN (>89); GLUCOSE,RANDOM 70 MG/DL (74-106); MAGNESIUM 2.3 MG/DL (1.5-2.5); PHOSPHORUS 2.6 MG/DL (2.5-4.9); SODIUM (NA) 136 MEQ/L (136-145); TOTAL BILIRUBIN ADULT 0.6 MG/DL (0.2-1.0); TOTAL PROTEIN 6.4 GM/DL (6.4-8.2)
[2017-05-25] MEDS ORDERED: ATROPINE SULFATE 1 MG/10 ML SYRINGE ONE ×2 (01:59→11:55)
[2017-05-25] MEDS ORDERED: LIDOCAINE HCL 2% 100 MG/5 ML SYRINGE ONE (01:59)
[2017-05-25] MEDS ORDERED: EPINEPHrine HCL (1:10,000) 1 MG/10 ML SYRINGE ONE ×2 (02:00→11:55)
--- NOTE | 2017-05-25 02:21 | RADRPT ---
EXAM DATE/TIME: 05/25/2017 02:07 [facility] COMPARISON: No previous studies available for comparison. INDICATIONS : Altered mental status. RADIATION DOSE: 56.35 CTDIvol (mGy) MEDICAL HISTORY : Hypertension. Diabetes mellitus type 2. SURGICAL HISTORY : None. ENCOUNTER: Initial ACUITY: 1 day PAIN SCALE: 0/10 LOCATION: cranial TECHNIQUE: Multiple contiguous axial images were obtained of the head. Using automated exposure control and adj ustment of the mA and/or kV according to patient size, radiation dose was kept as low as reasonably a chievable to obtain optimal diagnostic quality images. DICOM format image data is available electro nically for review and comparison. FINDINGS: No acute hemorrhage or mass effect. Lacunar infarct right basal ganglia not seen on prior exam in Jul. Chronic white matter ischemic changes. Also lacunar infarct left thalamus. No abnormal extra -axial fluid. No acute bony abnormalities there is CONCLUSION: 1. No acute findings. Chronic white matter ischemic changes. Remote lacunar infarcts bilaterally. Saul Saez MD on May 25, 2017 at 2:16 Board Certified Radiologist. This report was verified electronically.
[2017-05-25] MEDS: INSULIN ASPART SUPPLEMENTAL SCALE SQ SCH ×3 (03:00→10:00)
[2017-05-25] MEDS: PIPERACIL-TAZO 4.5 GM PREMIX 100 ML IV SCH ×2 (03:05→07:03)
--- NOTE | 2017-05-25 03:28 | PD.PROCEDR ---
Procedure Note Procedure Lumbar puncture A time-out was completed verifying correct patient, procedure, site, positioning , and special equipment if applicable. The patient was placed in the left lateral decubitus position in a semi- position with help from the nursing staff. The area was cleansed and draped in usual sterile fashion. 1% lidocaine was used anesthetize the surrounding skin area. A 20-gauge 3.5-inch spinal needle was placed in the L3-L4 interspace. Clear cerebral spinal fluid was obtained and the opening pressure was noted to be 23. Four tubes were filled with 4 mL of CSF. These were sent for the usual tests, including 1 tube to be held for further analysis if needed. The closing pressure was noted to be 16. Estimated Blood Loss: 1 mL The patient tolerated the procedure well and there were no complications. Kevin Spear MD May 25, 2017 3:28 am
[2017-05-25 04:00] VITALS: BP 94/59; PULSE 62; RESP 24; TEMP 98.7; O2SAT 93
[2017-05-25] MEDS ORDERED: SODIUM CHLOR 0.9% 1000 ML INJ 1,000 ML IV SCH (04:00)
[2017-05-25] MEDS ORDERED: SODIUM CHLOR 0.9% 1000 ML INJ 1,000 ML IV ONE (04:00)
[2017-05-25 04:54] LABS: TOTAL PROTEIN,CSF 36.9 MG/DL (15.0-45.0)
--- NOTE | 2017-05-25 05:24 | RADRPT ---
EXAM DATE/TIME: 05/25/2017 04:15 [facility] COMPARISON: CHEST SINGLE AP, May 23, 2017, 3:59. INDICATIONS : Evaluate for pneumonia MEDICAL HISTORY : Hypertension. Diabetes mellitus type II. SURGICAL HISTORY : Tubal ligation. Inguinal hernia repair. ENCOUNTER: Subsequent ACUITY: 1 week PAIN SCORE: Non-responsive. LOCATION: Bilateral chest FINDINGS: A single view of the chest demonstrates previous sternotomy. Cardiomegaly. Basilar and dependent airs pace disease in the lungs slightly improved from May 23. Previous chest tube and central line rem merna. CONCLUSION: 1. Improved basilar airspace disease. No effusion or pneumothorax. Cardiomegaly. Saul Saez MD on May 25, 2017 at 5:21 Board Certified Radiologist. This report was verified electronically.
[2017-05-25 05:42] LABS: SUPERNATE COLOR TUBE #1 CLEAR (CLEAR); VOLUME TUBE # 1 1.6 ML
[2017-05-25 05:43] LABS: CSF LYMPHOCYTES 94 %; CSF NEUTROPHILS 6 %; RBC TUBE #4 76 /MM3; WBC TUBE #4 22 /MM3 (0-10)
[2017-05-25] MEDS ORDERED: AMIODARONE 200 MG TAB PO SCH (06:00)
--- NOTE | 2017-05-25 07:38 | PD.CAR.PN ---
CVT Progress Note CVT: POD #: 3 Subjective/Hospital Course: A 66-year-old female presented to the emergency room with chest pressure. She woke up about 04:00 a.m. getting ready for work. She decided to go to work. 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 She has had some associated nausea. She did take a baby aspirin. She thinks she had a stress test about five years ago which was okay. She does not follow with a regular resaw machine operator. On her presentation, troponin was found to be 10.1, was ruled in for non STEMI. She had some septal changes in V1-V2, was taken to the clinical lab specialist by Dr. Biggs, had left main disease at 10%, proximal LAD 90%, mid distal LAD 90%, diagonal had 20%, circ had 70%, OM 90%, RCA 70%. We were consulted to evaluate for coronary artery bypass grafting. Echocardiogram is pending to evaluate for any valvular disease and for ejection fraction. PAST MEDICAL HISTORY: Recently diagnosed diabetes mellitus, Hypertension, Arthritis, right hand, Chronic back pain, Vertigo 2/2 slight pain last evening , now improved for surgery on 05/2205/23/17 Doing well s/p CABG. No complaints 05/24/17 Doing well, no complaints 05/25/09 Patient developed increasing somnolence since yesterday late afternoon, early evening. Very lethargic this morning. Transferred back to CVICU due to this obvious change in neurologic status. I discussed my concerns with Dr. Spear and he has evaluated her. Objective: Vital Signs Date Time Temp Pulse Resp B/P (MAP) Pulse Ox O2 Delivery O2 Flow Rate FiO2 05/25/17 04:00 62 05/25/17 04:00 98.7 62 24 94/59 (71) 93 05/24/17 23:30 64 05/24/17 23:00 98.7 64 19 100/65 (77) 99 05/24/17 23:00 64 05/24/17 22:00 64 05/24/17 21:00 68 05/24/17 20:52 92 21 05/24/17 20:00 70 05/24/17 19:00 98.4 71 18 110/72 (85) 97 05/24/17 19:00 71 05/24/17 18:00 72 05/24/17 17:00 70 05/24/17 16:00 69 05/24/17 15:23 97.8 72 18 105/61 (76) 94 05/24/17 15:00 68 05/24/17 14:00 73 05/24/17 13:00 72 05/24/17 12:00 69 05/24/17 11:23 98.3 67 18 111/65 (80) 93 05/24/17 11:00 68 05/24/17 10:00 68 05/24/17 09:00 84 05/24/17 08:00 78 Labs: Laboratory Tests Test 05/24/17 23:50 05/25/17 00:15 05/25/17 02:30 Blood Gas Puncture Site RT FEMORAL Blood Gas Patient Temperature 98.6 Blood Gas HCO3 23 mmol/L (22-26) Blood Gas Base Excess 0.4 mmol/L (-2-2) Blood Gas Oxygen Saturation 96 % (90-100) Arterial Blood pH 7.54 (7.380-7.420) Arterial Blood Partial Pressure CO2 27 mmHg (38-42) Arterial Blood Partial Pressure O2 97 mmHg (61-120) Arterial Blood Oxygen Content 13.6 Vol % (12.0-20.0) Arterial Blood Carboxyhemoglobin 1.6 % (0-4) Arterial Blood Methemoglobin 1.0 % (0-2) Blood Gas Hemoglobin 10.1 G/DL (12.0-16.0) Oxygen Delivery Device NASAL CANNULA Blood Gas Liter Flow 4 L/M White Blood Count 21.0 TH/MM3 (4.0-11.0) Red Blood Count 3.04 MIL/MM3 (4.00-5.30) Hemoglobin 9.0 GM/DL (11.6-15.3) Hematocrit 26.3 % (35.0-46.0) Mean Corpuscular Volume 86.4 FL (80.0-100.0) Mean Corpuscular Hemoglobin 29.5 PG (27.0-34.0) Mean Corpuscular Hemoglobin Concent 34.1 % (32.0-36.0) Red Cell Distribution Width 14.3 % (11.6-17.2) Platelet Count 213 TH/MM3 (150-450) Mean Platelet Volume 8.6 FL (7.0-11.0) Neutrophils (%) (Auto) 77.9 % (16.0-70.0) Lymphocytes (%) (Auto) 11.8 % (9.0-44.0) Monocytes (%) (Auto) 10.2 % (0.0-8.0) Eosinophils (%) (Auto) 0.0 % (0.0-4.0) Basophils (%) (Auto) 0.1 % (0.0-2.0) Neutrophils # (Auto) 16.4 TH/MM3 (1.8-7.7) Lymphocytes # (Auto) 2.5 TH/MM3 (1.0-4.8) Monocytes # (Auto) 2.1 TH/MM3 (0-0.9) Eosinophils # (Auto) 0.0 TH/MM3 (0-0.4) Basophils # (Auto) 0.0 TH/MM3 (0-0.2) CBC Comment DIFF FINAL Differential Comment Blood Urea Nitrogen 39 MG/DL (7-18) Creatinine 1.84 MG/DL (0.50-1.00) Random Glucose 70 MG/DL (74-106) Total Protein 6.4 GM/DL (6.4-8.2) Albumin 2.1 GM/DL (3.4-5.0) Calcium Level 8.3 MG/DL (8.5-10.1) Phosphorus Level 2.6 MG/DL (2.5-4.9) Magnesium Level 2.3 MG/DL (1.5-2.5) Alkaline Phosphatase 62 U/L (45-117) Aspartate Amino Transf (AST/SGOT) 92 U/L (15-37) Alanine Aminotransferase (ALT/SGPT) 20 U/L (10-53) Total Bilirubin 0.6 MG/DL (0.2-1.0) Sodium Level 136 MEQ/L (136-145) Potassium Level 4.7 MEQ/L (3.5-5.1) Chloride Level 103 MEQ/L (98-107) Carbon Dioxide Level 26.4 MEQ/L (21.0-32.0) Anion Gap 7 MEQ/L (5-15) Estimat Glomerular Filtration Rate 33 ML/MIN (>89) CSF Volume (Tube 1) 1.6 ML CSF Supernatant Color (tube 1) CLEAR (CLEAR) CSF Gross Blood (Tube 1) TRACE (0) CSF Volume (Tube 2) 1.0 ML CSF Supernatant Color (tube 2) CLEAR (CLEAR) CSF Gross Blood (Tube 2) 0 (0) CSF Volume (Tube 3) 0.8 ML CSF Supernatant Color (tube 3) CLEAR (CLEAR) CSF Gross Blood (Tube 3) 0 (0) CSF Volume (Tube 4) 1.0 ML CSF Supernatant Color (tube 4) CLEAR (CLEAR) CSF Gross Blood (Tube 4) 0 (0) CSF WBC (Tube 4) 22 /MM3 (0-10) CSF RBC (Tube 4) 76 /MM3 (NONE) CSF Neutrophils 6 % CSF Lymphocytes 94 % CSF Glucose 70 MG/DL (40-80) CSF Lactate Dehydrogenase 16 U/L CSF Lactic Acid 2.6 MMOL/L (0.0-3.0) CSF Total Protein 36.9 MG/DL (15.0-45.0) Result Diagram: 05/25/17 0015 05/25/17 0015 Imaging: Last 24 hours Impressions Chest X-Ray 05/25/17 0600 Signed Impressions: Service Date/Time: Thursday, May 25, 2017 04:15 - CONCLUSION: 1. Improved basilar airspace disease. No effusion or pneumothorax. Cardiomegaly. Saul Saez MD Head CT 05/25/17 0000 Signed Impressions: Service Date/Time: Thursday, May 25, 2017 02:07 - CONCLUSION: 1. No acute findings. Chronic white matter ischemic changes. Remote lacunar infarcts bilaterally. Saul Saez MD Cardiovascular: RRR, SB Telemetry: SB Pulmonary: Decreased BS bilat GI/: NABS, NT Incision: dry and intact Plan: Head CT as above. MRI pending Neuro consult pending D/C amiodarone, narcotics for now BP running a little low, med doses adjusted accordingly BUN/Cr up again this morning STAT ECHO I discussed her status with her son just this morning. (1) NSTEMI (non-ST elevation myocardial infarction) (2) Multi-vessel coronary artery stenosis (3) Hypertension (4) Diabetes mellitus Kelly Navas MD May 25, 2017 07:38
[2017-05-25 07:39] VITALS: BP 108/71; PULSE 63; RESP 20; TEMP 97.9; O2SAT 97
[2017-05-25 07:56] LABS: BILIRUBIN, URINE NEG (NEG); BLOOD, URINE TRACE (NEG); GLUCOSE,URINE NEG (NEG); KETONE, URINE NEG (NEG); MUCUS URINE FEW /lpf (OCC); NITRITE,URINE NEG (NEG); SQUAMOUS EPITHELIAL CELL URINE <1 /hpf (0-5); URINE COLOR YELLOW (YELLW/STRAW); URINE LEUKOCYTE ESTERASE NEG (NEG)
[2017-05-25 08:01] VITALS: O2SAT 97
[2017-05-25] MEDS ORDERED: SODIUM CHLORID 0.9% 500 ML INJ 500 ML IV ONE ×2 (08:15→10:15)
--- NOTE | 2017-05-25 08:27 | HHI.CCPN ---
Subjective Remarks/Hospital Course 66-year-old female with past medical history of Diabetes mellitus, hypertension , hyperlipidemia underwent four-vessel CABG for multivessel coronary disease on May 22, 2017. She postprocedure course was uncomplicated until today a.m. when she became progressively more lethargic, difficult to arouse. Patient has been afebrile, however the white count 22, but ABG shows respiratory alkalosis, CT head negative. 05/25/17: Remains lethargic and hard to arouse, but opens eyes to stimulation but moves all 4 extremities. Do not communicate. Worsening renal function creatinine is 1.8. White count remains elevated at 21,000. On exam has right upper quadrant tenderness stat ultrasound ordered. Also 22 WBC, mostly lymphocytes in CSF. currently on vancomycin and Zosyn, add acyclovir. Consult ID. MRI of the brain pending. I have also added TSH and ammonia levels and lactic acid Objective Vital Signs Date Time Temp Pulse Resp B/P (MAP) Pulse Ox O2 Delivery O2 Flow Rate FiO2 05/25/17 08:01 97 Nasal Cannula 2.00 05/25/17 04:00 62 05/25/17 04:00 98.7 24 94/59 (71) 05/24/17 20:52 21 Intake and Output 05/25/17 05/25/17 05/26/17 08:00 16:00 00:00 Intake Total 1400 ml Output Total 300 ml Balance 1100 ml Result Diagram: 05/25/17 0015 05/25/17 0015 Other Results Laboratory Tests Test 05/24/17 23:50 05/25/17 07:44 Blood Gas Puncture Site RT FEMORAL LT RADIAL Blood Gas Patient Temperature 98.6 98.6 Blood Gas HCO3 23 mmol/L (22-26) 21 mmol/L (22-26) Blood Gas Base Excess 0.4 mmol/L (-2-2) -2.3 mmol/L (-2-2) Blood Gas Oxygen Saturation 96 % (90-100) 93 % (90-100) Arterial Blood pH 7.54 (7.380-7.420) 7.50 (7.380-7.420) Arterial Blood Partial Pressure CO2 27 mmHg (38-42) 27 mmHg (38-42) Arterial Blood Partial Pressure O2 97 mmHg (61-120) 73 mmHg (61-120) Arterial Blood Oxygen Content 13.6 Vol % (12.0-20.0) 11.8 Vol % (12.0-20.0) Arterial Blood Carboxyhemoglobin 1.6 % (0-4) 1.4 % (0-4) Arterial Blood Methemoglobin 1.0 % (0-2) 1.2 % (0-2) Blood Gas Hemoglobin 10.1 G/DL (12.0-16.0) 9.0 G/DL (12.0-16.0) Oxygen Delivery Device NASAL CANNULA NASAL CANNULA Blood Gas Liter Flow 4 L/M 2 L/M Imaging Last [address] 05/25/17 0000 Signed Impressions: Service Date/Time: Thursday, May 25, 2017 02:07 - CONCLUSION: 1. No acute findings. Chronic white matter ischemic changes. Remote lacunar infarcts bilaterally. Saul Saez MD Objective Remarks GENERAL: Well-nourished, well-developed patient. Lethargic wakes up to stimulation SKIN: Warm and dry. HEAD: Normocephalic. EYES: No scleral icterus. No injection or drainage. NECK: Supple, trachea midline. No JVD or lymphadenopathy. CARDIOVASCULAR: Regular rate and rhythm without murmurs, gallops, or rubs. Clean wound post sternotomy RESPIRATORY: Breath sounds equal bilaterally. No accessory muscle use. GASTROINTESTINAL: Abdomen soft, Severe RUQ tenderness, without organomegaly MUSCULOSKELETAL: No cyanosis, or edema. BACK: Nontender without obvious deformity. NEURO: The patient is lethargic, opens eyes to painful stimuli did not verbalize. Moving all 4 extremities. Nonfocal exam A/P Assessment and Plan NEURO: Acute metabolic encephalopathy Altered mental status - CT head negative, MRI pending - Encephalopathy may be secondary to sepsis - LP-CSF at 22 WBC 76 RBC lymphocytic predominant - Panculture - Broad-spectrum antibiotics with vancomycin and Zosyn, add acyclovir until HSV ruled out - De-escalate per sensitivity and results - ID consulted - Check ammonia, check TSH CVS: Coronary artery disease s/p CABG Hypotension - Status post status post four-vessel CABG 05/22 - Further management by Dr. Navas/CT surgery - Continue aspirin and Lipitor - Hold beta-blockers hold all antihypertensive - Normal saline 500 mL bolus, NS 84 ml per hour - Hold Norvasc, metoprolol, hydralazine GI: Right upper quadrant tenderness - Abdominal gallbladder ultrasound to rule out acute cholecystitis - Keep n.p.o. except meds, IV famotidine : Acute kidney injury - NS bolus and maintenance as aobove - Renal ultrasound - Insert Birch, strict intake output ENDO: Diabetes mellitus - Insulin sliding scale ID: Probable sepsis - Continue vancomycin and Zosyn, add acyclovir until HSV encephalitis ruled out - Follow up on blood urine and CSF cultures - Consult ID DVT GI prophylaxis - Teds SCDs - Pharmacological DVT prophylaxis per CT surgeon-hold due to recent LP - Protonix Critical Care: The total critical care time was 45 minutes. Time to perform other separately billable procedures was not included in the critical care time. D/W Asia Cotto MD May 25, 2017 08:27
[2017-05-25] MEDS: POTASSIUM CHLORIDE 10 MEQ CONTROLLED RELEASE TAB PO SCH ×2 (09:00→20:12)
[2017-05-25] MEDS: MULTIVITAMINS/MINERALS THERAPEUTIC TAB PO SCH (09:00)
[2017-05-25] MEDS ORDERED: METOPROLOL TARTRATE 50 MG TAB PO SCH (09:00)
[2017-05-25] MEDS: MAGNESIUM HYDROXIDE SUSP 30 ML CUP PO SCH (09:00)
[2017-05-25] MEDS: ASPIRIN 81 MG CHEW TAB PO SCH (09:00)
[2017-05-25] MEDS: DOCUSATE SODIUM 100 MG CAP PO SCH ×2 (09:00→20:12)
[2017-05-25] MEDS: DOCUSATE SODIUM 50 MG/SENNA 8.6 MG TAB PO SCH ×2 (09:00→20:12)
--- NOTE | 2017-05-25 09:15 | ECHRPT ---
Indication: PERICARDIAL EFFUSION CONCLUSIONS The left ventricular systolic function is normal with an estimated ejection fraction in the range of 55-60%. Mild concentric left ventricular hypertrophy. Mild mitral valve regurgitation. Mild aortic valve regurgitation. There is mild tricuspid valve regurgitation. No pericardial effusion noted. BP: / HR: Rhythm: MEASUREMENTS (Male / Female) Normal Values Technical Quality:Good 2D ECHO LV Diastolic Diameter PLAX 4.6 cm 4.2 - 5.9 / 3.9 - 5.3 cm LV Systolic Diameter PLAX 3.5 cm IVS Diastolic Thickness 1.1 cm 0.6 - 1.0 / 0.6 - 0.9 cm LVPW Diastolic Thickness 0.7 cm 0.6 - 1.0 / 0.6 - 0.9 cm LV Relative Wall Thickness 0.4 DOPPLER AI Peak Velocity 410.0 cm/s AI Peak Gradient 67.2 mmHg AI Pressure Half Time 542.0 ms Mitral E Point Velocity 101.0 cm/s Mitral A Point Velocity 104.0 cm/s Mitral E to A Ratio 1.0 TR Peak Velocity 244.0 cm/s TR Peak Gradient 23.8 mmHg Right Atrial Pressure 10.0 mmHg Pulmonary Artery Systolic Pressu 33.8 mmHg Right Ventricular Systolic Press 33.8 mmHg FINDINGS LEFT VENTRICLE Normal left ventricular size. Mild concentric left ventricular hypertrophy. The left ventricular systolic function is normal with an estimated ejection fraction in the range of 55-60%. RIGHT VENTRICLE Normal right ventricular size and systolic function. LEFT ATRIUM The left atrial size is normal. RIGHT ATRIUM The right atrial size is normal. ATRIAL SEPTUM Normal atrial septal thickness. AORTA The aortic root and proximal ascending aorta are normal in size on limited imaging. MITRAL VALVE Structurally normal mitral valve. Mild mitral valve regurgitation. No mitral valve stenosis. AORTIC VALVE Aortic valve sclerosis is present. Mild aortic valve regurgitation. No aortic valve stenosis. TRICUSPID VALVE Structurally normal tricuspid valve. There is mild tricuspid valve regurgitation. The estimated pulmonary arterial pressure is 35 mmHg. PULMONARY VALVE The pulmonary valve is not well visualized. Trivial pulmonary valve regurgitation. VESSELS The inferior vena cava is normal in size. PERICARDIUM No pericardial effusion. Maxi Biggs DO (Electronically Signed) Final Date:25 May 2017 09:14
[2017-05-25] MEDS: SODIUM CHLORIDE 0.9% FLUSH 10 ML FLUSH IV FLUSH SCH ×2 (09:39→20:12)
[2017-05-25] MEDS: PANTOPRAZOLE SODIUM 40 MG VIAL IV PUSH SCH (09:39)
--- NOTE | 2017-05-25 09:56 | RADRPT ---
EXAM DATE/TIME: 05/25/2017 08:12 [facility] COMPARISON: No previous studies available for comparison. INDICATIONS : Right upper quadrant pain. Renal failure. MEDICAL HISTORY : Osteoarthritis. Migraines. HTN. Gout. Diabetes. SURGICAL HISTORY : Umbilical hernia repair. Tubal ligation. ENCOUNTER: Initial ACUITY: 1 day PAIN SCORE: Nonresponsive. LOCATION: Abdomen. MEASUREMENTS: LIVER: 19.2 cm length COMMON DUCT: 4 mm RIGHT KIDNEY: 12.8 x 5.2 x 4.6 cm LEFT KIDNEY: 10.5 x 5.0 x 4.2 cm SPLEEN: 8.8 cm length AORTA: Non-visualized FINDINGS: LIVER: Normal echotexture without focal lesion or ductal dilatation. COMMON DUCT: No intraluminal mass or stone visualized. GALLBLADDER: Sludge in the gallbladder lumen. Small amount of pericholecystic fluid. Wall appears thickened and so mewhat edematous. PANCREAS: Not visualized RIGHT KIDNEY: No hydronephrosis, stone or mass. Simple cysts measuring approximately 1 cm identified in the lower pole. LEFT KIDNEY: No hydronephrosis, stone or mass. SPLEEN: No focal lesion. Moderate size left-sided pleural effusion. AORTA: Not visualized IVC: Not visualized CONCLUSION: 1. Hepatic enlargement with no focal mass lesion. 2. Gallbladder shows luminal sludge with some gallbladder wall thickening and mild pericholecystic fl uid. Findings could represent acute cholecystitis in the appropriate clinical setting. 3. 2 small, 1 cm simple cyst in the lower pole of the right kidney. 4. Moderate size left-sided pleural effusion. 5. Nonvisualization of the pancreas, aorta and IVC do to a large bandage in the midline abdomen Naun Carpio MD on May 25, 2017 at 9:50 Board Certified Radiologist. This report was verified electronically.
[2017-05-25] MEDS: SODIUM CHLORIDE 0.9% IV SCH ×2 (10:29→19:12)
[2017-05-25] MEDS: ACYCLOVIR IV SCH ×2 (10:29→19:12)
[2017-05-25] MEDS: SODIUM CHLOR 0.9% 1000 ML INJ 1,000 ML IV SCH ×2 (10:45→20:10)
--- NOTE | 2017-05-25 11:50 | PD.CONS ---
cc: Danuta Tay MD HPI Service General Surgery Consult Requested By Dr. Rich Reason for Consult Possible acute cholecystitis s/p CABG x 4 Primary Care Physician Unknown History of Present Illness This is a 66-year-old female with a past medical history of diabetes mellitus, hypertension and dyslipidemia. The patient presented to the Emergency Room on May 17 with complaints of chest pain. She had a cardiac catheterization which showed a multivessel stenosis and an ejection fraction of 55%. The patient was taken the operating room by Dr. Mckeon cardiothoracic surgery for a CABG 4. The patient was doing well postoperatively until last evening when she developed altered mental status and was transferred back to the Cardiovascular ICU. The patient does have an elevated white count 21,000. She did have an ultrasound of her abdomen which showed gallbladder sludge with gallbladder wall thickening. She does complain of right upper quadrant pain. The patient is scheduled for a HIDA scan today. A General Surgery consultation has been requested. Review of Systems Constitutional: DENIES: Fatigue, Chills, Change in appetite Endocrine: DENIES: Polydipsia, Polyuria, Polyphagia Eyes: DENIES: Diplopia, Eye inflammation Ears, nose, mouth, throat: DENIES: Hearing loss Respiratory: DENIES: Cough Cardiovascular: COMPLAINS OF: Chest pain (on admission ), DENIES: Palpitations Gastrointestinal: COMPLAINS OF: Abdominal pain, DENIES: Nausea Genitourinary: DENIES: Urinary incontinence Musculoskeletal: DENIES: Muscle aches, Back pain Integumentary: DENIES: Abnormal pigmentation Hematologic/lymphatic: DENIES: Bruising Immunologic/allergic: DENIES: Eczema Neurologic: DENIES: Headache, Localized weakness Psychiatric: COMPLAINS OF: Confusion (last evening ), DENIES: Mood changes, Depression Past Family Social History Past Medical History Diabetes mellitus Hypertension Dyslipidemia Past Surgical History Umbilical hernia repair Tubal ligation Reported Medications Metoprolol Norvasc Meclizine Metformin Allergies: Coded Allergies: No Known Allergies (Verified Allergy, Unknown, 05/17/17) Active Ordered Medications Current Medications Medications (Trade) Dose Ordered Sig/Ori Route Start Time Stop Time Status Last Admin (Atropine Inj) 0.5 mg UNSCH PRN IV PUSH 05/17/17 10:30 (Lipitor) 80 mg HS PO 05/17/17 21:00 05/24/17 20:42 (Zofran Inj) 4 mg Q6H PRN IVP 05/17/17 16:00 (Narcan Inj) 0.4 mg UNSCH PRN IV PUSH 05/17/17 16:00 (Rose Mary-Colace) 1 tab BID PO 05/17/17 21:00 05/25/17 09:00 (Milk Of Magnesia Liq) 30 ml Q12H PRN PO 05/17/17 16:00 (Senokot) 17.2 mg Q12H PRN PO 05/17/17 16:00 (Dulcolax Supp) 10 mg DAILY PRN RECTAL 05/17/17 16:00 (Lactulose Liq) 30 ml DAILY PRN PO 05/17/17 16:00 (Pill Splitter) 1 ea UNSCH PRN OTHER 05/17/17 20:15 (Apresoline) 10 mg Q6H PRN PO 05/20/17 16:45 (NS Flush) 2 ml BID IV FLUSH 05/22/17 21:00 05/25/17 09:39 (NS Flush) 2 ml UNSCH PRN IV FLUSH 05/22/17 13:30 Albumin Human 250 ml @ 250 mls/hr UNSCH PRN IV 05/22/17 13:30 (Aspirin Chew) 81 mg DAILY PO 05/23/17 09:00 05/24/17 09:03 (Tylenol) 650 mg Q4H PRN PO 05/22/17 13:30 (Zofran Inj) 4 mg Q6H PRN IV PUSH 05/22/17 15:00 (Lopressor Inj) 2.5 mg Q1H PRN IV PUSH 05/22/17 15:00 Potassium Chloride 100 ml @ 50 mls/hr UNSCH PRN IV 05/22/17 15:00 05/22/17 21:51 Potassium Chloride 100 ml @ 50 mls/hr UNSCH PRN IV 05/22/17 15:00 (KCl) 20 meq UNSCH PRN PO 05/22/17 15:00 (KCl) 40 meq UNSCH PRN PO 05/22/17 15:00 Magnesium Sulfate 2 gm/Sodium Chloride 104 ml @ 100 mls/hr UNSCH PRN IV 05/22/17 13:30 Magnesium Sulfate 2 gm/Sodium Chloride 104 ml @ 50 mls/hr UNSCH PRN IV 05/22/17 12:30 Calcium Chloride 1 gm/Sodium Chloride 110 ml @ 100 mls/hr UNSCH PRN IV 05/22/17 12:45 (Calcium Chloride Inj) 0.5 gm UNSCH PRN IV PUSH 05/22/17 13:45 (D50w (Vial) Inj) 50 ml UNSCH PRN IV PUSH 05/22/17 14:00 (Sodium Bicarbonate 8.4% Inj) 50 meq UNSCH PRN IV PUSH 05/22/17 14:00 (Sodium Bicarbonate 8.4% Inj) 100 meq UNSCH PRN IV PUSH 05/22/17 14:00 (Duoneb Neb) 1 ampule Q2HR NEB PRN NEB 05/22/17 14:00 (Colace) 100 mg BID PO 05/23/17 21:00 05/24/17 20:42 (Theragran M Tab) 1 tab DAILY PO 05/24/17 09:00 05/24/17 09:03 (Milk Of Magnesia Liq) 30 ml DAILY PO 05/24/17 09:00 05/24/17 09:04 (Dulcolax Supp) 10 mg UNSCH PRN RECTAL 05/23/17 10:27 (NovoLOG SUPPLEMENTAL SCALE) 1 02,06,10,14,18,22 SQ 05/23/17 10:00 05/24/17 18:00 (D50w (Vial) Inj) 50 ml UNSCH PRN IV PUSH 05/23/17 09:45 (Glucagon Inj) 1 mg UNSCH PRN OTHER 05/23/17 09:45 (KCl) 30 meq Q12HR PO 05/23/17 09:45 05/24/17 09:04 (Apresoline Inj) 10 mg Q30M PRN IV PUSH 05/23/17 14:00 05/23/17 14:06 Pharmacy Profile Note 0 ml @ 0 mls/hr UNSCH OTHER 05/25/17 00:15 Piperacillin Sod/ Tazobactam Sod 100 ml @ 200 mls/hr Q6H IV 05/25/17 00:00 05/25/17 07:03 (Protonix Inj) 40 mg Q24H IV PUSH 05/25/17 09:00 05/25/17 09:39 Sodium Chloride 1,000 ml @ 84 mls/hr [id number] IV 05/25/17 08:15 05/25/17 10:45 Acyclovir Sodium 670 mg/Sodium Chloride 150 ml @ 150 mls/hr Q8H IV 05/25/17 10:00 05/25/17 10:29 Family History Noncontributory; denies any known gallbladder disease in the family Social History Denies tobacco use Denies EtOH use Denies illicit drug use Physical Exam Vital Signs Vital Signs Date Time Temp Pulse Resp B/P (MAP) Pulse Ox O2 Delivery O2 Flow Rate FiO2 05/25/17 08:01 97 Nasal Cannula 2.00 05/25/17 07:39 97.9 63 20 108/71 (83) 97 05/25/17 04:00 62 05/25/17 04:00 98.7 62 24 94/59 (71) 93 05/24/17 23:30 64 05/24/17 23:00 98.7 64 19 100/65 (77) 99 05/24/17 23:00 64 05/24/17 22:00 64 05/24/17 21:00 68 05/24/17 20:52 92 21 05/24/17 20:00 70 05/24/17 19:00 98.4 71 18 110/72 (85) 97 05/24/17 19:00 71 05/24/17 18:00 72 05/24/17 17:00 70 05/24/17 16:00 69 05/24/17 15:23 97.8 72 18 105/61 (76) 94 05/24/17 15:00 68 05/24/17 14:00 73 05/24/17 13:00 72 05/24/17 12:00 69 Physical Exam GENERAL: 66 year old female resting in bed in no acute distress. SKIN: Warm and dry. HEAD: Atraumatic. Normocephalic. EYES: Pupils equal and round. No scleral icterus. No injection or drainage. ENT: No nasal bleeding or discharge. Mucous membranes pink and moist. NECK: Trachea midline. CARDIOVASCULAR: Regular rate and rhythm. Sternal dressing in place. RESPIRATORY: No accessory muscle use. Clear to auscultation. Breath sounds equal bilaterally. GASTROINTESTINAL: Abdomen soft, non distended. RUQ and midepigastric tenderness with palpation. Well healed incision inferior to umbilicus. MUSCULOSKELETAL: Extremities without clubbing, cyanosis, or edema. No obvious deformities. NEUROLOGICAL: Awake and alert. No obvious cranial nerve deficits. Motor grossly within normal limits. Five out of 5 muscle strength in the arms and legs. Normal speech. PSYCHIATRIC: Appropriate mood and affect; insight and judgment normal. Laboratory Laboratory Tests Test 05/24/17 23:50 05/25/17 00:15 05/25/17 02:30 05/25/17 07:00 Blood Gas Puncture Site RT FEMORAL Blood Gas Patient Temperature 98.6 Blood Gas HCO3 23 Blood Gas Base Excess 0.4 Blood Gas Oxygen Saturation 96 Arterial Blood pH 7.54 Arterial Blood Partial Pressure CO2 27 Arterial Blood Partial Pressure O2 97 Arterial Blood Oxygen Content 13.6 Arterial Blood Carboxyhemoglobin 1.6 Arterial Blood Methemoglobin 1.0 Blood Gas Hemoglobin 10.1 Oxygen Delivery Device NASAL CANNULA Blood Gas Liter Flow 4 White Blood Count 21.0 Red Blood Count 3.04 Hemoglobin 9.0 Hematocrit 26.3 Mean Corpuscular Volume 86.4 Mean Corpuscular Hemoglobin 29.5 Mean Corpuscular Hemoglobin Concent 34.1 Red Cell Distribution Width 14.3 Platelet Count 213 Mean Platelet Volume 8.6 Neutrophils (%) (Auto) 77.9 Lymphocytes (%) (Auto) 11.8 Monocytes (%) (Auto) 10.2 Eosinophils (%) (Auto) 0.0 Basophils (%) (Auto) 0.1 Neutrophils # (Auto) 16.4 Lymphocytes # (Auto) 2.5 Monocytes # (Auto) 2.1 Eosinophils # (Auto) 0.0 Basophils # (Auto) 0.0 CBC Comment DIFF FINAL Differential Comment Blood Urea Nitrogen 39 Creatinine 1.84 Random Glucose 70 Total Protein 6.4 Albumin 2.1 Calcium Level 8.3 Phosphorus Level 2.6 Magnesium Level 2.3 Alkaline Phosphatase 62 Aspartate Amino Transf (AST/SGOT) 92 Alanine Aminotransferase (ALT/SGPT) 20 Total Bilirubin 0.6 Sodium Level 136 Potassium Level 4.7 Chloride Level 103 Carbon Dioxide Level 26.4 Anion Gap 7 Estimat Glomerular Filtration Rate 33 CSF Volume (Tube 1) 1.6 CSF Supernatant Color (tube 1) CLEAR CSF Gross Blood (Tube 1) TRACE CSF Volume (Tube 2) 1.0 CSF Supernatant Color (tube 2) CLEAR CSF Gross Blood (Tube 2) 0 CSF Volume (Tube 3) 0.8 CSF Supernatant Color (tube 3) CLEAR CSF Gross Blood (Tube 3) 0 CSF Volume (Tube 4) 1.0 CSF Supernatant Color (tube 4) CLEAR CSF Gross Blood (Tube 4) 0 CSF WBC (Tube 4) 22 CSF RBC (Tube 4) 76 CSF Neutrophils 6 CSF Lymphocytes 94 CSF Glucose 70 CSF Lactate Dehydrogenase 16 CSF Lactic Acid 2.6 CSF Total Protein 36.9 Urine Color YELLOW Urine Turbidity CLEAR Urine pH 7.0 Urine Specific [place] 1.013 Urine Protein 30 Urine Glucose (UA) NEG Urine Ketones NEG Urine Occult Blood TRACE Urine Nitrite NEG Urine Bilirubin NEG Urine Urobilinogen LESS THAN 2.0 Urine Leukocyte Esterase NEG Urine RBC 1 Urine WBC LESS THAN 1 Urine Squamous Epithelial Cells <1 Urine Mucus FEW Microscopic Urinalysis Comment CATH-CULT NOT IND Test 05/25/17 07:44 Blood Gas Puncture Site LT RADIAL Blood Gas Patient Temperature 98.6 Blood Gas HCO3 21 Blood Gas Base Excess -2.3 Blood Gas Oxygen Saturation 93 Arterial Blood pH 7.50 Arterial Blood Partial Pressure CO2 27 Arterial Blood Partial Pressure O2 73 Arterial Blood Oxygen Content 11.8 Arterial Blood Carboxyhemoglobin 1.4 Arterial Blood Methemoglobin 1.2 Blood Gas Hemoglobin 9.0 Oxygen Delivery Device NASAL CANNULA Blood Gas Liter Flow 2 Date/Time Source Procedure Growth Status 05/25/17 04:05 Blood Peripheral Aerobic Blood Culture Pending Received 05/25/17 04:05 Blood Peripheral Anaerobic Blood Culture Pending Received 05/25/17 02:30 Cerebral Spinal Fluid Lumbar Puncture Fungal Smear - Final NO FUNGAL ELEMENTS SEEN. Resulted 05/25/17 02:30 Cerebral Spinal Fluid Lumbar Puncture Fungal Culture Pending Resulted Result Diagram: 05/25/17 0015 05/25/17 0015 Imaging Last 48 hours Impressions Chest X-Ray 05/25/17 0600 Signed Impressions: Service Date/Time: Thursday, May 25, 2017 04:15 - CONCLUSION: 1. Improved basilar airspace disease. No effusion or pneumothorax. Cardiomegaly. Saul Saez MD Head CT 05/25/17 0000 Signed Impressions: Service Date/Time: Thursday, May 25, 2017 02:07 - CONCLUSION: 1. No acute findings. Chronic white matter ischemic changes. Remote lacunar infarcts bilaterally. Saul Saez MD Abdomen Ultrasound 05/25/17 0000 Signed Impressions: Service Date/Time: Thursday, May 25, 2017 08:12 - CONCLUSION: 1. Hepatic enlargement with no focal mass lesion. 2. Gallbladder shows luminal sludge with some gallbladder wall thickening and mild pericholecystic fluid. Findings could represent acute cholecystitis in the appropriate clinical setting. 3. 2 small, 1 cm simple cyst in the lower pole of the right kidney. 4. Moderate size left-sided pleural effusion. 5. Nonvisualization of the pancreas, aorta and IVC do to a large bandage in the midline abdomen Naun Carpio MD Assessment and Plan Assessment and Plan 66 year old female with chest pain; POD3 CABG x3; AMS; RUQ abdominal pain -US shows gallbladder sludge and wall thickening -HIDA ordered for today -Patient already on Zosyn -Neurology consulted ---continued workup for AMS -Patient not surgical candidate for cholecystectomy at this time -If concern for sepsis and etiology is the gallbladder---would recommend IR consult for cholecystostomy tube placement -Thank you for this consult; General Surgery will sign off; please call with questions PATIENT SEEN ON ROUNDS WITH [facility] WHO DOCUMENTED OUR VISIT. NO OBVIOUS SIGNS OF CHOLECYSTITIS. WILL FU HIDA SCAN. MENTAL STATUS WORK UP SHOWS STROKE. IF PATIENT DOES DEVELOP SEPTIC CHOLECYSTITS I WOULD RECOMMEND CHOLECYSTOSTOMY TUBE SHE IS NOT A SURGICAL CANDIDATE AT THIS TIME. THANKS DANUTA TAY MD FACS Discussed Condition With Dr. Sima Tyler + family friend at bedside Dimple Medeiros May 25, 2017 11:49 Danuta Tay MD May 28, 2017 14:02
--- NOTE | 2017-05-25 13:06 | MB ---
cc: AIDAN SAL M.D. DATE OF CONSULTATION DATE OF 1950 REASON FOR CONSULTATION Encephalopathic, change in mental status, post CABG. HISTORY OF PRESENT ILLNESS This is a 66-year-old woman status post multivessel coronary disease, four-vessel CABG 05/22/2017. Post procedure uncomplicated until yesterday morning I believe when she became more lethargic, difficult to arouse, was found to a white count of 22. CT head negative. She is on her way now to have an MRI. White count still remains at 21,000. Renal function has declined. Creatinine is 1.8. Some upper quadrant tenderness. She is going to also have a HIDA scan. PHYSICAL EXAMINATION VITAL SIGNS: Temperature 97.9, pulse 62, respiratory rate 20, blood pressure 108/71, satting 97% on 2 liters nasal cannula. NEUROLOGIC: She is awake. She is alert. She looks at the examiner but will not track. Her pupils are reactive. There is no facial asymmetry. She is nonverbal. She tries to follow commands with wiggling her toes on cue, but will not lift her arms up against gravity on command, but when I lift her arms up they remain elevated. There is no significant weakness on one side. She tends to look towards the right. DTRs are 1+. LABORATORY Labs are reviewed. White count is 21, hemoglobin 9, platelets 213,000. Coag panel is reviewed. Chemistries: BUN 39, creatinine 1.84, GFR 33, glucose 70, hemoglobin A1c 9.2. Lactic acid is pending. Calcium 8.3. AST 92, ALT 20. Ammonia is pending. Albumin 2.1. Calcitonin is pending. TSH is pending. Urine culture not indicated. CSF shows 22 white cells, 76 red cells, neutrophils 6, lymphocytes 94. Cryptococcal and Lyme are pending. HSV 1/2 PCR pending. Microbiology: So far nothing is growing. Some are still pending. IMAGING CT head did not show anything acute. Abdominal ultrasound shows hepatic enlargement. Gallbladder shows luminal sludge. Small cyst of the lower pole of the right kidney. Moderate left pleural fusion. Carotid ultrasound: No flow in the right vertebral artery. Antegrade flow in the left vertebral artery. IMPRESSION Change in mental status may be multifactorial due to acute metabolic versus infectious encephalopathy. Cultures are still pending. Ammonia and TSH is pending. RECOMMENDATIONS Recommend MRI of the brain, EEG and HIDA scan per GI. Further recommendations will be made accordingly. MD CORAL Briggs/ALIZA /12:03 PM /12:48 PM
--- NOTE | 2017-05-25 13:16 | RADRPT ---
EXAM DATE/TIME: 05/25/2017 12:15 [facility] COMPARISON: MRI BRAIN W & W/O CONTRAST, July 22, 2016, 13:53. INDICATIONS : CVA. Aphasic. MEDICAL HISTORY : Hypertension. Diabetes mellitus type 2. SURGICAL HISTORY : CABG Umbilical hernia repair. ENCOUNTER: Initial ACUITY: 1 day PAIN SCORE: 0/10 LOCATION: cranial TECHNIQUE: Multiplanar, multisequence MRI of the brain was performed without contrast. FINDINGS: First scattered focal punctate areas of high signal intensity scattered predominantly at the cardoso-whi te matter junction suggesting an embolic process. There are no extra-axial fluid collections appreciated. Moderate periventricular white matter changes are evident Focal punctate area of restricted diffusion brachium pontis right side Midline structures are intact On the SWI sequence numerous focal areas of hemosiderin deposition are present too numerous to count involving both supratentorial and infratentorial brain. CONCLUSION: Numerous focal areas of hemosiderin deposition in restricted diffusion suggesting an embolic event below the level of the carotid bifurcations. Taran Hensley MD FACR on May 25, 2017 at 12:41 Board Certified Radiologist. This report was verified electronically.
--- NOTE | 2017-05-25 13:24 | MB ---
cc: MO DEAN MD DATE OF CONSULTATION 05/25/[address] Rich REASON FOR CONSULTATION Altered mental status, sepsis. HISTORY OF PRESENT ILLNESS 68-year-old black female presented to emergency department with chest pressure, weakness and shortness of breath. The patient was evaluated and found to have a [id number] myocardial infarction. She underwent cardiac catheterization and subsequently she underwent four-vessel bypass, CABG. The patient was then transferred to the floor where she was doing well. However, she developed acute decrease in mentation. He and white blood cell count was increased to 21,000 on 05/23/2017 from 8.6 the previous day. The patient had ambulated and 05/23, on 05/24, she was noted to have altered mental status. CT scan of the head was performed and was negative. Her white blood cell count remained elevated. She was put on broad-spectrum antibiotics. The patient's temperature has remained normal. She had she had elevated blood pressure on admission. Lumbar puncture was performed early this morning and it showed 22 white cells with 94% lymphocytes and 6% neutrophils. The glucose was 70 and a total protein was 36. Blood cultures were taken earlier today. On the CSF Gram stain revealed rare white cells and no organisms. The patient is currently laying in bed and she is breathing through pursed lips. She has some pauses in her breathing. She has eyes open but is not oriented and is very lethargic. She does try to respond some commands and I can get her to squeeze my hands but I cannot get her to follow any commands with her eyes and she would not stick out her tongue or do any meaningful response. Otherwise. She does move the right leg and she would not move the left leg to my commands. The nurse tells me that she was moving all four extremities a short while ago. The patient appears to have had some abdominal pain. She ultrasound of the abdomen which shows hepatic enlargement with no focal mass lesion. The gallbladder shows luminal sludge with some gallbladder wall thickening and mild pericholecystic fluid, findings which could represent acute cholecystitis. Moderate sized left pleural effusion was also noted. When asked whether the patient has a headache. She shakes her head no. She is unable to tell me the name of the lady who is sitting next to her sister. Who is her sister. Her sisters name is Lucie. The chest x-ray today shows improved bibasilar airspace disease. The patients sister tells me that the patient has had no history of seizure or stroke in the past. PAST MEDICAL HISTORY 1. Past medical history of hypertension 2. Hyperlipidemia 3. Diabetes mellitus 4. Umbilical hernia repair 5. Tubal ligation. ALLERGIES NO KNOWN DRUG ALLERGIES. MEDICATIONS 1. Acyclovir intravenous. 2. Piperacillin / tazobactam. 3. Vancomycin for (dose was given earlier today). 4. Protonix. 5. Insulin. 6. Potassium. 7. Aspirin 8. Lipitor 9. Rose Mary-Colace. SOCIAL HISTORY No tobacco. Occasional alcohol. No illicit drugs. FAMILY HISTORY The patient's mom had hypertension and suffered stroke. She is . The patients dad is , history unknown. One brother had a stroke. REVIEW OF SYSTEMS Review of systems unable to obtain. PHYSICAL EXAMINATION IN GENERAL: Physical exam this is a well-developed female who is in no in no acute distress. She appears lethargic. VITAL SIGNS: Include temperature 97.9. BP 102/79, heart rate 70 Blood pressure 117/93, heart rate 70, respirations 20. HEAD, EYES, EARS, NOSE, AND THROAT: Unable to fully assess since the patient cannot cooperate. Head is atraumatic. Extraocular movements are difficult to assess since she does not follow my commands. Sclerae is nonicteric. No conjunctival erythema. The Oropharynx with moist mucosa. The patient mostly keeps her mouth closed and is breathing through pursed lips. NECK: Supple without adenopathy. No Jugular venous pulse. LUNGS: Decreased breath sounds at the bases. HEART: Regular rate and rhythm. No audible murmurs, rubs or gallops. CHEST: Surgical site appears intact. There is a sponge at the sternum. Which appears dry. ABDOMEN: Distended, soft, distended, soft, tenderness on palpation. Recent (the patient grimaces) when the abdomen is palpated. Positive bowel sounds. RECTAL: Not performed. EXTREMITIES: No clubbing or cyanosis or edema. SKIN: No rash. NEUROLOGIC: Difficult to assess. The patient is moves upper extremities and has normal. Her heart strength of 4/5 symmetric at the upper extremities. PSYCHIATRIC: Psychiatric unable to assess. LABORATORY DATA WBC 21.0, platelets 213, 77% neutrophils, 11% lymphocytes, 10% monocytes, creatinine 1.84, BUN 39, estimated GFR 33, AST 92, ALT 20, total bilirubin 0.6, sodium 136. CSF HSV PCR pending. IMPRESSION 1. Acute mental status change in patient status post CABG. 2. Leukocytosis. 3. Abdominal pain and abnormal abdominal ultrasound. 4. Acute kidney disease. 5. Rule out sepsis. RECOMMENDATIONS 1. Continue piperacillin / tazobactam 2. Continue acyclovir and follow the cerebrospinal fluid, PCR. 3. Monitor blood cultures. 4. Monitor renal function. 5. Swallow studies ordered for evaluation of cerebrovascular accident and also possible cholecystitis. 6. The patient's mental status change appear to be related to a central nervous system event. Given the acuteness of the mental status change. Thank you this consultation. The patient's progress will be monitored and studies will be followed and further recommendations will be made on followup. Mo Dean MD FD/abel /11:34 AM /12:02 PM
--- NOTE | 2017-05-25 13:32 | RADRPT ---
EXAM DATE/TIME: 05/25/2017 12:15 [facility] COMPARISON: MRA BRAIN W/O CONTRAST, July 22, 2016, 13:53. INDICATIONS : CVA. Aphasic. MEDICAL HISTORY : Hypertension. Diabetes mellitus type 2. SURGICAL HISTORY : CABG Umbilical hernia repair. ENCOUNTER: Initial ACUITY: 1 day PAIN SCORE: 0/10 LOCATION: cranial Please note a normal MRA of the brain does not entirely exclude the possibility of a small aneurysm, nor the possibility of distal intracranial vessel disease. TECHNIQUE: 3D time of flight MRA was performed. Source images, multiplanar STS MIP, and 3D volume MIP reconstru ctions were reviewed. FINDINGS: Minimal intracranial atherosclerotic vascular disease is evident. There is no major branch vessel oc clusion. CONCLUSION: Negative for major branch vessel occlusion. Taran Hensley MD FACR on May 25, 2017 at 13:29 Board Certified Radiologist. This report was verified electronically.
[2017-05-25] MEDS ORDERED: SINCALIDE 5 MCG/5 ML VIAL IV ONE (13:47)
--- NOTE | 2017-05-25 14:53 | PD.CARD.PN ---
Subjective Subjective Remarks Patient seen this morning, late entry Overall more lethargic with concerns for mental status change/neurologic events Objective Medications Current Medications Medications (Trade) Dose Ordered Sig/Ori Route Start Time Stop Time Status Last Admin (Atropine Inj) 0.5 mg UNSCH PRN IV PUSH 05/17/17 10:30 (Lipitor) 80 mg HS PO 05/17/17 21:00 05/24/17 20:42 (Zofran Inj) 4 mg Q6H PRN IVP 05/17/17 16:00 (Narcan Inj) 0.4 mg UNSCH PRN IV PUSH 05/17/17 16:00 (Rose Mary-Colace) 1 tab BID PO 05/17/17 21:00 05/25/17 09:00 (Milk Of Magnesia Liq) 30 ml Q12H PRN PO 05/17/17 16:00 (Senokot) 17.2 mg Q12H PRN PO 05/17/17 16:00 (Dulcolax Supp) 10 mg DAILY PRN RECTAL 05/17/17 16:00 (Lactulose Liq) 30 ml DAILY PRN PO 05/17/17 16:00 (Pill Splitter) 1 ea UNSCH PRN OTHER 05/17/17 20:15 (Apresoline) 10 mg Q6H PRN PO 05/20/17 16:45 (NS Flush) 2 ml BID IV FLUSH 05/22/17 21:00 05/25/17 09:39 (NS Flush) 2 ml UNSCH PRN IV FLUSH 05/22/17 13:30 Albumin Human 250 ml @ 250 mls/hr UNSCH PRN IV 05/22/17 13:30 (Aspirin Chew) 81 mg DAILY PO 05/23/17 09:00 05/24/17 09:03 (Tylenol) 650 mg Q4H PRN PO 05/22/17 13:30 (Zofran Inj) 4 mg Q6H PRN IV PUSH 05/22/17 15:00 (Lopressor Inj) 2.5 mg Q1H PRN IV PUSH 05/22/17 15:00 Potassium Chloride 100 ml @ 50 mls/hr UNSCH PRN IV 05/22/17 15:00 05/22/17 21:51 Potassium Chloride 100 ml @ 50 mls/hr UNSCH PRN IV 05/22/17 15:00 (KCl) 20 meq UNSCH PRN PO 05/22/17 15:00 (KCl) 40 meq UNSCH PRN PO 05/22/17 15:00 Magnesium Sulfate 2 gm/Sodium Chloride 104 ml @ 100 mls/hr UNSCH PRN IV 05/22/17 13:30 Magnesium Sulfate 2 gm/Sodium Chloride 104 ml @ 50 mls/hr UNSCH PRN IV 05/22/17 12:30 Calcium Chloride 1 gm/Sodium Chloride 110 ml @ 100 mls/hr UNSCH PRN IV 05/22/17 12:45 (Calcium Chloride Inj) 0.5 gm UNSCH PRN IV PUSH 05/22/17 13:45 (D50w (Vial) Inj) 50 ml UNSCH PRN IV PUSH 05/22/17 14:00 (Sodium Bicarbonate 8.4% Inj) 50 meq UNSCH PRN IV PUSH 05/22/17 14:00 (Sodium Bicarbonate 8.4% Inj) 100 meq UNSCH PRN IV PUSH 05/22/17 14:00 (Duoneb Neb) 1 ampule Q2HR NEB PRN NEB 05/22/17 14:00 (Colace) 100 mg BID PO 05/23/17 21:00 05/24/17 20:42 (Theragran M Tab) 1 tab DAILY PO 05/24/17 09:00 05/24/17 09:03 (Milk Of Magnesia Liq) 30 ml DAILY PO 05/24/17 09:00 05/24/17 09:04 (Dulcolax Supp) 10 mg UNSCH PRN RECTAL 05/23/17 10:27 (NovoLOG SUPPLEMENTAL SCALE) 1 02,06,10,14,18,22 SQ 05/23/17 10:00 05/24/17 18:00 (D50w (Vial) Inj) 50 ml UNSCH PRN IV PUSH 05/23/17 09:45 (Glucagon Inj) 1 mg UNSCH PRN OTHER 05/23/17 09:45 (KCl) 30 meq Q12HR PO 05/23/17 09:45 05/24/17 09:04 (Apresoline Inj) 10 mg Q30M PRN IV PUSH 05/23/17 14:00 05/23/17 14:06 Pharmacy Profile Note 0 ml @ 0 mls/hr UNSCH OTHER 05/25/17 00:15 Piperacillin Sod/ Tazobactam Sod 100 ml @ 200 mls/hr Q6H IV 05/25/17 00:00 05/25/17 07:03 (Protonix Inj) 40 mg Q24H IV PUSH 05/25/17 09:00 05/25/17 09:39 Sodium Chloride 1,000 ml @ 84 mls/hr [id number] IV 05/25/17 08:15 05/25/17 10:45 Acyclovir Sodium 670 mg/Sodium Chloride 150 ml @ 150 mls/hr Q8H IV 05/25/17 10:00 05/25/17 10:29 Vital Signs / I&O Vital Signs Date Time Temp Pulse Resp B/P (MAP) Pulse Ox O2 Delivery O2 Flow Rate FiO2 05/25/17 11:00 05/25/17 08:01 97 Nasal Cannula 2.00 05/25/17 07:39 97.9 63 20 108/71 (83) 97 05/25/17 04:00 62 05/25/17 04:00 98.7 62 24 94/59 (71) 93 05/24/17 23:30 64 05/24/17 23:00 98.7 64 19 100/65 (77) 99 05/24/17 23:00 64 05/24/17 22:00 64 05/24/17 21:00 68 05/24/17 20:52 92 21 05/24/17 20:00 70 05/24/17 19:00 98.4 71 18 110/72 (85) 97 05/24/17 19:00 71 05/24/17 18:00 72 05/24/17 17:00 70 05/24/17 16:00 69 05/24/17 15:23 97.8 72 18 105/61 (76) 94 05/24/17 15:00 68 I/O 05/24/17 05/24/17 05/24/17 05/25/17 05/25/17 05/25/17 07:00 15:00 23:00 07:00 15:00 23:00 Intake Total 480 ml 720 ml 1400 ml Output Total 400 ml 800 ml 300 ml Balance 80 ml -80 ml 1100 ml Intake Oral 480 ml 720 ml 100 ml IV Total 1300 ml Output Urine Total 400 ml 800 ml 300 ml # Bowel Movements 1 Physical Exam GENERAL: NAD SKIN: Warm and dry. HEAD: Atraumatic. Normocephalic. EYES: Pupils equal and round. No scleral icterus. No injection or drainage. ENT: No nasal bleeding or discharge. Mucous membranes pink and moist. NECK: Trachea midline. No JVD. CARDIOVASCULAR: Regular rate and rhythm. Sternotomy with covering RESPIRATORY: No accessory muscle use. Clear to auscultation. Breath sounds equal bilaterally. GASTROINTESTINAL: Abdomen soft, non-tender, nondistended. Hepatic and splenic margins not palpable. MUSCULOSKELETAL: Extremities without clubbing, cyanosis, or edema. No obvious deformities. Right femoral no hematoma, distal pulses intact NEUROLOGICAL: Somewhat lethargic, difficulty with squeezing left hand Laboratory Laboratory Tests Test 05/24/17 23:50 05/25/17 00:15 05/25/17 02:30 05/25/17 07:00 Blood Gas Puncture Site RT FEMORAL Blood Gas Patient Temperature 98.6 Blood Gas HCO3 23 mmol/L Blood Gas Base Excess 0.4 mmol/L Blood Gas Oxygen Saturation 96 % Arterial Blood pH 7.54 Arterial Blood Partial Pressure CO2 27 mmHg Arterial Blood Partial Pressure O2 97 mmHg Arterial Blood Oxygen Content 13.6 Vol % Arterial Blood Carboxyhemoglobin 1.6 % Arterial Blood Methemoglobin 1.0 % Blood Gas Hemoglobin 10.1 G/DL Oxygen Delivery Device NASAL CANNULA Blood Gas Liter Flow 4 L/M White Blood Count 21.0 TH/MM3 Red Blood Count 3.04 MIL/MM3 Hemoglobin 9.0 GM/DL Hematocrit 26.3 % Mean Corpuscular Volume 86.4 FL Mean Corpuscular Hemoglobin 29.5 PG Mean Corpuscular Hemoglobin Concent 34.1 % Red Cell Distribution Width 14.3 % Platelet Count 213 TH/MM3 Mean Platelet Volume 8.6 FL Neutrophils (%) (Auto) 77.9 % Lymphocytes (%) (Auto) 11.8 % Monocytes (%) (Auto) 10.2 % Eosinophils (%) (Auto) 0.0 % Basophils (%) (Auto) 0.1 % Neutrophils # (Auto) 16.4 TH/MM3 Lymphocytes # (Auto) 2.5 TH/MM3 Monocytes # (Auto) 2.1 TH/MM3 Eosinophils # (Auto) 0.0 TH/MM3 Basophils # (Auto) 0.0 TH/MM3 CBC Comment DIFF FINAL Differential Comment Blood Urea Nitrogen 39 MG/DL Creatinine 1.84 MG/DL Random Glucose 70 MG/DL Total Protein 6.4 GM/DL Albumin 2.1 GM/DL Calcium Level 8.3 MG/DL Phosphorus Level 2.6 MG/DL Magnesium Level 2.3 MG/DL Alkaline Phosphatase 62 U/L Aspartate Amino Transf (AST/SGOT) 92 U/L Alanine Aminotransferase (ALT/SGPT) 20 U/L Total Bilirubin 0.6 MG/DL Sodium Level 136 MEQ/L Potassium Level 4.7 MEQ/L Chloride Level 103 MEQ/L Carbon Dioxide Level 26.4 MEQ/L Anion Gap 7 MEQ/L Estimat Glomerular Filtration Rate 33 ML/MIN CSF Volume (Tube 1) 1.6 ML CSF Supernatant Color (tube 1) CLEAR CSF Gross Blood (Tube 1) TRACE CSF Volume (Tube 2) 1.0 ML CSF Supernatant Color (tube 2) CLEAR CSF Gross Blood (Tube 2) 0 CSF Volume (Tube 3) 0.8 ML CSF Supernatant Color (tube 3) CLEAR CSF Gross Blood (Tube 3) 0 CSF Volume (Tube 4) 1.0 ML CSF Supernatant Color (tube 4) CLEAR CSF Gross Blood (Tube 4) 0 CSF WBC (Tube 4) 22 /MM3 CSF RBC (Tube 4) 76 /MM3 CSF Neutrophils 6 % CSF Lymphocytes 94 % CSF Glucose 70 MG/DL CSF Lactate Dehydrogenase 16 U/L CSF Lactic Acid 2.6 MMOL/L CSF Total Protein 36.9 MG/DL Urine Color YELLOW Urine Turbidity CLEAR Urine pH 7.0 Urine Specific [place] 1.013 Urine Protein 30 mg/dL Urine Glucose (UA) NEG mg/dL Urine Ketones NEG mg/dL Urine Occult Blood TRACE Urine Nitrite NEG Urine Bilirubin NEG Urine Urobilinogen LESS THAN 2.0 MG/DL Urine Leukocyte Esterase NEG Urine RBC 1 /hpf Urine WBC LESS THAN 1 /hpf Urine Squamous Epithelial Cells <1 /hpf Urine Mucus FEW /lpf Microscopic Urinalysis Comment CATH-CULT NOT IND Test 05/25/17 07:44 05/25/17 11:51 Blood Gas Puncture Site LT RADIAL Blood Gas Patient Temperature 98.6 Blood Gas HCO3 21 mmol/L Blood Gas Base Excess -2.3 mmol/L Blood Gas Oxygen Saturation 93 % Arterial Blood pH 7.50 Arterial Blood Partial Pressure CO2 27 mmHg Arterial Blood Partial Pressure O2 73 mmHg Arterial Blood Oxygen Content 11.8 Vol % Arterial Blood Carboxyhemoglobin 1.4 % Arterial Blood Methemoglobin 1.2 % Blood Gas Hemoglobin 9.0 G/DL Oxygen Delivery Device NASAL CANNULA Blood Gas Liter Flow 2 L/M Lactic Acid Level 1.4 mmol/L Ammonia 12 MCMOL/L Thyroid Stimulating Hormone 3rd Gen 2.580 uIU/ML Imaging Last 24 hours Impressions Chest X-Ray 05/25/17 0600 Signed Impressions: Service Date/Time: Thursday, May 25, 2017 04:15 - CONCLUSION: 1. Improved basilar airspace disease. No effusion or pneumothorax. Cardiomegaly. Saul Saez MD Head Magnetic Resonance Angiography 05/25/17 0000 Signed Impressions: Service Date/Time: Thursday, May 25, 2017 12:15 - CONCLUSION: Negative for major branch vessel occlusion. Taran Hensley MD FACR Head CT 05/25/17 0000 Signed Impressions: Service Date/Time: Thursday, May 25, 2017 02:07 - CONCLUSION: 1. No acute findings. Chronic white matter ischemic changes. Remote lacunar infarcts bilaterally. Saul Saez MD Brain MRI 05/25/17 0000 Signed Impressions: Service Date/Time: Thursday, May 25, 2017 12:15 - CONCLUSION: Numerous focal areas of hemosiderin deposition in restricted diffusion suggesting an embolic event below the level of the carotid bifurcations. Taran Hensley MD FACR Abdomen Ultrasound 05/25/17 0000 Signed Impressions: Service Date/Time: Thursday, May 25, 2017 08:12 - CONCLUSION: 1. Hepatic enlargement with no focal mass lesion. 2. Gallbladder shows luminal sludge with some gallbladder wall thickening and mild pericholecystic fluid. Findings could represent acute cholecystitis in the appropriate clinical setting. 3. 2 small, 1 cm simple cyst in the lower pole of the right kidney. 4. Moderate size left-sided pleural effusion. 5. Nonvisualization of the pancreas, aorta and IVC do to a large bandage in the midline abdomen Naun Carpio MD Assessment and Plan Problem List: (1) NSTEMI (non-ST elevation myocardial infarction) ICD Codes: I21.4 - Non-ST elevation (NSTEMI) myocardial infarction Status: Acute (2) Multi-vessel coronary artery stenosis ICD Codes: I25.10 - Atherosclerotic heart disease of [place] coronary artery without angina pectoris (3) Hypertension ICD Codes: I10 - Essential (primary) hypertension Status: Acute (4) Diabetes mellitus ICD Codes: E11.9 - Type 2 diabetes mellitus without complications Assessment and Plan 1) NSTEMI/CP/MVCAD s/p CABGx4 POD #3 GUDINO to LAD SVG to OM1 SVG to OM4 SVG to RCA Con't ASA/Statin/Plavix/BB/Amio 2) EF 55-60%, mild MR/AR/TR 3) HTN 4) Neurologic changes MRI with multiple areas, possible embolic Neurology consulted Maxi Biggs DO May 25, 2017 14:53
--- NOTE | 2017-05-25 15:07 | RADRPT ---
EXAM DATE/TIME: 05/25/2017 12:39 [facility] COMPARISON: No previous studies available for comparison. INDICATIONS : Right upper quadrant pain. DOSE: 4.2 mCi Tc99m Mebrofenin IV MEDICATION: 1.3 mcg Cholecystokinin IV; No symptomatic response. Cholecystokinin was administered by slow infusion over 8 minutes beginning at 60 minutes. MEDICAL HISTORY : Diabetes mellitus type 2. SURGICAL HISTORY : Inguinal hernia repair. Tubal ligation. CABG ENCOUNTER: Initial ACUITY: 1 day PAIN SCALE: 4/10 LOCATION: Right upper quadrant TECHNIQUE: Following the intravenous administration of radiotracer, dynamic sequential image were performed with continuous acquisition. Time-activity curves were generated. FINDINGS: There is no evidence of cystic duct or common duct obstruction. Activity seen in the common duct at 15 minutes. Activity in the gallbladder at 20 minutes. There is free flow into duodenum.. CONCLUSION: Negative for cystic duct or common duct obstruction Taran Hensley MD FACR on May 25, 2017 at 15:03 Board Certified Radiologist. This report was verified electronically.
[2017-05-25 16:05] LABS: AUTOMATED NEUTROPHIL # 14.1 TH/MM3 (1.8-7.7); BASOPHIL % 0.1 % (0.0-2.0); EOSINOPHIL % 0.1 % (0.0-4.0); HEMATOCRIT 26.1 % (35.0-46.0); HEMOGLOBIN 8.8 GM/DL (11.6-15.3); LYMPH % 10.5 % (9.0-44.0); LYMPHOCYTE # 1.8 TH/MM3 (1.0-4.8); MEAN CELL VOLUME 87.7 FL (80.0-100.0); MEAN CORPUSCULAR HEMOGLOBIN 29.4 PG (27.0-34.0); MEAN CORPUSCULAR HGB CONC 33.6 % (32.0-36.0); MEAN PLATELET VOLUME 8.2 FL (7.0-11.0); MONO % 7.6 % (0.0-8.0); MONOCYTE # 1.3 TH/MM3 (0-0.9); NEUT % 81.7 % (16.0-70.0); PLATELET COUNT 203 TH/MM3 (150-450); RED BLOOD COUNT 2.98 MIL/MM3 (4.00-5.30); RED CELL DISTRIBUTION WIDTH 14.5 % (11.6-17.2); WHITE BLOOD COUNT 17.3 TH/MM3 (4.0-11.0)
[2017-05-25 16:20] LABS: ALBUMIN 2.1 GM/DL (3.4-5.0); ALT (GPT) 61 U/L (10-53); AST (GOT) 168 U/L (15-37); BICARBONATE 19.6 MEQ/L (21.0-32.0); BLOOD UREA NITROGEN 39 MG/DL (7-18); CALCIUM 7.8 MG/DL (8.5-10.1); CHLORIDE 106 MEQ/L (98-107); GLOMERULAR FILTRATION RATE 36 ML/MIN (>89); GLUCOSE,RANDOM 194 MG/DL (74-106); SODIUM (NA) 137 MEQ/L (136-145)
[2017-05-25 16:22] LABS: ALKALINE PHOSPHATASE 77 U/L (45-117); TOTAL BILIRUBIN ADULT 0.6 MG/DL (0.2-1.0); TOTAL PROTEIN 6.6 GM/DL (6.4-8.2)
[2017-05-25] MEDS: PIPERACIL-TAZO 3.375 GM PREMIX 50 ML IV SCH ×2 (17:00→22:13)
[2017-05-25] MEDS ORDERED: INSULIN ASPART SUPPLEMENTAL SCALE SQ SCH (18:00)
[2017-05-25 19:00] VITALS: BP 140/87; PULSE 78; RESP 18; TEMP 98.1; O2SAT 97
[2017-05-25] MEDS: ATORVASTATIN 80 MG TAB PO SCH (20:12)
[2017-05-25] MEDS ORDERED: DEXTROSE 50% IN WATER 50 ML VIAL(D50) IV PUSH PRN ×2 (21:00→21:15)
[2017-05-25] MEDS ORDERED: INSULIN REGULAR (IV INFUSION) 100 UNITS in SODIUM CHLORIDE 0.9% INJ 99 ML IV PRN (21:00)
[2017-05-25] MEDS ORDERED: LABETALOL HCL 100 MG/20 ML VIAL IV PUSH PRN (21:00)
[2017-05-25] MEDS ORDERED: MISC INFORMATION OTHER ONE (21:00)
[2017-05-25] MEDS ORDERED: GLUCAGON 1 MG/ML VIAL OTHER PRN (21:15)
[2017-05-25] MEDS ORDERED: INSULIN ASPART 1,000 UNITS/10 ML VIAL SQ ONE (21:15)
--- NOTE | 2017-05-25 21:48 | MG ---
cc: AIDAN SAL M.D. Lab No: [id number] Date: Age: 66 Sex: F Race: REFERRING: Rainer. ROOM: 448. With photic stimulation. EEG is awake, drowsy asleep. CT does not show anything acute, only chronic white matter changes. Admitted with chest pressure, nausea, aggressive but more lethargic, difficult to arouse. History of migraines, low back pain, hypertension on Cordarone, Zosyn, Plavix, Catapres, Norvasc and others. DESCRIPTION OF THE RECORD: There is overall 3 to 4 hertz background. Eyes are open throughout the recording. EKG is artifactual. At times, there is some 5-6 Hz background. Photic stimulation looks like there is a mild driving response. IMPRESSION: Abnormal EEG due to some mild slowing consistent with encephalopathic process. No epileptiform features. Clinical correlation. MD CORAL Briggs/ROSALBA /7:59 PM /9:35 PM
[2017-05-25 22:30] VITALS: O2SAT 97
[2017-05-25 23:00] VITALS: BP 130/79; PULSE 74; PULSE 75; RESP 17; TEMP 98.6; O2SAT 96
[2017-05-26] VITALS (8 sets, daily range): BP systolic 138–161; BP diastolic 78–97; PULSE 77–84; RESP 17–20; TEMP 97.9–99.3; O2SAT 94–98
[2017-05-26] MEDS: ACYCLOVIR IV SCH (01:06)
[2017-05-26] MEDS: SODIUM CHLORIDE 0.9% IV SCH (01:06)
[2017-05-26] MEDS: PIPERACIL-TAZO 3.375 GM PREMIX 50 ML IV SCH ×4 (04:39→22:37)
[2017-05-26 04:48] LABS: BASOPHIL % 0.2 % (0.0-2.0); EOSINOPHIL # 0.1 TH/MM3 (0-0.4); EOSINOPHIL % 0.5 % (0.0-4.0); HEMATOCRIT 24.2 % (35.0-46.0); HEMOGLOBIN 8.2 GM/DL (11.6-15.3); MEAN CELL VOLUME 88.1 FL (80.0-100.0); MEAN CORPUSCULAR HEMOGLOBIN 29.7 PG (27.0-34.0); MEAN CORPUSCULAR HGB CONC 33.7 % (32.0-36.0); MEAN PLATELET VOLUME 7.8 FL (7.0-11.0); MONO % 7.9 % (0.0-8.0); MONOCYTE # 1.3 TH/MM3 (0-0.9); NEUT % 79.4 % (16.0-70.0); PLATELET COUNT 219 TH/MM3 (150-450); RED BLOOD COUNT 2.75 MIL/MM3 (4.00-5.30); RED CELL DISTRIBUTION WIDTH 14.3 % (11.6-17.2); WHITE BLOOD COUNT 16.4 TH/MM3 (4.0-11.0)
[2017-05-26 05:22] LABS: ALKALINE PHOSPHATASE 76 U/L (45-117); ALT (GPT) 48 U/L (10-53); AST (GOT) 107 U/L (15-37); BICARBONATE 23.7 MEQ/L (21.0-32.0); BLOOD UREA NITROGEN 31 MG/DL (7-18); CALCIUM 8.5 MG/DL (8.5-10.1); CHLORIDE 108 MEQ/L (98-107); CREATININE 1.52 MG/DL (0.50-1.00); GLOMERULAR FILTRATION RATE 42 ML/MIN (>89); GLUCOSE,RANDOM 88 MG/DL (74-106); MAGNESIUM 2.3 MG/DL (1.5-2.5); RANDOM VANCOMYCIN 6.2 COMMENT; SODIUM (NA) 140 MEQ/L (136-145); TOTAL BILIRUBIN ADULT 0.5 MG/DL (0.2-1.0); TOTAL PROTEIN 6.5 GM/DL (6.4-8.2)
--- NOTE | 2017-05-26 06:15 | RADRPT ---
EXAM DATE/TIME: 05/26/2017 04:32 [facility] COMPARISON: CHEST SINGLE AP, May 25, 2017, 4:15. INDICATIONS : Shortness of breath, possible pulmonary disease. MEDICAL HISTORY : Hypertension. Diabetes mellitus type II. SURGICAL HISTORY : CABG. Umbilical hernia repair. ENCOUNTER: Subsequent ACUITY: 1 week PAIN SCORE: 5/10 LOCATION: Bilateral chest FINDINGS: A single view of the chest demonstrates postoperative median sternotomy. Global cardiomegaly. Mild ba silar air space disease in the lungs. CONCLUSION: 1. Mild basilar air space disease in the lungs, slightly worse on the left since May 25. Cardiome jd. Saul Saez MD on May 26, 2017 at 6:11 Board Certified Radiologist. This report was verified electronically.
--- NOTE | 2017-05-26 07:47 | PD.CAR.PN ---
CVT Progress Note Subjective/Hospital Course: A 66-year-old female presented to the emergency room with chest pressure. She woke up about 04:00 a.m. getting ready for work. She decided to go to work. 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 She has had some associated nausea. She did take a baby aspirin. She thinks she had a stress test about five years ago which was okay. 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 On her presentation, troponin was found to be 10.1, was ruled in for non STEMI. She had some septal changes in V1-V2, was taken to the wharf lab[facility] by Dr. Biggs, had left main disease at 10%, proximal LAD 90%, mid distal LAD 90%, diagonal had 20%, circ had 70%, OM 90%, RCA 70%. We were consulted to evaluate for coronary artery bypass grafting. Echocardiogram is pending to evaluate for any valvular disease and for ejection fraction. PAST MEDICAL HISTORY: Recently diagnosed diabetes mellitus, Hypertension, Arthritis, right hand, Chronic back pain, Vertigo 2/2 slight pain last evening , now improved for surgery on 05/2205/23/17 Doing well s/p CABG. No complaints 05/24/17 Doing well, no complaints 05/25/09 Patient developed increasing somnolence since yesterday late afternoon, early evening. Very lethargic this morning. Transferred back to CVICU due to this obvious change in neurologic status. I discussed my concerns with Dr. Spear and he has evaluated her. 05/26 Clinically and neurologically better. less confused and somnolent Appreciate consultants input Further therapy depending upon Neurology recommendations Objective: Vital Signs Date Time Temp Pulse Resp B/P (MAP) Pulse Ox O2 Delivery O2 Flow Rate FiO2 05/26/17 07:32 94 Nasal Cannula 2.00 05/26/17 03:00 84 05/26/17 03:00 98.5 84 17 138/78 (98) 96 05/25/17 23:00 75 05/25/17 23:00 98.6 74 17 130/79 (96) 96 05/25/17 22:30 97 Nasal Cannula 1.00 05/25/17 19:00 98.1 78 18 140/87 (104) 97 05/25/17 19:00 78 05/25/17 15:00 05/25/17 11:00 05/25/17 08:01 97 Nasal Cannula 2.00 Labs: Laboratory Tests Test 05/26/17 04:30 White Blood Count 16.4 TH/MM3 (4.0-11.0) Red Blood Count 2.75 MIL/MM3 (4.00-5.30) Hemoglobin 8.2 GM/DL (11.6-15.3) Hematocrit 24.2 % (35.0-46.0) Mean Corpuscular Volume 88.1 FL (80.0-100.0) Mean Corpuscular Hemoglobin 29.7 PG (27.0-34.0) Mean Corpuscular Hemoglobin Concent 33.7 % (32.0-36.0) Red Cell Distribution Width 14.3 % (11.6-17.2) Platelet Count 219 TH/MM3 (150-450) Mean Platelet Volume 7.8 FL (7.0-11.0) Neutrophils (%) (Auto) 79.4 % (16.0-70.0) Lymphocytes (%) (Auto) 12.0 % (9.0-44.0) Monocytes (%) (Auto) 7.9 % (0.0-8.0) Eosinophils (%) (Auto) 0.5 % (0.0-4.0) Basophils (%) (Auto) 0.2 % (0.0-2.0) Neutrophils # (Auto) 13.0 TH/MM3 (1.8-7.7) Lymphocytes # (Auto) 2.0 TH/MM3 (1.0-4.8) Monocytes # (Auto) 1.3 TH/MM3 (0-0.9) Eosinophils # (Auto) 0.1 TH/MM3 (0-0.4) Basophils # (Auto) 0.0 TH/MM3 (0-0.2) CBC Comment DIFF FINAL Differential Comment Blood Urea Nitrogen 31 MG/DL (7-18) Creatinine 1.52 MG/DL (0.50-1.00) Random Glucose 88 MG/DL (74-106) Total Protein 6.5 GM/DL (6.4-8.2) Albumin 2.0 GM/DL (3.4-5.0) Calcium Level 8.5 MG/DL (8.5-10.1) Magnesium Level 2.3 MG/DL (1.5-2.5) Alkaline Phosphatase 76 U/L (45-117) Aspartate Amino Transf (AST/SGOT) 107 U/L (15-37) Alanine Aminotransferase (ALT/SGPT) 48 U/L (10-53) Total Bilirubin 0.5 MG/DL (0.2-1.0) Sodium Level 140 MEQ/L (136-145) Potassium Level 4.0 MEQ/L (3.5-5.1) Chloride Level 108 MEQ/L (98-107) Carbon Dioxide Level 23.7 MEQ/L (21.0-32.0) Anion Gap 8 MEQ/L (5-15) Estimat Glomerular Filtration Rate 42 ML/MIN (>89) Random Vancomycin Level 6.2 COMMENT Result Diagram: 05/26/1742905/26/17429 (1) NSTEMI (non-ST elevation myocardial infarction) (2) Multi-vessel coronary artery stenosis (3) Hypertension (4) Diabetes mellitus Aleksandr Bauman MD May 26, 2017 07:47
[2017-05-26] MEDS: INSULIN ASPART SUPPLEMENTAL SCALE SQ SCH ×4 (08:00→20:26)
[2017-05-26] MEDS: ASPIRIN 81 MG CHEW TAB PO SCH (08:36)
[2017-05-26] MEDS: SODIUM CHLOR 0.9% 1000 ML INJ 1,000 ML IV SCH (08:36)
[2017-05-26] MEDS: PANTOPRAZOLE SODIUM 40 MG VIAL IV PUSH SCH (08:36)
--- NOTE | 2017-05-26 08:55 | HHI.CCPN ---
Subjective Remarks/Hospital Course 66-year-old female with past medical history of Diabetes mellitus, hypertension , hyperlipidemia underwent four-vessel CABG for multivessel coronary disease on May 22, 2017. She postprocedure course was uncomplicated until today a.m. when she became progressively more lethargic, difficult to arouse. Patient has been afebrile, however the white count 22, but ABG shows respiratory alkalosis, CT head negative. 05/25/17: Remains lethargic and hard to arouse, but opens eyes to stimulation but moves all 4 extremities. Do not communicate. Worsening renal function creatinine is 1.8. White count remains elevated at 21,000. On exam has right upper quadrant tenderness stat ultrasound ordered. Also 22 WBC, mostly lymphocytes in CSF. currently on vancomycin and Zosyn, add acyclovir. Consult ID. MRI of the brain pending. I have also added TSH and ammonia levels and lactic acid 05/26/17: MRI brain yesterday showed multiple small embolic strokes involving bilateral cerebral hemispheres, D/W with Dr. Sanders, radiology. No hemophagic conversion. Continue aspirin. Start Lovenox 40 mg subcu daily. Target systolic blood pressure at least 150-160. Clinically improving Objective Vital Signs Date Time Temp Pulse Resp B/P (MAP) Pulse Ox O2 Delivery O2 Flow Rate FiO2 05/26/17 07:32 94 Nasal Cannula 2.00 05/26/17 03:00 84 05/26/17 03:00 98.5 17 138/78 (98) 05/24/17 20:52 21 Intake and Output 05/26/17 05/26/17 05/27/17 08:00 16:00 00:00 Intake Total 1208 ml Output Total 1200 ml Balance 8 ml Result Diagram: 05/26/17 0430 05/26/17 0430 Imaging Last [address] 05/25/17 0000 Signed Impressions: Service Date/Time: Thursday, May 25, 2017 02:07 - CONCLUSION: 1. No acute findings. Chronic white matter ischemic changes. Remote lacunar infarcts bilaterally. Saul Saez MD Objective Remarks GENERAL: Well-nourished, well-developed patient. Mentation improved SKIN: Warm and dry. HEAD: Normocephalic. EYES: No scleral icterus. No injection or drainage. NECK: Supple, trachea midline. No JVD or lymphadenopathy. CARDIOVASCULAR: Regular rate and rhythm without murmurs, gallops, or rubs. Clean wound post sternotomy RESPIRATORY: Breath sounds equal bilaterally. No accessory muscle use. GASTROINTESTINAL: Abdomen soft, Mild RUQ tenderness, without organomegaly MUSCULOSKELETAL: No cyanosis, or edema. BACK: Nontender without obvious deformity. NEURO: More awake and alert oriented to person and place. Moving all 4 extremities. Nonfocal exam A/P Assessment and Plan NEURO: Bilateral multiple smal cerebral emboli Metabolic encephalopathy - MRI of brain yesterday showed multiple bilateral embolic stroke indicating source below carotid bifurcation - Encephalopathy may be secondary to sepsis - LP-CSF at 22 WBC 76 RBC lymphocytic predominant-continue acyclovir until HSV negative - Broad-spectrum antibiotics with vancomycin and Zosyn, add acyclovir until HSV ruled out. NERIS Vanc today - De-escalate per sensitivity and results - ID consulted -TSH ammonia normal - Permissive hypertension at least 150-160 - D/W Dr. Munoz and radiology Dr. Sanders -Continue aspirin 81 mg daily CVS: Coronary artery disease s/p CABG Hypotension-resolved - Status post status post four-vessel CABG 05/22 - Further management by Dr. Navas/CT surgery - Continue aspirin and Lipitor - Permit SBP 150-160 - Normal saline 84 ml per hour - Hold Norvasc, metoprolol, hydralazine GI: Right upper quadrant tenderness - Abdominal gallbladder ultrasound to rule out acute cholecystitis - Continue diet per speech rec, IV famotidine : Acute kidney injury - NS bolus and maintenance as above. Creat and UO improving - Renal ultrasound - Continue Birch for 24 hours, strict intake output ENDO: Diabetes mellitus - Insulin sliding scale ID: Probable sepsis - Continue Zosyn, and acyclovir until HSV encephalitis ruled out, all cultures negative. NERIS Vanc today - Follow up on blood urine and CSF cultures - Consulted ID, Dr. Sanchez has seen DVT GI prophylaxis - Teds SCDs - Start Lovenox 40 mg sq daily - Protonix Critical Care: Level 3 D/W Dr. Bauman, Asia Benitez MD May 26, 2017 08:55
[2017-05-26] MEDS: DOCUSATE SODIUM 50 MG/SENNA 8.6 MG TAB PO SCH ×2 (09:00→20:26)
[2017-05-26] MEDS: MAGNESIUM HYDROXIDE SUSP 30 ML CUP PO SCH (09:00)
[2017-05-26] MEDS: DOCUSATE SODIUM 100 MG CAP PO SCH ×2 (09:00→20:26)
[2017-05-26] MEDS: POTASSIUM CHLORIDE 10 MEQ CONTROLLED RELEASE TAB PO SCH ×2 (09:00→20:26)
[2017-05-26] MEDS: MULTIVITAMINS/MINERALS THERAPEUTIC TAB PO SCH (09:00)
[2017-05-26] MEDS: ENOXAPARIN SODIUM 40 MG/0.4 ML SYRINGE SQ SCH (10:44)
[2017-05-26] MEDS: SODIUM CHLORIDE 0.9% FLUSH 10 ML FLUSH IV FLUSH SCH ×2 (12:35→20:27)
[2017-05-26] MEDS ORDERED: SODIUM CHLORIDE 0.9% IV SCH (13:00)
[2017-05-26] MEDS ORDERED: ACYCLOVIR IV SCH (13:00)
[2017-05-26 13:09] LABS: HSV 1,PCR Negative (Negative)
--- NOTE | 2017-05-26 13:23 | HHI.PR ---
Subjective Remarks oob in chair much better verbal Objective Vital Signs Date Time Temp Pulse Resp B/P (MAP) Pulse Ox O2 Delivery O2 Flow Rate FiO2 05/26/17 08:00 99.0 77 20 145/88 (107) 96 05/26/17 07:32 94 Nasal Cannula 2.00 05/26/17 03:00 84 05/26/17 03:00 98.5 84 17 138/78 (98) 96 05/25/17 23:00 75 05/25/17 23:00 98.6 74 17 130/79 (96) 96 05/25/17 22:30 97 Nasal Cannula 1.00 05/25/17 19:00 98.1 78 18 140/87 (104) 97 05/25/17 19:00 78 05/25/17 15:00 I/O 05/25/17 05/25/17 05/25/17 05/26/17 05/26/17 05/26/17 07:00 15:00 23:00 07:00 15:00 23:00 Intake Total 1400 ml 0 ml 1258 ml Output Total 300 ml 1050 ml 1200 ml Balance 1100 ml -1050 ml 58 ml Intake Oral 100 ml 0 ml 0 ml IV Total 1300 ml 1258 ml Output Urine Total 300 ml 1050 ml 1200 ml # Bowel Movements 1 0 0 Result Diagram: 05/26/1742905/26/17 043 Imaging mri small inf b/l c/w embolic events Objective Remarks awake alert speech slow but not sluured perrla motor intact dtrs 1+ Assessment and Plan Assessment and Plan b/l small infarcts c/w embolic event s/p cabg -ok for asa and lovenox -no a fib seen -PT-OT -ST rehab consult. Estefanía Munoz MD May 26, 2017 13:23
--- NOTE | 2017-05-26 13:59 | HHI.IDPN ---
Subjective Subjective Remarks ID [id number] for Chart reviewed. Ms. Tyler is a 68-year-old black female presented to emergency department with chest pressure, weakness and shortness of breath. The patient was evaluated and found to have a [id number] myocardial infarction. She underwent cardiac catheterization and subsequently she underwent four-vessel bypass, CABG. The patient was then transferred to the floor where she was doing well. However , she developed acute decrease in mentation. He and white blood cell count was increased to 21,000 on 05/23/2017 from 8.6 the previous day. The patient had ambulated and 05/23, on 05/24, she was noted to have altered mental status. CT scan of the head was performed and was negative. Her white blood cell count remained elevated. She was put on broad-spectrum antibiotics. The patient's temperature has remained normal. She had she had elevated blood pressure on admission. Lumbar puncture was performed early this morning and it showed 22 white cells with 94% lymphocytes and 6% neutrophils. The glucose was 70 and a total protein was 36. Blood cultures were taken earlier today. On the CSF Gram stain revealed rare white cells and no organisms. The patient appears to have had some abdominal pain. She ultrasound of the abdomen which shows hepatic enlargement with no focal mass lesion. The gallbladder shows luminal sludge with some gallbladder wall thickening and mild pericholecystic fluid, findings which could represent acute cholecystitis. Moderate sized left pleural effusion was also noted. ID following for AMS post CABG r/o meningoencephalitis. Overnight events reviewed No fevers No rash No diarrhea MRI reviewed. Emboli events reviewed. Has dunlap in place. Antibiotics Zosyn IV Acyclovir IV Lines Line sites with no e.o infection Past Medical History 1. Past medical history of hypertension 2. Hyperlipidemia 3. Diabetes mellitus 4. Umbilical hernia repair 5. Tubal ligation. Allergies: Coded Allergies: No Known Allergies (Verified Allergy, Unknown, 05/17/17) Objective . Vital Signs Date Time Temp Pulse Resp B/P (MAP) Pulse Ox O2 Delivery O2 Flow Rate FiO2 05/26/17 08:00 99.0 77 20 145/88 (107) 96 05/26/17 07:32 94 Nasal Cannula 2.00 05/26/17 03:00 84 05/26/17 03:00 98.5 84 17 138/78 (98) 96 05/25/17 23:00 75 05/25/17 23:00 98.6 74 17 130/79 (96) 96 05/25/17 22:30 97 Nasal Cannula 1.00 05/25/17 19:00 98.1 78 18 140/87 (104) 97 05/25/17 19:00 78 05/25/17 15:00 . Laboratory Tests Test 05/25/17 00:15 05/25/17 15:45 05/26/17 04:30 White Blood Count 21.0 TH/MM3 17.3 TH/MM3 16.4 TH/MM3 Red Blood Count 3.04 MIL/MM3 2.98 MIL/MM3 2.75 MIL/MM3 Hemoglobin 9.0 GM/DL 8.8 GM/DL 8.2 GM/DL Hematocrit 26.3 % 26.1 % 24.2 % Mean Corpuscular Volume 86.4 FL 87.7 FL 88.1 FL Mean Corpuscular Hemoglobin 29.5 PG 29.4 PG 29.7 PG Mean Corpuscular Hemoglobin Concent 34.1 % 33.6 % 33.7 % Red Cell Distribution Width 14.3 % 14.5 % 14.3 % Platelet Count 213 TH/MM3 203 TH/MM3 219 TH/MM3 Mean Platelet Volume 8.6 FL 8.2 FL 7.8 FL Neutrophils (%) (Auto) 77.9 % 81.7 % 79.4 % Lymphocytes (%) (Auto) 11.8 % 10.5 % 12.0 % Monocytes (%) (Auto) 10.2 % 7.6 % 7.9 % Eosinophils (%) (Auto) 0.0 % 0.1 % 0.5 % Basophils (%) (Auto) 0.1 % 0.1 % 0.2 % Neutrophils # (Auto) 16.4 TH/MM3 14.1 TH/MM3 13.0 TH/MM3 Lymphocytes # (Auto) 2.5 TH/MM3 1.8 TH/MM3 2.0 TH/MM3 Monocytes # (Auto) 2.1 TH/MM3 1.3 TH/MM3 1.3 TH/MM3 Eosinophils # (Auto) 0.0 TH/MM3 0.0 TH/MM3 0.1 TH/MM3 Basophils # (Auto) 0.0 TH/MM3 0.0 TH/MM3 0.0 TH/MM3 CBC Comment DIFF FINAL DIFF FINAL DIFF FINAL Differential Comment Laboratory Tests Test 05/25/17 00:15 05/25/17 11:51 05/25/17 15:45 05/26/17 04:30 Blood Urea Nitrogen 39 MG/DL 39 MG/DL 31 MG/DL Creatinine 1.84 MG/DL 1.70 MG/DL 1.52 MG/DL Random Glucose 70 MG/DL 194 MG/DL 88 MG/DL Total Protein 6.4 GM/DL 6.6 GM/DL 6.5 GM/DL Albumin 2.1 GM/DL 2.1 GM/DL 2.0 GM/DL Calcium Level 8.3 MG/DL 7.8 MG/DL 8.5 MG/DL Phosphorus Level 2.6 MG/DL Magnesium Level 2.3 MG/DL 2.3 MG/DL Alkaline Phosphatase 62 U/L 77 U/L 76 U/L Aspartate Amino Transf (AST/SGOT) 92 U/L 168 U/L 107 U/L Alanine Aminotransferase (ALT/SGPT) 20 U/L 61 U/L 48 U/L Total Bilirubin 0.6 MG/DL 0.6 MG/DL 0.5 MG/DL Sodium Level 136 MEQ/L 137 MEQ/L 140 MEQ/L Potassium Level 4.7 MEQ/L 4.5 MEQ/L 4.0 MEQ/L Chloride Level 103 MEQ/L 106 MEQ/L 108 MEQ/L Carbon Dioxide Level 26.4 MEQ/L 19.6 MEQ/L 23.7 MEQ/L Anion Gap 7 MEQ/L 11 MEQ/L 8 MEQ/L Estimat Glomerular Filtration Rate 33 ML/MIN 36 ML/MIN 42 ML/MIN Lactic Acid Level 1.4 mmol/L Ammonia 12 MCMOL/L Thyroid Stimulating Hormone 3rd Gen 2.580 uIU/ML Lipase 109 U/L Microbiology Date/Time Source Procedure Growth Status 05/25/17 04:05 Blood Peripheral Aerobic Blood Culture - Preliminary NO GROWTH IN 1 DAY Resulted 05/25/17 04:05 Blood Peripheral Anaerobic Blood Culture - Preliminary NO GROWTH IN 1 DAY Resulted 05/25/17 03:50 Blood Peripheral Aerobic Blood Culture - Preliminary NO GROWTH IN 1 DAY Resulted 05/25/17 03:50 Blood Peripheral Anaerobic Blood Culture - Preliminary NO GROWTH IN 1 DAY Resulted 05/25/17 02:30 Cerebral Spinal Fluid Lumbar Puncture Fungal Smear - Final NO FUNGAL ELEMENTS SEEN. Resulted 05/25/17 02:30 Cerebral Spinal Fluid Lumbar Puncture Fungal Culture Pending Resulted 05/25/17 02:30 Cerebral Spinal Fluid Lumbar Puncture Acid Fast Stain - Final NO ACID FAST BACILLI SEEN Resulted 05/25/17 02:30 Cerebral Spinal Fluid Lumbar Puncture Mycobacterial Culture Pending Resulted 05/25/17 02:30 Cerebral Spinal Fluid Lumbar Puncture Gram Stain - Final Resulted 05/25/17 02:30 Cerebral Spinal Fluid Lumbar Puncture CSF Culture - Preliminary NO GROWTH IN 24 HOURS. Resulted Imaging Last Impressions Chest X-Ray 05/26/17 0600 Signed Impressions: Service Date/Time: Friday, May 26, 2017 04:32 - CONCLUSION: 1. Mild basilar air space disease in the lungs, slightly worse on the left since May 25. Cardiomegaly. Saul Saez MD Hepatobiliary Scan Nuclear Medicine 05/25/17 0000 Signed Impressions: Service Date/Time: Thursday, May 25, 2017 12:39 - CONCLUSION: Negative for cystic duct or common duct obstruction Taran Hensley MD FACR Head Magnetic Resonance Angiography 05/25/17 0000 Signed Impressions: Service Date/Time: Thursday, May 25, 2017 12:15 - CONCLUSION: Negative for major branch vessel occlusion. Taran Hensley MD FACR Head CT 05/25/17 0000 Signed Impressions: Service Date/Time: Thursday, May 25, 2017 02:07 - CONCLUSION: 1. No acute findings. Chronic white matter ischemic changes. Remote lacunar infarcts bilaterally. Saul Saez MD Brain MRI 05/25/17 0000 Signed Impressions: Service Date/Time: Thursday, May 25, 2017 12:15 - CONCLUSION: Numerous focal areas of hemosiderin deposition in restricted diffusion suggesting an embolic event below the level of the carotid bifurcations. Taran Hensley MD FACR Abdomen Ultrasound 05/25/17 0000 Signed Impressions: Service Date/Time: Thursday, May 25, 2017 08:12 - CONCLUSION: 1. Hepatic enlargement with no focal mass lesion. 2. Gallbladder shows luminal sludge with some gallbladder wall thickening and mild pericholecystic fluid. Findings could represent acute cholecystitis in the appropriate clinical setting. 3. 2 small, 1 cm simple cyst in the lower pole of the right kidney. 4. Moderate size left-sided pleural effusion. 5. Nonvisualization of the pancreas, aorta and IVC do to a large bandage in the midline abdomen Naun Carpio MD Lower Extremity Ultrasound 2/1/18 0000 Signed Impressions: Service Date/Time: May 20:09 - CONCLUSION: Measurements are listed above. The saphenous veins are not visualized at the level of the calves as described above. Rodrigue Dale MD Carotid Artery Ultrasound 05/17/17 0000 Signed Impressions: Service Date/Time: May 19:39 - CONCLUSION: No flow identified within the right vertebral artery. Antegrade flow within the left vertebral artery. No hemodynamically significant stenosis within the carotid arteries bilaterally. Rodrigue Dale MD Physical Exam IN GENERAL: well-developed female who is in no in no acute distress. HEAD, EYES, EARS, NOSE, AND THROAT: NAD gross exam. NECK: Supple without adenopathy. No Jugular venous pulse. LUNGS: Decreased breath sounds at the bases. HEART: Regular rate and rhythm. No audible murmurs, rubs or gallops. CHEST: Surgical site appears intact. There is a sponge at the sternum. Which appears dry. ABDOMEN: Distended, soft, distended, soft, tenderness on palpation. RECTAL: Not performed. EXTREMITIES: No clubbing or cyanosis or edema. SKIN: No rash. NEUROLOGIC: Moves UE and RLE well. Decreased strength LLE. Speech normal. No neck stiffness. PSYCHIATRIC: Cooperative. Assessment & Plan Remarks 1. Acute mental status change in patient status post CABG: embolic event vs Infection. 2. Leukocytosis: can be secondary to embolic event or Acute cholecystitis. 3. Possible acute cholecystitis: Abdominal pain and abnormal abdominal ultrasound. 4. Acute kidney disease. 5. Rule out sepsis. 6. Abnormal LP: elevated Total protein can be post embolic event. HSV 1 and 2 negative. RECOMMENDATIONS Continue piperacillin / tazobactam for possible acute cholecystitis. DC acyclovir IV Follow cultures Follow clinically. glenn Lopez. Will follow prn over the weekend. to resume care on Sunday05/28/2017. Jaylin Rahman MD May 26, 2017 13:59
--- NOTE | 2017-05-26 14:08 | PD.CARD.PN ---
Subjective Subjective Remarks Overall better neurologically Able to move extremities and answer questions well Objective Medications Current Medications Medications (Trade) Dose Ordered Sig/Ori Route Start Time Stop Time Status Last Admin (Atropine Inj) 0.5 mg UNSCH PRN IV PUSH 05/17/17 10:30 (Lipitor) 80 mg HS PO 05/17/17 21:00 05/24/17 20:42 (Narcan Inj) 0.4 mg UNSCH PRN IV PUSH 05/17/17 16:00 ([place] Mary-Colace) 1 tab BID PO 05/17/17 21:00 05/25/17 09:00 (Milk Of Magnesia Liq) 30 ml Q12H PRN PO 05/17/17 16:00 (Senokot) 17.2 mg Q12H PRN PO 05/17/17 16:00 (Dulcolax Supp) 10 mg DAILY PRN RECTAL 05/17/17 16:00 (Lactulose Liq) 30 ml DAILY PRN PO 05/17/17 16:00 (Pill Splitter) 1 ea UNSCH PRN OTHER 05/17/17 20:15 (Apresoline) 10 mg Q6H PRN PO 05/20/17 16:45 (NS Flush) 2 ml BID IV FLUSH 05/22/17 21:00 05/26/17 12:35 (NS Flush) 2 ml UNSCH PRN IV FLUSH 05/22/17 13:30 Albumin Human 250 ml @ 250 mls/hr UNSCH PRN IV 05/22/17 13:30 (Aspirin Chew) 81 mg DAILY PO 05/23/17 09:00 05/26/17 08:36 (Tylenol) 650 mg Q4H PRN PO 05/22/17 13:30 (Zofran Inj) 4 mg Q6H PRN IV PUSH 05/22/17 15:00 (Lopressor Inj) 2.5 mg Q1H PRN IV PUSH 05/22/17 15:00 Potassium Chloride 100 ml @ 50 mls/hr UNSCH PRN IV 05/22/17 15:00 05/22/17 21:51 Potassium Chloride 100 ml @ 50 mls/hr UNSCH PRN IV 05/22/17 15:00 (KCl) 20 meq UNSCH PRN PO 05/22/17 15:00 (KCl) 40 meq UNSCH PRN PO 05/22/17 15:00 Magnesium Sulfate 2 gm/Sodium Chloride 104 ml @ 100 mls/hr UNSCH PRN IV 05/22/17 13:30 Magnesium Sulfate 2 gm/Sodium Chloride 104 ml @ 50 mls/hr UNSCH PRN IV 05/22/17 12:30 Calcium Chloride 1 gm/Sodium Chloride 110 ml @ 100 mls/hr UNSCH PRN IV 05/22/17 12:45 (Calcium Chloride Inj) 0.5 gm UNSCH PRN IV PUSH 05/22/17 13:45 (Sodium Bicarbonate 8.4% Inj) 50 meq UNSCH PRN IV PUSH 05/22/17 14:00 (Sodium Bicarbonate 8.4% Inj) 100 meq UNSCH PRN IV PUSH 05/22/17 14:00 (Duoneb Neb) 1 ampule Q2HR NEB PRN NEB 05/22/17 14:00 (Colace) 100 mg BID PO 05/23/17 21:00 05/24/17 20:42 (Theragran M Tab) 1 tab DAILY PO 05/24/17 09:00 05/24/17 09:03 (Milk Of Magnesia Liq) 30 ml DAILY PO 05/24/17 09:00 05/24/17 09:04 (Dulcolax Supp) 10 mg UNSCH PRN RECTAL 05/23/17 10:27 (KCl) 30 meq Q12HR PO 05/23/17 09:45 05/24/17 09:04 (Apresoline Inj) 10 mg Q30M PRN IV PUSH 05/23/17 14:00 05/23/17 14:06 (Protonix Inj) 40 mg Q24H IV PUSH 05/25/17 09:00 05/26/17 08:36 Sodium Chloride 1,000 ml @ 84 mls/hr [id number] IV 05/25/17 08:15 05/26/17 08:36 Piperacillin Sod/ Tazobactam Sod 50 ml @ 100 mls/hr Q6H IV 05/25/17 17:00 05/26/17 11:03 (Trandate Inj) 10 mg Q4H PRN IV PUSH 05/25/17 21:00 (D50w (Vial) Inj) 50 ml UNSCH PRN IV PUSH 05/25/17 21:15 (Glucagon Inj) 1 mg UNSCH PRN OTHER 05/25/17 21:15 (NovoLOG SUPPLEMENTAL SCALE) 1 ACHS SLIDING SCALE SQ 05/26/17 08:00 (Lovenox Inj) 40 mg Q24H SQ 05/26/17 10:00 05/26/17 10:44 Vital Signs / I&O Vital Signs Date Time Temp Pulse Resp B/P (MAP) Pulse Ox O2 Delivery O2 Flow Rate FiO2 05/26/17 08:00 99.0 77 20 145/88 (107) 96 05/26/17 07:32 94 Nasal Cannula 2.00 05/26/17 03:00 84 05/26/17 03:00 98.5 84 17 138/78 (98) 96 05/25/17 23:00 75 05/25/17 23:00 98.6 74 17 130/79 (96) 96 05/25/17 22:30 97 Nasal Cannula 1.00 05/25/17 19:00 98.1 78 18 140/87 (104) 97 05/25/17 19:00 78 05/25/17 15:00 I/O 05/25/17 05/25/17 05/25/17 05/26/17 05/26/17 05/26/17 07:00 15:00 23:00 07:00 15:00 23:00 Intake Total 1400 ml 0 ml 1258 ml Output Total 300 ml 1050 ml 1200 ml Balance 1100 ml -1050 ml 58 ml Intake Oral 100 ml 0 ml 0 ml IV Total 1300 ml 1258 ml Output Urine Total 300 ml 1050 ml 1200 ml # Bowel Movements 1 0 0 Physical Exam GENERAL: NAD SKIN: Warm and dry. HEAD: Atraumatic. Normocephalic. EYES: Pupils equal and round. No scleral icterus. No injection or drainage. ENT: No nasal bleeding or discharge. Mucous membranes pink and moist. NECK: Trachea midline. No JVD. CARDIOVASCULAR: Regular rate and rhythm. Sternotomy with covering RESPIRATORY: No accessory muscle use. Clear to auscultation. Breath sounds equal bilaterally. GASTROINTESTINAL: Abdomen soft, non-tender, nondistended. Hepatic and splenic margins not palpable. MUSCULOSKELETAL: Extremities without clubbing, cyanosis, or edema. No obvious deformities. Right femoral no hematoma, distal pulses intact NEUROLOGICAL: More awake and able to move all extremities Laboratory Laboratory Tests Test 05/25/17 15:45 05/26/17 04:30 White Blood Count 17.3 TH/MM3 16.4 TH/MM3 Red Blood Count 2.98 MIL/MM3 2.75 MIL/MM3 Hemoglobin 8.8 GM/DL 8.2 GM/DL Hematocrit 26.1 % 24.2 % Mean Corpuscular Volume 87.7 FL 88.1 FL Mean Corpuscular Hemoglobin 29.4 PG 29.7 PG Mean Corpuscular Hemoglobin Concent 33.6 % 33.7 % Red Cell Distribution Width 14.5 % 14.3 % Platelet Count 203 TH/MM3 219 TH/MM3 Mean Platelet Volume 8.2 FL 7.8 FL Neutrophils (%) (Auto) 81.7 % 79.4 % Lymphocytes (%) (Auto) 10.5 % 12.0 % Monocytes (%) (Auto) 7.6 % 7.9 % Eosinophils (%) (Auto) 0.1 % 0.5 % Basophils (%) (Auto) 0.1 % 0.2 % Neutrophils # (Auto) 14.1 TH/MM3 13.0 TH/MM3 Lymphocytes # (Auto) 1.8 TH/MM3 2.0 TH/MM3 Monocytes # (Auto) 1.3 TH/MM3 1.3 TH/MM3 Eosinophils # (Auto) 0.0 TH/MM3 0.1 TH/MM3 Basophils # (Auto) 0.0 TH/MM3 0.0 TH/MM3 CBC Comment DIFF FINAL DIFF FINAL Differential Comment Blood Urea Nitrogen 39 MG/DL 31 MG/DL Creatinine 1.70 MG/DL 1.52 MG/DL Random Glucose 194 MG/DL 88 MG/DL Total Protein 6.6 GM/DL 6.5 GM/DL Albumin 2.1 GM/DL 2.0 GM/DL Calcium Level 7.8 MG/DL 8.5 MG/DL Alkaline Phosphatase 77 U/L 76 U/L Aspartate Amino Transf (AST/SGOT) 168 U/L 107 U/L Alanine Aminotransferase (ALT/SGPT) 61 U/L 48 U/L Total Bilirubin 0.6 MG/DL 0.5 MG/DL Sodium Level 137 MEQ/L 140 MEQ/L Potassium Level 4.5 MEQ/L 4.0 MEQ/L Chloride Level 106 MEQ/L 108 MEQ/L Carbon Dioxide Level 19.6 MEQ/L 23.7 MEQ/L Anion Gap 11 MEQ/L 8 MEQ/L Estimat Glomerular Filtration Rate 36 ML/MIN 42 ML/MIN Lipase 109 U/L Magnesium Level 2.3 MG/DL Random Vancomycin Level 6.2 COMMENT Imaging Last 24 hours Impressions Chest X-Ray 05/26/17 0600 Signed Impressions: Service Date/Time: Sunday, May 26, 2017 04:32 - CONCLUSION: 1. Mild basilar air space disease in the lungs, slightly worse on the left since May 25. Cardiomegaly. Saul Saez MD Assessment and Plan Problem List: (1) NSTEMI (non-ST elevation myocardial infarction) ICD Codes: I21.4 - Non-ST elevation (NSTEMI) myocardial infarction Status: Acute (2) Multi-vessel coronary artery stenosis ICD Codes: I25.10 - Atherosclerotic heart disease of [place] coronary artery without angina pectoris (3) Hypertension ICD Codes: I10 - Essential (primary) hypertension Status: Acute (4) Diabetes mellitus ICD Codes: E11.9 - Type 2 diabetes mellitus without complications Assessment and Plan 1) NSTEMI/CP/MVCAD s/p CABGx4 POD #4 GUDINO to LAD SVG to OM1 SVG to OM4 SVG to RCA Con't ASA/Statin/Plavix/BB/Amio 2) EF 55-60%, mild MR/AR/TR 3) HTN Allow permissive HTN for better neurologic perfusion 4) Neurologic changes MRI with multiple areas, possible embolic Overall appears better neurologically today 5) No Afib noted on telemetry Maxi Biggs DO May 26, 2017 14:08
[2017-05-26] MEDS: ATORVASTATIN 80 MG TAB PO SCH (20:25)
[2017-05-27] VITALS (19 sets, daily range): BP systolic 145–180; BP diastolic 87–91; PULSE 74–98; RESP 16–20; TEMP 97.8–99.1; O2SAT 97–99
[2017-05-27] MEDS: SODIUM CHLOR 0.9% 1000 ML INJ 1,000 ML IV SCH (00:06)
[2017-05-27 00:37] LABS: ENTEROVIRUS PCR RESULT Negative (Negative); ENTEROVIRUS PCR SPEC SOURCE CSF
[2017-05-27] MEDS: PIPERACIL-TAZO 3.375 GM PREMIX 50 ML IV SCH ×4 (06:17→23:13)
--- NOTE | 2017-05-27 07:00 | PD.CAR.PN ---
CVT Progress Note Subjective/Hospital Course: A 66-year-old female presented to the emergency room with chest pressure. She woke up about 04:00 a.m. getting ready for work. She decided to go to work. 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 She has had some associated nausea. She did take a baby aspirin. She thinks she had a stress test about five years ago which was okay. She does not follow with a regular social service director. On her presentation, troponin was found to be 10.1, was ruled in for non STEMI. She had some septal changes in V1-V2, was taken to the quality assurance/r&d lab technician by Dr. Biggs, had left main disease at 10%, proximal LAD 90%, mid distal LAD 90%, diagonal had 20%, circ had 70%, OM 90%, RCA 70%. We were consulted to evaluate for coronary artery bypass grafting. Echocardiogram is pending to evaluate for any valvular disease and for ejection fraction. PAST MEDICAL HISTORY: Recently diagnosed diabetes mellitus, Hypertension, Arthritis, right hand, Chronic back pain, Vertigo 2/2 slight pain last evening , now improved for surgery on 05/2205/23/17 Doing well s/p CABG. No complaints 05/24/17 Doing well, no complaints 05/25/09 Patient developed increasing somnolence since yesterday late afternoon, early evening. Very lethargic this morning. Transferred back to CVICU due to this obvious change in neurologic status. I discussed my concerns with Dr. Spear and he has evaluated her. 05/26 Clinically and neurologically better. less confused and somnolent Appreciate consultants input Further therapy depending upon Neurology recommendations 05/27 Doing well Continued neuro improvement OK to transfer to CPCU from surgical standpoint Objective: Vital Signs Date Time Temp Pulse Resp B/P (MAP) Pulse Ox O2 Delivery O2 Flow Rate FiO2 05/27/17 03:00 74 05/27/17 03:00 99.1 78 16 165/91 (115) 97 05/26/17 23:00 82 05/26/17 23:00 98.8 82 18 149/90 (109) 96 05/26/17 19:40 98 Nasal Cannula 2.00 05/26/17 19:00 99.3 81 18 155/96 (115) 96 05/26/17 19:00 80 05/26/17 16:00 97.9 80 20 161/97 (118) 96 05/26/17 12:00 99.1 80 20 148/87 (107) 96 05/26/17 08:00 99.0 77 20 145/88 (107) 96 05/26/17 07:32 94 Nasal Cannula 2.00 Result Diagram: 05/26/17 0430 05/26/17 0430 (1) NSTEMI (non-ST elevation myocardial infarction) (2) Multi-vessel coronary artery stenosis (3) Hypertension (4) Diabetes mellitus Aleksandr Bauman MD May 27, 2017 07:00
[2017-05-27] MEDS ORDERED: NOREPINEPHRINE-DEXTROSE DRIP 250 ML IV ONE (07:50)
[2017-05-27] MEDS: INSULIN ASPART SUPPLEMENTAL SCALE SQ SCH ×4 (08:00→22:16)
[2017-05-27] MEDS: SODIUM CHLORIDE 0.9% FLUSH 10 ML FLUSH IV FLUSH SCH ×2 (09:00→21:29)
[2017-05-27] MEDS: POTASSIUM CHLORIDE 10 MEQ CONTROLLED RELEASE TAB PO SCH ×2 (09:00→21:29)
[2017-05-27] MEDS: DOCUSATE SODIUM 50 MG/SENNA 8.6 MG TAB PO SCH ×2 (09:00→21:00)
[2017-05-27] MEDS: DOCUSATE SODIUM 100 MG CAP PO SCH ×2 (09:00→21:00)
[2017-05-27 09:12] LABS: HEMATOCRIT 25.7 % (35.0-46.0); HEMOGLOBIN 8.6 GM/DL (11.6-15.3); MEAN CELL VOLUME 88.9 FL (80.0-100.0); MEAN CORPUSCULAR HEMOGLOBIN 29.7 PG (27.0-34.0); MEAN CORPUSCULAR HGB CONC 33.5 % (32.0-36.0); MEAN PLATELET VOLUME 7.9 FL (7.0-11.0); PLATELET COUNT 260 TH/MM3 (150-450); RED CELL DISTRIBUTION WIDTH 14.2 % (11.6-17.2); WHITE BLOOD COUNT 12.4 TH/MM3 (4.0-11.0)
[2017-05-27] MEDS: ASPIRIN 81 MG CHEW TAB PO SCH (09:27)
[2017-05-27] MEDS: MAGNESIUM HYDROXIDE SUSP 30 ML CUP PO SCH (09:27)
[2017-05-27] MEDS: MULTIVITAMINS/MINERALS THERAPEUTIC TAB PO SCH (09:27)
[2017-05-27] MEDS: PANTOPRAZOLE SODIUM 40 MG VIAL IV PUSH SCH (09:27)
[2017-05-27 09:29] LABS: CALCIUM 8.4 MG/DL (8.5-10.1); CREATININE 1.09 MG/DL (0.50-1.00)
[2017-05-27 09:49] LABS: BANDS 1 % (0-6); LYMPHOCYTES 16 % (9-44); MONOCYTES 10 % (0-8); NEUTROPHIL # MANUAL DIFF 9.1 TH/MM3 (1.8-7.7); POLYS (SEG NEUTROPHILS) 72 % (16-70)
[2017-05-27] MEDS: ENOXAPARIN SODIUM 40 MG/0.4 ML SYRINGE SQ SCH (10:09)
--- NOTE | 2017-05-27 12:08 | PD.CARD.PN ---
Subjective Subjective Remarks Overall better neurologically Able to move extremities and answer questions well Objective Medications Current Medications Medications (Trade) Dose Ordered Sig/Ori Route Start Time Stop Time Status Last Admin (Atropine Inj) 0.5 mg UNSCH PRN IV PUSH 05/17/17 10:30 (Lipitor) 80 mg HS PO 05/17/17 21:00 05/26/17 20:25 (Narcan Inj) 0.4 mg UNSCH PRN IV PUSH 05/17/17 16:00 ([place]-Colace) 1 tab BID PO 05/17/17 21:00 05/26/17 20:26 (Milk Of Magnesia Liq) 30 ml Q12H PRN PO 05/17/17 16:00 (Senokot) 17.2 mg Q12H PRN PO 05/17/17 16:00 (Dulcolax Supp) 10 mg DAILY PRN RECTAL 05/17/17 16:00 (Lactulose Liq) 30 ml DAILY PRN PO 05/17/17 16:00 (Pill Splitter) 1 ea UNSCH PRN OTHER 05/17/17 20:15 (Apresoline) 10 mg Q6H PRN PO 05/20/17 16:45 (NS Flush) 2 ml BID IV FLUSH 05/22/17 21:00 05/27/17 09:00 (NS Flush) 2 ml UNSCH PRN IV FLUSH 05/22/17 13:30 Albumin Human 250 ml @ 250 mls/hr UNSCH PRN IV 05/22/17 13:30 (Aspirin Chew) 81 mg DAILY PO 05/23/17 09:00 05/27/17 09:27 (Tylenol) 650 mg Q4H PRN PO 05/22/17 13:30 (Zofran Inj) 4 mg Q6H PRN IV PUSH 05/22/17 15:00 (Lopressor Inj) 2.5 mg Q1H PRN IV PUSH 05/22/17 15:00 Potassium Chloride 100 ml @ 50 mls/hr UNSCH PRN IV 05/22/17 15:00 05/22/17 21:51 Potassium Chloride 100 ml @ 50 mls/hr UNSCH PRN IV 05/22/17 15:00 (KCl) 20 meq UNSCH PRN PO 05/22/17 15:00 (KCl) 40 meq UNSCH PRN PO 05/22/17 15:00 Magnesium Sulfate 2 gm/Sodium Chloride 104 ml @ 100 mls/hr UNSCH PRN IV 05/22/17 13:30 Magnesium Sulfate 2 gm/Sodium Chloride 104 ml @ 50 mls/hr UNSCH PRN IV 05/22/17 12:30 Calcium Chloride 1 gm/Sodium Chloride 110 ml @ 100 mls/hr UNSCH PRN IV 05/22/17 12:45 (Calcium Chloride Inj) 0.5 gm UNSCH PRN IV PUSH 05/22/17 13:45 (Sodium Bicarbonate 8.4% Inj) 50 meq UNSCH PRN IV PUSH 05/22/17 14:00 (Sodium Bicarbonate 8.4% Inj) 100 meq UNSCH PRN IV PUSH 05/22/17 14:00 (Duoneb Neb) 1 ampule Q2HR NEB PRN NEB 05/22/17 14:00 (Colace) 100 mg BID PO 05/23/17 21:00 05/26/17 20:26 (Theragran M Tab) 1 tab DAILY PO 05/24/17 09:00 05/27/17 09:27 (Milk Of Magnesia Liq) 30 ml DAILY PO 05/24/17 09:00 05/27/17 09:27 (Dulcolax Supp) 10 mg UNSCH PRN RECTAL 05/23/17 10:27 (KCl) 30 meq Q12HR PO 05/23/17 09:45 05/26/17 20:26 (Apresoline Inj) 10 mg Q30M PRN IV PUSH 05/23/17 14:00 05/23/17 14:06 (Protonix Inj) 40 mg Q24H IV PUSH 05/25/17 09:00 05/27/17 09:27 Sodium Chloride 1,000 ml @ 30 mls/hr Q24H IV 05/25/17 08:15 05/27/17 00:06 Piperacillin Sod/ Tazobactam Sod 50 ml @ 100 mls/hr Q6H IV 05/25/17 17:00 05/27/17 11:19 (Trandate Inj) 10 mg Q4H PRN IV PUSH 05/25/17 21:00 (D50w (Vial) Inj) 50 ml UNSCH PRN IV PUSH 05/25/17 21:15 (Glucagon Inj) 1 mg UNSCH PRN OTHER 05/25/17 21:15 (NovoLOG SUPPLEMENTAL SCALE) 1 ACHS SLIDING SCALE SQ 05/26/17 08:00 05/26/17 20:26 (Lovenox Inj) 40 mg Q24H SQ 05/26/17 10:00 05/27/17 10:09 Vital Signs / I&O Vital Signs Date Time Temp Pulse Resp B/P (MAP) Pulse Ox O2 Delivery O2 Flow Rate FiO2 05/27/17 11:24 98.3 92 20 145/91 (109) 97 05/27/17 11:23 92 05/27/17 07:50 82 05/27/17 07:43 84 05/27/17 07:40 99.0 82 20 160/89 (112) 97 05/27/17 07:20 98 Nasal Cannula 2.00 05/27/17 03:00 74 05/27/17 03:00 99.1 78 16 165/91 (115) 97 05/26/17 23:00 82 05/26/17 23:00 98.8 82 18 149/90 (109) 96 05/26/17 19:40 98 Nasal Cannula 2.00 05/26/17 19:00 99.3 81 18 155/96 (115) 96 05/26/17 19:00 80 05/26/17 16:00 97.9 80 20 161/97 (118) 96 I/O 05/26/17 05/26/17 05/26/17 05/27/17 05/27/17 05/27/17 07:00 15:00 23:00 07:00 15:00 23:00 Intake Total 1258 ml 200 ml 930 ml 2300 ml Output Total 1200 ml 2600 ml 1700 ml Balance 58 ml -2400 ml -770 ml 2300 ml Intake Oral 0 ml 200 ml 480 ml IV Total 1258 ml 450 ml 2300 ml Output Urine Total 1200 ml 2600 ml 1700 ml # Bowel Movements 0 1 0 Physical Exam GENERAL: NAD SKIN: Warm and dry. HEAD: Atraumatic. Normocephalic. EYES: Pupils equal and round. No scleral icterus. No injection or drainage. ENT: No nasal bleeding or discharge. Mucous membranes pink and moist. NECK: Trachea midline. No JVD. CARDIOVASCULAR: Regular rate and rhythm. Sternotomy with covering RESPIRATORY: No accessory muscle use. Clear to auscultation. Breath sounds equal bilaterally. GASTROINTESTINAL: Abdomen soft, non-tender, nondistended. Hepatic and splenic margins not palpable. MUSCULOSKELETAL: Extremities without clubbing, cyanosis, or edema. No obvious deformities. Right femoral no hematoma, distal pulses intact NEUROLOGICAL: More awake and able to move all extremities Laboratory Laboratory Tests Test 05/27/17 08:00 White Blood Count 12.4 TH/MM3 Red Blood Count 2.90 MIL/MM3 Hemoglobin 8.6 GM/DL Hematocrit 25.7 % Mean Corpuscular Volume 88.9 FL Mean Corpuscular Hemoglobin 29.7 PG Mean Corpuscular Hemoglobin Concent 33.5 % Red Cell Distribution Width 14.2 % Platelet Count 260 TH/MM3 Mean Platelet Volume 7.9 FL CBC Comment AUTO DIFF Differential Total Cells Counted 100 Neutrophils % (Manual) 72 % Band Neutrophils % 1 % Lymphocytes % 16 % Monocytes % 10 % Eosinophils % 1 % Neutrophils # (Manual) 9.1 TH/MM3 Differential Comment FINAL DIFF MANUAL Platelet Estimate NORMAL Platelet Morphology Comment NORMAL Blood Urea Nitrogen 17 MG/DL Creatinine 1.09 MG/DL Random Glucose 102 MG/DL Calcium Level 8.4 MG/DL Sodium Level 139 MEQ/L Potassium Level 4.1 MEQ/L Chloride Level 108 MEQ/L Carbon Dioxide Level 22.0 MEQ/L Anion Gap 9 MEQ/L Estimat Glomerular Filtration Rate 61 ML/MIN Assessment and Plan Problem List: (1) NSTEMI (non-ST elevation myocardial infarction) ICD Codes: I21.4 - Non-ST elevation (NSTEMI) myocardial infarction Status: Acute (2) Multi-vessel coronary artery stenosis ICD Codes: I25.10 - Atherosclerotic heart disease of [place] coronary artery without angina pectoris (3) Hypertension ICD Codes: I10 - Essential (primary) hypertension Status: Acute (4) Diabetes mellitus ICD Codes: E11.9 - Type 2 diabetes mellitus without complications Assessment and Plan 1) NSTEMI/CP/MVCAD s/p CABGx4 POD #5 GUDINO to LAD SVG to OM1 SVG to OM4 SVG to RCA Con't ASA/Statin/Plavix/BB/Amio 2) EF 55-60%, mild MR/AR/TR 3) HTN Allow permissive HTN for better neurologic perfusion 4) Neurologic changes MRI with multiple areas, possible embolic Overall appears better neurologically today 5) No Afib noted on telemetry Maxi Biggs DO May 27, 2017 12:08
--- NOTE | 2017-05-27 12:14 | HHI.CCPN ---
Subjective Remarks/Hospital Course 66-year-old female with past medical history of Diabetes mellitus, hypertension , hyperlipidemia underwent four-vessel CABG for multivessel coronary disease on May 22, 2017. She postprocedure course was uncomplicated until today a.m. when she became progressively more lethargic, difficult to arouse. Patient has been afebrile, however the white count 22, but ABG shows respiratory alkalosis, CT head negative. 05/25/17: Remains lethargic and hard to arouse, but opens eyes to stimulation but moves all 4 extremities. Do not communicate. Worsening renal function creatinine is 1.8. White count remains elevated at 21,000. On exam has right upper quadrant tenderness stat ultrasound ordered. Also 22 WBC, mostly lymphocytes in CSF. currently on vancomycin and Zosyn, add acyclovir. Consult ID. MRI of the brain pending. I have also added TSH and ammonia levels and lactic acid 05/26/17: MRI brain yesterday showed multiple small embolic strokes involving bilateral cerebral hemispheres, D/W with Dr. Sanders, radiology. No hemophagic conversion. Continue aspirin. Start Lovenox 40 mg subcu daily. Target systolic blood pressure at least 150-160. Clinically improving 05/27: Up in the chair, oriented 2 creatinine improved white count trending down. All cultures and HSV negative to date Objective Vital Signs Date Time Temp Pulse Resp B/P (MAP) Pulse Ox O2 Delivery O2 Flow Rate FiO2 05/27/17 12:09 84 05/27/17 11:24 98.3 20 145/91 (109) 97 05/27/17 07:20 Nasal Cannula 2.00 05/24/17 20:52 21 Intake and Output 05/27/17 05/27/17 05/28/17 08:00 16:00 00:00 Intake Total 3230 ml Output Total 1700 ml Balance 1530 ml Result Diagram: 05/27/17 0800 05/27/17 0800 Imaging Last [address] 05/25/17 0000 Signed Impressions: Service Date/Time: Thursday, May 25, 2017 02:07 - CONCLUSION: 1. No acute findings. Chronic white matter ischemic changes. Remote lacunar infarcts bilaterally. Saul Saez MD Objective Remarks GENERAL: Well-nourished, well-developed patient. Mentation improved SKIN: Warm and dry. HEAD: Normocephalic. EYES: No scleral icterus. No injection or drainage. NECK: Supple, trachea midline. No JVD or lymphadenopathy. CARDIOVASCULAR: Regular rate and rhythm without murmurs, gallops, or rubs. Clean wound post sternotomy RESPIRATORY: Breath sounds equal bilaterally. No accessory muscle use. GASTROINTESTINAL: Abdomen soft, Mild RUQ tenderness, without organomegaly MUSCULOSKELETAL: No cyanosis, or edema. BACK: Nontender without obvious deformity. NEURO: Awake and alert oriented to person and place. Moving all 4 extremities. Nonfocal exam A/P Assessment and Plan NEURO: Bilateral multiple small cerebral emboli Metabolic encephalopathy - MRI of brain showed multiple bilateral embolic stroke indicating source below carotid bifurcation - Encephalopathy may be secondary to sepsis - LP-CSF at 22 WBC 76 RBC lymphocytic predominant-HSV negative and acyclovir was stopped - Broad-spectrum antibiotics with Zosyn - ID following -TSH ammonia normal - Permissive hypertension at least 150-160 - D/W Dr. Munoz and radiology Dr. aSnders - Continue aspirin 81 mg daily CVS: Coronary artery disease s/p CABG Hypotension-resolved - Status post status post four-vessel CABG 05/22 - Further management by Dr. Navas/CT surgery - Continue aspirin and Lipitor - Permit SBP 150-160 - Normal saline 30 ml per hour - Hold Norvasc, metoprolol, hydralazine GI: Right upper quadrant tenderness - Abdominal gallbladder ultrasound suggestive of cholecystitis - HIDA scan negative for acute cholecystitis - Continue diet per speech rec, IV famotidine : Acute kidney injury - NS maintenance 30 ml per hour. Creat and UO improving - Renal ultrasound - Continue Birch for 24 hours, strict intake output ENDO: Diabetes mellitus - Insulin sliding scale ID: Probable sepsis - Continue Zosyn, all cultures negative. - Follow up on blood urine and CSF cultures. HSV negative - Consulted ID, Dr. Sanchez has seen DVT GI prophylaxis - Teds SCDs - Lovenox 40 mg sq daily - Protonix Critical Care: Level 2 D/W Dr. Bauman, [facility] Hospitalist consulted to assume care 05/28/17 Asia Rich MD May 27, 2017 12:14
[2017-05-27] MEDS: ATORVASTATIN 80 MG TAB PO SCH (21:29)
[2017-05-28] VITALS (26 sets, daily range): BP systolic 140–183; BP diastolic 73–103; PULSE 67–89; RESP 16–19; TEMP 97.8–99.2; O2SAT 95–97
[2017-05-28 04:02] LABS: CSF CRYPTOCOCCUS AG CONF ND (NOT DETECTD)
[2017-05-28] MEDS: hydrALAZINE HCL 10 MG TAB PO PRN ×2 (05:34→15:42)
[2017-05-28] MEDS: PIPERACIL-TAZO 3.375 GM PREMIX 50 ML IV SCH (05:34)
--- NOTE | 2017-05-28 07:54 | HHI.PR ---
Subjective Remarks She seen a chair. Feels much better. Clear speech. Feels generalized weakness but no motor focal deficit or sensory deficit. No change in vision. Doing fairly well with physical therapy therapy. Denies chest pain or shortness of breath. Feeling tired. No nausea, vomiting, diarrhea or constipation she is able to eat no problems swallowing. Objective Vitals Vital Signs Date Time Temp Pulse Resp B/P (MAP) Pulse Ox O2 Delivery O2 Flow Rate FiO2 05/28/17 06:00 84 05/28/17 04:00 83 05/28/17 03:00 98.1 85 183/100 (127) 96 05/28/17 03:00 84 05/28/17 02:00 80 05/28/17 01:00 78 05/28/17 00:00 80 05/27/17 23:00 94 05/27/17 23:00 98.3 80 167/87 (113) 97 05/27/17 22:00 82 05/27/17 21:03 97 21 05/27/17 21:00 84 05/27/17 20:00 98 05/27/17 19:00 88 05/27/17 19:00 98.3 88 180/90 (120) 97 05/27/17 18:19 87 05/27/17 17:15 82 05/27/17 16:02 83 05/27/17 15:21 84 05/27/17 15:21 97.8 87 18 154/91 (112) 99 05/27/17 14:00 85 05/27/17 13:06 84 05/27/17 12:09 84 05/27/17 11:24 98.3 92 20 145/91 (109) 97 05/27/17 11:23 92 05/27/17 07:50 82 I/O 05/27/17 05/27/17 05/27/17 05/28/17 05/28/17 05/28/17 07:00 15:00 23:00 07:00 15:00 23:00 Intake Total 930 ml 2300 ml 730 ml 460 ml Output Total 1700 ml 1000 ml 1950 ml Balance -770 ml 2300 ml -270 ml -1490 ml Intake Oral 480 ml 440 ml 360 ml IV Total 450 ml 2300 ml 290 ml 100 ml Output Urine Total 1700 ml 1000 ml 1950 ml # Bowel Movements 0 1 3 Result Diagram: 05/27/17 0800 05/27/17 0800 Imaging Last Impressions Chest X-Ray 05/26/17 0600 Signed Impressions: Service Date/Time: Friday, May 26, 2017 04:32 - CONCLUSION: 1. Mild basilar air space disease in the lungs, slightly worse on the left since May 25. Cardiomegaly. Saul Saez MD Hepatobiliary Scan Nuclear Medicine 05/25/17 Signed Impressions: Service Date/Time: Thursday, May 25, 2017 12:39 - CONCLUSION: Negative for cystic duct or common duct obstruction Taran Hensley MD FACR Head Magnetic Resonance Angiography 05/25/17 Signed Impressions: Service Date/Time: Thursday, May 25, 2017 12:15 - CONCLUSION: Negative for major branch vessel occlusion. Taran Hensley MD FACR Head CT 05/25/17 Signed Impressions: Service Date/Time: Thursday, May 25, 2017 02:07 - CONCLUSION: 1. No acute findings. Chronic white matter ischemic changes. Remote lacunar infarcts bilaterally. Saul Saez MD Brain MRI 05/25/17 Signed Impressions: Service Date/Time: Thursday, May 25, 2017 12:15 - CONCLUSION: Numerous focal areas of hemosiderin deposition in restricted diffusion suggesting an embolic event below the level of the carotid bifurcations. Taran Hensley MD FACR Abdomen Ultrasound 05/25/17 Signed Impressions: Service Date/Time: Thursday, May 25, 2017 08:12 - CONCLUSION: 1. Hepatic enlargement with no focal mass lesion. 2. Gallbladder shows luminal sludge with some gallbladder wall thickening and mild pericholecystic fluid. Findings could represent acute cholecystitis in the appropriate clinical setting. 3. 2 small, 1 cm simple cyst in the lower pole of the right kidney. 4. Moderate size left-sided pleural effusion. 5. Nonvisualization of the pancreas, aorta and IVC do to a large bandage in the midline abdomen Naun Carpio MD Lower Extremity Ultrasound 05/17/17 0000 Signed Impressions: Service Date/Time: May 20:09 - CONCLUSION: Measurements are listed above. The saphenous veins are not visualized at the level of the calves as described above. Rodrigue Dale MD Carotid Artery Ultrasound 05/17/17 0000 Signed Impressions: Service Date/Time: May 19:39 - CONCLUSION: No flow identified within the right vertebral artery. Antegrade flow within the left vertebral artery. No hemodynamically significant stenosis within the carotid arteries bilaterally. Rodrigue Dale MD Objective Remarks GENERAL: This is a well-nourished, well-developed patient, in no apparent distress. CARDIOVASCULAR: Mid chest postsurgical scar c/d/i. Regular rate and rhythm without murmurs, gallops, or rubs. RESPIRATORY: Clear to auscultation. Breath sounds equal bilaterally. No wheezes , rales, or rhonchi. GASTROINTESTINAL: Abdomen soft, non-tender, nondistended. No hepato-splenomegaly , or palpable masses. No guarding. MUSCULOSKELETAL: Extremities without clubbing, cyanosis, or edema. No joint tenderness, effusion, or edema noted. No calf tenderness. Negative Homans sign bilaterally. NEUROLOGICAL: Awake and alert. Cranial nerves II through XII intact. Motor and sensory grossly within normal limits. Five out of 5 muscle strength in all muscle groups. Normal speech. A/P Assessment and Plan 66-year-old female admitted secondary to myocardial infarction now status post CABG performed on 05/22/17 Improving. Plan for discharge to home with home health. Labs reviewed. No acute changes. Continue to follow labs. Labs ordered for further monitoring. Chest pain non-ST elevation [place] Status post CABG CABG performed on 05/22/17 Continue pain treatments Pain treatments adjusted Continue postop care Bilateral small infarcts consistent with embolic event Patient is also s/p cabg Dr Munoz neurology following, ok for asa and lovenox PT-OT -ST rehab consult Gen. anxiety disorder Continue Ativan as needed Diabetes mellitus type 2 Follow blood sugars Insulin sliding scale Diabetic diet Hypertension Continue baseline treatment Follow blood pressures Adjust treatments as needed DVT prophylaxis SCDs DC plan : S/P CABG 05/22/17 Discharge when improved and cleared by consultants. Lauren Escobar MD May 28, 2017 07:54
[2017-05-28] MEDS: INSULIN ASPART SUPPLEMENTAL SCALE SQ SCH ×4 (08:00→20:35)
[2017-05-28] MEDS: ASPIRIN 81 MG CHEW TAB PO SCH (08:34)
[2017-05-28] MEDS: MAGNESIUM HYDROXIDE SUSP 30 ML CUP PO SCH (08:35)
[2017-05-28] MEDS: SODIUM CHLORIDE 0.9% FLUSH 10 ML FLUSH IV FLUSH SCH ×2 (08:35→20:38)
[2017-05-28] MEDS: PANTOPRAZOLE SODIUM 40 MG VIAL IV PUSH SCH (08:35)
[2017-05-28] MEDS: POTASSIUM CHLORIDE 10 MEQ CONTROLLED RELEASE TAB PO SCH ×2 (08:35→20:34)
[2017-05-28] MEDS: DOCUSATE SODIUM 100 MG CAP PO SCH ×2 (08:35→20:35)
[2017-05-28] MEDS: DOCUSATE SODIUM 50 MG/SENNA 8.6 MG TAB PO SCH ×2 (08:36→20:35)
[2017-05-28] MEDS: MULTIVITAMINS/MINERALS THERAPEUTIC TAB PO SCH (08:36)
[2017-05-28] MEDS: METOPROLOL TARTRATE 50 MG TAB PO SCH ×2 (09:06→20:34)
[2017-05-28] MEDS: ENOXAPARIN SODIUM 40 MG/0.4 ML SYRINGE SQ SCH (09:06)
[2017-05-28] MEDS ORDERED: ATOR80TA45 PO (09:48)
[2017-05-28] MEDS ORDERED: TRAM50TA PO (09:48)
[2017-05-28] MEDS ORDERED: DOCU1CAP39 PO (09:48)
[2017-05-28] MEDS ORDERED: AMLO10 PO (09:48)
[2017-05-28] MEDS ORDERED: PLAV75TA29 PO (09:48)
[2017-05-28] MEDS ORDERED: ASPI81 PO (09:48)
[2017-05-28] MEDS ORDERED: THERM PO (09:48)
--- NOTE | 2017-05-28 09:57 | HHI.DS ---
Discharge Summary Admission Date May 17, 2017 at 10:19 Discharge Date: May 28, 2017 Admitting Diagnosis NSTEMI CAD Uncontolled DM hyperlipidemia HTN (1) NSTEMI (non-ST elevation myocardial infarction) Diagnosis: Principal ICD Codes: I21.4 - Non-ST elevation (NSTEMI) myocardial infarction Status: Acute (2) Hypertension Diagnosis: Secondary ICD Codes: I10 - Essential (primary) hypertension Status: Acute (3) Multi-vessel coronary artery stenosis Diagnosis: Principal ICD Codes: I25.10 - Atherosclerotic heart disease of [place] coronary artery without angina pectoris (4) Diabetes mellitus Diagnosis: Secondary ICD Codes: E11.9 - Type 2 diabetes mellitus without complications Procedures Left heart cath ECHO CABG Brief History A 66-year-old female presented to the emergency room with chest pressure. She woke up about 04:00 a.m. getting ready for work. She decided to go to work. 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 She has had some associated nausea. She did take a baby aspirin. She thinks she had a stress test about five years ago which was okay. She does not follow with a regular tack maker. On her presentation, troponin was found to be 10.1, was ruled in for non STEMI. She had some septal changes in V1-V2, was taken to the labor operator by Dr. Biggs, had left main disease at 10%, proximal LAD 90%, mid distal LAD 90%, diagonal had 20%, circ had 70%, OM 90%, RCA 70%. We were consulted to evaluate for coronary artery bypass grafting. Echocardiogram is pending to evaluate for any valvular disease and for ejection fraction. PAST MEDICAL HISTORY: Recently diagnosed diabetes mellitus, Hypertension, Arthritis, right hand, Chronic back pain, Vertigo CBC/BMP: 05/27/17 0800 05/27/17 0800 Significant Findings Laboratory Tests Test 05/25/17 11:51 05/25/17 15:45 05/26/17 04:30 05/27/17 08:00 White Blood Count 17.3 TH/MM3 (4.0-11.0) 16.4 TH/MM3 (4.0-11.0) 12.4 TH/MM3 (4.0-11.0) Red Blood Count 2.98 MIL/MM3 (4.00-5.30) 2.75 MIL/MM3 (4.00-5.30) 2.90 MIL/MM3 (4.00-5.30) Hemoglobin 8.8 GM/DL (11.6-15.3) 8.2 GM/DL (11.6-15.3) 8.6 GM/DL (11.6-15.3) Hematocrit 26.1 % (35.0-46.0) 24.2 % (35.0-46.0) 25.7 % (35.0-46.0) Neutrophils (%) (Auto) 81.7 % (16.0-70.0) 79.4 % (16.0-70.0) Neutrophils # (Auto) 14.1 TH/MM3 (1.8-7.7) 13.0 TH/MM3 (1.8-7.7) Monocytes # (Auto) 1.3 TH/MM3 (0-0.9) 1.3 TH/MM3 (0-0.9) Blood Urea Nitrogen 39 MG/DL (7-18) 31 MG/DL (7-18) Creatinine 1.70 MG/DL (0.50-1.00) 1.52 MG/DL (0.50-1.00) 1.09 MG/DL (0.50-1.00) Random Glucose 194 MG/DL (74-106) Albumin 2.1 GM/DL (3.4-5.0) 2.0 GM/DL (3.4-5.0) Calcium Level 7.8 MG/DL (8.5-10.1) 8.4 MG/DL (8.5-10.1) Aspartate Amino Transf (AST/SGOT) 168 U/L (15-37) 107 U/L (15-37) Alanine Aminotransferase (ALT/SGPT) 61 U/L (10-53) Carbon Dioxide Level 19.6 MEQ/L (21.0-32.0) Estimat Glomerular Filtration Rate 36 ML/MIN (>89) 42 ML/MIN (>89) 61 ML/MIN (>89) Chloride Level 108 MEQ/L (98-107) 108 MEQ/L (98-107) Neutrophils % (Manual) 72 % (16-70) Monocytes % 10 % (0-8) Neutrophils # (Manual) 9.1 TH/MM3 (1.8-7.7) Imaging Last Impressions Chest X-Ray 05/26/17 0600 Signed Impressions: Service Date/Time: Friday, May 26, 2017 04:32 - CONCLUSION: 1. Mild basilar air space disease in the lungs, slightly worse on the left since May 25. Cardiomegaly. Saul Saez MD Hepatobiliary Scan Nuclear Medicine 05/25/17 0000 Signed Impressions: Service Date/Time: Thursday, May 25, 2017 12:39 - CONCLUSION: Negative for cystic duct or common duct obstruction Taran Hensley MD FACR Head Magnetic Resonance Angiography 05/25/17 0000 Signed Impressions: Service Date/Time: Thursday, May 25, 2017 12:15 - CONCLUSION: Negative for major branch vessel occlusion. Taran Hensley MD FACR Head CT 05/25/17 0000 Signed Impressions: Service Date/Time: Thursday, May 25, 2017 02:07 - CONCLUSION: 1. No acute findings. Chronic white matter ischemic changes. Remote lacunar infarcts bilaterally. Saul Saez MD Brain MRI 05/25/17 0000 Signed Impressions: Service Date/Time: Thursday, May 25, 2017 12:15 - CONCLUSION: Numerous focal areas of hemosiderin deposition in restricted diffusion suggesting an embolic event below the level of the carotid bifurcations. Taran Hensley MD FACR Abdomen Ultrasound 05/25/17 0000 Signed Impressions: Service Date/Time: Thursday, May 25, 2017 08:12 - CONCLUSION: 1. Hepatic enlargement with no focal mass lesion. 2. Gallbladder shows luminal sludge with some gallbladder wall thickening and mild pericholecystic fluid. Findings could represent acute cholecystitis in the appropriate clinical setting. 3. 2 small, 1 cm simple cyst in the lower pole of the right kidney. 4. Moderate size left-sided pleural effusion. 5. Nonvisualization of the pancreas, aorta and IVC do to a large bandage in the midline abdomen Naun Carpio MD Lower Extremity Ultrasound 05/17/17 0000 Signed Impressions: Service Date/Time: May 20:09 - CONCLUSION: Measurements are listed above. The saphenous veins are not visualized at the level of the calves as described above. Rodrigue Dale MD Carotid Artery Ultrasound 05/17/17 0000 Signed Impressions: Service Date/Time: May 19:39 - CONCLUSION: No flow identified within the right vertebral artery. Antegrade flow within the left vertebral artery. No hemodynamically significant stenosis within the carotid arteries bilaterally. Rodrigue Dale MD PE at Discharge chest - CTA COR - RRR ABD - soft, NT wound - dry and intact Neuro - non-focal Hospital Course 2/ slight pain last evening , now improved for surgery on 05/2205/23/17 Doing well s/p CABG. No complaints 05/24/17 Doing well, no complaints 05/25/09 Patient developed increasing somnolence since yesterday late afternoon, early evening. Very lethargic this morning. Transferred back to [facility] due to this obvious change in neurologic status. I discussed my concerns with Dr. Spear and he has evaluated her. 05/26 Clinically and neurologically better. less confused and somnolent Appreciate consultants input Further therapy depending upon Neurology recommendations 05/27 Doing well Continued neuro improvement OK to transfer to [facility]PCU from surgical standpoint 05/28/17 Neurologic status is back to baseline. Will restart beta barrett and amlodipine with plan for discharge today. Pt Condition on Discharge: Good Discharge Disposition: Disch w/ Home Health Serv Discharge Instructions DIET: Follow Instructions for: Diabetic Diet Activities you can perform: Weight Bearing as Siobhan, Shower Only-No Bath Activities to avoid: Lifting/Bending, Strenuous Activity, Driving Follow up Referrals: Cardiology PCP Follow-up Surgical New Orders: BASIC METABOLIC PROF - 2 Weeks X-RAY CHEST PA & LAT - 2 Weeks New Medications: Clopidogrel (Plavix) 75 Mg Tab 75 MG PO DAILY for Blood Clot Prevention, #30 TAB 3 Refills Tramadol (Tramadol) 50 Mg Tab 50 MG PO Q6H PRN for PAIN, #30 TAB 0 Refills Amlodipine (Norvasc) 10 Mg Tab 10 MG PO DAILY for Blood Pressure Management, #30 TAB 3 Refills Aspirin (Tgt Aspirin) 81 Mg Chw 81 MG PO DAILY for Blood Clot Prevention, #100 EA 3 Refills Atorvastatin (Atorvastatin) 80 Mg Tab 80 MG PO HS for Cholesterol Management, #30 TAB 3 Refills Docusate Sodium (Dok) 100 Mg Cap 100 MG PO BID for Constipation, #28 CAP Multiple Vitamins W/ Minerals (Thera M Plus) 1 Tab 1 TAB PO DAILY for Nutritional Supplement, #100 TAB 2 Refills Continued Medications: Meclizine (Meclizine) 25 Mg Tab 25 MG PO DIRECTED PRN for VERTIGO, #15 TAB 0 Refills Metformin (Metformin) 1,000 Mg Tab 1000 MG PO BIDPC for Blood Sugar Management, #60 TAB 0 Refills With meals Metoprolol Tartrate (Metoprolol Tartrate) 50 Mg Tab 50 MG PO BID, #60 TAB 0 Refills Discontinued Medications: Amlodipine (Norvasc) 5 Mg Tab 5 MG PO DAILY for Blood Pressure Management, #30 TAB 0 Refills Kelly Navas MD May 28, 2017 09:57
--- NOTE | 2017-05-28 15:06 | PD.CARD.PN ---
Subjective Subjective Remarks No problems overnight Objective Medications Current Medications Medications (Trade) Dose Ordered Sig/Ori Route Start Time Stop Time Status Last Admin (Atropine Inj) 0.5 mg UNSCH PRN IV PUSH 05/17/17 10:30 (Lipitor) 80 mg HS PO 05/17/17 21:00 05/27/17 21:29 (Narcan Inj) 0.4 mg UNSCH PRN IV PUSH 05/17/17 16:00 (Rose Mary-Colace) 1 tab BID PO 05/17/17 21:00 05/26/17 20:26 (Milk Of Magnesia Liq) 30 ml Q12H PRN PO 05/17/17 16:00 (Senokot) 17.2 mg Q12H PRN PO 05/17/17 16:00 (Dulcolax Supp) 10 mg DAILY PRN RECTAL 05/17/17 16:00 (Lactulose Liq) 30 ml DAILY PRN PO 05/17/17 16:00 (Pill Splitter) 1 ea UNSCH PRN OTHER 05/17/17 20:15 (Apresoline) 10 mg Q6H PRN PO 05/20/17 16:45 05/28/17 05:34 (NS Flush) 2 ml BID IV FLUSH 05/22/17 21:00 05/28/17 08:35 (NS Flush) 2 ml UNSCH PRN IV FLUSH 05/22/17 13:30 Albumin Human 250 ml @ 250 mls/hr UNSCH PRN IV 05/22/17 13:30 (Aspirin Chew) 81 mg DAILY PO 05/23/17 09:00 05/28/17 08:34 (Tylenol) 650 mg Q4H PRN PO 05/22/17 13:30 (Zofran Inj) 4 mg Q6H PRN IV PUSH 05/22/17 15:00 (Lopressor Inj) 2.5 mg Q1H PRN IV PUSH 05/22/17 15:00 (KCl) 20 meq UNSCH PRN PO 05/22/17 15:00 (KCl) 40 meq UNSCH PRN PO 05/22/17 15:00 Magnesium Sulfate 2 gm/Sodium Chloride 104 ml @ 100 mls/hr UNSCH PRN IV 05/22/17 13:30 Magnesium Sulfate 2 gm/Sodium Chloride 104 ml @ 50 mls/hr UNSCH PRN IV 05/22/17 12:30 Calcium Chloride 1 gm/Sodium Chloride 110 ml @ 100 mls/hr UNSCH PRN IV 05/22/17 12:45 (Calcium Chloride Inj) 0.5 gm UNSCH PRN IV PUSH 05/22/17 13:45 (Sodium Bicarbonate 8.4% Inj) 50 meq UNSCH PRN IV PUSH 05/22/17 14:00 (Sodium Bicarbonate 8.4% Inj) 100 meq UNSCH PRN IV PUSH 05/22/17 14:00 (Duoneb Neb) 1 ampule Q2HR NEB PRN NEB 05/22/17 14:00 (Colace) 100 mg BID PO 05/23/17 21:00 05/26/17 20:26 (Theragran M Tab) 1 tab DAILY PO 05/24/17 09:00 05/28/17 08:36 (Milk Of Magnesia Liq) 30 ml DAILY PO 05/24/17 09:00 05/27/17 09:27 (Dulcolax Supp) 10 mg UNSCH PRN RECTAL 05/23/17 10:27 (KCl) 30 meq Q12HR PO 05/23/17 09:45 05/28/17 08:35 (Apresoline Inj) 10 mg Q30M PRN IV PUSH 05/23/17 14:00 05/23/17 14:06 (Protonix Inj) 40 mg Q24H IV PUSH 05/25/17 09:00 05/28/17 08:35 (D50w (Vial) Inj) 50 ml UNSCH PRN IV PUSH 05/25/17 21:15 (Glucagon Inj) 1 mg UNSCH PRN OTHER 05/25/17 21:15 (NovoLOG SUPPLEMENTAL SCALE) 1 ACHS SLIDING SCALE SQ 05/26/17 08:00 05/28/17 12:27 (Lopressor) 50 mg Q12HR PO 05/28/17 09:00 05/28/17 09:06 (Norvasc) 10 mg DAILY PO 05/28/17 09:00 05/28/17 09:06 Vital Signs / I&O Vital Signs Date Time Temp Pulse Resp B/P (MAP) Pulse Ox O2 Delivery O2 Flow Rate FiO2 05/28/17 14:00 89 05/28/17 13:00 77 05/28/17 12:00 73 05/28/17 11:00 71 05/28/17 11:00 97.8 67 18 157/91 (113) 97 05/28/17 10:00 70 05/28/17 09:54 155/88 (110) 05/28/17 09:00 72 05/28/17 08:00 82 05/28/17 07:38 97 21 05/28/17 07:15 98.2 89 19 161/100 (120) 97 05/28/17 07:15 82 05/28/17 06:00 84 05/28/17 04:00 83 05/28/17 03:00 98.1 85 183/100 (127) 96 05/28/17 03:00 84 05/28/17 02:00 80 05/28/17 01:00 78 05/28/17 00:00 80 05/27/17 23:00 94 05/27/17 23:00 98.3 80 167/87 (113) 97 05/27/17 22:00 82 05/27/17 21:03 97 21 05/27/17 21:00 84 05/27/17 20:00 98 05/27/17 19:00 88 05/27/17 19:00 98.3 88 180/90 (120) 97 05/27/17 18:19 87 05/27/17 17:15 82 05/27/17 16:02 83 05/27/17 15:21 84 05/27/17 15:21 97.8 87 18 154/91 (112) 99 I/O 05/27/17 05/27/17 05/27/17 05/28/17 05/28/17 05/28/17 07:00 15:00 23:00 07:00 15:00 23:00 Intake Total 930 ml 2300 ml 730 ml 460 ml Output Total 1700 ml 1000 ml 1950 ml Balance -770 ml 2300 ml -270 ml -1490 ml Intake Oral 480 ml 440 ml 360 ml IV Total 450 ml 2300 ml 290 ml 100 ml Output Urine Total 1700 ml 1000 ml 1950 ml # Bowel Movements 0 1 3 Physical Exam GENERAL: NAD SKIN: Warm and dry. HEAD: Atraumatic. Normocephalic. EYES: Pupils equal and round. No scleral icterus. No injection or drainage. ENT: No nasal bleeding or discharge. Mucous membranes pink and moist. NECK: Trachea midline. No JVD. CARDIOVASCULAR: Regular rate and rhythm. Sternotomy with covering RESPIRATORY: No accessory muscle use. Clear to auscultation. Breath sounds equal bilaterally. GASTROINTESTINAL: Abdomen soft, non-tender, nondistended. Hepatic and splenic margins not palpable. MUSCULOSKELETAL: Extremities without clubbing, cyanosis, or edema. No obvious deformities. Right femoral no hematoma, distal pulses intact NEUROLOGICAL: More awake and able to move all extremities Assessment and Plan Problem List: (1) NSTEMI (non-ST elevation myocardial infarction) ICD Codes: I21.4 - Non-ST elevation (NSTEMI) myocardial infarction Status: Acute (2) Multi-vessel coronary artery stenosis ICD Codes: I25.10 - Atherosclerotic heart disease of [place] coronary artery without angina pectoris (3) Hypertension ICD Codes: I10 - Essential (primary) hypertension Status: Acute (4) Diabetes mellitus ICD Codes: E11.9 - Type 2 diabetes mellitus without complications Assessment and Plan 1) NSTEMI/CP/MVCAD s/p CABGx4 POD #6 GUDINO to LAD SVG to OM1 SVG to OM4 SVG to RCA Con't ASA/Statin/Plavix/BB/Amio 2) EF 55-60%, mild MR/AR/TR 3) HTN Restarted on cardiac medications 4) Neurologic changes MRI with multiple areas, possible embolic Overall appears better neurologically 5) No Afib noted on telemetry Problem Qualifiers (1) Diabetes mellitus: Qualified Codes: E11.65 - Type 2 diabetes mellitus with hyperglycemia Maxi Biggs DO May 28, 2017 15:06
[2017-05-28] MEDS: ATORVASTATIN 80 MG TAB PO SCH (20:34)
[2017-05-29] VITALS (20 sets, daily range): BP systolic 142–158; BP diastolic 82–97; PULSE 69–88; RESP 18; TEMP 97.9–98.8; O2SAT 95–97
[2017-05-29 05:12] LABS: HEMOGLOBIN 9.6 GM/DL (11.6-15.3); MEAN CELL VOLUME 86.5 FL (80.0-100.0); MEAN CORPUSCULAR HEMOGLOBIN 29.6 PG (27.0-34.0); MEAN CORPUSCULAR HGB CONC 34.2 % (32.0-36.0); MEAN PLATELET VOLUME 7.5 FL (7.0-11.0); PLATELET COUNT 331 TH/MM3 (150-450); RED BLOOD COUNT 3.24 MIL/MM3 (4.00-5.30); RED CELL DISTRIBUTION WIDTH 13.9 % (11.6-17.2)
[2017-05-29] MEDS: INSULIN ASPART SUPPLEMENTAL SCALE SQ SCH ×2 (08:00→12:54)
[2017-05-29] MEDS: SODIUM CHLORIDE 0.9% FLUSH 10 ML FLUSH IV FLUSH SCH (09:00)
[2017-05-29] MEDS: MAGNESIUM HYDROXIDE SUSP 30 ML CUP PO SCH (09:00)
[2017-05-29] MEDS: DOCUSATE SODIUM 100 MG CAP PO SCH (09:00)
[2017-05-29] MEDS: DOCUSATE SODIUM 50 MG/SENNA 8.6 MG TAB PO SCH (09:00)
[2017-05-29] MEDS: POTASSIUM CHLORIDE 10 MEQ CONTROLLED RELEASE TAB PO SCH (09:01)
[2017-05-29] MEDS: PANTOPRAZOLE SODIUM 40 MG VIAL IV PUSH SCH (09:01)
[2017-05-29] MEDS: METOPROLOL TARTRATE 50 MG TAB PO SCH (09:02)
[2017-05-29] MEDS: MULTIVITAMINS/MINERALS THERAPEUTIC TAB PO SCH (09:02)
[2017-05-29] MEDS: ASPIRIN 81 MG CHEW TAB PO SCH (09:02)
--- NOTE | 2017-05-29 09:08 | HHI.DS ---
Discharge Summary Admission Date May 17, 2017 at 10:19 Discharge Date: May 29, 2017 Admitting Diagnosis VA (1) NSTEMI (non-ST elevation myocardial infarction) ICD Code: I21.4 - Non-ST elevation (NSTEMI) myocardial infarction Diagnosis: Principal Status: Acute (2) Hypertension ICD Code: I10 - Essential (primary) hypertension Diagnosis: Secondary Status: Acute (3) Multi-vessel coronary artery stenosis ICD Code: I25.10 - Atherosclerotic heart disease of [place] coronary artery without angina pectoris Diagnosis: Principal (4) Diabetes mellitus ICD Code: E11.9 - Type 2 diabetes mellitus without complications Diagnosis: Secondary Procedures CABG Brief History - From Admission The patient is a very pleasant 66-year-old female with past medical history of hypertension, hyperlipidemia, diabetes mellitus, who came to the emergency room for further evaluation of chest pressure that started early in the morning when she will call at 4:00 in the morning. Patient says she woke up with pressure in her chest and feeling very weak. Associated some shortness of breath. She managed to go to work and symptoms worsen, she took an aspirin while at work and then came for further evaluation to the emergency room. Patient denies associated diaphoresis, nausea, vomiting, diarrhea or constipation. No cough, fever or chills. No urinary complaints. Patient with non-ST elevation VA. The patient was taken to the cardiac catheter by Dr. Biggs and was found with a more than 3 vessel disease, cardiothoracic surgery consulted for possible CABG. CBC/BMP: 05/29/17 0415 05/27/17 0800 Significant Findings Laboratory Tests Test 05/27/17 08:00 05/29/17 04:15 White Blood Count 12.4 TH/MM3 (4.0-11.0) Red Blood Count 2.90 MIL/MM3 (4.00-5.30) 3.24 MIL/MM3 (4.00-5.30) Hemoglobin 8.6 GM/DL (11.6-15.3) 9.6 GM/DL (11.6-15.3) Hematocrit 25.7 % (35.0-46.0) 28.0 % (35.0-46.0) Neutrophils % (Manual) 72 % (16-70) Monocytes % 10 % (0-8) Neutrophils # (Manual) 9.1 TH/MM3 (1.8-7.7) Creatinine 1.09 MG/DL (0.50-1.00) Calcium Level 8.4 MG/DL (8.5-10.1) Chloride Level 108 MEQ/L (98-107) Estimat Glomerular Filtration Rate 61 ML/MIN (>89) Imaging Last Impressions Chest X-Ray 05/26/17 0600 Signed Impressions: Service Date/Time: Friday, May 26, 2017 04:32 - CONCLUSION: 1. Mild basilar air space disease in the lungs, slightly worse on the left since May 25. Cardiomegaly. Saul Saez MD Hepatobiliary Scan Nuclear Medicine 05/25/17 0000 Signed Impressions: Service Date/Time: Thursday, May 25, 2017 12:39 - CONCLUSION: Negative for cystic duct or common duct obstruction Taran Hensley MD FACR Head Magnetic Resonance Angiography 05/25/17 0000 Signed Impressions: Service Date/Time: Thursday, May 25, 2017 12:15 - CONCLUSION: Negative for major branch vessel occlusion. Taran Hensley MD FACR Head CT 05/25/17 0000 Signed Impressions: Service Date/Time: Thursday, May 25, 2017 02:07 - CONCLUSION: 1. No acute findings. Chronic white matter ischemic changes. Remote lacunar infarcts bilaterally. Saul Saez MD Brain MRI 05/25/17 0000 Signed Impressions: Service Date/Time: Thursday, May 25, 2017 12:15 - CONCLUSION: Numerous focal areas of hemosiderin deposition in restricted diffusion suggesting an embolic event below the level of the carotid bifurcations. Taran Hensley MD FACR Abdomen Ultrasound 05/25/17 0000 Signed Impressions: Service Date/Time: Thursday, May 25, 2017 08:12 - CONCLUSION: 1. Hepatic enlargement with no focal mass lesion. 2. Gallbladder shows luminal sludge with some gallbladder wall thickening and mild pericholecystic fluid. Findings could represent acute cholecystitis in the appropriate clinical setting. 3. 2 small, 1 cm simple cyst in the lower pole of the right kidney. 4. Moderate size left-sided pleural effusion. 5. Nonvisualization of the pancreas, aorta and IVC do to a large bandage in the midline abdomen Naun Carpio MD Lower Extremity Ultrasound 05/17/17 0000 Signed Impressions: Service Date/Time: May 20:09 - CONCLUSION: Measurements are listed above. The saphenous veins are not visualized at the level of the calves as described above. Rodrigue Dale MD Carotid Artery Ultrasound 05/17/17 0000 Signed Impressions: Service Date/Time: May 19:39 - CONCLUSION: No flow identified within the right vertebral artery. Antegrade flow within the left vertebral artery. No hemodynamically significant stenosis within the carotid arteries bilaterally. Rodrigue Dale MD PE at Discharge GENERAL: This is a well-nourished, well-developed patient, in no apparent distress. CARDIOVASCULAR: Mid chest postsurgical scar c/d/i. Regular rate and rhythm without murmurs, gallops, or rubs. RESPIRATORY: Clear to auscultation. Breath sounds equal bilaterally. No wheezes , rales, or rhonchi. GASTROINTESTINAL: Abdomen soft, non-tender, nondistended. No hepato-splenomegaly , or palpable masses. No guarding. MUSCULOSKELETAL: Extremities without clubbing, cyanosis, or edema. No joint tenderness, effusion, or edema noted. No calf tenderness. Negative Homans sign bilaterally. NEUROLOGICAL: Awake and alert. Cranial nerves II through XII intact. Motor and sensory grossly within normal limits. Five out of 5 muscle strength in all muscle groups. Normal speech. Pt update on day of discharge The patient is in the chair, she appears in no acute distress. Doing fairly well with physical therapy. Patient says she does not want to go to a rehab. She wants to go home with home health. Also says she has good family support. Denies chest pain or shortness of breath. She is saturating well on room air. No lightheadedness. No new motor or focal deficit. Hospital Course 66-year-old female admitted secondary to myocardial infarction now status post CABG performed on 05/22/17. The course of stay was complicated with small embolic ischemic strokes happened after surgery. PT/OT/ST consulted as well. Recommends rehab however patient wants to go to home with home health. Has a very good family support. The patient improved, she was cleared by cardiology, cardiothoracic surgeon and neurology. She was discharged in stable condition at home with home health. Patient to follow-up with PCP and consultants as outpatient Improving. Plan for discharge to home with home health. Labs reviewed. No acute changes. Continue to follow labs. Labs ordered for further monitoring. Chest pain non-ST elevation VA Status post CABG CABG performed on 05/22/17 Continue pain treatments Pain treatments adjusted Continue postop care Bilateral small infarcts consistent with embolic event Patient is also s/p cabg Dr Munoz neurology following, ok for asa and lovenox PT-OT -ST rehab consult Gen. anxiety disorder Continue Ativan as needed Diabetes mellitus type 2 Follow blood sugars Insulin sliding scale Diabetic diet Hypertension Continue baseline treatment Follow blood pressures Adjust treatments as needed DVT prophylaxis SCDs DC plan : S/P CABG 05/22/17. The course of stay was complicated with small embolic ischemic strokes happened after surgery. PT/OT/ST consulted as well. Recommends rehab however patient wants to go to home with home health. Has a very good family support. The patient improved, she was cleared by cardiology, cardiothoracic surgeon and neurology. She was discharged in stable condition at home with home health. Patient to follow-up with PCP and consultants as outpatient. Pt Condition on Discharge: Good Discharge Disposition: Disch w/ Home Health Serv Discharge Time: > 30 minutes Discharge Instructions DIET: Follow Instructions for: Diabetic Diet Activities you can perform: Weight Bearing as Siobhan, Shower Only-No Bath Activities to Avoid: Lifting/Bending, Strenuous Activity, Driving Follow up Referrals: Cardiology, Interventional - 4 Weeks @ [facility] with Maxi Biggs DO Neurology - 2 Weeks @ [facility] with Estefanía Munoz MD PCP Follow-up - 2 Weeks with CHINMAY Gary M.D [address] [place] [address] Surgical - 2 Weeks with Aneta Hernandez New Orders: BASIC METABOLIC PROF - 2 Weeks X-RAY CHEST PA & LAT - 2 Weeks New Medications: Clopidogrel (Plavix) 75 Mg Tab 75 MG PO DAILY for Blood Clot Prevention, #30 TAB 3 Refills Commode 3-in-1 (Commode 3-in-1) 1 Mis Mis EA .XX DIRECTED, #1 0 Refills Tramadol (Tramadol) 50 Mg Tab 50 MG PO Q6H PRN for PAIN, #30 TAB 0 Refills Walker with Front Wheels (Walker with Front Wheels) 1 Mis Mis EA .XX DIRECTED, #1 0 Refills Amlodipine (Norvasc) 10 Mg Tab 10 MG PO DAILY for Blood Pressure Management, #30 TAB 3 Refills Aspirin (Tgt Aspirin) 81 Mg Chw 81 MG PO DAILY for Blood Clot Prevention, #100 EA 3 Refills Atorvastatin (Atorvastatin) 80 Mg Tab 80 MG PO HS for Cholesterol Management, #30 TAB 3 Refills Docusate Sodium (Dok) 100 Mg Cap 100 MG PO BID for Constipation, #28 CAP Multiple Vitamins W/ Minerals (Thera M Plus) 1 Tab 1 TAB PO DAILY for Nutritional Supplement, #100 TAB 2 Refills Continued Medications: Meclizine (Meclizine) 25 Mg Tab 25 MG PO DIRECTED PRN for VERTIGO, #15 TAB 0 Refills Metformin (Metformin) 1,000 Mg Tab 1000 MG PO BIDPC for Blood Sugar Management, #60 TAB 0 Refills With meals Metoprolol Tartrate (Metoprolol Tartrate) 50 Mg Tab 50 MG PO BID, #60 TAB 0 Refills Discontinued Medications: Amlodipine (Norvasc) 5 Mg Tab 5 MG PO DAILY for Blood Pressure Management, #30 TAB 0 Refills Lauren Escobar MD May 29, 2017 09:08
[2017-05-29] MEDS ORDERED: WALKER WHEELS/F1 MIS (12:24)
[2017-05-29] MEDS ORDERED: COMMODE 3-IN-11 MIS (12:24)
--- NOTE | 2017-05-29 15:25 | PD.CAR.PN ---
CVT Progress Note Subjective/Hospital Course: A 66-year-old female presented to the emergency room with chest pressure. She woke up about 04:00 a.m. getting ready for work. She decided to go to work. 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 She has had some associated nausea. She did take a baby aspirin. She thinks she had a stress test about five years ago which was okay. She does not follow with a regular service employee. On her presentation, troponin was found to be 10.1, was ruled in for non STEMI. She had some septal changes in V1-V2, [facility]. Biggs, had left main disease at 10%, proximal LAD 90%, mid distal LAD 90%, diagonal had 20%, circ had 70%, OM 90%, RCA 70%. We were consulted to evaluate for coronary artery bypass grafting. Echocardiogram is pending to evaluate for any valvular disease and for ejection fraction. PAST MEDICAL HISTORY: Recently diagnosed diabetes mellitus, Hypertension, Arthritis, right hand, Chronic back pain, Vertigo 2/2 slight pain last evening , now improved for surgery on 05/2205/23/17 Doing well s/p CABG. No complaints 05/24/17 Doing well, no complaints 05/25/09 Patient developed increasing somnolence since yesterday late afternoon, early evening. Very lethargic this morning. Transferred back to CVICU due to this obvious change in neurologic status. I discussed my concerns with Dr. Spear and he has evaluated her. 05/26 Clinically and neurologically better. less confused and somnolent Appreciate consultants input Further therapy depending upon Neurology recommendations 05/27 Doing well Continued neuro improvement OK to transfer to CPCU from surgical standpoint 05/29 doing well, prevena removed/ incision intact and well approximated alert and oriented stable for discharge from CVS standpoint Objective: GENERAL: A&O x 3 SKIN: Warm and dry. incision intact to chest , well approximated HEAD: Normocephalic. EYES: No scleral icterus. No injection or drainage. NECK: Supple, trachea midline. No JVD or lymphadenopathy. CARDIOVASCULAR: Regular rate and rhythm without murmurs, gallops, or rubs. RESPIRATORY: Breath sounds equal bilaterally. No accessory muscle use. GASTROINTESTINAL: Abdomen soft, non-tender, nondistended. MUSCULOSKELETAL: No cyanosis, or edema. BACK: Nontender without obvious deformity. No CVA tenderness. Vital Signs Date Time Temp Pulse Resp B/P (MAP) Pulse Ox O2 Delivery O2 Flow Rate FiO2 05/29/17 13:00 76 05/29/17 12:00 76 05/29/17 11:25 98.4 77 18 142/84 (103) 97 05/29/17 11:00 71 05/29/17 10:00 80 05/29/17 09:00 82 05/29/17 08:05 95 21 05/29/17 08:04 97.9 77 18 158/88 (111) 96 05/29/17 08:00 78 05/29/17 07:00 75 05/29/17 06:02 79 05/29/17 05:00 88 05/29/17 04:00 69 05/29/17 03:00 98.8 75 18 158/97 (117) 97 05/29/17 03:00 73 05/29/17 02:18 72 05/29/17 01:00 75 05/29/17 00:00 70 05/28/17 23:00 98.5 70 18 140/73 (95) 96 05/28/17 23:00 67 05/28/17 22:00 68 05/28/17 21:00 71 05/28/17 20:00 82 05/28/17 19:00 99.2 79 16 147/90 (109) 97 05/28/17 19:00 88 05/28/17 18:00 81 05/28/17 17:00 77 05/28/17 16:00 82 05/28/17 15:44 159/91 (113) Labs: Laboratory Tests Test 05/29/17 04:15 White Blood Count 11.0 TH/MM3 (4.0-11.0) Red Blood Count 3.24 MIL/MM3 (4.00-5.30) Hemoglobin 9.6 GM/DL (11.6-15.3) Hematocrit 28.0 % (35.0-46.0) Mean Corpuscular Volume 86.5 FL (80.0-100.0) Mean Corpuscular Hemoglobin 29.6 PG (27.0-34.0) Mean Corpuscular Hemoglobin Concent 34.2 % (32.0-36.0) Red Cell Distribution Width 13.9 % (11.6-17.2) Platelet Count 331 TH/MM3 (150-450) Mean Platelet Volume 7.5 FL (7.0-11.0) Result Diagram: 05/29/17 0415 05/27/17 0800 (1) NSTEMI (non-ST elevation myocardial infarction) (2) Multi-vessel coronary artery stenosis (3) Hypertension (4) Diabetes mellitus (5) S/P CABG (coronary artery bypass graft) Plan: CABG x 4 2/ GUDINO to LAD - fair SVG to RCA - poor SVG to OM4 - good SVG to OM1 - good EVH continue BB , ASA, statin ok for dc home Problem Qualifiers (1) Diabetes mellitus: Qualified Codes: E11.65 - Type 2 diabetes mellitus with hyperglycemia Aneta Hernandez May 29, 2017 15:25
[2017-05-29 17:52] LABS: CSF CRYPTOCOCCUS ANTIGEN NOT DETECTED (NEGATIVE); VDRL CSF NON-REACTIVE (NON-REACTVE)
--- NOTE | 2017-05-29 18:06 | PD.CARD.PN ---
Subjective Subjective Remarks Patient was seen earlier today, late entry No problems overnight Doing well overall Objective Vital Signs / I&O Vital Signs Date Time Temp Pulse Resp B/P (MAP) Pulse Ox O2 Delivery O2 Flow Rate FiO2 05/29/17 16:00 80 05/29/17 16:00 98.3 78 18 142/82 (102) 96 05/29/17 15:00 77 05/29/17 14:00 80 05/29/17 13:00 76 05/29/17 12:00 76 05/29/17 11:25 98.4 77 18 142/84 (103) 97 05/29/17 11:00 71 05/29/17 10:00 80 05/29/17 09:00 82 05/29/17 08:05 95 21 05/29/17 08:04 97.9 77 18 158/88 (111) 96 05/29/17 08:00 78 05/29/17 07:00 75 05/29/17 06:02 79 05/29/17 05:00 88 05/29/17 04:00 69 05/29/17 03:00 98.8 75 18 158/97 (117) 97 05/29/17 03:00 73 05/29/17 02:18 72 05/29/17 01:00 75 05/29/17 00:00 70 05/28/17 23:00 98.5 70 18 140/73 (95) 96 05/28/17 23:00 67 05/28/17 22:00 68 05/28/17 21:00 71 05/28/17 20:00 82 05/28/17 19:00 99.2 79 16 147/90 (109) 97 05/28/17 19:00 88 I/O 05/28/17 05/28/17 05/28/17 05/29/17 05/29/17 05/29/17 07:00 15:00 23:00 07:00 15:00 23:00 Intake Total 460 ml 480 ml 280 ml 700 ml Output Total 1950 ml 600 ml 200 ml 625 ml Balance -1490 ml -120 ml 80 ml 75 ml Intake Oral 360 ml 480 ml 280 ml 700 ml IV Total 100 ml Output Urine Total 1950 ml 600 ml 200 ml 625 ml # Voids 4 # Bowel Movements 3 2 3 1 Physical Exam GENERAL: NAD SKIN: Warm and dry. HEAD: Atraumatic. Normocephalic. EYES: Pupils equal and round. No scleral icterus. No injection or drainage. ENT: No nasal bleeding or discharge. Mucous membranes pink and moist. NECK: Trachea midline. No JVD. CARDIOVASCULAR: Regular rate and rhythm. Sternotomy with covering RESPIRATORY: No accessory muscle use. Clear to auscultation. Breath sounds equal bilaterally. GASTROINTESTINAL: Abdomen soft, non-tender, nondistended. Hepatic and splenic margins not palpable. MUSCULOSKELETAL: Extremities without clubbing, cyanosis, or edema. No obvious deformities. Right femoral no hematoma, distal pulses intact NEUROLOGICAL: More awake and able to move all extremities Laboratory Laboratory Tests Test 05/29/17 04:15 White Blood Count 11.0 TH/MM3 Red Blood Count 3.24 MIL/MM3 Hemoglobin 9.6 GM/DL Hematocrit 28.0 % Mean Corpuscular Volume 86.5 FL Mean Corpuscular Hemoglobin 29.6 PG Mean Corpuscular Hemoglobin Concent 34.2 % Red Cell Distribution Width 13.9 % Platelet Count 331 TH/MM3 Mean Platelet Volume 7.5 FL Assessment and Plan Problem List: (1) NSTEMI (non-ST elevation myocardial infarction) ICD Codes: I21.4 - Non-ST elevation (NSTEMI) myocardial infarction Status: Acute (2) Multi-vessel coronary artery stenosis ICD Codes: I25.10 - Atherosclerotic heart disease of [place] coronary artery without angina pectoris (3) Hypertension ICD Codes: I10 - Essential (primary) hypertension Status: Acute (4) Diabetes mellitus ICD Codes: E11.9 - Type 2 diabetes mellitus without complications (5) S/P CABG (coronary artery bypass graft) ICD Codes: Z95.1 - Presence of aortocoronary bypass graft Assessment and Plan 1) NSTEMI/CP/MVCAD s/p CABGx4 POD #7 GUDINO to LAD SVG to OM1 SVG to OM4 SVG to RCA Con't ASA/Statin/Plavix/BB/Amio 2) EF 55-60%, mild MR/AR/TR 3) HTN Restarted on cardiac medications 4) Neurologic changes MRI with multiple areas, possible embolic Overall appears better neurologically 5) No Afib noted on telemetry 6) Planning on home PT 7) Planned discharge today Problem Qualifiers (1) Diabetes mellitus: Qualified Codes: E11.65 - Type 2 diabetes mellitus with hyperglycemia Maxi Biggs DO May 29, 2017 18:06
== END 2017-05-29 17:30 | disposition home health service (06) | DRG 233 ==
LOC: NEPE 08:32 → HDIC 10:19 → HCPC 18:40 → HCIS 05-22 07:30 → HCVI 05-22 12:40 → HCPC 05-23 15:15 → HCVI 05-24 23:34 → HCPC 05-27 12:00
PROVIDERS: ADMIT Hospitalist; ATTEND Hospitalist
PROC: 4A023N7 Measurement of Cardiac Sampling and Pressure, Left Heart, Percutaneous Approach (ICD-10-PCS; 2017-05-17)
PROC: B2111ZZ Fluoroscopy of Multiple Coronary Arteries using Low Osmolar Contrast (ICD-10-PCS; 2017-05-17)
PROC: 30233N1 Transfusion of Nonautologous Red Blood Cells into Peripheral Vein, Percutaneous Approach (ICD-10-PCS; 2017-05-17)
PROC: 3E0F7GC Introduction of Other Therapeutic Substance into Respiratory Tract, Via Natural or Artificial Opening (ICD-10-PCS; 2017-05-17)
PROC: 5A1935Z Respiratory Ventilation, Less than 24 Consecutive Hours (ICD-10-PCS; 2017-05-22)
PROC: 021209W Bypass Coronary Artery, Three Arteries from Aorta with Autologous Venous Tissue, Open Approach (ICD-10-PCS; 2017-05-22)
PROC: 06BQ4ZZ Excision of Left Saphenous Vein, Percutaneous Endoscopic Approach (ICD-10-PCS; 2017-05-22)
PROC: 5A1221Z Performance of Cardiac Output, Continuous (ICD-10-PCS; 2017-05-22)
PROC: B246ZZ4 Ultrasonography of Right and Left Heart, Transesophageal (ICD-10-PCS; 2017-05-22)
PROC: 02100Z9 Bypass Coronary Artery, One Artery from Left Internal Mammary, Open Approach (ICD-10-PCS; principal; 2017-05-22 07:30)
PROC: 009U3ZX Drainage of Spinal Canal, Percutaneous Approach, Diagnostic (ICD-10-PCS; 2017-05-25)
DX: I21.4 Non-ST elevation (NSTEMI) myocardial infarction (principal); I63.40 Cerebral infarction due to embolism of unspecified cerebral artery; N17.9 Acute kidney failure, unspecified; J90 Pleural effusion, not elsewhere classified; E87.3 Alkalosis; E11.65 Type 2 diabetes mellitus with hyperglycemia; I10 Essential (primary) hypertension; I25.10 Atherosclerotic heart disease of native coronary artery without angina pectoris; M10.9 Gout, unspecified; G43.909 Migraine, unspecified, not intractable, without status migrainosus; M19.041 Primary osteoarthritis, right hand; M54.9 Dorsalgia, unspecified; G89.29 Other chronic pain; E78.5 Hyperlipidemia, unspecified; F41.9 Anxiety disorder, unspecified; Z79.84 Long term (current) use of oral hypoglycemic drugs; Z83.3 Family history of diabetes mellitus; Z82.49 Family history of ischemic heart disease and other diseases of the circulatory system; Z80.9 Family history of malignant neoplasm, unspecified
CPT/HCPCS: 36430; 36600; 70450; 70544; 70551; 71045; 76700; 76937; 78227; 80048; 80053; 80202; 81001; 82140; 82308; 82550; 82552; 82805; 82945; 82948; 83036; 83605; 83615; 83690; 83735; 83880; 84100; 84157; 84443; 84484; 85007; 85025; 85027; 85610; 85730; 86403; 86592; 86850; 86900; 86901; 86920; 87015; 87040; 87070; 87102; 87116; 87205; 87206; 87498; 87529; 87641; 89051; 93005; 93306; 93308; 93318; 93458; 93880; 93970; 93998; 94002; 94010; 94150; 94640; 94664; 94667; 94668; 95819; A9537; C1769; C1893; C9113; C9248; J0131; J0133; J0171; J0360; J0461; J0690; J1644; J1650; J1815; J1817; J1940; J2150; J2250; J2370; J2440; J2543; J2720; J2805; J2930; J3010; J3370; J3475; J3480; J7030; J7040; J7050; P9016; P9047; Q9967